=== PATIENT | female | born 1935 | race Caucasian/White ===

== ENCOUNTER → 2018-03-23 09:03 | Outpatient (CLI) | payer MEDICARE, SELFPAY ==
[2018-03-23 10:32] LABS: Alanine Aminotransferase 28 IU/L (9-52); Albumin 4.2 g/dL (3.5-5.0); Albumin Globulin Ratio 1.6 (1.0-2.8); Alkaline Phosphatase 52 U/L (38-126); Aspartate Aminotransferase 24 IU/L (14-36); Bilirubin Total 0.8 mg/dL (0.2-1.3); Blood Urea Nitrogen 14 mg/dL (7-17); Calcium 9.2 mg/dL (8.4-10.2); Carbon Dioxide 26 mmol/L (22-32); Chloride 101 mmol/L (98-107); Estimated Glomerular Filt Rate > 60.0 mL/min (>60); Globulin 2.7 g/dL (1.7-4.1); Glucose 92 mg/dL (80-110); HEMOLYSIS < 15 (0-50); Magnesium 1.7 mg/dL (1.6-2.3); Potassium 5.3 mmol/L (3.4-5.1); Sodium 136 mmol/L (137-145); Total Protein 6.9 g/dL (6.3-8.2)
[2018-03-27 09:48] LABS: Lipoprofile NMR SEE SEPERATE REPORT
== END ==
PROVIDERS: Family Provider Physician Assistant; PCP Physician Assistant; Visit Provider Specialist
DX: E78.5 Hyperlipidemia, unspecified (principal); I48.0 Paroxysmal atrial fibrillation
CPT/HCPCS: 36415; 80053; 83704; 83735

== ENCOUNTER → 2018-07-05 09:52 | Outpatient (CLI) | payer MEDICARE, SELFPAY ==
--- NOTE | 2018-07-05 | DI.MG.S_ITS ---
BILATERAL DIGITAL SCREENING MAMMOGRAM 3D/2D WITH CAD: 07/05/2018 CLINICAL: Routine screening. Comparison is made to exams dated: 07/01/2017 mammogram, 06/30/2016 mammogram, and 06/30/2015 mammogram - [facility]. The tissue of both breasts is heterogeneously dense. This may lower the sensitivity of mammography. Current study was also evaluated with a Computer Aided Detection (CAD) system. There are benign vascular calcifications and calcifications in both breasts. No significant masses, calcifications, or other findings are seen in either breast. There has been no significant interval change. IMPRESSION: There is no mammographic evidence of malignancy. A 1 year screening mammogram is recommended. This exam was interpreted at Station ID: [id number]. NOTE: For mammograms, a report in lay terms will be sent to the patient. Approximately 15% of breast malignancies will not be visualized mammographically. In the management of a palpable breast mass, a negative mammogram must not discourage biopsy of a clinically suspicious lesion. Electronically Signed By: Olga muller/melisa:07/05/2018 11:25:51 copy to: Kristy Peterson copy to: NIK MILLER letter sent: Normal Exam ACR BI-RADS Category 2: Benign Finding(s) 3342F
== END ==
PROVIDERS: Family Provider Nurse Practitioner Family; PCP Physician Assistant; Visit Provider Physician Assistant
DX: Z12.31 Encounter for screening mammogram for malignant neoplasm of breast (principal)
CPT/HCPCS: 77063; 77067

== ENCOUNTER → 2018-07-26 15:44 | Outpatient (CLI) | payer MEDICARE, SELFPAY ==
[2018-07-26 16:47] LABS: Blood Urea Nitrogen 12 mg/dL (7-17); Calcium 9.1 mg/dL (8.4-10.2); Carbon Dioxide 26 mmol/L (22-32); Chloride 100 mmol/L (98-107); Estimated Glomerular Filt Rate > 60.0 mL/min (>60); Glucose 90 mg/dL (80-110); HEMOLYSIS < 15 (0-50); Magnesium 1.8 mg/dL (1.6-2.3); Potassium 4.7 mmol/L (3.4-5.1); Sodium 135 mmol/L (137-145)
== END ==
PROVIDERS: Family Provider Nurse Practitioner Family; PCP Physician Assistant; Visit Provider Specialist
DX: I48.0 Paroxysmal atrial fibrillation (principal)
CPT/HCPCS: 36415; 80048; 83735

== ENCOUNTER → 2019-06-28 14:38 | Outpatient (CLI) | payer MEDICARE, SELFPAY ==
[2019-06-28 15:14] LABS: BUN Creatinine Ratio 23.2 (6-22); Blood Urea Nitrogen 13 mg/dL (7-17); Calcium 8.8 mg/dL (8.4-10.2); Carbon Dioxide 24 mmol/L (22-32); Chloride 99 mmol/L (98-107); Estimated Glomerular Filt Rate > 60.0 mL/min (>60); Glucose 120 mg/dL (80-110); Potassium 4.6 mmol/L (3.4-5.1); Sodium 133 mmol/L (137-145)
[2019-07-02 14:52] LABS: HEMOLYSIS 19 (0-50); Magnesium 1.9 mg/dL (1.6-2.3)
== END ==
PROVIDERS: Family Provider Nurse Practitioner Family; PCP Physician Assistant; Referring Provider Physician Assistant Medical; Visit Provider Physician Assistant Medical
DX: I10 Essential (primary) hypertension (principal)
CPT/HCPCS: 36415; 80048; 83735

== ENCOUNTER → 2019-09-01 08:14 | Outpatient (CLI) | payer MEDICARE, SELFPAY ==
[2019-09-01 09:42] LABS: Alanine Aminotransferase 23 IU/L (<35); Albumin 4.2 g/dL (3.5-5.0); Albumin Globulin Ratio 1.4 (1.0-2.8); Alkaline Phosphatase 46 U/L (38-126); Aspartate Aminotransferase 29 IU/L (14-36); BUN Creatinine Ratio 18.8 (6-22); Bilirubin Total 0.7 mg/dL (0.2-1.3); Blood Urea Nitrogen 12 mg/dL (7-17); Calcium 9.2 mg/dL (8.4-10.2); Carbon Dioxide 28 mmol/L (22-32); Chloride 99 mmol/L (98-107); Cholesterol 129 mg/dL (140-199); Estimated Glomerular Filt Rate > 60.0 mL/min (>60); Glucose 97 mg/dL (80-110); HDL Cholesterol 42 mg/dL (40-60); HEMOLYSIS < 15 (0-50); LDL Cholesterol Calculated 69 mg/dL (<100); Magnesium 1.9 mg/dL (1.6-2.3); Potassium 4.8 mmol/L (3.4-5.1); Sodium 134 mmol/L (137-145); Total Protein 7.2 g/dL (6.3-8.2); Triglycerides 88 mg/dL (35-150)
== END ==
PROVIDERS: Family Provider Nurse Practitioner Family; PCP Physician Assistant; Referring Provider Specialist; Visit Provider Specialist
DX: E78.5 Hyperlipidemia, unspecified (principal); I48.0 Paroxysmal atrial fibrillation
CPT/HCPCS: 36415; 80053; 80061; 83735

== ENCOUNTER → 2019-09-27 12:34 | Outpatient (CLI) | payer MEDICARE, SELFPAY ==
--- NOTE | 2019-09-27 | DI.US.S_ITS ---
PROCEDURE: US CAROTID DOPPLER BI INDICATIONS: RETUNAL HEMORRHAGE TECHNIQUE: Color and pulse Doppler interrogation was performed of both carotid systems, with image documentation and velocity measurements. COMPARISON: None. FINDINGS: Stenosis calculations are based on SRU (Society of Radiologists in Ultrasound) criteria. Right side: Brachial blood pressure: Not obtained. Common carotid artery peak systolic velocity: 81 cm/sec. Internal carotid artery peak systolic velocity: 103 cm/sec. Internal carotid artery end diastolic velocity: 15 cm/sec. External carotid artery peak systolic velocity: 118 cm/sec. ICA/CCA peak systolic ratio: 1.3. Contreras scale imaging description: Mild scattered plaque. Percent internal carotid artery stenosis: Less than 50%. Vertebral artery: Flow direction is antegrade. Left side: Brachial blood pressure: Not obtained. Common carotid artery peak systolic velocity: 74 cm/sec. Internal carotid artery peak systolic velocity: 132 cm/sec. Internal carotid artery end diastolic velocity: 43 cm/sec. External carotid artery peak systolic velocity: 89 cm/sec. ICA/CCA peak systolic ratio: 1.8. Contreras scale imaging description: Mild scattered plaque. Percent internal carotid artery stenosis: 50-69% stenosis. Vertebral artery: Flow direction is antegrade. IMPRESSION: 1. 50-69% left internal carotid artery stenosis and less than 50% right internal carotid artery stenosis. Dictated by: Duran Parson [facility] Interpreted: Tu Bermeo MD on 09/27/2019 at 13:41 Approved by: Tu Bermeo M.D. on 09/27/2019 at 15:26
== END ==
PROVIDERS: Family Provider Nurse Practitioner Family; PCP Physician Assistant Medical; Referring Provider Specialist; Visit Provider Specialist
DX: H35.60 Retinal hemorrhage, unspecified eye (principal); I65.23 Occlusion and stenosis of bilateral carotid arteries
CPT/HCPCS: 93880

== ENCOUNTER → 2020-04-01 07:44 | Outpatient (CLI) | payer MEDICARE, SELFPAY ==
[2020-04-01 09:05] LABS: BUN Creatinine Ratio 21.9 (6-22); Blood Urea Nitrogen 16 mg/dL (7-17); Calcium 8.4 mg/dL (8.4-10.2); Carbon Dioxide 29 mmol/L (22-32); Chloride 100 mmol/L (98-107); Estimated Glomerular Filt Rate > 60.0 mL/min (>60); Glucose 95 mg/dL (80-110); HEMOLYSIS < 15 (0-50); Magnesium 1.8 mg/dL (1.6-2.3); Potassium 4.6 mmol/L (3.4-5.1); Sodium 132 mmol/L (137-145)
== END ==
PROVIDERS: Family Provider Nurse Practitioner Family; PCP Nurse Practitioner Family; Referring Provider Nurse Practitioner Family; Visit Provider Specialist
DX: R06.00 Dyspnea, unspecified (principal); I25.5 Ischemic cardiomyopathy
CPT/HCPCS: 36415; 80048; 83735

== ENCOUNTER → 2020-04-22 08:10 | Outpatient (CLI) | payer MEDICARE, SELFPAY ==
[2020-04-22 09:39] LABS: Magnesium 1.9 mg/dL (1.6-2.3)
[2020-04-22 10:27] LABS: Thyroid Stimulating Hormone 5.17 uIU/mL (0.47-4.68)
[2020-04-23 08:42] LABS: Alanine Aminotransferase 61 IU/L (<35); Albumin 3.7 g/dL (3.5-5.0); Albumin Globulin Ratio 1.4 (1.0-2.8); Alkaline Phosphatase 52 U/L (38-126); Aspartate Aminotransferase 46 IU/L (14-36); BUN Creatinine Ratio 19.2 (6-22); Bilirubin Total 0.7 mg/dL (0.2-1.3); Blood Urea Nitrogen 15 mg/dL (7-17); Calcium 8.6 mg/dL (8.4-10.2); Carbon Dioxide 30 mmol/L (22-32); Chloride 100 mmol/L (98-107); Estimated Glomerular Filt Rate > 60.0 mL/min (>60); Globulin 2.7 g/dL (1.7-4.1); Glucose 97 mg/dL (80-110); HEMOLYSIS < 15 (0-50); Potassium 4.9 mmol/L (3.4-5.1); Sodium 132 mmol/L (137-145); Total Protein 6.4 g/dL (6.3-8.2)
== END ==
PROVIDERS: Family Provider Nurse Practitioner Family; PCP Nurse Practitioner Family; Referring Provider Specialist; Visit Provider Specialist
DX: E78.00 Pure hypercholesterolemia, unspecified (principal); I48.0 Paroxysmal atrial fibrillation; I42.1 Obstructive hypertrophic cardiomyopathy
CPT/HCPCS: 36415; 80053; 83735; 84443

== ENCOUNTER → 2020-05-13 07:15 | Outpatient (CLI) | payer MEDICARE, SELFPAY ==
[2020-05-13 08:51] LABS: Alanine Aminotransferase 45 IU/L (<35); Albumin 4.1 g/dL (3.5-5.0); Albumin Globulin Ratio 1.4 (1.0-2.8); Alkaline Phosphatase 48 U/L (38-126); Aspartate Aminotransferase 38 IU/L (14-36); BUN Creatinine Ratio 21.7 (6-22); Bilirubin Total 0.6 mg/dL (0.2-1.3); Blood Urea Nitrogen 15 mg/dL (7-17); Calcium 8.7 mg/dL (8.4-10.2); Carbon Dioxide 29 mmol/L (22-32); Chloride 98 mmol/L (98-107); Estimated Glomerular Filt Rate > 60.0 mL/min (>60); Globulin 2.9 g/dL (1.7-4.1); Glucose 97 mg/dL (80-110); HEMOLYSIS < 15 (0-50); Potassium 4.3 mmol/L (3.4-5.1); Sodium 131 mmol/L (137-145)
[2020-05-13 09:16] LABS: Thyroid Stimulating Hormone 6.93 uIU/mL (0.47-4.68)
== END ==
PROVIDERS: Family Provider Nurse Practitioner Family; PCP Nurse Practitioner Family; Referring Provider Specialist; Visit Provider Specialist
DX: I48.0 Paroxysmal atrial fibrillation (principal)
CPT/HCPCS: 36415; 80053; 83735; 84443

== ENCOUNTER → 2020-07-01 08:06 | Outpatient (CLI) | payer MEDICARE, SELFPAY ==
[2020-07-01 09:58] LABS: Alanine Aminotransferase 38 IU/L (<35); Albumin 3.8 g/dL (3.5-5.0); Albumin Globulin Ratio 1.4 (1.0-2.8); Alkaline Phosphatase 57 U/L (38-126); Aspartate Aminotransferase 37 IU/L (14-36); BUN Creatinine Ratio 17.1 (6-22); Bilirubin Total 0.4 mg/dL (0.2-1.3); Blood Urea Nitrogen 12 mg/dL (7-17); Calcium 8.8 mg/dL (8.4-10.2); Carbon Dioxide 29 mmol/L (22-32); Chloride 96 mmol/L (98-107); Estimated Glomerular Filt Rate > 60.0 mL/min (>60); Globulin 2.7 g/dL (1.7-4.1); Glucose 88 mg/dL (80-110); HEMOLYSIS < 15 (0-50); Potassium 4.8 mmol/L (3.4-5.1); Sodium 132 mmol/L (137-145); Total Protein 6.5 g/dL (6.3-8.2)
[2020-07-01 10:02] LABS: Alanine Aminotransferase 38 IU/L (<35); Albumin 3.9 g/dL (3.5-5.0); Albumin Globulin Ratio 1.4 (1.0-2.8); Alkaline Phosphatase 55 U/L (38-126); Aspartate Aminotransferase 38 IU/L (14-36); Bilirubin Total 0.5 mg/dL (0.2-1.3); Bilirubin Unconjugated 0.5 mg/dL (0.0-1.1); Globulin 2.7 g/dL (1.7-4.1); HEMOLYSIS < 15 (0-50); Total Protein 6.6 g/dL (6.3-8.2)
[2020-07-01 10:28] LABS: TSH w/ Reflex to FT4 6.07 uIU/mL (0.47-4.68)
[2020-07-01 10:57] LABS: Free T4, Direct Thyroxine 1.05 ng/dL (0.78-2.19)
== END ==
PROVIDERS: Family Provider Nurse Practitioner Family; PCP Nurse Practitioner Family; Referring Provider Specialist; Visit Provider Specialist
DX: E78.00 Pure hypercholesterolemia, unspecified (principal); I48.0 Paroxysmal atrial fibrillation; R79.89 Other specified abnormal findings of blood chemistry; R74.8 Abnormal levels of other serum enzymes
CPT/HCPCS: 36415; 80053; 80076; 83735; 84439; 84443

== ENCOUNTER → 2020-08-26 16:44 | Outpatient (CLI) | payer MEDICARE, SELFPAY ==
[2020-08-26 18:51] LABS: Free T4, Direct Thyroxine 1.52 ng/dL (0.78-2.19)
[2020-08-26 19:05] LABS: Thyroid Stimulating Hormone 2.43 uIU/mL (0.47-4.68)
== END ==
PROVIDERS: Family Provider Nurse Practitioner Family; PCP Nurse Practitioner Family; Referring Provider Family Medicine; Visit Provider Family Medicine
DX: E03.9 Hypothyroidism, unspecified (principal)
CPT/HCPCS: 36415; 84439; 84443

== ENCOUNTER 2020-10-11 19:07 | Emergency (ER) | payer MEDICARE, SELFPAY ==
[2020-10-11 19:35] VITALS: BP 182/79; PULSE 60; RESP 18; TEMP 36.4; O2SAT 96; BMI 25.2
--- NOTE | 2020-10-11 22:06 | ED.GENADULT ---
HPI - General Adult General Chief complaint: Eye Problems Stated complaint: lt eye irritation Time Seen by Provider: 10/11/20 21:58 Source: patient Mode of arrival: Ambulatory Limitations: no limitations History of Present Illness HPI narrative: Patient is an 85-year-old female here for evaluation of left eye irritation. States she has never had surgery on this signed the past. Over the past 24 hours or so she has noticed redness especially on her left upper eyelid irritation with this area. No change in vision. Has not tried anything for symptoms prior to arrival Related Data Home Medications Medication Instructions Recorded Confirmed metoprolol succinate 25 mg 25 mg PO DAILY 08/04/17 08/26/20 tablet,extended release 24 hr apixaban 5 mg tablet (Eliquis) 5 mg PO BID 08/22/18 08/26/20 amiodarone 200 mg tablet 200 mg PO tab 06/06/20 08/26/20 furosemide 20 mg tablet 20 mg PO tab 06/06/20 08/26/20 rosuvastatin 5 mg tablet 5 mg PO DAILY tab 06/06/20 08/26/20 verapamil 120 mg tablet,extended 120 mg PO tab 06/06/20 08/26/20 release Previous Rx's Medication Instructions Recorded Disabled Parking Permit ea #1 01/05/17 estradiol 0.1 mg/24 hr semiweekly 0.1 mg TOPICAL .COMPLEX #24 patch 08/08/19 transdermal patch (Nuria) levothyroxine 50 mcg tablet See Rx Instructions .ROUTE 09/25/20 .COMPLEX #90 tab Allergies Allergy/AdvReac Type Severity Reaction Status Date / Time codeine [CODEINE] Allergy Mild NAUSEA AND Verified 10/11/20 19:35 VOMITING Review of Systems Constitutional Constitutional: Denies fever(s) and Denies frequent falls Eyes Comments: Left eye irritation, no pain, no vision changes, no foreign body sensation, some crusting to the area ENT Comments: No sore throat or mouth pain Integumentary/Breasts Comments: No rashes or changes to the skin Neurologic Neurologic: Denies frequent falls Hematologic/Lymphatic On Anticoagulants: Yes Patient History Medical History Elevated liver enzymes Elevated TSH Hypothyroidism Surgical History (Updated 07/19/17 @ 05:19 by Conversion Provider) Status post hysterectomy Social History (Reviewed 10/12/20 @ 05:46 by MARIA GUADALUPE De Los Santos Smoking Status: Never smoker alcohol intake: current (1 drink per week ) substance use type: does not use Smoking Status: Never smoker Substance Use Type: does not use Exam Initial Vital Signs Initial Vital Signs: Vital Signs Temperature 97.5 F L 10/11/20 19:35 Pulse Rate 60 10/11/20 19:35 Respiratory Rate 18 10/11/20 19:35 Blood Pressure 182/79 H 10/11/20 19:35 Pulse Oximetry 96 10/11/20 19:35 Const General: cooperative and healthy appearing [facility] Head: normal to inspection and normocephalic Face and sinus: normal facial exam Eyes Conjunctivae: conjunctivae normal Pupils: PERRL EOM: EOM intact bilaterally Other: Her right eye is unremarkable. Left eye has a redness in the upper eyelid had nasal aspect. Consistent with a stye/40 all lung. No foreign body noted with eversion of the upper eyelid. Resp Effort & Inspection: normal respiratory effort Cardio Rate: regular rate Skin General: no rashes or lesions noted Neuro General: patient alert, patient awake and moves all extremities Extrem General: capillary refill normal Course Orders Ordered: Discontinued Medications Fluorescein Sodium (Fluorescein 1 Mg Strip) 1 mg EYE-LEFT NOW ONE Stop: 10/11/20 19:33 Last Admin: 10/11/20 22:12 Dose: Not Given Documented by: SABINA Proparacaine HCl (Proparacaine 0.5% Ophth Graciela) 1 drops EYE-LEFT NOW ONE Stop: 10/11/20 19:33 Last Admin: 10/11/20 22:12 Dose: Not Given Documented by: SABINA Vital Signs Vital signs: Vital Signs - 8 hr 10/11/20 22:11 Pulse Rate 60 Blood Pressure 186/80 H Pulse Oximetry 97 Medical Decision Making MDM Narrative Medical decision making narrative: Her physical exam today is consistent with a stye/hordeolum in her left upper eyelid. Low suspicion for foreign body. Low suspicion for glaucoma or other ocular issues. There is also little concerned about a preseptal cellulitis given her presentation. We did discuss conservative measures for this issue. She was given return precautions and follow-up instructions. She expressed understanding and agreement. Discharge Plan Departure Patient Disposition: Home Clinical Impression: Hordeolum externum (stye) Instructions: Hordeolum Activity Restrictions/Additional Instructions: I recommend that you continue to use warm compresses to your left eye. On Tuesday contact your eye doctor for an appointment. Return to the emergency department for any new or worsening symptoms Prescriptions: No Action metoprolol succinate 25 mg tablet extended release 24 hr 25 mg PO DAILY RF: 0 Disabled Parking Permit Qty: 1 RF: 0 estradiol [Nuria] 0.1 mg/24 hr patch semiweekly 0.1 mg Topical .COMPLEX Qty: 24 RF: 3 levothyroxine 50 mcg tablet See Rx Instructions .ROUTE .COMPLEX Qty: 90 RF: 2 Eliquis 5 mg tablet 5 mg PO BID RF: 0 rosuvastatin 5 mg tablet 5 mg PO DAILY RF: 0 furosemide 20 mg tablet 20 mg PO RF: 0 amiodarone 200 mg tablet 200 mg PO RF: 0 verapamil 120 mg tablet extended release 120 mg PO RF: 0 Referrals: Kristy Peterson ARNP [Primary Care Provider] -
[2020-10-11 22:11] VITALS: BP 186/80; PULSE 60; O2SAT 97
== END 2020-10-11 22:14 | disposition home or self-care (01) ==
PROVIDERS: Emergency Provider Emergency Medicine; Family Provider Nurse Practitioner Family; PCP Nurse Practitioner Family
DX: H00.014 Hordeolum externum left upper eyelid (principal)
CPT/HCPCS: 99281

== ENCOUNTER → 2020-12-05 10:47 | Outpatient (CLI) | payer MEDICARE, SELFPAY ==
[2020-12-05 13:24] LABS: Alanine Aminotransferase 52 IU/L (<35); Albumin 3.9 g/dL (3.5-5.0); Albumin Globulin Ratio 1.4 (1.0-2.8); Alkaline Phosphatase 75 U/L (38-126); Aspartate Aminotransferase 41 IU/L (14-36); BUN Creatinine Ratio 17.1 (6-22); Bilirubin Total 0.4 mg/dL (0.2-1.3); Blood Urea Nitrogen 13 mg/dL (7-17); Calcium 8.8 mg/dL (8.4-10.2); Carbon Dioxide 32 mmol/L (22-32); Chloride 100 mmol/L (98-107); Estimated Glomerular Filt Rate > 60.0 mL/min (>60); Globulin 2.8 g/dL (1.7-4.1); Glucose 93 mg/dL (80-110); HEMOLYSIS < 15 (0-50); Magnesium 2.1 mg/dL (1.6-2.3); Potassium 4.4 mmol/L (3.4-5.1); Sodium 134 mmol/L (137-145); Total Protein 6.7 g/dL (6.3-8.2)
[2020-12-05 13:53] LABS: Thyroid Stimulating Hormone 2.59 uIU/mL (0.47-4.68)
== END ==
PROVIDERS: Family Provider Nurse Practitioner Family; PCP Nurse Practitioner Family; Referring Provider Specialist; Visit Provider Specialist
DX: I48.0 Paroxysmal atrial fibrillation (principal); E78.00 Pure hypercholesterolemia, unspecified
CPT/HCPCS: 36415; 80053; 83735; 84443

== ENCOUNTER 2020-12-10 10:30 | Emergency (ER) | payer MEDICARE, SELFPAY ==
--- NOTE | 2020-12-10 10:43 | ED_ITS ---
HPI - General Adult General Chief complaint: Fall Stated complaint: pain in hip, possible break Time Seen by Provider: 12/10/20 10:35 Source: patient Mode of arrival: Ambulatory History of Present Illness HPI narrative: Patient is an 85-year-old female. On Tuesday she fell. She states she has exactly unsure how she fell but she thinks that she potentially tripped or just lost her balance. She did hit her head. There was no loss of c onscious. She is on anticoagulation. She also hurt her left hip. She did not come in to be evaluated that time. Since the fall she has had continued left hip discomfort. She reports no other injuries from the event. Has no headache. No vision changes. No upper extremity pain. No right lower extremity pain. Related Data Home Medications Medication Instructions Recorded Confirmed metoprolol succinate 25 mg 25 mg PO DAILY 08/04/17 08/26/20 tablet,extended release 24 hr apixaban 5 mg tablet (Eliquis) 5 mg PO BID 08/22/18 08/26/20 amiodarone 200 mg tablet 200 mg PO tab 06/06/20 08/26/20 furosemide 20 mg tablet 20 mg PO tab 06/06/20 08/26/20 rosuvastatin 5 mg tablet 5 mg PO DAILY tab 06/06/20 08/26/20 verapamil 120 mg tablet,extended 120 mg PO tab 06/06/20 08/26/20 release Previous Rx's Medication Instructions Recorded Disabled Parking Permit ea #1 01/05/17 estradiol 0.1 mg/24 hr semiweekly 0.1 mg TOPICAL .COMPLEX #24 patch 08/08/19 transdermal patch (Nuria) levothyroxine 50 mcg tablet See Rx Instructions .ROUTE 09/25/20 .COMPLEX #90 tab Allergies Allergy/AdvReac Type Severity Reaction Status Date / Time codeine [CODEINE] Allergy Mild NAUSEA AND Verified 12/10/20 10:46 VOMITING Review of Systems Constitutional Constitutional: Denies fever(s), Denies frequent falls and Denies headache(s) Eyes Eyes: Reports system reviewed and no additional complaints, except as documented ENT Ears, Nose, Mouth, and Throat: Reports system reviewed and no additional complaints, except as documented, Denies vertigo, Denies dizziness and Denies headache(s) Cardiovascular Cardiovascular: Reports system reviewed and no additional complaints, except as documented Respiratory Respiratory: Reports system reviewed and no additional complaints, except as documented Gastrointestinal Gastrointestinal: Reports system reviewed and no additional complaints, except as documented Musculoskeletal Musculoskeletal: Reports system reviewed and no additional complaints, except as documented and Reports as per HPI Integumentary/Breasts Skin/Breast: Reports system reviewed and no additional complaints, except as documented Neurologic Neurologic: Denies confusion, Denies vertigo, Denies dizziness, Denies frequent falls and Denies headache(s) Psychiatric Psychiatric: Denies confusion Hematologic/Lymphatic On Anticoagulants: Yes Allergic/Immunologic Allergic/Immunologic: Reports system reviewed and no additional complaints, except as documented Patient History Medical History Elevated liver enzymes Elevated TSH Hypothyroidism Surgical History (Updated 07/19/17 @ 05:19 by Conversion Provider) Status post hysterectomy Social History Smoking Status: Never smoker alcohol intake: current (1 drink per week ) substance use type: does not use Smoking Status: Never smoker Substance Use Type: does not use Exam Initial Vital Signs Initial Vital Signs: Vital Signs Temperature 97.1 F L 12/10/20 10:46 Pulse Rate 60 12/10/20 10:46 Respiratory Rate 17 12/10/20 10:46 Blood Pressure 121/71 12/10/20 10:46 Pulse Oximetry 94 12/10/20 10:46 Const General: cooperative, healthy appearing, comfortable and well developed [facility] Head: normal to inspection, normocephalic and No abrasion Nose: external nose normal Face and sinus: normal facial exam Resp Effort & Inspection: normal respiratory effort Cardio Rate: regular rate GI Inspection: normal to inspection Palpation: soft and No tender Back/Spine/Pelvis Cervical Spine: No cervical muscular tenderness and No cervical spinal tenderness Skin Lesions: no lesions Rashes: no rashes Neuro General: patient alert, patient awake, patient oriented x3 and moves all extremities Extrem General: normal to inspection and capillary refill normal Other: Bilateral upper extremities unremarkable. Patient's left ankle left knee unremarkable. Has some tenderness over the lateral aspect of the left hip. Can flex and extend internally and externally rotate the left hip without pain. Her right lower extremities unremarkable. Psych Appearance: grossly normal and well kempt Course Orders Ordered: ED Orders 12/10/20 10:43 XR hip w pel if done LT 2V Stat Vital Signs Vital signs: Vital Signs - 8 hr 12/10/20 10:46 Temperature 97.1 F L Pulse Rate 60 Respiratory Rate 17 Blood Pressure 121/71 Pulse Oximetry 94 Medical Decision Making Imaging Data Extremity x-ray #1: Radiologist's Impression: [address] [id number] ReportSigned Patient: Kim Nelson AMR#: [id number]: 1935cct:[id number]/Sex: 85 / FDate of Service: 12/10/20Loc: EDAccession Number: [id number] Procedure: XR hip w pel if done LT 2V Ordering Provider: Vladimir Baez D.O. PROCEDURE: XR HIP W PEL IF DONE LT 2V INDICATIONS: L hip pain after fall TECHNIQUE: AP pelvis with lateral view(s) of the left hip(s). COMPARISON: None. FINDINGS: Bones: No fractures or dislocations. Pelvic ring appears intact. No suspi cious bony lesions. Moderate bilateral degenerative hip joint space narrowing with areas of subchondral sclerosis and periarticular osteophytes. Soft tissues: The visualized bowel gas pattern is normal. No suspicious soft tissue calcifications. IMPRESSION: No visualized acute fracture or dislocation. However, if clinical concern and/or pain persist, short interval imaging followup in 7-10 days is recommended, as occult injury cannot be definitively excluded. Dictated by: Jennifer Franco M.D. on 12/10/2020 at 11:11 Approved by: Jennifer Franco M.D. on 12/10/2020 at 11:13 [facility] Narrative Medical decision making narrative: Patient's right hip x-ray shows no signs of fracture. She has been ambulatory for the past couple days. I feel that we can hold on a CT scan for now. She did fall and hit her head. She is on anticoagulation. Patient is alert oriented x3. GCS of 15. We did discuss obtaining a head CT but the patient would like to hold on this. She states it has been several days since she hit her head is not having any other symptoms associated with a potential head bleed. 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 No further workup needed here in the emergency department. No other injuries reported from the patient or found on the exam. She was given return precautions. She expressed understanding agreement. Discharge Plan Departure Patient Disposition: Home Clinical Impression: Left hip pain Instructions: How to Prevent Falls Activity Restrictions/Additional Instructions: recommend that you continue to take all of your medications as directed. There were no fractures noted on the x-rays today. Contact your primary doctor for a follow-up. Return to the emergency department for any new or worsening symptoms Prescriptions: No Action metoprolol succinate 25 mg tablet extended release 24 hr 25 mg PO DAILY RF: 0 Disabled Parking Permit Qty: 1 RF: 0 estradiol [Nuria] 0.1 mg/24 hr patch semiweekly 0.1 mg Topical .COMPLEX Qty: 24 RF: 3 levothyroxine 50 mcg tablet See Rx Instructions .ROUTE .COMPLEX Qty: 90 RF: 2 Eliquis 5 mg tablet 5 mg PO BID RF: 0 rosuvastatin 5 mg tablet 5 mg PO DAILY RF: 0 furosemide 20 mg tablet 20 mg PO RF: 0 amiodarone 200 mg tablet 200 mg PO RF: 0 verapamil 120 mg tablet extended release 120 mg PO RF: 0 Referrals: Shaheen Ledesma, [Primary Care Provider] -
[2020-12-10 10:46] VITALS: BP 121/71; PULSE 60; RESP 17; TEMP 36.2; O2SAT 94; BMI 24.7
[2020-12-10 11:31] VITALS: BP 119/78; PULSE 60; RESP 16; O2SAT 95
== END 2020-12-10 11:32 | disposition home or self-care (01) ==
PROVIDERS: Emergency Provider Emergency Medicine; Family Provider Nurse Practitioner Family; PCP Family Medicine
DX: M25.552 Pain in left hip (principal); S09.90XA Unspecified injury of head, initial encounter; W19.XXXA Unspecified fall, initial encounter
CPT/HCPCS: 73502; 81003; 99283; 99284

== ENCOUNTER → 2021-04-02 10:01 | Outpatient (CLI) | payer MEDICARE, SELFPAY ==
[2021-04-02 12:08] LABS: Alanine Aminotransferase 31 IU/L (<35); Albumin 4.2 g/dL (3.5-5.0); Albumin Globulin Ratio 1.5 (1.0-2.8); Alkaline Phosphatase 62 U/L (38-126); Aspartate Aminotransferase 33 IU/L (14-36); BUN Creatinine Ratio 20.7 (6-22); Bilirubin Total 0.5 mg/dL (0.2-1.3); Blood Urea Nitrogen 17 mg/dL (7-17); Calcium 9.3 mg/dL (8.4-10.2); Carbon Dioxide 30 mmol/L (22-32); Chloride 99 mmol/L (98-107); Estimated Glomerular Filt Rate > 60.0 mL/min (>60); Globulin 2.8 g/dL (1.7-4.1); Glucose 94 mg/dL (80-110); HEMOLYSIS < 15 (0-50); Magnesium 2.1 mg/dL (1.6-2.3); Potassium 5.1 mmol/L (3.4-5.1); Sodium 135 mmol/L (137-145)
[2021-04-02 12:39] LABS: Thyroid Stimulating Hormone 2.54 uIU/mL (0.47-4.68)
[2021-04-06 03:07] LABS: Cholesterol, Total 162 mg/dL (100-199); HDL-Cholesterol 64 mg/dL (>39); HDL-Particle (Total) 31.7 umol/L (>=30.5); Historical Reading Comment: (.); LDL Particle 824 nmol/L (<1000); LDL Size 21.2 nm (>20.5); LDL-Cholsterol 83 mg/dL (0-99); LP-IR Score <25 (<=45); Small LDL- Particle 199 nmol/L (<=527); Triglycerides 80 mg/dL (0-149)
== END ==
PROVIDERS: Family Provider Nurse Practitioner Family; PCP Nurse Practitioner Family; Referring Provider Physician Assistant Medical; Visit Provider Specialist
DX: Z79.899 Other long term (current) drug therapy (principal); E78.00 Pure hypercholesterolemia, unspecified; I48.0 Paroxysmal atrial fibrillation
CPT/HCPCS: 36415; 80053; 80061; 83704; 83735; 84443

== ENCOUNTER → 2021-04-09 11:39 | Outpatient (CLI) | payer MEDICARE, SELFPAY ==
--- NOTE | 2021-04-09 11:42 | DI.ECHO.S_ITS ---
[facility]+ : : [address] : : : : [id number] : : : : Phone: [phone]+ Echocardiogram Report + + :Name: JOANN AMAYA Study Date: 04/09/2021 Height: 60 in : :[facility] ReadingLocation: Weight: 140 lb : : Gender: Female BSA: 1.6 m2 : :: 1935 Age: 86 yrs BP: 130/88 mmHg: :Reason For Study: Hypertrophic cardiomyopathy : :Ordering Physician: : :JOVAN Performed By: Alberto Casey : :Referring: NIK MILLER : + + Interpretation Summary Left ventricular systolic function remains preserved with an estimated ejection fraction of 60 to 65% with a dyssynchronous contraction pattern and apical hypokinesis consistent with pacemaker activation but appears unchanged from the previous study. There is moderate concentric LVH that is more prominent within the septum but there is no longer any evidence of a significant left ventricular outflow tract obstruction, and thus improved from the previous study. Left ventricular volumes are relatively small but likely unchanged. Diastolic function is challenging to assess but there is evidence for a pseudonormalized pattern of diastolic filling, suggesting elevated filling pressures, perhaps slightly higher compared to the previous study but otherwise there has been no significant change. The right ventricle appears normal and unchanged from previous study. Right ventricular systolic pressure cannot be adequately assessed but CVP is likely around 3 mmHg. There is mild left atrial enlargement which is significantly smaller compared to the previous study. Right atrial size remains normal and unchanged. There is mild to moderate mitral regurgitation and mild to moderate tricuspid regurgitation, the latter slightly more prominent compared to the previous study. There is mild aortic valve sclerosis with mild aortic regurgitation that is unchanged from the previous exam. The ascending aorta measures 3.3 cm compared to 3.5 cm previously. Procedure: A two-dimensional transthoracic echocardiogram with color flow and Doppler was performed. The study quality was technically adequate. Comparison is made with the echocardiogram of 08/21/2019. The patient has a paced rhythm. Left Ventricle: The left ventricular cavity is small. There is moderate concentric left ventricular hypertrophy. There is severe asymmetric left ventricular hypertrophy. There is no echo evidence for significant left ventricular outflow tract obstruction. This is improved compared to the previous study. Overall left ventricular systolic function is preserved. The ejection fraction is estimated to be 60-65%. There is a mild dyssynchronous contraction pattern due to the paced rhythm. Apical wall motion abnormality may reflect pacemaker activation. This is unchanged compared to the previous study. Diastolic parameters suggest a pseudonormalization pattern, consistent with probable elevated filling pressures. This is slightly higher compared to the previous study. Right Ventricle: There is a pacemaker lead in the right ventricle. The right ventricle is normal in size and function. This is unchanged compared to the previous study. Atria: The left atrium is mildly dilated. The left atrium has significantly decreased in size since the prior echo exam. There is a catheter/pacemaker lead seen in the right atrium. Right atrial size is normal. Right atrial volume index is 21 mL/mA?. This is unchanged compared to the previous study. There is no Doppler evidence for an interatrial shunt. Mitral Valve: There is moderate mitral annular calcification. The mitral valve leaflets appear mildly thickened, but open well. There is mild to moderate mitral regurgitation. This is unchanged compared to the previous study. Aortic Valve: The aortic valve is trileaflet. The aortic valve is slightly calcified. The aortic valve opens well. There is mild aortic regurgitation. There is an eccentric jet of aortic insufficiency directed against the septum. This is unchanged compared to the previous study. Tricuspid Valve: The tricuspid valve is normal. There is mild to moderate tricuspid regurgitation. This is slightly more prominent compared to the previous study. Pulmonary artery pressures cannot be estimated because of the lack of a measurable TR jet velocity but the IVC suggests a CVP of around 3 mmHg. Pulmonic Valve: The pulmonic valve is normal in structure and function. Great Vessels: The aortic root is normal size. The ascending aorta is normal in size. The aortic arch is normal in size. The IVC is of normal diameter and collapses greater than 50% with a sniff. This suggests a low right atrial pressure of 3 mm Hg. Pericardium/ Pleura There is no pericardial effusion. There is no pleural effusion. MMode/2D Measurements & Calculations LVIDd: 3.6 cm LVOT diam: 2.0 cm LVIDs: 2.2 cm Ao root diam: 3.2 cm FS: 38.9 % asc Aorta Diam: 3.3 cm IVSd: 1.4 cm Ao Arch Diam (Prox Trans): 1.9 cm LVPWd: 1.1 cm LV hess. diameter/BSA (cm/m^2): 2.2 LV sys. diameter/BSA (cm/m^2): 1.4 LA A2 area: 18.4 cm2 RA long axis: 4.3 cm LA A4 area: 23.4 cm2 IVC diam: 1.2 cm LA length (vol): 5.9 cm LA vol: 61.9 ml LA vol index: 38.7 ml/m2 LVLs ap4: 4.8 cm LVLd ap2: 8.5 cm LVLs ap2: 7.6 cm TAPSE_phl: 1.9 cm Doppler Measurements & Calculations Ao V2 max: 168.0 cm/sec LVOT Max Robe: 173.0 cm/sec Ao V2 mean: 125.0 cm/sec LV V1 max P.0 mmHg Ao max P.0 mmHg LV V1 VTI: 40.4 cm Ao mean P.0 mmHg KELLY(I,D): 3.4 cm2 Ao V2 VTI: 37.8 cm KELLY(V,D): 3.2 cm2 sev ratio: 1.1 KELLY indexed to BSA (cm^2/m^2): 2.1 MV E max robe: 105.0 cm/sec TR max robe: 199.5 cm/sec MV A max robe: 53.8 cm/sec TR max P.9 mmHg MV E/A: 2.0 PA V2 max: 52.9 cm/sec Med Peak E' Robe: 3.8 cm/sec PA V2 mean: 36.0 cm/sec E/E' med: 27.9 PA mean P.0 mmHg Lat Peak E' Robe: 5.3 cm/sec PA pr(Accel): 21.9 mmHg E/E' lat: 19.7 E/e' average: 23.8 MV dec time: 0.17 sec SV(LVOT): 126.9 ml AV VR_phl: 1.0 KELLY(VTI)/BSA_phl: 2.1 MV P1/2t-pr_phl: 50.0 msec Reading Physician:09:17 AM
--- NOTE | 2021-04-09 11:42 | DI.US.S_ITS ---
PROCEDURE: US CAROTID DOPPLER BI INDICATIONS: STENOSIS OF LEFT CAROTID ARTERY TECHNIQUE: Color and pulse Doppler interrogation was performed of both carotid systems, with image documentation and velocity measurements. COMPARISON: [facility], , US CAROTID DOPPLER BI, 09/27/2019, 12:56. FINDINGS: Stenosis calculations are based on SRU (Society of Radiologists in Ultrasound) criteria. Right side: Brachial blood pressure: 109/72 mm Hg. Common carotid artery peak systolic velocity: 51 cm/sec. Internal carotid artery peak systolic velocity: 59 cm/sec. Internal carotid artery end diastolic velocity: 17 cm/sec. External carotid artery peak systolic velocity: 47 cm/sec. ICA/CCA peak systolic ratio: 1.2. Contreras scale imaging description: Calcified plaques at the bifurcation Percent internal carotid artery stenosis: Less than 50%. Vertebral artery: Flow direction is antegrade. Left side: Brachial blood pressure: 115/75 mm Hg. Common carotid artery peak systolic velocity: 69 cm/sec. Internal carotid artery peak systolic velocity: 62 cm/sec. Internal carotid artery end diastolic velocity: 18 cm/sec. External carotid artery peak systolic velocity: 68 cm/sec. ICA/CCA peak systolic ratio: 0.9 . Contreras scale imaging description: Echogenic plaques at the bifurcation Percent internal carotid artery stenosis: Less than 50%. Vertebral artery: Flow direction is antegrade. IMPRESSION: 1. Less than 50% left internal carotid artery stenosis, improved when compared to the last exam. 2. Less than 50% right internal carotid artery stenosis, unchanged. 3. Antegrade vertebral artery flow is bilaterally. Dictated by: Aura Mcclain M.D. on 04/09/2021 at 14:44 Approved by: Aura Mcclain M.D. on 04/09/2021 at 14:48
== END ==
PROVIDERS: Family Provider Nurse Practitioner Family; PCP Nurse Practitioner Family; Visit Provider Specialist
DX: I65.23 Occlusion and stenosis of bilateral carotid arteries (principal); I08.3 Combined rheumatic disorders of mitral, aortic and tricuspid valves; Z95.0 Presence of cardiac pacemaker
CPT/HCPCS: 93306; 93880

== ENCOUNTER → 2021-10-28 12:16 | Outpatient (CLI) | payer MEDICARE, SELFPAY | PROVIDERS: Family Provider Nurse Practitioner Family; PCP Pediatrics; Referring Provider Pediatrics; Visit Provider Pediatrics | DX: M81.0 Age-related osteoporosis without current pathological fracture (principal); Z78.0 Asymptomatic menopausal state; N81.9 Female genital prolapse, unspecified; E03.9 Hypothyroidism, unspecified; Z13.820 Encounter for screening for osteoporosis; Z90.710 Acquired absence of both cervix and uterus | CPT/HCPCS: 77080 ==

== ENCOUNTER → 2021-11-04 09:14 | Outpatient (CLI) | payer MEDICARE, SELFPAY ==
[2021-11-04 11:09] LABS: Alanine Aminotransferase 18 IU/L (<35); Albumin 3.9 g/dL (3.5-5.0); Albumin Globulin Ratio 1.2 (1.0-2.8); Alkaline Phosphatase 55 U/L (38-126); Aspartate Aminotransferase 24 IU/L (14-36); BUN Creatinine Ratio 29.7 (6-22); Bilirubin Total 0.6 mg/dL (0.2-1.3); Blood Urea Nitrogen 19 mg/dL (7-17); Calcium 8.4 mg/dL (8.4-10.2); Carbon Dioxide 26 mmol/L (22-32); Chloride 94 mmol/L (98-107); Cholesterol 140 mg/dL (140-199); Estimated Glomerular Filt Rate > 60 mL/min (>60); Globulin 3.2 g/dL (1.7-4.1); Glucose 110 mg/dL (80-110); HDL Cholesterol 50 mg/dL (40-60); HEMOLYSIS < 15 (0-50); LDL Cholesterol Calculated 70 mg/dL (<100); Magnesium 2.3 mg/dL (1.6-2.3); Sodium 130 mmol/L (137-145); Total Protein 7.1 g/dL (6.3-8.2); Triglycerides 99 mg/dL (35-150)
[2021-11-04 11:31] LABS: Thyroid Stimulating Hormone 3.01 uIU/mL (0.47-4.68)
== END ==
PROVIDERS: Family Provider Nurse Practitioner Family; PCP Pediatrics; Referring Provider Specialist; Visit Provider Specialist
DX: I48.0 Paroxysmal atrial fibrillation (principal); E78.5 Hyperlipidemia, unspecified
CPT/HCPCS: 36415; 80053; 80061; 83735; 84443

== ENCOUNTER 2021-11-04 09:54 | Inpatient (IN) | payer MEDICARE, SELFPAY ==
[2021-11-04] VITALS (14 sets, daily range): BP systolic 98–173; BP diastolic 59–87; PULSE 60–62; RESP 16–22; TEMP 36.2–36.6; O2SAT 91–97; BMI 26.5; BMI 26.8
--- NOTE | 2021-11-04 10:19 | DI.RAD.S_ITS ---
PROCEDURE: XR RIBS RT MIN 3V W CXR 1V INDICATIONS: fall TECHNIQUE: Two views of the right ribs were acquired, along with a single view chest. COMPARISON: [facility], , CHEST 1VW (PORTABLE), 12/31/2011, 8:53. FINDINGS: Surgical changes and devices: Dual lead left-sided pacemaker. Bones and chest wall: There are displaced lateral right lower rib fractures four, five, six, seven, eight and probably nine. The remaining visible osseous structures appear intact. No subcutaneous emphysema seen. Lungs and pleura: Moderate-sized right pleural effusion. No visible pneumothorax. The left lung is clear. Mediastinum: The heart is at the upper limits of normal size. There is a large hiatal hernia seen. IMPRESSION: 1. Several right lateral displaced rib fractures. 2. Pleural effusion suspicious for hemothorax. 3. No pneumothorax. Dictated by: Paulina Lowe M.D. on 11/04/2021 at 11:26 Approved by: Paulina Lowe M.D. on 11/04/2021 at 11:30
--- NOTE | 2021-11-04 11:06 | DI.CT.S_ITS ---
PROCEDURE: CT CHEST W CON INDICATIONS: muliple rib fractures on eliquis TECHNIQUE: After the administration of intravenous contrast, 5 mm thick sections acquired from the pulmonary apices to the posterior costophrenic angles. 1 mm axial lung, 5 mm thick coronal and sagittal reformats and 7 mm axial MIP were acquired. For radiation dose reduction, the following was used: automated exposure control, adjustment of mA and/or kV according to patient size. COMPARISON: None. FINDINGS: Image quality: Good. Lungs and pleura: Moderate right pleural effusion. Right middle lobe and right lower lobe volume loss. Small cavitary foci in the juxta minor fissural location x3. Larger nodule measuring 1.3 x 0.8 cm, (5/177). These are highly concerning for pulmonary lacerations. No pneumothorax demonstrated. Right greater than left compressive atelectasis. No left pleural effusion. Central airways are clear. Mediastinum: Heart size is prominent. Moderate coronary artery calcifications. No significant pericardial effusion. No mediastinal or hilar adenopathy by size criteria. Thoracic aorta and central pulmonary arteries are normal in size. Esophagus is normal in caliber. Large hiatal hernia. Bones and chest wall: Right 4-8th rib fractures with displacement. Right 6th and 7th rib fractures are segmental fractures. Left pacemaker with right atrial and right ventricular leads. No suspicious bony lesions. No vertebral body compression fractures. No axillary or supraclavicular adenopathy by size criteria. Probable subcentimeter right thyroid nodule. Abdomen: Visualized upper abdominal solid organs appear normal. Upper abdominal bowel loops are normal in caliber. No free fluid is visualized. IMPRESSION: 1. Cavitary foci in the right lung adjacent to rib fractures. These are most consistent with pulmonary lacerations. 2. Moderate right pleural effusion or hemothorax. No pneumothorax demonstrated. 3. Right 4-8th rib fractures with displacement. 6th and 7th rib fractures are segmental fractures. 4. Large hiatal hernia. Comment: Findings were discussed with Dipika Bardford at the time of dictation. Dictated by: Jerrod Burton M.D. on 11/04/2021 at 12:52 Approved by: Jerrod Burton M.D. on 11/04/2021 at 13:09
--- NOTE | 2021-11-04 11:32 | ED_ITS ---
HPI - Fall General Chief Complaint: Trauma Stated Complaint: fell on , rib pain Time Seen by Provider: 11/04/21 11:06 Source: patient Mode of arrival: Family Vehicle History of Present Illness HPI Narrative: Patient is a 86-year-old female has cardiomyopathy pacemaker on Eliquis presenting today after a fall. She fell 5 days ago and a po potty while at a concert landing on her right side. She has had significant pain on the right side ever since. She was resistant to come and be evaluated however her made her do so today. She denies hitting her head. She has not had any nausea or vomiting. No other injury that she reports however severe right-sided rib pain. Noted to be mildly hypotensive with a blood pressure of 98/59. Related Data Home Medications Medication Instructions Recorded Confirmed metoprolol succinate 25 mg 25 mg PO DAILY 08/04/17 11/04/21 tablet,extended release 24 hr apixaban 5 mg tablet (Eliquis) 5 mg PO BID 08/22/18 11/04/21 amiodarone 200 mg tablet 50 mg PO DAILY 06/06/20 11/04/21 rosuvastatin 5 mg tablet 5 mg PO DAILY 06/06/20 11/04/21 verapamil 120 mg tablet,extended 120 mg PO DAILY 06/06/20 11/04/21 release Previous Rx's Medication Instructions Recorded estradiol 0.1 mg/24 hr semiweekly 0.1 mg topical .COMPLEX #24 patches 10/16/21 transdermal patch (Nuria) levothyroxine 50 mcg tablet See Rx Instructions .Route 10/16/21 .COMPLEX #90 tabs Allergies Allergy/AdvReac Type Severity Reaction Status Date / Time codeine [CODEINE] Allergy Mild NAUSEA AND Verified 10/16/21 10:43 VOMITING Review of Systems Review of Systems Narrative: GENERAL: Denies chills, fatigue, malaise, fever, sweats, travel HEENT: Denies sinus pain, ear pain, sore throat, difficulty swallowing, neck pain RESPIRATORY: See HPI CARDIOVASCULAR: Denies chest pain, palpitations, orthopnea, edema GASTROINTESTINAL: Denies nausea, vomiting, abdominal pain, diarrhea, constipation, melena. : Denies dysuria, frequency, incontinence, hematuria, urinary retention, flank pain. MUSCULOSKELETAL: Denies weakness, joint pain, or bony pain SKIN: No rash, no erythema, no pruritus NEUROLOGIC: Denies weakness, dizziness, headache, numbness, change in speech, confusion PSYCHIATRIC: No concerning psychosocial issues. 12 point review of systems is negative except for those stated above and HPI Patient History Medical History Elevated liver enzymes Elevated TSH Hypertrophic obstructive cardiomyopathy Hypothyroidism ICD (implantable cardioverter-defibrillator) in place Pacemaker Surgical History History of ankle surgery Status post hysterectomy Family History Father Hypertension Mother Cancer Social History household members: spouse Smoking Status: Never smoker alcohol intake: current substance use type: does not use Smoking Status: Never smoker alcohol intake frequency: 0-2 drinks per day Substance Use Type: does not use Exam Initial Vital Signs Initial Vital Signs: Vital Signs Temperature 97.4 F L 11/04/21 10:14 Pulse Rate 60 11/04/21 10:14 Respiratory Rate 20 11/04/21 10:14 Blood Pressure 98/59 L 11/04/21 10:14 Pulse Oximetry 95 11/04/21 10:14 Oxygen Delivery Method 11/04/21 10:14 GENERAL: Alert pleasant 86-year-old female appears very uncomfortable HEENT: Head atraumatic,EOMI, pupils reactive, face symmetric, moist mucous membr anes CARDIOVASCULAR: Regular rate and rhythm without murmurs, rubs or gallops. RESPIRATORY: Breath sounds equal bilaterally, no wheezes rales or rhonchi. Pain on right side no paradoxical movement no contusion. Very tender to touch ABDOMEN: Soft, nontender. Normoactive bowel sounds all 4 quadrants. No guarding or rebound. EXTREMITIES: Normal range of motion, no clubbing or edema. Neurovascularly intact NEUROLOGICAL: Alert and oriented x4 SKIN: Warm, dry, no laceration, no petechiae, no rashes or lesions. Course Orders Ordered: ED Orders 11/04/21 13:19 COVID19 -Nasal RAPID/Pre-Proc Stat Acetaminophen (Acetaminophen 325 Mg Tablet) 650 mg PO Q6HR PRN PRN Reason: Fever/Mild Pain (1-3) Amiodarone HCl (Amiodarone 200 Mg Tablet) 50 mg PO DAILY [facility] Apixaban (Apixaban 5 Mg Tablet) 5 mg PO BID [facility] Atorvastatin Calcium (Atorvastatin 20 Mg Tablet) 10 mg PO BEDTIME [facility] Docusate Sodium (Docusate 100 Mg Capsule) 100 mg PO BID [facility] Levothyroxine Sodium (Levothyroxine 50 Mcg Tablet) 50 mcg PO DAILY@0600 [facility] Lidocaine (Lidocaine Patch 1 Each Adh..Patch) 1 each TOP DAILY [facility] Last Admin: 11/04/21 17:30 Dose: 1 each Documented By: CC Magnesium Hydroxide (Magnesium Hydroxide 30 Ml Udc) 30 ml PO DAILY PRN PRN Reason: Constipation Metoprolol Succinate (Metoprolol Er 25 Mg Tablet) 25 mg PO DAILY [facility] Ondansetron HCl (Ondansetron 4 Mg Odt) 4 mg PO Q8HR PRN PRN Reason: Nausea And Vomiting Oxycodone HCl (Oxycodone Ir 5 Mg Tablet) 5 mg PO Q4HR PRN PRN Reason: Pain, Moderate (4-6) Last Admin: 11/04/21 16:52 Dose: 5 mg Documented By: CC Oxycodone HCl (Oxycodone Ir 10 Mg Tablet) 10 mg PO Q4HR PRN PRN Reason: Pain, Severe (7-10) Sennosides (Sennosides 8.6 Mg Tablet) 17.2 mg PO BEDTIME [facility] Verapamil HCl (Verapamil Sr 120 Mg Tablet) 120 mg PO DAILY [facility] Discontinued Medications Morphine Sulfate (Morphine 2 Mg/Ml Inj) 2 mg IV NOW ONE Stop: 11/04/21 13:10 Last Admin: 11/04/21 13:22 Dose: 2 mg Documented By: CTS Vital Signs Vital signs: Vital Signs - 8 hr 11/04/21 13:30 11/04/21 13:30 11/04/21 14:00 Pulse Rate 60 Respiratory Rate 20 Blood Pressure 135/73 150/67 H Pulse Oximetry 96 Oxygen Delivery Method Oxygen Flow Rate 11/04/21 14:00 Pulse Rate 60 Respiratory Rate 22 Blood Pressure Pulse Oximetry 96 Oxygen Delivery Method Nasal Cannula Oxygen Flow Rate 2 MDM - Fall Lab Data Result diagrams: 11/04/21 11:34 11/04/21 11:34 Labs: Lab Results 11/04/21 11/04/21 11/04/21 Range/Units 11:34 11:34 11:34 WBC 12.0 H (4.5-11.0) X10^3/uL RBC 4.69 (4.0-5.2) X10^6/uL Hgb 15.9 (12.0-16.0) g/dL Hct 45.8 (36-46) % MCV 97.7 (80-100) fL MCH 33.8 (26-34) PG MCHC 34.6 (30-36) % RDW 13.1 (11.6-14.8) % Plt Count 288 (150-400) X10^3/uL Neut % (Auto) 77.3 H (50-75) % Lymph % (Auto) 7.6 L (25-40) % [place] % (Auto) 13.8 (3-14) % Eos % (Auto) 0.8 L (2-4) % Baso % (Auto) 0.5 (0-2) % Neut # (Auto) 9300 H (0389-3951) /uL Lymph # (Auto) 900 L (5191-6002) /uL [place] # (Auto) 1700 H (0-900) /uL Eos # (Auto) 100 (0-450) /uL Baso # (Auto) 100 (0-100) /uL PT 23.7 H (10.1-12.7) SECONDS INR 2.1 H (0.9-1.3) APTT 40 H (26-36) SECONDS Sodium 130 L (137-145) mmol/L Potassium 4.2 (3.4-5.1) mmol/L Chloride 94 L (98-107) mmol/L Carbon Dioxide 28 (22-32) mmol/L BUN 20 H (7-17) mg/dL Creatinine 0.73 (0.52-1.04) mg/dL Estimated GFR > 60 (>60) mL/min BUN/Creatinine Ratio 27.4 H (6-22) Glucose 112 H (80-110) mg/dL Calcium 8.3 L (8.4-10.2) mg/dL Total Bilirubin 0.8 (0.2-1.3) mg/dL AST 25 (14-36) IU/L ALT 18 (<35) IU/L Alkaline Phosphatase 55 (38-126) U/L Total Protein 6.9 (6.3-8.2) g/dL Albumin 3.9 (3.5-5.0) g/dL Globulin 3.0 (1.7-4.1) g/dL Albumin/Globulin Ratio 1.3 (1.0-2.8) SARS-CoV-2 (PCR) (Negative) 11/04/21 Range/Units 13:19 WBC (4.5-11.0) X10^3/uL RBC (4.0-5.2) X10^6/uL Hgb (12.0-16.0) g/dL Hct (36-46) % MCV (80-100) fL MCH (26-34) PG MCHC (30-36) % RDW (11.6-14.8) % Plt Count (150-400) X10^3/uL Neut % (Auto) (50-75) % Lymph % (Auto) (25-40) % [place] % (Auto) (3-14) % Eos % (Auto) (2-4) % Baso % (Auto) (0-2) % Neut # (Auto) (1729-7714) /uL Lymph # (Auto) (2371-2418) /uL [place] # (Auto) (0-900) /uL Eos # (Auto) (0-450) /uL Baso # (Auto) (0-100) /uL PT (10.1-12.7) SECONDS INR (0.9-1.3) APTT (26-36) SECONDS Sodium (137-145) mmol/L Potassium (3.4-5.1) mmol/L Chloride (98-107) mmol/L Carbon Dioxide (22-32) mmol/L BUN (7-17) mg/dL Creatinine (0.52-1.04) mg/dL Estimated GFR (>60) mL/min BUN/Creatinine Ratio (6-22) Glucose (80-110) mg/dL Calcium (8.4-10.2) mg/dL Total Bilirubin (0.2-1.3) mg/dL AST (14-36) IU/L ALT (<35) IU/L Alkaline Phosphatase (38-126) U/L Total Protein (6.3-8.2) g/dL Albumin (3.5-5.0) g/dL Globulin (1.7-4.1) g/dL Albumin/Globulin Ratio (1.0-2.8) SARS-CoV-2 (PCR) Negative (Negative) Imaging Data Chest x-ray: Radiologist's Impression: Signed Patient: Kim Nelson MR#: [id number] : 1935 Acct:[id number] Age/Sex: 86 / F Date of Service: 11/04/21 Loc: ED Accession Number: [id number] ?? Procedure: XR ribs RT min 3V w CXR1V Ordering Provider: Dipika Bradford D.O. PROCEDURE:? XR RIBS RT MIN 3V W CXR 1V ? INDICATIONS:? fall ? TECHNIQUE:? Two views of the right ribs were acquired, along with a single view chest.? ? COMPARISON:? [facility], , CHEST 1VW (PORTABLE), 12/31/2011, 8:53. ? FINDINGS:? ? Surgical changes and devices:? Dual lead left-sided pacemaker. ? Bones and chest wall:? There are displaced lateral right lower rib fractures four, five, six, seven, eight and probably nine.? The remaining visible osseous structures appear intact.? No subcutaneous emphysema seen. ? Lungs and pleura:? Moderate-sized right pleural effusion.? No visible pneumothorax.? The left lung is clear. ? Mediastinum:? The heart is at the upper limits of normal size.? There is a large hiatal hernia seen. ? IMPRESSION:? ? 1. Several right lateral displaced rib fractures.? ? 2. Pleural effusion suspicious for hemothorax. ? 3. No pneumothorax.? ? ? Dictated by: Paulina Lowe M.D. on 11/04/2021 at 11:26? CT scan - chest: Radiologist's Impression: [facility] [place] [id number] CT Scan Report Signed Patient: Kim Nelson MR#: [id number] : 1935 Acct:[id number] Age/Sex: 86 / F Date of Service: 11/04/21 Loc: ED Accession Number: [id number] ?? Procedure: CT chest w con Ordering Provider: Dipika Bradford D.O. PROCEDURE:? CT CHEST W CON ? INDICATIONS:? muliple rib fractures on eliquis ? TECHNIQUE:? After the administration of intravenous contrast, 5 mm thick sections acquired from the pulmonary apices to the posterior costophrenic angles.? 1 mm axial lung, 5 mm thick coronal and sagittal reformats and 7 mm axial MIP were acquired.? For radiation dose reduction, the following was used:? automated exposure control, adjustment of mA and/or kV according to patient size.? ? COMPARISON:? None. ? FINDINGS:? Image quality:? Good. ? Lungs and pleura:? Moderate right pleural effusion.? Right middle lobe and right lower lobe volume loss.? Small cavitary foci in the juxta minor fissural location x3.? Larger nodule measuring 1.3 x 0.8 cm, (5/177).? These are highly concerning for pulmonary lacerations.? No pneumothorax demonstrated.? Right greater than left compressive atelectasis.? No left pleural effusion.? Central airways are clear. ? Mediastinum:? Heart size is prominent.? Moderate coronary artery calcif ications.? No significant pericardial effusion.? No mediastinal or hilar adenopathy by size criteria.? Thoracic aorta and central pulmonary arteries are normal in size.? Esophagus is normal in caliber.? Large hiatal hernia.? ? Bones and chest wall:? Right 4-8th rib fractures with displacement.? Right 6th and 7th rib fractures are segmental fractures.? Left pacemaker with right atrial and right ventricular leads. No suspicious bony lesions.? No vertebral body compression fractures.? No axillary or supraclavicular adenopathy by size criteria.? Probable subcentimeter right thyroid nodule. ? Abdomen:? Visualized upper abdominal solid organs appear normal.? Upper abdominal bowel loops are normal in caliber.? No free fluid is visualized.? ? IMPRESSION:? 1. Cavitary foci in the right lung adjacent to rib fractures.? These are most consistent with pulmonary lacerations. ? 2. Moderate right pleural effusion or hemothorax.? No pneumothorax demonstrated. ? 3. Right 4-8th rib fractures with displacement.? 6th and 7th rib fractures are segmental fractures. ? 4. Large hiatal hernia.? ? Comment: Findings were discussed with Dipika Bradford at the time of dictation. ? ? Dictated by: Jerrod Burton M.D. on 11/04/2021 at 12:52 CT scan - head: Radiologist's Impression: [address] [place] [id number] Scan Report Signed Patient: Kim Nelson MR#: [id number] : 1935 Acct:[id number] Age/Sex: 86 / F Date of Service: 11/04/21 Loc: 221-1 Accession Number: [id number] ?? Procedure: CT head/brain wo con Ordering Provider: Dipika Bradford D.O. PROCEDURE:? CT HEAD/BRAIN WO CON ? INDICATIONS:? fall on eliquis ? TECHNIQUE:? Noncontrast 4.5 mm thick angled axial sections acquired from the foramen magnum to the vertex, with coronal and sagittal reformats.? For radiation dose reduction, the following was used:? automated exposure control, adjustment of mA and/or kV according to patient size.? ? COMPARISON:? None. ? FINDINGS:? Image quality:? Excellent.? ? CSF spaces:? Basal cisterns are patent.? No extra-axial fluid collections.? Ventricles are normal in size and shape.? ? Brain:? No midline shift.? No intracranial masses or hemorrhage.? Contreras-white matter interface is normal.? Moderate cerebral and cerebellar volume loss with multifocal white matter chronic ischemic change noted. ? Skull and face:? Calvarium and visualized facial bones are intact, without suspicious lesions.? ? Sinuses:? Visualized sinuses and mastoids are clear.? ? IMPRESSION:? ? Atrophy and chronic ischemic change without acute hemorrhage or mass effect ? ? ? Approved by: Corey Neumann M.D. on 11/04/2021 at 15:07? CT - cervical spine: Radiologist's Impression: [place] [address] CT Scan Report Signed Patient: Kim Nelson MR#: [id number] : 1935 Acct:[id number] Age/Sex: 86 / F Date of Service: 11/04/21 Loc: 221-1 Accession Number: [id number] ?? Procedure: CT cervical spine wo con Ordering Provider: Dipika Bradford D.O. PROCEDURE:? CT CERVICAL SPINE WO CON ? INDICATIONS:? fall ? TECHNIQUE:? Noncontrast 3 mm thick sections acquired from the skull base to the T4 level.? Sagittal and coronal reformats were then constructed.? For radiation dose reduction, the following was used:? automated exposure control, adjustment of mA and/or kV according to patient size.? ? COMPARISON:? None. ? FINDINGS:? Image quality:? Excellent.? ? Bones:? Vertebral body height and alignment is maintained.? Normal bone mi neralization and craniovertebral? relationships.? Degenerative disc disease and arthropathy present in the mid cervical spine without significant osseous central canal stenosis. ? Soft tissues:? Prevertebral soft tissues are normal in thickness.? No paravertebral hematomas.? No apical pneumothoraces.? Large right pleural effusion.? Densely calcified aortic atherosclerosis. ? ? IMPRESSION:? ? 1. No evidence of fracture or malalignment. ? 2. Multilevel degenerative disc disease and arthropathy ? Approved by: Corey Neumann M.D. on 11/04/2021 at 15:02? [facility] Narrative Medical decision making narrative: Patient is 86-year-old female fall on Eliquis unfortunately found to have multiple right-sided rib fractures with some of the segmental. Along with lung lacerations. She is 5 days out and hemodynamically stable. Initial blood pressure was low however upper pressure seems to have stabilized. She is not tachycardic or anemic. Dr. Garcia surgery has been called at this time agrees patient needs to be admitted however she seems to have stabilized does not need any intervention she is happy to consult but recommends Internal Medicine admit Dr. Calderón updated on patient's symptoms test results and surgery recommendations at this time he does agree to admit. Discharge Plan Departure Patient Disposition: Admitted As Inpatient Clinical Impression: Multiple rib fractures, Hemothorax on right Admit Date/Time: 11/04/21 14:14 Admit Provider: Jovanny Calderón
[2021-11-04 11:46] LABS: Add Manual Diff / Slide Review NO; Basophils Absolute Auto 100 /uL (0-100); Basophils Percent Auto 0.5 % (0-2); Eosinophils Absolute Auto 100 /uL (0-450); Eosinophils Percent Auto 0.8 % (2-4); Hematocrit 45.8 % (36-46); Hemoglobin 15.9 g/dL (12.0-16.0); Lymphocytes Absolute Auto 900 /uL (1100-4500); Lymphocytes Percent Auto 7.6 % (25-40); Mean Corpuscular HGB Conc 34.6 % (30-36); Mean Corpuscular Hemoglobin 33.8 PG (26-34); Mean Corpuscular Volume 97.7 fL (80-100); Monocytes Absolute Auto 1700 /uL (0-900); Monocytes Percent Auto 13.8 % (3-14); Neutrophils Absolute Auto 9300 /uL (1500-7000); Neutrophils Percent Auto 77.3 % (50-75); Platelet Count 288 X10^3/uL (150-400); Red Blood Cell Count 4.69 X10^6/uL (4.0-5.2); Red Cell Distribution Width 13.1 % (11.6-14.8)
[2021-11-04 11:55] LABS: INR 2.1 (0.9-1.3); Prothrombin Time 23.7 SECONDS (10.1-12.7)
[2021-11-04 11:58] LABS: PTT Partial Thromboplastin Tim 40 SECONDS (26-36)
[2021-11-04 12:06] LABS: Alanine Aminotransferase 18 IU/L (<35); Albumin 3.9 g/dL (3.5-5.0); Albumin Globulin Ratio 1.3 (1.0-2.8); Alkaline Phosphatase 55 U/L (38-126); Aspartate Aminotransferase 25 IU/L (14-36); BUN Creatinine Ratio 27.4 (6-22); Bilirubin Total 0.8 mg/dL (0.2-1.3); Blood Urea Nitrogen 20 mg/dL (7-17); Calcium 8.3 mg/dL (8.4-10.2); Carbon Dioxide 28 mmol/L (22-32); Chloride 94 mmol/L (98-107); Estimated Glomerular Filt Rate > 60 mL/min (>60); Glucose 112 mg/dL (80-110); HEMOLYSIS 19 (0-50); Potassium 4.2 mmol/L (3.4-5.1); Sodium 130 mmol/L (137-145); Total Protein 6.9 g/dL (6.3-8.2)
[2021-11-04] MEDS: MORPHINE 2 MG/ML INJ IV (13:22)
--- NOTE | 2021-11-04 13:22 | PC.NURSE ---
Pt resting in bed. NAD. c/o some pain. given 2mg IV morphine. placed on 2L O2 for 92% RA sat. placed on cardiac monitoring. VSS at this time. awaiting surgical consult.
--- NOTE | 2021-11-04 13:28 | PC.NURSE ---
skin assessment performed. no eccymosis noted to R ribs or flank areas. pt instructed on splinting to cough or move.
--- NOTE | 2021-11-04 13:36 | PC.NURSE ---
Pt ok'd by Dr Bradford to eat and drink. pt given some ice chips and diet order placed.
[2021-11-04 13:51] LABS: COVID19 -Nasal RAPID Negative (Negative)
--- NOTE | 2021-11-04 14:58 | DI.CT.S_ITS ---
PROCEDURE: CT HEAD/BRAIN WO CON INDICATIONS: fall on eliquis TECHNIQUE: Noncontrast 4.5 mm thick angled axial sections acquired from the foramen magnum to the vertex, with coronal and sagittal reformats. For radiation dose reduction, the following was used: automated exposure control, adjustment of mA and/or kV according to patient size. COMPARISON: None. FINDINGS: Image quality: Excellent. CSF spaces: Basal cisterns are patent. No extra-axial fluid collections. Ventricles are normal in size and shape. Brain: No midline shift. No intracranial masses or hemorrhage. Contreras-white matter interface is normal. Moderate cerebral and cerebellar volume loss with multifocal white matter chronic ischemic change noted. Skull and face: Calvarium and visualized facial bones are intact, without suspicious lesions. Sinuses: Visualized sinuses and mastoids are clear. IMPRESSION: Atrophy and chronic ischemic change without acute hemorrhage or mass effect Approved by: Corey Neumann M.D. on 11/04/2021 at 15:07
--- NOTE | 2021-11-04 14:58 | DI.CT.S_ITS ---
PROCEDURE: CT CERVICAL SPINE WO CON INDICATIONS: fall TECHNIQUE: Noncontrast 3 mm thick sections acquired from the skull base to the T4 level. Sagittal and coronal reformats were then constructed. For radiation dose reduction, the following was used: automated exposure control, adjustment of mA and/or kV according to patient size. COMPARISON: None. FINDINGS: Image quality: Excellent. Bones: Vertebral body height and alignment is maintained. Normal bone mineralization and craniovertebral relationships. Degenerative disc disease and arthropathy present in the mid cervical spine without significant osseous central canal stenosis. Soft tissues: Prevertebral soft tissues are normal in thickness. No paravertebral hematomas. No apical pneumothoraces. Large right pleural effusion. Densely calcified aortic atherosclerosis. IMPRESSION: 1. No evidence of fracture or malalignment. 2. Multilevel degenerative disc disease and arthropathy Approved by: Corey Neumann M.D. on 11/04/2021 at 15:02
[2021-11-04] MEDS: OXYCODONE IR 5 MG TABLET PO (16:52)
[2021-11-04] MEDS: LIDOCAINE PATCH 1 EACH ADH..PATCH TOP (17:30)
--- NOTE | 2021-11-04 17:36 | PC.NURSE ---
Case management: son Scott Nelson would like to talk to someone about helping the patient get home better to prevent falls. Please call him at [phone]
--- NOTE | 2021-11-04 17:38 | P.CONS_ITS ---
History of Present Illness Consult details Date Patient Seen: 11/04/21 Time Patient Seen: 16:30 Chief complaint: fell on , rib pain Reason for consult: rib fractures, hemothorax Requesting provider: Dipika Bradford Narrative: ground level fall on the . C/o rib pain. No LOC, h/o cardiomyopathy on anticoagulation. Normal saturation on Room air. CXR reviewed showing no PTX, small hemothorax, atelectatsis. CT chest is similar. One low BP in ED o/w hypertensive. On beta casper. Normal hgb/hct. Meds Home Medications and Allergies Home Medications Medication Instructions Recorded Confirmed Type metoprolol succinate 25 mg 25 mg PO DAILY 08/04/17 11/04/21 History tablet,extended release 24 hr apixaban 5 mg tablet (Eliquis) 5 mg PO BID 08/22/18 11/04/21 History amiodarone 200 mg tablet 50 mg PO DAILY 06/06/20 11/04/21 History rosuvastatin 5 mg tablet 5 mg PO DAILY 06/06/20 11/04/21 History verapamil 120 mg tablet,extended 120 mg PO DAILY 06/06/20 11/04/21 History release estradiol 0.1 mg/24 hr semiweekly 0.1 mg topical .COMPLEX #24 patches 10/16/21 11/04/21 Rx transdermal patch (Nuria) levothyroxine 50 mcg tablet See Rx Instructions .Route 10/16/21 11/04/21 Rx .COMPLEX #90 tabs Allergies Allergy/AdvReac Type Severity Reaction Status Date / Time codeine [CODEINE] Allergy Mild NAUSEA AND Verified 10/16/21 10:43 VOMITING Review of Systems Review of Systems ROS: Yes All systems reviewed with the patient and are negative except as otherwise documented Exam Vital Signs (past 8 hours): - 11/04/21 10:14 11/04/21 11:37 11/04/21 11:38 Temperature 97.4 F L Pulse Rate 60 62 Respiratory Rate 20 Blood Pressure 98/59 L 118/65 Pulse Oximetry 95 92 Oxygen Delivery Method Room Air Oxygen Flow Rate 11/04/21 11:57 11/04/21 11:57 11/04/21 12:00 Temperature Pulse Rate 60 Respiratory Rate Blood Pressure 134/65 128/62 Pulse Oximetry 91 Oxygen Delivery Method Oxygen Flow Rate 11/04/21 12:00 11/04/21 12:30 11/04/21 12:30 Temperature Pulse Rate 60 60 Respiratory Rate Blood Pressure 121/68 Pulse Oximetry 91 92 Oxygen Delivery Method Oxygen Flow Rate 11/04/21 13:00 11/04/21 13:00 11/04/21 13:30 Temperature Pulse Rate 60 Respiratory Rate Blood Pressure 125/65 135/73 Pulse Oximetry 94 Oxygen Delivery Method Oxygen Flow Rate 11/04/21 13:30 11/04/21 14:00 11/04/21 14:00 Temperature Pulse Rate 60 60 Respiratory Rate 20 22 Blood Pressure 150/67 H Pulse Oximetry 96 96 Oxygen Delivery Method Nasal Cannula Oxygen Flow Rate 2 11/04/21 14:30 11/04/21 14:30 11/04/21 16:02 Temperature Pulse Rate 62 Respiratory Rate 20 Blood Pressure 141/73 H Pulse Oximetry 97 92 Oxygen Delivery Method Nasal Cannula Room Air Oxygen Flow Rate 2 11/04/21 16:03 Temperature 97.8 F Pulse Rate 60 Respiratory Rate 16 Blood Pressure 173/87 H Pulse Oximetry 92 Oxygen Delivery Method Oxygen Flow Rate 0 Oxygen Delivery Method Room Air Oxygen Flow Rate 0 Const General: cooperative and comfortable Nutritional Appearance: average body habitus Orientation: alert, awake and oriented x3 HENMT Head: normocephalic and atraumatic Face and sinus: normal facial exam Eyes Periorbital: periorbital findings normal Sclera: sclerae normal Neck Neck: normal visual inspection and trachea midline Chest Chest: tenderness (right sided tenderness, no crepitus) Resp Effort & Inspection: normal respiratory effort and able to speak in complete sentences Cardio Rate: regular rate Rhythm: regular rhythm GI Inspection: normal to inspection Skin General: atrophy and ecchymosis Hair: normal Nails: normal Neuro General: patient alert, patient awake and patient oriented x3 Cognition: normal cognition Speech: speech normal Psych Speech and Movement: speech clear Affect: normal affect Attitude: cooperative Objective Labs Result Diagrams: 11/04/21 11:34 11/04/21 11:34 Labs: Laboratory Results - last 24 hr 11/04/21 11/04/21 11/04/21 11:34 11:34 11:34 WBC 12.0 H RBC 4.69 Hgb 15.9 Hct 45.8 MCV 97.7 MCH 33.8 MCHC 34.6 RDW 13.1 Plt Count 288 Neut % (Auto) 77.3 H Lymph % (Auto) 7.6 L [place] % (Auto) 13.8 Eos % (Auto) 0.8 L Baso % (Auto) 0.5 Neut # (Auto) 9300 H Lymph # (Auto) 900 L [place] # (Auto) 1700 H Eos # (Auto) 100 Baso # (Auto) 100 PT 23.7 H INR 2.1 H APTT 40 H Sodium 130 L Potassium 4.2 Chloride 94 L Carbon Dioxide 28 BUN 20 H Creatinine 0.73 Estimated GFR > 60 BUN/Creatinine Ratio 27.4 H Glucose 112 H Calcium 8.3 L Total Bilirubin 0.8 AST 25 ALT 18 Alkaline Phosphatase 55 Total Protein 6.9 Albumin 3.9 Globulin 3.0 Albumin/Globulin Ratio 1.3 SARS-CoV-2 (PCR) 11/04/21 13:19 WBC RBC Hgb Hct MCV MCH MCHC RDW Plt Count Neut % (Auto) Lymph % (Auto) [place] % (Auto) Eos % (Auto) Baso % (Auto) Neut # (Auto) Lymph # (Auto) [place] # (Auto) Eos # (Auto) Baso # (Auto) PT INR APTT Sodium Potassium Chloride Carbon Dioxide BUN Creatinine Estimated GFR BUN/Creatinine Ratio Glucose Calcium Total Bilirubin AST ALT Alkaline Phosphatase Total Protein Albumin Globulin Albumin/Globulin Ratio SARS-CoV-2 (PCR) Negative [facility] Medical History Elevated liver enzymes Elevated TSH Hypertrophic obstructive cardiomyopathy Hypothyroidism ICD (implantable cardioverter-defibrillator) in place Pacemaker Surgical History History of ankle surgery Status post hysterectomy Family History Father Hypertension Mother Cancer Social History household members: spouse Tobacco & Substance Use Smoking Status: Never smoker alcohol intake: current substance use type: does not use Assessment & Plan Assessment & Plan narrative: Chest CT and CXR reveiwed. S/p ground level fall with right rib fracture and small hemothorax. Functionally stable with good oxygenation on Room air. No signs of active bleeding, no significant anemia. Is 4 days out from trauma w/o significant complication Plan: admitted to medicine for pain control, need RT consult for improved pulmonary toilet. I do not see a reason to hold anticoagulant at this time. COVID-19 COVID-19 status: Negative Time Spent With Patient Critical Care time: I spent a total of [] minutes of critical care time on this patient's care today; this time is exclusive of procedural time.
--- NOTE | 2021-11-04 17:53 | P.HP_ITS ---
History of Present Illness History of Present Illness Date Patient Seen: 11/04/21 Time Patient Seen: 17:54 Chief complaint: fell on , rib pain Narrative: This is an 86-year-old female past medical history of hypertrophic obstructive cardiomyopathy, moderate to severe MR, chronic atrial fibrillation post permanent pacemaker and ICD on chronic anticoagulation with Xarelto, essential hypertension, chronic diastolic heart failure, hypothyroidism, and recent his tory of multiple falls who presented to the emergency room at the behest of her with right-sided chest pain and difficulty mobilizing after a fall 5 days ago. Patient states that she fell into a po potty at a local concert. 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 She continued to have pain and difficulty mobilizing, and finally agreed to come to the emergency room at the past of her . She denies any dizziness, chest pain, palpitations, ICD discharges, vision changes, weakness or numbness. She has a hard time taking a deep breath in due to pain. She has not had a bowel movement in 4 days. She is any fever, chills, cough, lower extremity edema, abdominal pain, dysuria, urinary frequency. 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 In the emergency room, the patient was mildly hypotensive initially with a blood pressure of 98/59. The remainder of her vital signs were unremarkable and her oxygen saturations were above 90 and on room air. Laboratory evaluation revealed a mild leukocytosis with WBC of 12.0, her hemoglobin slightly elevated at 15.9 (no prior available for comparison), INR was slightly elevated at 2.1 though the patient takes Xarelto. Sodium was mildly low at 130, slightly below her usual baseline between 132-134. There were no other significant lab abnormalities. COVID-19 testing was negative. Rib X ray of her right side revealed displaced rib fractures from ribs 4 to possibly 9, with a right-sided pleural effusion. CT chest was performed which showed serration is a, probable right-sided hemo thorax, as well as right-sided rib fractures from 4-[address] of her cervical spine was unremarkable, as was a head CT which showed no acute abnormalities. General surgery / Trauma was consulted in the emergency room, who recommended admission to Medicine given that her fall was mu ltiple days ago, surgery will continue to follow. Patient History Medical History Elevated liver enzymes Elevated TSH Hypertrophic obstructive cardiomyopathy Hypothyroidism ICD (implantable cardioverter-defibrillator) in place Pacemaker Surgical History History of ankle surgery Status post hysterectomy Family & Social History Family History Father Hypertension Mother Cancer Social History: household members spouse Prior Living Arrangements House Safety & Behavioral: Feels Safe in Current Yes Environment Been Physically Hurt or No Threatened By a Person Tobacco & Substance use: Smoking Status Never smoker alcohol intake current alcohol intake frequency 0-2 drinks per day Substance Use Type does not use Meds Home Medications and Allergies Home Medications Medication Instructions Recorded Confirmed Type metoprolol succinate 25 mg 25 mg PO DAILY 08/04/17 11/04/21 History tablet,extended release 24 hr apixaban 5 mg tablet (Eliquis) 5 mg PO BID 08/22/18 11/04/21 History amiodarone 200 mg tablet 50 mg PO DAILY 06/06/20 11/04/21 History rosuvastatin 5 mg tablet 5 mg PO DAILY 06/06/20 11/04/21 History verapamil 120 mg tablet,extended 120 mg PO DAILY 06/06/20 11/04/21 History release estradiol 0.1 mg/24 hr semiweekly 0.1 mg topical .COMPLEX #24 patches 10/16/21 11/04/21 Rx transdermal patch (Nuria) levothyroxine 50 mcg tablet See Rx Instructions .Route 10/16/21 11/04/21 Rx .COMPLEX #90 tabs Allergies Allergy/AdvReac Type Severity Reaction Status Date / Time codeine [CODEINE] Allergy Mild NAUSEA AND Verified 10/16/21 10:43 VOMITING Review of Systems Review of Systems Narrative: All other systems reviewed with the patient and are negative unless otherwise stated. Exam Vital Signs (past 8 hours): - 11/04/21 10:14 11/04/21 11:37 11/04/21 11:38 Temperature 97.4 F L Pulse Rate 60 62 Respiratory Rate 20 Blood Pressure 98/59 L 118/65 Pulse Oximetry 95 92 Oxygen Delivery Method Room Air Oxygen Flow Rate 11/04/21 11:57 11/04/21 11:57 11/04/21 12:00 Temperature Pulse Rate 60 Respiratory Rate Blood Pressure 134/65 128/62 Pulse Oximetry 91 Oxygen Delivery Method Oxygen Flow Rate 11/04/21 12:00 11/04/21 12:30 11/04/21 12:30 Temperature Pulse Rate 60 60 Respiratory Rate Blood Pressure 121/68 Pulse Oximetry 91 92 Oxygen Delivery Method Oxygen Flow Rate 11/04/21 13:00 11/04/21 13:00 11/04/21 13:30 Temperature Pulse Rate 60 Respiratory Rate Blood Pressure 125/65 135/73 Pulse Oximetry 94 Oxygen Delivery Method Oxygen Flow Rate 11/04/21 13:30 11/04/21 14:00 11/04/21 14:00 Temperature Pulse Rate 60 60 Respiratory Rate 20 22 Blood Pressure 150/67 H Pulse Oximetry 96 96 Oxygen Delivery Method Nasal Cannula Oxygen Flow Rate 2 11/04/21 14:30 11/04/21 14:30 11/04/21 16:02 Temperature Pulse Rate 62 Respiratory Rate 20 Blood Pressure 141/73 H Pulse Oximetry 97 92 Oxygen Delivery Method Nasal Cannula Room Air Oxygen Flow Rate 2 11/04/21 16:03 Temperature 97.8 F Pulse Rate 60 Respiratory Rate 16 Blood Pressure 173/87 H Pulse Oximetry 92 Oxygen Delivery Method Oxygen Flow Rate 0 Oxygen Delivery Method Room Air Oxygen Flow Rate 0 Narrative Exam Narrative: General:?Elderly female, no acute distress, appears comfortable HEENT:? Normocephalic, atraumatic, extraocular muscles intact, oral pharynx is clear and mucous membranes are moist. Neck: supple and symmetric, trachea is midline, no cervical adenopathy. Negative for JVD Chest:? Normal AP diameter and contour without kyphoscoliosis, no tachypnea, equal chest rise bilaterally. Lungs:? CTA b/l no wheezing rhonchi or rales. Cardio:?RRR no m/r/g. Abdomen: S NT ND. No CVA tenderness. Musculoskeletal:? Muscle strength and tone are equal within normal limits, no deformity. Extremities: No edema or joint effusions. No cyanosis or clubbing. Skin:? Pale,? Warm to touch,dry and intact without rashes, ulcerations or petechiae.? Neuro:? Alert and oriented,? sensation to touch intact in all extremities, no gross deficits noted of cranial nerves. Psych:? Patient has a well-kept appearance, appropriate affect, mental status attitude thought context and judgment are appropriate for age. Objective Labs Result Diagrams: 11/04/21 11:34 11/04/21 11:34 Labs: Laboratory Results - last 24 hr 11/04/21 11/04/21 11/04/21 11:34 11:34 11:34 WBC 12.0 H RBC 4.69 Hgb 15.9 Hct 45.8 MCV 97.7 MCH 33.8 MCHC 34.6 RDW 13.1 Plt Count 288 Neut % (Auto) 77.3 H Lymph % (Auto) 7.6 L [place] % (Auto) 13.8 Eos % (Auto) 0.8 L Baso % (Auto) 0.5 Neut # (Auto) 9300 H Lymph # (Auto) 900 L [place] # (Auto) 1700 H Eos # (Auto) 100 Baso # (Auto) 100 PT 23.7 H INR 2.1 H APTT 40 H Sodium 130 L Potassium 4.2 Chloride 94 L Carbon Dioxide 28 BUN 20 H Creatinine 0.73 Estimated GFR > 60 BUN/Creatinine Ratio 27.4 H Glucose 112 H Calcium 8.3 L Total Bilirubin 0.8 AST 25 ALT 18 Alkaline Phosphatase 55 Total Protein 6.9 Albumin 3.9 Globulin 3.0 Albumin/Globulin Ratio 1.3 SARS-CoV-2 (PCR) 11/04/21 13:19 WBC RBC Hgb Hct MCV MCH MCHC RDW Plt Count Neut % (Auto) Lymph % (Auto) [place] % (Auto) Eos % (Auto) Baso % (Auto) Neut # (Auto) Lymph # (Auto) [place] # (Auto) Eos # (Auto) Baso # (Auto) PT INR APTT Sodium Potassium Chloride Carbon Dioxide BUN Creatinine Estimated GFR BUN/Creatinine Ratio Glucose Calcium Total Bilirubin AST ALT Alkaline Phosphatase Total Protein Albumin Globulin Albumin/Globulin Ratio SARS-CoV-2 (PCR) Negative Assessment & Plan Assessment & Plan narrative: 1. Acute traumatic displaced R 4th-8th rib fractures, present on admission - general surgery following for trauma evaluation - safe to resume home AC per surgery - continue pain control, patient resistant to opiates but counseled this may be needed. - PT / OT consultations - RT eval and treat, IS 2. R hemothorax with pulmonary lacerations - secondary to trauma and rib fx - continue to follow h/h - resume home AC, okay with trauma / gen surg 3. Hypertrophic cardiomyopathy, chronic diastolic heart failure - no acute issues, continue home medications 4. chronic atrial fibrillation s/p PPM,ICD cristi - continue home medications 5. chronic hypothyroidism - continue home medications Code: Full, surrogate decision maker is her or niece. Dispo: admit as inpatient as her stay is likely to exceed two midnights. DVT: on apixaban I have utilized all available immediate resources to obtain, update, or review the patient's current medications. COVID-19 COVID-19 status: Negative Time Spent With Patient Critical Care time: I spent a total of [] minutes of critical care time on this patient's care today; this time is exclusive of procedural time. Quality VTE Deep Vein Thrombosis/Pulmonary Embolism Present on Admission: No MIPS - Admit I confirm the patient?s Advance Care Plan is present, Code status is documented, Surrogate decision maker is in patient?s record [If Yes, STOP here]: Yes
[2021-11-04] MEDS: ACETAMINOPHEN 325 MG TABLET 650 MG PO (21:36)
[2021-11-04] MEDS: DOCUSATE 100 MG CAPSULE PO (21:37)
[2021-11-04] MEDS: APIXABAN 5 MG TABLET PO (21:37)
[2021-11-04] MEDS: SENNOSIDES 8.6 MG TABLET 17.2 MG PO (21:38)
[2021-11-04] MEDS: ATORVASTATIN 20 MG TABLET 10 MG PO (21:39)
[2021-11-04] MEDS: MELATONIN 3 MG TABLET 9 MG PO (22:11)
[2021-11-05] VITALS (12 sets, daily range): BP systolic 91–136; BP diastolic 46–76; PULSE 60–64; RESP 15–18; TEMP 36–36.7; O2SAT 90–97
[2021-11-05 05:04] LABS: Add Manual Diff / Slide Review NO; Basophils Absolute Auto 100 /uL (0-100); Basophils Percent Auto 0.9 % (0-2); Eosinophils Absolute Auto 200 /uL (0-450); Hematocrit 41.9 % (36-46); Hemoglobin 14.6 g/dL (12.0-16.0); Lymphocytes Absolute Auto 1300 /uL (1100-4500); Lymphocytes Percent Auto 16.6 % (25-40); Mean Corpuscular HGB Conc 34.9 % (30-36); Mean Corpuscular Hemoglobin 33.5 PG (26-34); Mean Corpuscular Volume 96.1 fL (80-100); Monocytes Absolute Auto 1200 /uL (0-900); Monocytes Percent Auto 14.9 % (3-14); Neutrophils Absolute Auto 5100 /uL (1500-7000); Neutrophils Percent Auto 65.6 % (50-75); Platelet Count 260 X10^3/uL (150-400); Red Blood Cell Count 4.36 X10^6/uL (4.0-5.2); Red Cell Distribution Width 12.8 % (11.6-14.8); White Blood Cell Count 7.8 X10^3/uL (4.5-11.0)
[2021-11-05 05:10] LABS: BUN Creatinine Ratio 45.6 (6-22); Blood Urea Nitrogen 26 mg/dL (7-17); Calcium 7.8 mg/dL (8.4-10.2); Carbon Dioxide 24 mmol/L (22-32); Chloride 95 mmol/L (98-107); Estimated Glomerular Filt Rate > 60 mL/min (>60); Glucose 90 mg/dL (80-110); HEMOLYSIS < 15 (0-50); Potassium 3.9 mmol/L (3.4-5.1); Sodium 126 mmol/L (137-145)
[2021-11-05] MEDS: ACETAMINOPHEN 325 MG TABLET 650 MG PO ×2 (05:46→10:30)
[2021-11-05] MEDS: LEVOTHYROXINE 50 MCG TABLET PO (05:46)
[2021-11-05] MEDS: APIXABAN 5 MG TABLET PO ×2 (08:46→21:03)
[2021-11-05] MEDS: METOPROLOL ER 25 MG TABLET PO (08:46)
[2021-11-05] MEDS: AMIODARONE 200 MG TABLET 50 MG PO (08:47)
[2021-11-05] MEDS: LIDOCAINE PATCH 1 EACH ADH..PATCH TOP (08:49)
[2021-11-05] MEDS: DOCUSATE 100 MG CAPSULE PO ×2 (08:49→21:03)
[2021-11-05] MEDS: VERAPAMIL SR 120 MG TABLET PO (08:52)
--- NOTE | 2021-11-05 10:54 | PT.IIE ---
Current Diagnoses Multiple fractures of ribs, right side, initial encounter for closed fracture (11/04/21) Surgical History (Last Reviewed 11/04/21 @ 18:39 by Jovanny Calderón DO) History of ankle surgery Status post hysterectomy Medical History (Last Reviewed 11/04/21 @ 18:39 by Jovanny Calderón DO) Elevated liver enzymes Elevated TSH Hypertrophic obstructive cardiomyopathy Hypothyroidism ICD (implantable cardioverter-defibrillator) in place Pacemaker Physical Therapy Inpatient Evaluation/Re-Eval M1 PT/OT-IP Prior Functional Status Start: 11/05/21 13:45 Freq: NEEDED Status: Active Protocol: Document 11/05/21 10:54 AB (Rec: 11/05/21 13:58 AB [email or web address]) Medical Review Prior Functional Status Medical History Reviewed Yes Communication able to make needs known Mobility and Gait pt stated that she is modified independent with all mobilities and ambulation using 3WW Social History Household Members spouse Living Arrangements House Number of Floors (Floors) Two Floors Number of Stairs To Enter/Railing? pt stays on main level of the house 1 step to enter Home Environment Standard Height Toilet,Walk in Shower,Built-In Shower Seat Home Equipment Four Wheel Walker,Hand Held Shower,Grab Bars Near Toilet, Grab Bars In Shower Additional Social History Comment pt's son lives on the lower level of the house and may assist pt if needed pt has a 3WW pt has R side bed cane pt has been sleeping on her recliner for the passed 4 days M2 PT-IP Current Condition Start: 11/05/21 13:45 Freq: NEEDED Status: Active Protocol: Document 11/05/21 10:54 AB (Rec: 11/05/21 13:58 AB [email or web address]) Physical Therapy Current Condition Current Condition Evaluation Date 11/05/21 Treatment Diagnosis s/p fall, mult rib fractures 4 -8; difficulty in walking Onset Date 11/04/21 M3 PT-IP Subjective Start: 11/05/21 13:45 Freq: NEEDED Status: Active Protocol: Document 11/05/21 10:54 AB (Rec: 11/05/21 13:58 AB [email or web address]) Subjective Physical Therapy Visit Type Type Treatment Note Visit Start Time 10:54 Visit Stop Time 11:32 Total Visit Minutes 38 Number of HAIR DRYER Visits 0 Physical Therapy Visit Comments Patient Comments pt is agreeable to do PT M4 PT-IP Mobility and Gait Start: 11/05/21 13:45 Freq: NEEDED Status: Active Protocol: Document 11/05/21 10:54 AB (Rec: 11/05/21 13:58 AB [email or web address]) PT-Bed Mobility Assessment Supine to Sit Supine to Sit Maximum Assistance PT-Transfer Assessment Sit to and From Stand Sit to and from Stand Minimal Assistance,Moderate Assistance,1 Person Assistance ,Use of Upper Extremities Equipment Transfer Assistive Device Gait Belt,Front Wheeled Walker Orthotic/Prosthetic Devices or Brace: No Transfers Transfer Destination Chair Transfer Technique ambulated Transfer Ability Level of Assist Minimal Assistance,Moderate Assistance,1 Person Assistance ,Use of Upper Extremities Comments Mobility Comments completeds upine to sti max A and max cues. able to sit on EOB CGA. completed sit to stand min to mod A and max cues and ambulated in room using FWW ~ 20 ft min to mod A and max cues. pt agreed to sit up on chair. positioned on the chair. call light and table placed wtihin reach. Gait Assessment Gait Gait Assistance Required: Minimum Assistance,Moderate Assistance,1 Person Assist Distance (Feet) 20 Able to Maintain Weight Bearing Status Yes During Gait Assistive Devices Assistive Device Gait Belt,Front Wheeled Walker Orthotic/Prosthetic Devices or Brace: No Gait Deviations General Gait Pattern Antalgic,Ataxic,Decreased Feet Clearance,Flexed Trunk, Lateral Trunk Lean Factors Limiting Gait Function Factors Limiting Gait Function Decreased Activity Tolerance, Decreased Strength,Difficulty Following Directions,Limited Range of Motion,Pain,Poor Balance,Poor Safety Awareness PT-Balance Assessment Sitting Balance and Reactions Static Sitting Balance Ability Good Dynamic Sitting Balance Ability Fair Standing Balance and Reactions Static Standing Balance Ability Poor Dynamic Standing Balance Ability Poor Device Used FWW M5 PT-IP Objective Assessments Start: 11/05/21 13:45 Freq: NEEDED Status: Active Protocol: Document 11/05/21 10:54 AB (Rec: 11/05/21 13:58 AB [email or web address]) Orientation Orientation/Cognition Level of Alertness Alert Orientation Name,Age,Place,Situation Language Function Ability No Deficits Noted Safety Awareness Decreased Safety Awareness Gross Range of Motion Lower Extremity ROM Assessment Bilaterally Impaired Impairments pain limiting ROM Strength Lower Extremity Strength Assessment Bilaterally Impaired Hip 3+/5 Knee 3+/5 Comments Strength Comments pain limiting strength Sensation Assessment Sensation Gross Sensation WNL Muscle Tone Muscle Tone WNL Yes M6 PT-IP Treatment Start: 11/05/21 13:45 Freq: NEEDED Status: Active Protocol: Document 11/05/21 10:54 AB (Rec: 11/05/21 13:58 AB [email or web address]) Physical Therapy Treatment Education Education Provided Safety M7 PT-IP Assessment and Plan Start: 11/05/21 13:45 Freq: NEEDED Status: Active Protocol: Document 11/05/21 10:54 AB (Rec: 11/05/21 13:58 AB [email or web address]) PT Summary Assessment and Plan Potential Rehabilitation Potential Fair Status of Condition at Evaluation Evolving Summary Impairments Pain,ROM,Strength,Balance, Coordination,Sensation,Tone, Cognition,Bed Mobility, Transfers,Gait,Activity Tolerance Assessment Summary pt with c/o R sided rib pain and needing min to mod A with sit to stand and ambulation using FWW at this time. pt's d/c plan depending on progress but may require SNF rehab at this time. will continue to assess progress. Goals Bed Mobility Goal Standby Assistance Transfer Goal Standby Assistance,Front Wheeled Walker Gait Goal Standby Assistance,Front Wheel Walker Gait Distance 100 Other Goals improve ambulation using 3WW SBA 250 ft up/down 1 step using 3WW SBA Days to Meet Goals 10 Frequency of Treatment Frequency Of Treatment Once a Day Treatment Plan Physical Therapy Treatment Plan Bed Mobility Training,Transfer Training,Gait Training, Therapeutic Exercise,Balance Retraining,Discharge Planning, Hot or Cold Pack,Neuromuscular Re-ed,Coordination Retraining Precautions Other Precautions falls Recommendations To Nursing Amount of Assist Needed 1 Person Assist Discharge Recommendations PT Discharge Recommendations Home with 11/10 Assist Available,Home Health,SNF Rehab,Home vs SNF Equipment Needed for Home Before FWW if not safe with 3WW Discharge Transportation Needs at Discharge Wheelchair/Cabulance
[2021-11-05] MEDS: hydrOXYzine pamoate 25 MG CAPSULE PO (12:30)
--- NOTE | 2021-11-05 13:23 | PM.DS.1 ---
History of Present Illness History of Present Illness Date Patient Seen: 11/06/21 Time Patient Seen: 10:50 Chief complaint: fell on , rib pain Narrative: This is an 86-year-old female past medical history of hypertrophic obstructive cardiomyopathy, moderate to severe MR, chronic atrial fibrillation post permanent pacemaker and ICD on chronic anticoagulation with Xarelto, essential hypertension, chronic diastolic heart failure, hypothyroidism, and recent history of multiple falls who presented to the emergency room at the behest of her with right-sided chest pain and difficulty mobilizing after a fall 5 days ago. Patient states that she fell into a po potty at a local concert. 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 She continued to have pain and difficulty mobilizing, and finally agreed to come to the emergency room at the past of her . She denies any dizziness, chest pain, palpitations, ICD discharges, vision changes, weakness or numbness. She has a hard time taking a deep breath in due to pain. She has not had a bowel movement in 4 days. She is any fever, chills, cough, lower extremity edema, abdominal pain, dysuria, urinary frequency. 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 In the emergency room, the patient was mildly hypotensive initially with a blood pressure of 98/59. The remainder of her vital signs were unremarkable and her oxygen saturations were above 90 and on room air. Laboratory evaluation revealed a mild leukocytosis with WBC of 12.0, her hemoglobin slightly elevated at 15.9 (no prior available for comparison), INR was slightly elevated at 2.1 though the patient takes Xarelto. Sodium was mildly low at 130, slightly below her usual baseline between 132-134. There were no other significant lab abnormalities. COVID-19 testing was negative. Rib X ray of her right side revealed displaced rib fractures from ribs 4 to possibly 9, with a right-sided pleural effusion. CT chest was performed which showed serration is a, probable right-sided hemo thorax, as well as right-sided rib fractures from 4-[address] of her cervical spine was unremarkable, as was a head CT which showed no acute abnormalities. General surgery / Trauma was consulted in the emergency room, who recommended admission to Medicine given that her fall was multiple days ago, surgery will continue to follow. Discharge Providers Provider Date of admission: 11/04/21 14:14 Discharge Date: 11/05/21 Primary care physician: Crow Gao MD Consults: 11/04/21 16:01 Consult to Respiratory Therapy Evaluate & Treat Comment: Physician Instructions: Evaluate and treat 11/04/21 18:25 Consult to Occupational Therapy Evaluate & Treat Comment: Physician Instructions: Evaluate and treat Consult to Physical Therapy Evaluate & Treat Comment: Physician Instructions: Evaluate and Treat Discharge provider: Jovanny Calderón DO Summary Hospital Course Discharge Diagnosis: 1. Acute traumatic displaced R 4th-8th rib fractures, present on admission 2. R hemothorax with pulmonary lacerations 3. Hypertrophic cardiomyopathy, chronic diastolic heart failure 4. chronic atrial fibrillation s/p PPM,ICD cristi 5. chronic hypothyroidism 6. Acute toxic or metabolic encephalopathy Hospital Course: This is an 86-year-old female who was admitted with multiple right-sided rib fractures after a fall. She also suffered from what appeared to be pulmonary lacerations and a right-sided hemo thorax. Given that her fall had been multiple days prior to admission, and her hemoglobin was quite high her apixaban was continued at the recommendation of General surgery who thought that she would most likely be quite stable. The following day, the patient was slightly more confused than usual according to her . This improved the following day and she did well with physical therapy and occupational therapy. The source for her encephalopathy is not entirely clear but could be due to pain medications or an acute on chronic hyponatremia as her sodium level dipped to 126 on hospital day 1. Fluid restriction was in place as the nurse on that day stated that the patient was drinking tons of water. Her sodium level improved the following day as did her confusion, and the patient typically has a low sodium level in low 130s. Encephalopathy could have also been from pain medications that were given for the patient's rib discomfort. Was discharged home, and further follow-up with her primary care provider is recommended. She was recommended to continue to use incentive spirometry at home, and pain medications were sent to her pharmacy. Time Spent with Patient Time spent: Greater than 30 minutes Exam Vital Signs (past 8 hours): - 11/05/21 08:46 11/05/21 08:00 11/05/21 08:00 Temperature Pulse Rate 64 60 Respiratory Rate Blood Pressure 136/72 134/74 Pulse Oximetry 97 97 Oxygen Delivery Method Room Air Oxygen Flow Rate 0 11/05/21 12:00 11/05/21 12:00 Temperature 97.9 F Pulse Rate 60 Respiratory Rate 18 Blood Pressure 116/60 Pulse Oximetry 93 93 Oxygen Delivery Method Room Air Oxygen Flow Rate 0 Oxygen Delivery Method Room Air Oxygen Flow Rate 0 Narrative Exam Narrative: General:?Elderly female, no acute distress, appears comfortable HEENT:? Normocephalic, atraumatic, extraocular muscles intact, oral pharynx is clear and mucous membranes are moist. Neck: supple and symmetric, trachea is midline, no cervical adenopathy. Negative for JVD Chest:? Normal AP diameter and contour without kyphoscoliosis, no tachypnea, equal chest rise bilaterally. + chest wall tenderness on the R. Lungs:? CTA b/l no wheezing rhonchi or rales. Cardio:?RRR no m/r/g. Abdomen: S NT ND. No CVA tenderness. Musculoskeletal:? Muscle strength and tone are equal within normal limits, no deformity. Extremities: No edema or joint effusions. No cyanosis or clubbing. Skin:? Pale,? Warm to touch,dry and intact without rashes, ulcerations or petechiae.? Neuro:? Alert and oriented,? sensation to touch intact in all extremities, no gross deficits noted of cranial nerves. Psych:? Patient has a well-kept appearance, appropriate affect, mental status attitude thought context and judgment are appropriate for age. Objective Labs Result Diagrams: 11/06/21 04:45 11/06/21 04:45 Labs: Laboratory Results - last 24 hr 11/04/21 11/05/21 11/05/21 13:19 04:38 04:38 WBC 7.8 RBC 4.36 Hgb 14.6 Hct 41.9 MCV 96.1 MCH 33.5 MCHC 34.9 RDW 12.8 Plt Count 260 Neut % (Auto) 65.6 Lymph % (Auto) 16.6 L [place] % (Auto) 14.9 H Eos % (Auto) 2.0 Baso % (Auto) 0.9 Neut # (Auto) 5100 Lymph # (Auto) 1300 [place] # (Auto) 1200 H Eos # (Auto) 200 Baso # (Auto) 100 Sodium 126 L Potassium 3.9 Chloride 95 L Carbon Dioxide 24 BUN 26 H Creatinine 0.57 Estimated GFR > 60 BUN/Creatinine Ratio 45.6 H Glucose 90 Calcium 7.8 L SARS-CoV-2 (PCR) Negative [facility] Medical History Elevated liver enzymes Elevated TSH Hypertrophic obstructive cardiomyopathy Hypothyroidism ICD (implantable cardioverter-defibrillator) in place Pacemaker Surgical History History of ankle surgery Status post hysterectomy Family History Father Hypertension Mother Cancer Social History household members: spouse Smoking Status: Never smoker alcohol intake: current substance use type: does not use Discharge Plan Discharge Plan Patient Disposition: Home Provider Discharge Comment: You were admitted to the hospital with multiple rib fractures. Please continue pain control at home and use incentive spirometer every hour at least. Please follow up with your primary care provider. You may return if you have worsening shortness of breath. Discharge orders & Medications Prescriptions: New acetaminophen 325 mg Tablet 650 mg PO Q6HR PRN (Reason: Fever/Mild Pain (1-3)) Qty: 60 0RF lidocaine 5 % Adhesive Patch,Medicated 1 ea topical BEDTIME 15 Days Qty: 15 0RF gabapentin [Neurontin] 300 mg Capsule 300 mg PO TID 30 Days Qty: 90 0RF hydroxyzine pamoate 25 mg Capsule 25 mg PO Q6HR PRN (Reason: Nausea) 7 Days Qty: 30 0RF oxycodone 5 mg Tablet 5 mg PO Q4HR PRN (Reason: Pain, Moderate (4-6)) 7 Days Qty: 20 0RF Continued metoprolol succinate 25 mg tablet extended release 24 hr 25 mg PO DAILY Eliquis 5 mg tablet 5 mg PO BID rosuvastatin 5 mg tablet 5 mg PO DAILY amiodarone 200 mg tablet 50 mg PO DAILY verapamil 120 mg tablet extended release 120 mg PO DAILY estradiol [Nuria] 0.1 mg/24 hr patch semiweekly 0.1 mg Topical .COMPLEX Qty: 24 3RF Rx Instructions: 0.1 mg Topical twice a week due to osteoperosis; a levothyroxine 50 mcg tablet See Rx Instructions .ROUTE .COMPLEX Qty: 90 1RF Dose Instruction: TAKE 1 TABLET BY MOUTH DAILY Rx Instructions: TAKE 1 TABLET BY MOUTH DAILY Follow up/Referrals: Crow Gao MD [Primary Care Provider] - Diet/Activity/Treatments Diet: Diet as Tolerated Activity: As tolerated Visit Report/Discharge Packet Instructions: DI for Prescription Opioid Use, Lidocaine Transdermal Patch, Hydroxyzine, Gabapentin, Hydroxyzine (By mouth) Discharge Data Primary Care Provider: Crow Gao Quality VTE Deep Vein Thrombosis/Pulmonary Embolism Present on Admission: No
[2021-11-05] MEDS: GABAPENTIN 300 MG CAPSULE PO (14:03)
--- NOTE | 2021-11-05 14:06 | OT.IP.EVAL ---
Current Diagnoses Multiple fractures of ribs, right side, initial encounter for closed fracture (11/04/21) Past Medical History (Last Reviewed 11/04/21 @ 18:39 by Jovanny Calderón DO) Elevated liver enzymes Elevated TSH Hypertrophic obstructive cardiomyopathy Hypothyroidism ICD (implantable cardioverter-defibrillator) in place Pacemaker Surgical History (Last Reviewed 11/04/21 @ 18:39 by Jovanny Calderón DO) History of ankle surgery Status post hysterectomy Occupational Therapy Inpatient Evaluation/Re-Eval M1 PT/OT-IP Prior Functional Status Start: 11/05/21 13:45 Freq: NEEDED Status: Active Protocol: Document 11/05/21 14:11 [facility] (Rec: 11/05/21 14:31 [facility] [id number]) Medical Review Prior Functional Status Medical History Reviewed Yes Communication able to make needs known Mobility and Gait pt stated that she is modified independent with all mobilities and ambulation using 3WW Activities of Daily Living and IADL's States independent with all ADL and IADL needs prior to her fall and now pt's has been assisting her with her needs. Social History Household Members spouse Living Arrangements House Number of Floors (Floors) Two Floors Number of Stairs To Enter/Railing? pt stays on main level of the house 1 step to enter Home Environment Standard Height Toilet,Walk in Shower,Built-In Shower Seat Home Equipment Four Wheel Walker,Hand Held Shower,Grab Bars Near Toilet, Grab Bars In Shower Additional Social History Comment pt's son lives on the lower level of the house and may assist pt if needed pt has a 3WW pt has R side bed cane pt has been sleeping on her recliner for the passed 4 days M2 OT-IP Current Condition Start: 11/05/21 14:10 Freq: Status: Active Protocol: Document 11/05/21 14:11 [facility] (Rec: 11/05/21 14:31 [facility] [id number]) Occupational Therapy Current Condition Current Condition Evaluation Date 11/05/21 Treatment Diagnosis Fractured ribs 4-8, right pleural effusion, decreased mobility Diagnosis Onset Date 11/04/21 M3 OT- IP Subjective and Pain Start: 11/05/21 14:10 Freq: Status: Active Protocol: Document 11/05/21 14:11 [facility] (Rec: 11/05/21 14:31 [facility] [id number]) OT- Subjective Occupational Therapy Visit Type Type Initial Evaluation Visit Start Time 13:15 Visit Stop Time 14:06 Total Visit Minutes 51 Occupational Therapy Visit Comments Patient Comments Pt agreed to get up and wanting to try to use the bathroom. Patient/Caregiver Goals TO go home. OT Pain Assessment Pain When Pain Assessed At Rest Pain Present Pain Present Pain Reported Location Anterior Medial Chest Intensity 4 Scale Used Numeric (0 - 10) M4 OT- IP ADL's Start: 11/05/21 14:10 Freq: Status: Active Protocol: Document 11/05/21 14:11 [facility] (Rec: 11/05/21 14:31 [facility] [id number]) OT [id number] Comments OT Self-Feeding Comments Not at meal time. OT ADL-Grooming Comments OT Grooming Comments Not performed as pt just wanting to get back to bed. OT ADL-Oral Care Comments Oral Care Comments Not performed. OT ADL-Dressing General Eval Lower Body Dressing Ability Maximum Assistance Comments OT Dressing Comments Able to initiate education of LB dressing equipment to increased ease and independence for pt . Pt states her can assist her. OT ADL-Toileting General Evaluation Toileting Ability Minimal Assistance Comments OT Toileting Comments Pt having difficulty to have a bowel movement and requesting suppository, nursing and hospitalist notified. Pt needing assist to help pull up her brief in the back. OT ADL-Bathing Comments OT Bathing Comments NOt performed. M5 OT- IP IADL's Start: 11/05/21 14:10 Freq: Status: Active Protocol: Document 11/05/21 14:11 [facility] (Rec: 11/05/21 14:31 [facility] [id number]) OT-Instrumental Activities of Daily Living Deficits IADL Deficits Identified Deficits Home Safety Awareness Awareness of Need for Assistance at Home Decreased Awareness Home Safety Comments Pt is confused but also may be due to a little hard of hearing. Pt's cell phone was ringing in her hands and did not realize that she was holding her phone. Pt having more difficulty with her short term memory as well per since her fall. Pt if going home will benefit from 11/10 assist. Meal Preparation Meal Preparation Caregiver Provides Assist Crinkling Machine Operator Crinkling Machine Operator Caregiver Provides Assist M6 OT- IP Functional Cognition Start: 11/05/21 14:10 Freq: Status: Active Protocol: Document 11/05/21 14:11 [facility] (Rec: 11/05/21 14:31 [facility] [id number]) Cognitive Factors Limiting Selfcare Function Cognitive Ability Level of Alertness Alert,Confusional State Patient Orientation Name,Place,Situation Attention Span Ability Capable of Focused Attention, Capable of Sustained Attention Ability to Follow Commands Able to Follow One Step Commands with Increased Time, Able to Follow One Step Commands with Repetition Memory Description Short Term Impaired Safety Awareness Underestimates Need for Assistance Cognitive Comments Cognitive Assessment Comments Pt having difficulty with her short term memory as not recalling details of items on the SLUMs. Pt is also hard of hearing which may also be affecting her understanding. However pt's cell phone was ringing and did not realize or remember that she was holding onto her phone. Pt having more difficulty with her short term memory as well per since her fall. To try to complete SLUMS tomorrow. OT- Vision and Hearing OT- Hearing Assessment OT- Hearing Assessment Hearing Impaired M7 OT- IP Mobility and Balance Start: 11/05/21 14:10 Freq: Status: Active Protocol: Document 11/05/21 14:11 [facility] (Rec: 11/05/21 14:31 [facility] [id number]) OT- Bed Mobility Assessment Sit to Supine Sit to Supine Assist Maximum Assistance OT-Transfer Assessment Sit to and From Stand Sit to and from Stand Minimal Assistance Transfers Transfer Ability Minimal Assistance Technique Transfer Destination Bed,Chair,Toilet Transfer Technique Stand Step Pivot Devices Transfer Assistive Devices Gait Belt,4 Wheeled Walker Comments Mobility Comments Pt CGA to [place] to stand to her 3ww and pt not able to keep the 3ww in front of her, therefore tried the 4ww as pt has at home and was much safer, but tends to let go of it too soon while trying ot get back to bed. Pt needing MAX A x1 to help get back to bed. Pt states to be just sleeping in her recliner at home. OT- Balance Assessment Sitting Balance and Reactions Static Sitting Balance Ability Good Dynamic Sitting Balance Ability Good Standing Balance and Reactions Static Standing Balance Ability Fair Dynamic Standing Balance Ability Poor M8 OT- IP Objective Assessments Start: 11/05/21 14:10 Freq: Status: Active Protocol: Document 11/05/21 14:11 [facility] (Rec: 11/05/21 14:31 [facility] [id number]) OT Gross Range of Motion Upper Extremity Range of Motion ROM Impairments NT due to rib fractures OT Strength Comments Strength Comments NOt formally tested due to rib fractures but at least 3-/5. OT-Muscle Tone Assessment Muscle Tone WNL Yes M9 OT- IP Assessment and Plan Start: 11/05/21 14:10 Freq: Status: Active Protocol: Document 11/05/21 14:11 [facility] (Rec: 11/05/21 14:31 [facility] [id number]) OT Summary Assessment and Plan Potential Rehabilitation Potential Good Analytic Complexity at Evaluation Moderate Summary OT Impairments Pain,Strength,Balance, Functional Cognition, Functional Mobility,Grooming, Dressing,Toileting,Bathing, Toilet Transfers,Shower Transfers,Activity Tolerance Progress Towards Goals Slow Progress due to Pain,Slow Progress due to Medical Issues,Slow Progress due to Activity Tolerance,Slow Progress due to Cognition Assessment Summary Pt MOD complexity and main barriers are pain, needing MAXA for bed mobility needs and assist for ADL's, and decreased safety awareness. Pt per feels that pt is more confused since her fall and not thinkging as well, nursing and hospitalist notified. Unable to complete SLUMS as pt having a phone call, to complete tomorrow. Pt wanting to go home and would benefit from 24/7 assist and home health. Pending progress and caregiver training, pt may require short skilled rehab. Goals Self-Feeding Goal Independent Grooming Goal Independent Dressing Goal Independent Toileting Goal Independent Bathing Goal Independent Toilet Transfer Goal Independent Shower Transfer Goal Independent Patient/Caregiver Education Goal Caregiver Independent Assisting Patient Days to Meet Goals 10 Frequency of Treatment Frequency Of Treatment Once a Day Treatment Plan OT Treatment Plan ADL Training,Functional Cognition Training,Functional Mobility,Patient/Family Education,Discharge Planning Other Treatment Recommendations and Next SLUMS Treatment Focus Discharge Recommendations OT Discharge Recommendations Home with 24/7 Assist Available,Home Health,Home vs SNF Other Discharge Recommendations pending progress and caregiver training, pt may need short skilled rehab Transportation Needs at Discharge Private Vehicle,Wheelchair/ Cabulance
--- NOTE | 2021-11-05 15:50 | CM.DANOTE ---
Initial DCP Assessment Note Pt is a 86 yo female, resident of [place], arrives 5 days after a fall at a local concert, complaining of persistent pain, difficulty taking a deep breath, and difficulty in mobilizing PT recommending home w/24/7 assist and HH PT vs SNF PCP: Crow Gao [place]: MCR/AARP Reviewed chart, pt discussed in multidisciplinary rounds this morning. Patient may benefit from SNF upon DC Will plan to review dispo options w/patient and family. Patient being reviewed now by UR RN for determination on appropriate status MARTIN Hall Discharge Planning/Care Management CM Discharge Assessment Start: 11/05/21 15:18 Freq: Status: Active Protocol: Document 11/05/21 15:18 [facility] (Rec: 11/05/21 15:50 [facility] [id number]) Discharge Planning Assessment Assigned Conference Planner MARTIN Dickens DPOA/Assigned Designee Name Momo Acevedo, spouse Contact Information [phone] home [phone] work Advance Directives? Yes Advance Directives on File Yes History Provided By Patient,Medical Record Has Patient been admitted in last 30 No days? Prior Living Arrangements House Household Members spouse Type of transporation used prior to Relies on Others admit Independent with ADL's Yes Is patient alert and oriented? Yes: Modified indp, uses 3ww Comment son lives on the lower level of her home Patient/Family Preference Senior Living Facility Barriers to Discharge Yes Comment Multiple rib fx after recent fall, PT recommending SNF vs Home w/ 24/7 assist and HH, depending on functional progress while admitted. Will plan to discuss dispo options w/patient and family Discharge Plan Senior Living Facility Transportation Arrangement Likely w/c van if SNF vs pov if home w/family Additional Comment Reviewing dispo options and MCR choice list with patient today
--- NOTE | 2021-11-05 16:40 | P.PN_ITS ---
Subjective Subjective Date Patient Seen: 11/05/21 Interval history: Continues to have pain, mobilized well with PT but not as well with occupational therapy. Took some muscle relaxants and became a bit confused more than normal today. Exam Vital Signs (past 8 hours): - 11/05/21 08:46 11/05/21 12:00 11/05/21 12:00 Temperature 97.9 F Pulse Rate 64 60 Respiratory Rate 18 Blood Pressure 136/72 116/60 Pulse Oximetry 93 93 Oxygen Delivery Method Room Air Oxygen Flow Rate 0 11/05/21 11:00 11/05/21 16:10 Temperature 98.0 F Pulse Rate 60 60 Respiratory Rate 18 Blood Pressure 116/60 108/58 L Pulse Oximetry 90 L Oxygen Delivery Method Oxygen Flow Rate 0 Oxygen Delivery Method Room Air Oxygen Flow Rate 0 Narrative Exam Narrative: General:?Elderly female, no acute distress, appears comfortable HEENT:? Normocephalic, atraumatic, extraocular muscles intact, oral pharynx is clear and mucous membranes are moist. Neck: supple and symmetric, trachea is midline, no cervical adenopathy. Negative for JVD Chest:? Normal AP diameter and contour without kyphoscoliosis, no tachypnea, equal chest rise bilaterally. + chest wall tenderness on the R. Lungs:? CTA b/l no wheezing rhonchi or rales. Cardio:?RRR no m/r/g. Abdomen: S NT ND. No CVA tenderness. Musculoskeletal:? Muscle strength and tone are equal within normal limits, no deformity. Extremities: No edema or joint effusions. No cyanosis or clubbing. Skin:? Pale,? Warm to touch,dry and intact without rashes, ulcerations or petechiae.? Neuro:? Alert and oriented,? sensation to touch intact in all extremities, no gross deficits noted of cranial nerves. Psych:? Patient has a well-kept appearance, appropriate affect, mental status attitude thought context and judgment are appropriate for age. Objective Labs Result Diagrams: 11/05/21 04:38 11/05/21 04:38 Labs: Laboratory Results - last 24 hr 11/05/21 11/05/21 04:38 04:38 WBC 7.8 RBC 4.36 Hgb 14.6 Hct 41.9 MCV 96.1 MCH 33.5 MCHC 34.9 RDW 12.8 Plt Count 260 Neut % (Auto) 65.6 Lymph % (Auto) 16.6 L Gonzales % (Auto) 14.9 H Eos % (Auto) 2.0 Baso % (Auto) 0.9 Neut # (Auto) 5100 Lymph # (Auto) 1300 Gonzales # (Auto) 1200 H Eos # (Auto) 200 Baso # (Auto) 100 Sodium 126 L Potassium 3.9 Chloride 95 L Carbon Dioxide 24 BUN 26 H Creatinine 0.57 Estimated GFR > 60 BUN/Creatinine Ratio 45.6 H Glucose 90 Calcium 7.8 L PFSH Medical History Elevated liver enzymes Elevated TSH Hypertrophic obstructive cardiomyopathy Hypothyroidism ICD (implantable cardioverter-defibrillator) in place Pacemaker Surgical History History of ankle surgery Status post hysterectomy Family History Father Hypertension Mother Cancer Social History household members: spouse Smoking Status: Never smoker alcohol intake: current substance use type: does not use Assessment & Plan Assessment & Plan narrative: 1. Acute traumatic displaced R 4th-8th rib fractures, present on admission - general surgery following for trauma evaluation - safe to resume home AC - continue pain control, patient resistant to opiates - PT / OT consultations - RT eval and treat, IS 2. R hemothorax with pulmonary lacerations - secondary to trauma and rib fx - continue to follow h/h - resume home AC, okay with trauma / gen surg 3. Hypertrophic cardiomyopathy, chronic diastolic heart failure - no acute issues, continue home medications 4. chronic atrial fibrillation s/p PPM,ICD cristi - continue home medications 5. chronic hypothyroidism - continue home medications 6. Acute likely toxic encephalopathy - patient more confused than normal per today, likely secondary to medications for pain control needed. - will continue to monitor Code: Full, surrogate decision maker is her or niece. Dispo: admit as inpatient as her stay is likely to exceed two midnights. DVT: on apixaban I have utilized all available immediate resources to obtain, update, or review the patient's current medications. COVID-19 COVID-19 status: Negative Time Spent With Patient Critical Care time: I spent a total of [] minutes of critical care time on this patient's care today; this time is exclusive of procedural time. Quality VTE Deep Vein Thrombosis/Pulmonary Embolism Present on Admission: No
--- NOTE | 2021-11-05 17:12 | PM.CALLCOV.1 ---
Call Coverage Note Note Date of Patient Contact: 11/05/21 Narrative of Care Provided: chart review, no issues w the exception of confusion likely combination new meds, new surroundings and sleep disturbance. I will see her tomorrow as she may still be there.
[2021-11-05] MEDS: SENNOSIDES 8.6 MG TABLET 17.2 MG PO (21:02)
[2021-11-05] MEDS: ATORVASTATIN 20 MG TABLET 10 MG PO (21:03)
[2021-11-05] MEDS: SODIUM CHLORIDE 0.9% FLUSH 10 ML IV ×2 (21:04→22:20)
[2021-11-05] MEDS: SODIUM CHLORIDE 0.9% 500 ML 1000 ML IV (21:34)
--- NOTE | 2021-11-05 22:24 | PC.NURSE ---
2037 Dr. Parrish notified pt. B/P 78/41 & 90/56 HR 60. Ordered to hold Gabapentin 2100 dose , also received a bolus of NS 500 ml. All orders implemented, 500 ml. of NS bolus completed now rechecked her B/P 116/65 & HR 60. Patient much more awake now, did not voiced of pain @ this time. Will cont. POC & monitor.
[2021-11-06] VITALS (9 sets, daily range): BP systolic 120–129; BP diastolic 61–68; PULSE 60–68; RESP 16–17; TEMP 36.3–36.6; O2SAT 95–97
[2021-11-06] MEDS: MELATONIN 3 MG TABLET 9 MG PO (00:35)
[2021-11-06] MEDS: ACETAMINOPHEN 325 MG TABLET 650 MG PO (00:58)
[2021-11-06 05:09] LABS: BUN Creatinine Ratio 37.9 (6-22); Blood Urea Nitrogen 25 mg/dL (7-17); Calcium 8.1 mg/dL (8.4-10.2); Carbon Dioxide 26 mmol/L (22-32); Chloride 96 mmol/L (98-107); Estimated Glomerular Filt Rate > 60 mL/min (>60); Glucose 90 mg/dL (80-110); HEMOLYSIS < 15 (0-50); Potassium 3.8 mmol/L (3.4-5.1); Sodium 127 mmol/L (137-145)
[2021-11-06 05:14] LABS: Add Manual Diff / Slide Review NO; Basophils Absolute Auto 100 /uL (0-100); Basophils Percent Auto 0.8 % (0-2); Eosinophils Absolute Auto 200 /uL (0-450); Eosinophils Percent Auto 2.4 % (2-4); Hematocrit 42.1 % (36-46); Hemoglobin 14.6 g/dL (12.0-16.0); Lymphocytes Absolute Auto 1100 /uL (1100-4500); Lymphocytes Percent Auto 14.1 % (25-40); Mean Corpuscular HGB Conc 34.6 % (30-36); Mean Corpuscular Hemoglobin 33.6 PG (26-34); Mean Corpuscular Volume 97.1 fL (80-100); Monocytes Absolute Auto 1000 /uL (0-900); Monocytes Percent Auto 12.8 % (3-14); Neutrophils Absolute Auto 5700 /uL (1500-7000); Neutrophils Percent Auto 69.9 % (50-75); Platelet Count 263 X10^3/uL (150-400); Red Blood Cell Count 4.34 X10^6/uL (4.0-5.2); Red Cell Distribution Width 12.8 % (11.6-14.8); White Blood Cell Count 8.1 X10^3/uL (4.5-11.0)
[2021-11-06] MEDS: OXYCODONE IR 5 MG TABLET PO ×2 (06:17→11:43)
[2021-11-06] MEDS: LEVOTHYROXINE 50 MCG TABLET PO (06:21)
[2021-11-06] MEDS: AMIODARONE 200 MG TABLET 50 MG PO (08:48)
[2021-11-06] MEDS: APIXABAN 5 MG TABLET PO (08:48)
[2021-11-06] MEDS: GABAPENTIN 300 MG CAPSULE PO (08:48)
[2021-11-06] MEDS: SODIUM CHLORIDE 0.9% FLUSH 10 ML IV (08:49)
[2021-11-06] MEDS: DOCUSATE 100 MG CAPSULE PO (08:49)
[2021-11-06] MEDS: LIDOCAINE PATCH 1 EACH ADH..PATCH TOP (08:49)
[2021-11-06] MEDS: METOPROLOL ER 25 MG TABLET PO (08:49)
[2021-11-06] MEDS: VERAPAMIL SR 120 MG TABLET PO (08:49)
--- NOTE | 2021-11-06 09:45 | OT.IP.TRT ---
Current Diagnoses Multiple fractures of ribs, right side, initial encounter for closed fracture (11/04/21) Occupational Therapy Treatment Note M2 OT-IP Current Condition Start: 11/05/21 14:10 Freq: Status: Active Protocol: Document 11/05/21 14:11 [facility] (Rec: 11/05/21 14:31 [facility] [id number]) Occupational Therapy Current Condition Current Condition Evaluation Date 11/05/21 Treatment Diagnosis Fractured ribs 4-8, right pleural effusion, decreased mobility Diagnosis Onset Date 11/04/21 M3 OT- IP Subjective and Pain Start: 11/05/21 14:10 Freq: Status: Active Protocol: Document 11/06/21 09:45 [facility] (Rec: 11/06/21 10:27 [facility] [id number]) OT- Subjective Occupational Therapy Visit Type Type Treatment Note Visit Start Time 09:03 Visit Stop Time 09:45 Total Visit Minutes 42 Occupational Therapy Visit Comments Patient Comments Pt wanting to shower. Patient/Caregiver Goals TO go home. OT Pain Assessment Pain When Pain Assessed At Rest Pain Present Pain Present Pain Reported M4 OT- IP ADL's Start: 11/05/21 14:10 Freq: Status: Active Protocol: Document 11/06/21 09:45 [facility] (Rec: 11/06/21 10:27 [facility] [id number]) OT [id number] Comments OT Self-Feeding Comments NOt at meal time. OT ADL-Grooming Comments OT Grooming Comments Not performed. OT ADL-Oral Care Comments Oral Care Comments Not performed. OT ADL-Dressing General Eval Lower Body Dressing Ability Maximum Assistance Comments OT Dressing Comments MAXA to help ngoc/doff her brief and pants. OT ADL-Toileting Comments OT Toileting Comments Not performed, pt will need assist for completeness at home after bowel movements. OT ADL-Bathing Bathing Type Bathing Type Shower General Evaluation Bathing Ability Maximal Assistance Areas Needing Assistance Wash/Dry Back,Wash/Dry Perineal Area,Wash/Dry Lower Extremities Comments OT Bathing Comments Pt having to hold on to the grab bar with right UE for stability. At home pt will need assist for her showers. M6 OT- IP Functional Cognition Start: 11/05/21 14:10 Freq: Status: Active Protocol: Document 11/06/21 09:45 [facility] (Rec: 11/06/21 10:27 [facility] [id number]) Cognitive Factors Limiting Selfcare Function Cognitive Ability Level of Alertness Alert Patient Orientation Name,Place,Situation Attention Span Ability Capable of Focused Attention, Capable of Sustained Attention Ability to Follow Commands Able to Follow One Step Commands Cognitive Comments Cognitive Assessment Comments Pt doing better with her thinking today and feeling better. Pt is well aware that she will need assist at home for her needs. Pt states her daughter in law is here to assist in addition to her . OT- Vision and Hearing OT- Hearing Assessment OT- Hearing Assessment Hearing Impaired M7 OT- IP Mobility and Balance Start: 11/05/21 14:10 Freq: Status: Active Protocol: Document 11/06/21 09:45 [facility] (Rec: 11/06/21 10:27 [facility] [id number]) OT- Bed Mobility Assessment Supine to Sit Supine to Sit Assist Maximum Assistance,1 Person Assistance OT-Transfer Assessment Sit to and From Stand Sit to and from Stand Minimal Assistance Transfers Transfer Ability Minimal Assistance Technique Transfer Destination Bed,Chair,Shower Stall Devices Transfer Assistive Devices Gait Belt,Front Wheeled Walker Comments Mobility Comments Pt needing SHANTELLE for balance while stepping over the threshold of the shower. Pt able to navigate the walker better today versus needing assist to guide the walker yesterday. OT- Balance Assessment Sitting Balance and Reactions Static Sitting Balance Ability Good Dynamic Sitting Balance Ability Fair Standing Balance and Reactions Static Standing Balance Ability Fair Dynamic Standing Balance Ability Poor Comments Other Balance Tests/Deviations/Treatment Pt having more pain today and : therefore needing more assist with dynamic balance needs in sitting and standing. M9 OT- IP Assessment and Plan Start: 11/05/21 14:10 Freq: Status: Active Protocol: Document 11/06/21 09:45 [facility] (Rec: 11/06/21 10:27 [facility] [id number]) OT Summary Assessment and Plan Potential Rehabilitation Potential Good Analytic Complexity at Evaluation Moderate Summary OT Impairments Pain,Strength,Balance, Functional Cognition, Functional Mobility,Grooming, Dressing,Toileting,Bathing, Toilet Transfers,Shower Transfers,Activity Tolerance Progress Towards Goals Progressing Toward Goals Assessment Summary Pt able to tolerate a shower today but still in lots of pain and therefore will need assist for all ADL and mobility needs at this time. Pt has a supportive family to assist pt 11/10. Pt will also benefit from home health especially to look at overall safety on the environment for fall prevention needs. Pt's yesterday states they have a lot of throw rugs at home. Goals Self-Feeding Goal Independent Grooming Goal Independent Dressing Goal Independent Toileting Goal Independent Bathing Goal Independent Toilet Transfer Goal Independent Shower Transfer Goal Independent Patient/Caregiver Education Goal Caregiver Independent Assisting Patient Days to Meet Goals 10 Frequency of Treatment Frequency Of Treatment Once a Day Treatment Plan OT Treatment Plan ADL Training,Functional Cognition Training,Functional Mobility,Patient/Family Education,Discharge Planning Discharge Recommendations OT Discharge Recommendations Home with 24/ Assist Available,Home Health Transportation Needs at Discharge Private Vehicle
[2021-11-06] MEDS: MINERAL OIL 1 EACH ENEMA PR (11:35)
--- NOTE | 2021-11-06 12:37 | PT.IPTN ---
Current Diagnoses Multiple fractures of ribs, right side, initial encounter for closed fracture (11/04/21) Physical Therapy Treatment Note M2 PT-IP Current Condition Start: 11/05/21 13:45 Freq: NEEDED Status: Discharge Protocol: Document 11/06/21 11:45 [facility] (Rec: 11/06/21 17:11 [facility] [id number]) Physical Therapy Current Condition Current Condition Evaluation Date 11/05/21 Treatment Diagnosis s/p fall, mult rib fractures 4 -8; difficulty in walking Onset Date 11/04/21 M3 PT-IP Subjective Start: 11/05/21 13:45 Freq: NEEDED Status: Discharge Protocol: Document 11/06/21 11:45 [facility] (Rec: 11/06/21 17:11 [facility] [id number]) Subjective Physical Therapy Visit Type Type Treatment Note Visit Start Time 11:44 Visit Stop Time 12:37 Total Visit Minutes 53 Notes uses SPC for mobility, attended tx, provided assist required during tx, CGT. Number of CHEMICAL PRODUCTION ENGINEER Visits 1 Physical Therapy Visit Comments Patient Comments pt is agreeable to do PT Patient Goals Return home with and daughter to assist her, welcoming to HHPT. M4 PT-IP Mobility and Gait Start: 11/05/21 13:45 Freq: NEEDED Status: Discharge Protocol: Document 11/06/21 11:45 [facility] (Rec: 11/06/21 17:11 [facility] [id number]) PT-Bed Mobility Assessment Supine to Sit Supine to Sit Moderate Assistance,Maximum Assistance,1 Person Assistance ,Bedrails Scooting Scooting to Edge of Bed Contact Guard Assistance, Minimal Assistance PT-Transfer Assessment Sit to and From Stand Sit to and from Stand Contact Guard Assistance, Minimal Assistance,1 Person Assistance,Use of Upper Extremities Equipment Transfer Assistive Device Gait Belt,4 Wheeled Walker Orthotic/Prosthetic Devices or Brace: No Transfers Transfer Destination Chair,Toilet,Wheelchair Transfer Technique pt ambulated with 4WW Transfer Ability Level of Assist Contact Guard Assistance, Minimal Assistance,1 Person Assistance,Use of Upper Extremities Comments Mobility Comments Pt laying on L side, when arrived initially, pt stated very constipated and suppository not helping, nursing coming to assist. When returned pt willing to mobilize to assist digestive circulation. LR R >sit Max Ax1 to pull from therapist and trunk righting, CG- Min A for trunk support while pt scooted EOB. donned GB and assisted brief and pant donning, sit>stand Min A initially w/ 4WW, education for proper brake mgt throughout tx as needed, gait 8 ft requested/completed to bathroom CGA, mod cues for keeping centered between B wheels during pivot, pt tends to park off to side, provides cues as well. Pt ableto complete pant and brief mgt self ed for use 1 UE while other contact grab bar self support. stand>sit CGA. Pt stated able void and small BM, self pericare. Sit>stand CGA cued use grab bar, self pant mgt 1 Ue at time. Gait to sink 10 ft w/ 4WW CGA cued closer to 4WW and positioning at side with locked brakes, contact counter for self stability noted sways self recovery. Pt progressed further gait to w/c in hallway 15 ft, cued reach slow sit. Wheeled to stair. Completed 6 stairs BUE on LHR CGA via step to patterning. Pt progressed gait back to room with 4WW approx 180 ft improved pacing, identifies brake squeeze if needed, w/c follow but not needed. Pt returned to chair when back in room SBA with cues via to pull 4WW back fully and brake mgt and slow sit. Pt had call light and all needs in reach before left. CHEMICAL PRODUCTION ENGINEER recommended pt continue use reclined for sleeping and sleep on couch to all her her when needed for bathroom use at night, both in agreement. Discussed with nursing pt completed all needs and ok to return home with and daughter to assist her. Gait Assessment Gait Gait Assistance Required: Contact Guard Assist Distance (Feet) 180 Able to Maintain Weight Bearing Status Yes During Gait Assistive Devices Assistive Device Gait Belt,4 Wheeled Walker Orthotic/Prosthetic Devices or Brace: No Gait Deviations General Gait Pattern Antalgic,Ataxic,Decreased Feet Clearance,Flexed Trunk Factors Limiting Gait Function Factors Limiting Gait Function Decreased Activity Tolerance, Decreased Strength,Difficulty Following Directions,Limited Range of Motion,Pain,Poor Balance,Poor Safety Awareness Comments Gait Comments Cues for 4WW brake mgt/ positioning stay within back wheels, initally CHEMICAL PRODUCTION ENGINEER then , improved distance gait post stairs, cued LLE foot clearance due to decreased stride and caught floor x1 no LOB/deviations. Stair Climbing Assessment Evaluation Level of Assist On Stairs Contact Guard Assistance, Minimal Assistance,1 Person Assistance Devices Stair Climbing Assistive Devices Left Railing Technique/Endurance Stair Climbing Direction Ascend and Descend Stair Climbing Technique Step to Step Number of Steps Climbed 3 Stair Climbing Set # Repetitions (reps) 1 Comments Stair Climbing Comments /pt stated have 2 consecutive stairs w/ L HR to enter home. Cues for BUE on L HR and positioning with support on GB with good demonstration. PT-Balance Assessment Sitting Balance and Reactions Static Sitting Balance Ability Normal Dynamic Sitting Balance Ability Fair Standing Balance and Reactions Static Standing Balance Ability Good Dynamic Standing Balance Ability Fair Device Used 4WW M5 PT-IP Objective Assessments Start: 11/05/21 13:45 Freq: NEEDED Status: Discharge Protocol: Document 11/05/21 10:54 [facility] (Rec: 11/05/21 13:58 [facility] [id number]) Orientation Orientation/Cognition Level of Alertness Alert Orientation Name,Age,Place,Situation Language Function Ability No Deficits Noted Safety Awareness Decreased Safety Awareness Gross Range of Motion Lower Extremity ROM Assessment Bilaterally Impaired Impairments pain limiting ROM Strength Lower Extremity Strength Assessment Bilaterally Impaired Hip 3+/5 Knee 3+/5 Comments Strength Comments pain limiting strength Sensation Assessment Sensation Gross Sensation WNL Muscle Tone Muscle Tone WNL Yes M6 PT-IP Treatment Start: 11/05/21 13:45 Freq: NEEDED Status: Discharge Protocol: Document 11/06/21 11:45 [facility] (Rec: 11/06/21 17:11 [facility] [id number]) Physical Therapy Treatment Education Education Provided Safety Other Treatments Other Treatment Performed Education for 4WW brake mgt and positioning. M7 PT-IP Assessment and Plan Start: 11/05/21 13:45 Freq: NEEDED Status: Discharge Protocol: Document 11/06/21 11:45 [facility] (Rec: 11/06/21 17:11 [facility] [id number]) PT Summary Assessment and Plan Potential Rehabilitation Potential Fair Status of Condition at Evaluation Evolving Summary Impairments Pain,ROM,Strength,Balance, Coordination,Sensation,Tone, Cognition,Bed Mobility, Transfers,Gait,Activity Tolerance Progress Towards Goals Progressing Toward Goals,Slow Progress due to Activity Tolerance Assessment Summary Pt requires extra time to mobilize due to decreased activity tolerance, c/o R rib pain when seated quick turn to look R hands held side, otherwise didn't comment on pain during mobility. Pt required CGA during all mobility in standing w/ 4WW, Max A during bed mob but states will sleep in recliner. Pt is ok to return home with / daughter to assist her, recommending/ open to HHPT to progress strength, functional independence. Goals Bed Mobility Goal Standby Assistance Transfer Goal Standby Assistance,Front Wheeled Walker Gait Goal Standby Assistance,Front Wheel Walker Gait Distance 100 Other Goals improve ambulation using 3WW SBA 250 ft up/down 1 step using 3WW SBA Days to Meet Goals 10 Frequency of Treatment Frequency Of Treatment Once a Day Treatment Plan Physical Therapy Treatment Plan Bed Mobility Training,Transfer Training,Gait Training, Therapeutic Exercise,Balance Retraining,Discharge Planning, Hot or Cold Pack,Neuromuscular Re-ed,Coordination Retraining Other Recommendations and Next Treatment Le ex, balance activities, Focus continue safety cues for 4WW brakes with transfers/ gait. Precautions Other Precautions falls Recommendations To Nursing Amount of Assist Needed 1 Person Assist Discharge Recommendations PT Discharge Recommendations Home with 24/ Assist Available,Home Health Transportation Needs at Discharge Private Vehicle
--- NOTE | 2021-11-06 12:50 | OT.IPNOTE ---
Spoke to pt and regrading OT needs. Pt states that her niece will be staying with her to assist. Left message for case management to add bath aid for the pt for home health.
--- NOTE | 2021-11-06 15:02 | PC.NURSE ---
Pt is A&Ox3 this a.m. VSS, afebrile on RA. LS clear diminished on the right. She is given all of her a.m. scheduled medications and is agreeable to one tab 5mg oxycodone after ambulating and working with therapy today. Pain medication prn with good effect she reports very minimal to no pain while at rest. She reports feeling constipated and suppository given was uneffected, patient was able to pass a small hard BM with enema today. She is able to shower with OT and has a good appetite for breakfast and lunch. She is cleared for discharge with HH today. Daughter Don and Son Romario updated about plan of care for patient to be discharged. Patient and verbalize understanding of discharge plan, medications, activity and follow up recommendations. She is escorted via w/ch to private vehicle with daughter Don and her for discharge home this afternoon at 1343 p.m.
--- NOTE | 2021-11-06 16:00 | CM.DPNOTE ---
Addendum entered by Debi Landis, FIRE CONTROLMAN 11/06/21 16:17: ADD: Patient has been prescribed Lidocaine patch and hydroxyzine Pamoate by Dr Calderón. [facility] regulatory technician tells this FIRE CONTROLMAN that a pre-auth is needed to dispense these meds to patient. Got out of pocket quote, as pre-auth process is expected to be lengthy Lidocaine patch as prescribed is $150.49 and much less $ if OTC (4% strength). Dr Calderón kindly printed a [employer] coupon for the hydroxyzine pamoate for $5 Patient/spouse agreeable to will plan to pay out of pocket cost in order to pick these meds up in a timely manner JW Original Note: DC Note Patient is being discharged home today and is eager to do so Met w/patient and her spouse Momo, reviewed DCP. Patient and spouse very sergio and in good spirits. Patient cleared by therapies for return home w/assist; discussed rec for services MCR choice list reviewed, no HH agency preference so placed call to Kaia at [facility] per calendar rotation. Discussed referral and faxed referral packet, requested HH RN/PT/OT and WEIGHER BULKER Plan: DC home today w/assist from spouse, dtr (Colby) and son (lives with, downstairs) and [facility] services, close outpatient f/u recommended [facility]
== END 2021-11-06 13:43 | disposition home or self-care (01) | DRG 199 ==
LOC: ED 14:08 → AC 14:15
PROVIDERS: Admitting Provider Internal Medicine; Emergency Provider Emergency Medicine; Family Provider Nurse Practitioner Family; PCP Pediatrics; Referring Provider Emergency Medicine; Visit Provider Internal Medicine
DX: S27.1XXA Traumatic hemothorax, initial encounter (principal); S27.331A Laceration of lung, unilateral, initial encounter; G92.8 Other toxic encephalopathy; G93.41 Metabolic encephalopathy; S22.41XA Multiple fractures of ribs, right side, initial encounter for closed fracture; I50.32 Chronic diastolic (congestive) heart failure; I48.20 Chronic atrial fibrillation, unspecified; I42.2 Other hypertrophic cardiomyopathy; I11.0 Hypertensive heart disease with heart failure; E03.9 Hypothyroidism, unspecified; W18.30XA Fall on same level, unspecified, initial encounter; Y92.89 Other specified places as the place of occurrence of the external cause; Z91.81 History of falling; Z95.0 Presence of cardiac pacemaker; Z79.01 Long term (current) use of anticoagulants; E78.5 Hyperlipidemia, unspecified
CPT/HCPCS: 36415; 70450; 71101; 71260; 72125; 80048; 80053; 80061; 83735; 84443; 85025; 85610; 85730; 87635; 96374; 97116; 97162; 97166; 97530; 97535; 99284; 99285; C9803; J2270; Q9967

== ENCOUNTER → 2022-04-15 08:54 | Outpatient (CLI) | payer MEDICARE, SELFPAY ==
[2021-11-04 15:32] VITALS: BMI 26.8
[2022-04-15 10:46] LABS: Alanine Aminotransferase 18 IU/L (<35); Albumin Globulin Ratio 1.2 (1.0-2.8); Alkaline Phosphatase 70 U/L (38-126); Aspartate Aminotransferase 32 IU/L (14-36); BUN Creatinine Ratio 18.3 (6-22); Bilirubin Total 0.7 mg/dL (0.2-1.3); Blood Urea Nitrogen 11 mg/dL (7-17); Calcium 8.3 mg/dL (8.4-10.2); Carbon Dioxide 28 mmol/L (22-32); Chloride 98 mmol/L (98-107); Estimated Glomerular Filt Rate > 60 mL/min (>60); Globulin 3.4 g/dL (1.7-4.1); Glucose 91 mg/dL (80-110); HEMOLYSIS 22 (0-50); Potassium 4.5 mmol/L (3.4-5.1); Sodium 134 mmol/L (137-145); Total Protein 7.4 g/dL (6.3-8.2)
[2022-04-15 11:09] LABS: Thyroid Stimulating Hormone 1.67 uIU/mL (0.47-4.68)
[2022-04-17 12:08] LABS: Cholesterol, Total 146 mg/dL (100-199); HDL-Cholesterol 52 mg/dL (>39); HDL-Particle (Total) 28.8 umol/L (>=30.5); LDL Particle 793 nmol/L (<1000); LDL Size 20.8 nm (>20.5); LDL-Cholsterol 79 mg/dL (0-99); LP-IR Score <25 (<=45); Small LDL- Particle 265 nmol/L (<=527); Triglycerides 75 mg/dL (0-149)
== END ==
PROVIDERS: Family Provider Nurse Practitioner Family; PCP Family Medicine; Referring Provider Specialist; Visit Provider Specialist
DX: I48.0 Paroxysmal atrial fibrillation (principal); E78.5 Hyperlipidemia, unspecified; I47.20 Ventricular tachycardia, unspecified
CPT/HCPCS: 36415; 80053; 80061; 83704; 83735; 84443

== ENCOUNTER → 2022-05-17 12:08 | Outpatient (CLI) | payer MEDICARE, SELFPAY ==
[2021-11-04 15:32] VITALS: BMI 26.8
== END ==
PROVIDERS: Family Provider Nurse Practitioner Family; PCP Family Medicine; Visit Provider Student in an Organized Health Care Education/Training Program
DX: R30.0 Dysuria (principal)
CPT/HCPCS: 87077; 87086

== ENCOUNTER 2022-07-14 14:19 | Emergency (ER) | payer MEDICARE, SELFPAY ==
[2021-11-04 15:32] VITALS: BMI 26.8
[2022-07-14 14:39] VITALS: BP 140/73; PULSE 60; RESP 18; TEMP 36.7; O2SAT 96; BMI 26.4
--- NOTE | 2022-07-14 14:40 | ED_ITS ---
HPI - General Adult General Chief complaint: Urogenital-Female Stated complaint: possible Cath blockage Time Seen by Provider: 07/14/22 14:37 History of Present Illness HPI narrative: 87-year-old female nonsmoker with history of hypertrophic obstructive cardiomyopathy, colon cancer and relatively recent bladder surgery with indwelling Oh catheter presents due to concern of low urine output over the night and concerned that the catheter was not functioning appropriately. She switched to a leg bag few hours ago and emptied 75 cc of clear urine. Related Data Home Medications Medication Instructions Recorded Confirmed metoprolol succinate 25 mg 25 mg PO DAILY 08/04/17 05/17/22 tablet,extended release 24 hr apixaban 5 mg tablet (Eliquis) 5 mg PO BID 08/22/18 05/17/22 amiodarone 200 mg tablet 50 mg PO DAILY 06/06/20 05/17/22 rosuvastatin 5 mg tablet 5 mg PO DAILY 06/06/20 05/17/22 verapamil 120 mg tablet,extended 120 mg PO DAILY 06/06/20 05/17/22 release Previous Rx's Medication Instructions Recorded estradiol 0.1 mg/24 hr semiweekly 0.1 mg topical .COMPLEX #24 patches 10/16/21 transdermal patch (Nuria) acetaminophen 325 mg tablet 650 mg PO Q6HR PRN Fever/Mild Pain 11/06/21 (1-3) #60 tabs tramadol 50 mg tablet 50 mg PO Q8H PRN pain #30 tabs 11/26/21 levothyroxine 50 mcg tablet See Rx Instructions .Route 01/18/22 .COMPLEX #90 tabs Allergies Allergy/AdvReac Type Severity Reaction Status Date / Time codeine [CODEINE] Allergy Mild NAUSEA AND Verified 07/15/22 19:05 VOMITING Review of Systems Review of Systems Narrative: GENERAL: Denies chills, fatigue, malaise, fever, sweats. HEENT: Denies sinus pain, ear pain, sore throat, difficulty swallowing, dizziness. RESPIRATORY: Denies dyspnea, cough, wheezing, hemoptysis, sputum. CARDIOVASCULAR: Denies chest pain, palpitations, orthopnea, edema, GASTROINTESTINAL: Denies nausea, vomiting, abdominal pain, diarrhea, constipation, melena. : See HPI. MUSCULOSKELETAL: denies weakness, joint pain, or bony pain SKIN: Denies rash, skin lesions, or other NEUROLOGIC: Denies weakness, headache, numbness, change in speech, confusion, seizures, incoordination. PSYCHIATRIC: No concerning psychosocial issues. 12 point review of systems is negative except for those stated above Patient History Medical History Elevated liver enzymes Elevated TSH Hypertrophic obstructive cardiomyopathy Hypothyroidism ICD (implantable cardioverter-defibrillator) in place Pacemaker Surgical History History of ankle surgery Status post hysterectomy Family History Father Hypertension Mother Cancer Social History household members: spouse Smoking Status: Never smoker alcohol intake: current substance use type: does not use Smoking Status: Never smoker alcohol intake frequency: 0-2 drinks per day Substance Use Type: does not use Exam Narrative Exam Narrative: GEN: AOx3 and in mild distress EYES: Pupils are equal, round, and reactive to light and accommodation. Extraoccular muscles are intact bilaterally. There is no subconjunctival hemorrhage or exudate. CHEST: Lungs are clear to auscultation bilaterally and free of wheezes, rales, or rhonchi. Heart rate is regular rhythm, there are no murmurs, clicks, rubs, or gallops. There is no chest wall tenderness. ABD: Abdomen is soft and nontender. There is no guarding or rebound. Bowel sounds are normal in all 4 quadrants. There is no mass or organomegaly. EXT: Full painless ROM of all extremities with no loss of sensation or strength. SKIN: Warm, pink, and dry. No erythema or rash Initial Vital Signs Initial Vital Signs: Vital Signs Temperature 98.1 F 07/14/22 14:39 Pulse Rate 60 07/14/22 14:39 Respiratory Rate 18 07/14/22 14:39 Blood Pressure 140/73 07/14/22 14:39 Pulse Oximetry 96 07/14/22 14:39 Oxygen Delivery Method Room Air 07/14/22 14:39 Course Course Course Narrative: Nursing has addressed fully, flushed and then switched out the bag, it is draining without difficulty, patient is asymptomatic Orders Ordered: ED Orders 07/14/22 14:55 Urine Microscopic Stat Vital Signs Vital signs: Vital Signs - 8 hr 04/26/23 14:39 Temperature 98.1 F Pulse Rate 60 Respiratory Rate 18 Blood Pressure 140/73 Pulse Oximetry 96 Oxygen Delivery Method Room Air Medical Decision Making Lab Data Labs: Lab Results 07/14/22 Range/Units 14:55 Urine RBC 5-10/hpf H (0-5/HPF) Urine WBC 0-1/hpf (0-5/HPF) Ur Squamous Epith Cells 0-1 /hpf (0-5/HPF) Urine Bacteria Occasional (0-1) (None) Ur Culture Indicated? Cult not indicated Urine Dip Bedside Urine Glucose Negative Bedside Urine Bilirubin - Negative Bedside Urine Ketone - Negative Urine Specific [place] 1.020 Bedside Urine Occult Blood +++ Bedside Urine pH 6 Bedside Urine Protein - Negative Bedside Urine Urobilinogen - Negative Bedside Urine Nitrite - Negative Bedside Urine Leukocytes - Negative Esterase Point of care testing: Urine Dip Bedside Urine Glucose Negative Bedside Urine Bilirubin - Negative Bedside Urine Ketone - Negative Urine Specific [place] 1.020 Bedside Urine Occult Blood +++ Bedside Urine pH 6 Bedside Urine Protein - Negative Bedside Urine Urobilinogen - Negative Bedside Urine Nitrite - Negative Bedside Urine Leukocytes - Negative Esterase MDM Narrative Medical decision making narrative: [87] year old patient presents with Oh catheter malfunction Multiple etiologies for patient's symptoms considered including, but not limited to: [Dislodged catheter, clogged catheter versus other] Prior Charts reviewed in our EMR Primary Historian: patient Labs reviewed and interpreted by myself: Patient's symptoms improved over duration of stay with above-stated therapies. Findings and discharge diagnosis discussed with patient/family followed by verbalization of understanding Return precautions discussed with patient/family whom verbalize understanding of diagnosis and plan Discharge Plan Departure Patient Disposition: Home Clinical Impression: Complication of Oh catheter Instructions: How to Care for Your Oh Catheter -- Female Activity Restrictions/Additional Instructions: *You have been diagnosed with [Oh catheter problem thankfully this was easily and quickly resolved by our amazing nurses and your catheter is flowing freely and without complication *What to do: *Please continue to take your regular medications as directed. *Please follow up with your primary care provider in 2-3 days, call for an appointment. Let them know you were seen in the Emergency Department and that we ask that you be seen in follow up. We will electronically transmit a record of today's note if your PCP is in our system *If you do not have a primary care provider please contact the [facility] Resource line at [phone]. They will ask some questions about your medical history and help get you set up with a doctor in the community. *Return to Emergency Department if you should have any new, worsening or concerning symptoms, such as [fever greater than 101 F, shaking chills, worsening pain, persistent vomiting or other bothersome symptoms] Prescriptions: No Action metoprolol succinate 25 mg tablet extended release 24 hr 25 mg PO DAILY tramadol 50 mg tablet 50 mg PO Q8H PRN (Reason: pain) Qty: 30 0RF Rx Instructions: 1/2 to 1 tab every 8 hours as needed; stop if not tolerated; stagger with any other meds that might sedate levothyroxine 50 mcg tablet See Rx Instructions .ROUTE .COMPLEX Qty: 90 1RF Dose Instruction: TAKE 1 TABLET BY MOUTH DAILY Rx Instructions: TAKE 1 TABLET BY MOUTH DAILY Eliquis 5 mg tablet 5 mg PO BID rosuvastatin 5 mg tablet 5 mg PO DAILY amiodarone 200 mg tablet 50 mg PO DAILY verapamil 120 mg tablet extended release 120 mg PO DAILY estradiol [Nuria] 0.1 mg/24 hr patch semiweekly 0.1 mg Topical .COMPLEX Qty: 24 3RF Rx Instructions: 0.1 mg Topical twice a week due to osteoperosis; a acetaminophen 325 mg Tablet 650 mg PO Q6HR PRN (Reason: Fever/Mild Pain (1-3)) Qty: 60 0RF Referrals: Luba Belle DO [Primary Care Provider] - Stand Alone Forms: Patient Portal/API
[2022-07-14 15:00] VITALS: BP 141/67; PULSE 60; RESP 14; O2SAT 99
[2022-07-14 15:28] LABS: Bacteria Urine Occasional (0-1); Culture Indicated Urine Cult Not Indicated; RBC Urine 5-10/HPF (0-5/HPF); Squamous Epithelial Cell Urine 0-1 /HPF (0-5/HPF); WBC Urine 0-1/HPF (0-5/HPF)
[2022-07-14 16:15] VITALS: BP 140/73; PULSE 60; RESP 16; O2SAT 99
== END 2022-07-14 16:21 | disposition home or self-care (01) ==
PROVIDERS: Emergency Provider Emergency Medicine; Family Provider Nurse Practitioner Family; PCP Family Medicine
DX: T83.9XXA Unspecified complication of genitourinary prosthetic device, implant and graft, initial encounter (principal)
CPT/HCPCS: 51798; 81003; 81015; 99282; 99283

== ENCOUNTER 2022-07-15 18:48 | Emergency (ER) | payer MEDICARE, SELFPAY ==
[2021-11-04 15:32] VITALS: BMI 26.8
[2022-07-15 19:01] VITALS: BP 102/55; PULSE 62; RESP 18; TEMP 36.8; O2SAT 94; BMI 27.3
--- NOTE | 2022-07-15 20:55 | ED_ITS ---
HPI - Female Genitourinary General Chief complaint: Urogenital-Female Stated complaint: urinary cath is plugged, overflowing Time Seen by Provider: 07/15/22 20:42 Source: patient Mode of arrival: Wheelchair History of Present Illness HPI Narrative: Patient is a 87-year-old female who recently had prolapsed uterus repair with bladder reconstruction surgery at [facility] on July 01. Presents today with Oh catheter dysfunction. She reports that she did not have very much urine output and was concerned that it might be blocked. She suddenly had a fernández of urine then cause some leakage around the catheter but then the Oh catheter bag did fill up with urine. She had no suprapubic pain nausea vomiting or other symptoms. It appears that she was seen and evaluated here yesterday for something similar. She is on Eliquis she is an ICD in a pacemaker, no hematuria Related Data Home Medications Medication Instructions Recorded Confirmed metoprolol succinate 25 mg 25 mg PO DAILY 08/04/17 05/17/22 tablet,extended release 24 hr apixaban 5 mg tablet (Eliquis) 5 mg PO BID 08/22/18 05/17/22 amiodarone 200 mg tablet 50 mg PO DAILY 06/06/20 05/17/22 rosuvastatin 5 mg tablet 5 mg PO DAILY 06/06/20 05/17/22 verapamil 120 mg tablet,extended 120 mg PO DAILY 06/06/20 05/17/22 release Previous Rx's Medication Instructions Recorded estradiol 0.1 mg/24 hr semiweekly 0.1 mg topical .COMPLEX #24 patches 10/16/21 transdermal patch (Nuria) acetaminophen 325 mg tablet 650 mg PO Q6HR PRN Fever/Mild Pain 11/06/21 (1-3) #60 tabs tramadol 50 mg tablet 50 mg PO Q8H PRN pain #30 tabs 11/26/21 levothyroxine 50 mcg tablet See Rx Instructions .Route 01/18/22 .COMPLEX #90 tabs Allergies Allergy/AdvReac Type Severity Reaction Status Date / Time codeine [CODEINE] Allergy Mild NAUSEA AND Verified 07/15/22 19:05 VOMITING Review of Systems Review of Systems ROS Unobtainable: All systems reviewed & are unremarkable except as noted in HPI and below Patient History Medical History Elevated liver enzymes Elevated TSH Hypertrophic obstructive cardiomyopathy Hypothyroidism ICD (implantable cardioverter-defibrillator) in place Pacemaker Surgical History History of ankle surgery Status post hysterectomy Family History Father Hypertension Mother Cancer alcohol intake frequency: 0-2 drinks per day Substance Use Type: does not use Exam Initial Vital Signs Initial Vital Signs: Vital Signs Temperature 98.3 F 07/15/22 19:01 Pulse Rate 62 07/15/22 19:01 Respiratory Rate 18 07/15/22 19:01 Blood Pressure 102/55 L 07/15/22 19:01 Pulse Oximetry 94 07/15/22 19:01 Oxygen Delivery Method Room Air 07/15/22 19:01 GENERAL: Alert pleasant well-appearing 87-year-old female CARDIOVASCULAR: peripheral pulses in tact, cap refill <2 sec RESPIRATORY: No respiratory distress, speaks in full sentences without difficulty ABDOMEN: Soft, nontender, no guarding or rebound : Leg bag is filled with urine that is clear EXTREMITIES: Normal range of motion, no clubbing or edema. Neurovascularly intact NEUROLOGICAL: Cranial nerves II through XII grossly intact. Normal gait and speech. SKIN: Warm, dry, no petechiae, no rashes or lesions. Course Orders Ordered: ED Orders 07/15/22 21:07 UA Complete [Urinalysis and Microscopic] Stat Vital Signs Vital signs: Vital Signs - 8 hr 07/15/22 19:01 07/15/22 21:26 Temperature 98.3 F Pulse Rate 62 86 Respiratory Rate 18 16 Blood Pressure 102/55 L 148/88 H Pulse Oximetry 94 99 Oxygen Delivery Method Room Air Room Air MDM - Female Genitourinary Lab Data Labs: Lab Results 07/15/22 Range/Units 21:07 Urine Color Yellow Urine Appearance Clear Urine pH 5.5 (4.5-8.0) Ur Specific [place] <=1.005 (1.000-1.035) Urine Protein Negative (Negative) Urine Glucose (UA) Negative (Negative) g/dL Urine Ketones Negative (NEGATIVE) Urine Occult Blood Negative (Negative) Urine Nitrate Negative (Negative) Urine Bilirubin Negative (NEGATIVE) Urine Urobilinogen 0.2 (0.2) E.U./dL Ur Leukocyte Esterase Negative (NEGATIVE) Urine RBC None seen (0-5/HPF) Urine WBC None seen (0-5/HPF) Ur Squamous Epith Cells 0-1 /hpf (0-5/HPF) Urine Bacteria None seen (None) Ur Culture Indicated? Cult not indicated MDM Narrative Medical decision making narrative: Patient 87-year-old female with Oh catheter placed for bladder reconstruction surgery and uterine prolapse. After further investigation it appears that the son is not changing the bag out correctly was not being pinched in started leaking. Urinalysis from yesterday does not show any sign of infection. Repeat urinalysis sent today. At this time no need for any further workup or blood work. Seems like technical error. Discharge Plan Departure Patient Disposition: Home Clinical Impression: Complication of Oh catheter Instructions: How to Care for Your Oh Catheter -- Female Activity Restrictions/Additional Instructions: *You have been diagnosed with Oh catheter *What to do: At this time no need for antibiotics. It looks like it is working well. *Continue to take medications as directed *Follow up with your primary care provider in 2-3 days or call [phone] *Return to ER if you should have any new, worsening or concerning symptoms Prescriptions: No Action metoprolol succinate 25 mg tablet extended release 24 hr 25 mg PO DAILY tramadol 50 mg tablet 50 mg PO Q8H PRN (Reason: pain) Qty: 30 0RF Rx Instructions: 1/2 to 1 tab every 8 hours as needed; stop if not tolerated; stagger with any other meds that might sedate levothyroxine 50 mcg tablet See Rx Instructions .ROUTE .COMPLEX Qty: 90 1RF Dose Instruction: TAKE 1 TABLET BY MOUTH DAILY Rx Instructions: TAKE 1 TABLET BY MOUTH DAILY Eliquis 5 mg tablet 5 mg PO BID rosuvastatin 5 mg tablet 5 mg PO DAILY amiodarone 200 mg tablet 50 mg PO DAILY verapamil 120 mg tablet extended release 120 mg PO DAILY estradiol [Nuria] 0.1 mg/24 hr patch semiweekly 0.1 mg Topical .COMPLEX Qty: 24 3RF Rx Instructions: 0.1 mg Topical twice a week due to osteoperosis; a acetaminophen 325 mg Tablet 650 mg PO Q6HR PRN (Reason: Fever/Mild Pain (1-3)) Qty: 60 0RF Referrals: Luba Belle DO [Primary Care Provider] - Stand Alone Forms: Patient Portal/API
--- NOTE | 2022-07-15 21:06 | PC.NURSE ---
Patient reports her catheter was leaking earlier, her clothing was wet. Presents to ER with 400ml of clear urine in leg bag and dry brief and clothing. Per patient request leg bag changed to over night bag.
[2022-07-15 21:10] LABS: Appearance Urine UA CLEAR; Bilirubin Urine UA NEGATIVE (NEGATIVE); Color Urine UA YELLOW; Glucose Urine UA NEGATIVE (Negative); Ketones Urine UA NEGATIVE (NEGATIVE); Leukocyte Esterase Urine UA NEGATIVE (NEGATIVE); Nitrite Urine UA NEGATIVE (Negative); Occult Blood Urine UA NEGATIVE (Negative); Protein Urine UA NEGATIVE (Negative); Specific Gravity Urine UA <=1.005 (1.000-1.035); Urobilinogen Urine UA 0.2 E.U./dL (0.2)
--- NOTE | 2022-07-15 21:11 | PC.NURSE ---
Patient and son educated on schafer care, switching between bags and proper storage of bags. Provided schafer cap for home.
[2022-07-15 21:17] LABS: Bacteria Urine None Seen; Culture Indicated Urine Cult Not Indicated; RBC Urine None Seen (0-5/HPF); Squamous Epithelial Cell Urine 0-1 /HPF (0-5/HPF); WBC Urine None Seen (0-5/HPF); pH Urine UA 5.5 (4.5-8.0)
[2022-07-15 21:26] VITALS: BP 148/88; PULSE 86; RESP 16; O2SAT 99
== END 2022-07-15 21:26 | disposition home or self-care (01) ==
PROVIDERS: Emergency Provider Emergency Medicine; Family Provider Nurse Practitioner Family; PCP Family Medicine
DX: T83.9XXA Unspecified complication of genitourinary prosthetic device, implant and graft, initial encounter (principal)
CPT/HCPCS: 51798; 81001; 99282

== ENCOUNTER → 2022-08-23 09:59 | Outpatient (CLI) | payer MEDICARE, SELFPAY ==
[2021-11-04 15:32] VITALS: BMI 26.8
[2022-08-23 12:07] LABS: BUN Creatinine Ratio 18.3 (6-22); Blood Urea Nitrogen 13 mg/dL (7-17); Calcium 8.4 mg/dL (8.4-10.2); Carbon Dioxide 30 mmol/L (22-32); Chloride 95 mmol/L (98-107); Estimated Glomerular Filt Rate > 60 mL/min (>60); Glucose 76 mg/dL (80-110); HEMOLYSIS < 15 (0-50); Magnesium 2.2 mg/dL (1.6-2.3); Potassium 4.1 mmol/L (3.4-5.1); Sodium 131 mmol/L (137-145)
== END ==
PROVIDERS: Family Provider Nurse Practitioner Family; PCP Family Medicine; Referring Provider Physician Assistant Medical; Visit Provider Physician Assistant Medical
DX: I48.0 Paroxysmal atrial fibrillation (principal)
CPT/HCPCS: 36415; 80048; 83735

== ENCOUNTER → 2022-09-09 09:04 | Outpatient (CLI) | payer MEDICARE, SELFPAY ==
[2021-11-04 15:32] VITALS: BMI 26.8
[2022-09-09 10:45] LABS: Alanine Aminotransferase 20 IU/L (<35); Albumin 3.8 g/dL (3.5-5.0); Albumin Globulin Ratio 1.4 (1.0-2.8); Alkaline Phosphatase 55 U/L (38-126); Aspartate Aminotransferase 24 IU/L (14-36); BUN Creatinine Ratio 18.8 (6-22); Bilirubin Total 0.4 mg/dL (0.2-1.3); Blood Urea Nitrogen 13 mg/dL (7-17); Calcium 8.6 mg/dL (8.4-10.2); Carbon Dioxide 30 mmol/L (22-32); Chloride 98 mmol/L (98-107); Estimated Glomerular Filt Rate > 60 mL/min (>60); Globulin 2.8 g/dL (1.7-4.1); Glucose 85 mg/dL (80-110); HEMOLYSIS < 15 (0-50); Magnesium 2.1 mg/dL (1.6-2.3); Potassium 4.4 mmol/L (3.4-5.1); Sodium 133 mmol/L (137-145); Total Protein 6.6 g/dL (6.3-8.2)
[2022-09-09 11:14] LABS: Thyroid Stimulating Hormone 1.59 uIU/mL (0.47-4.68)
[2022-09-11 14:48] LABS: Cholesterol, Total 146 mg/dL (100-199); HDL-Cholesterol 64 mg/dL (>39); HDL-Particle (Total) 31.6 umol/L (>=30.5); LDL Particle 663 nmol/L (<1000); LDL Size 21.6 nm (>20.5); LDL-Cholsterol 68 mg/dL (0-99); LP-IR Score <25 (<=45); Small LDL- Particle 167 nmol/L (<=527); Triglycerides 71 mg/dL (0-149)
== END ==
PROVIDERS: Family Provider Nurse Practitioner Family; PCP Family Medicine; Referring Provider Specialist; Visit Provider Specialist
DX: I48.0 Paroxysmal atrial fibrillation (principal); E78.5 Hyperlipidemia, unspecified
CPT/HCPCS: 36415; 80053; 80061; 83704; 83735; 84443

== ENCOUNTER → 2023-01-04 08:51 | Outpatient (CLI) | payer MEDICARE, SELFPAY ==
[2021-11-04 15:32] VITALS: BMI 26.8
[2023-01-04 09:52] LABS: Hematocrit 43.2 % (36-46); Hemoglobin 14.4 g/dL (12.0-16.0); Mean Corpuscular HGB Conc 33.3 % (30-36); Mean Corpuscular Hemoglobin 30.3 PG (26-34); Mean Corpuscular Volume 90.9 fL (80-100); Platelet Count 297 X10^3/uL (150-400); Red Blood Cell Count 4.75 X10^6/uL (4.0-5.2); Red Cell Distribution Width 17.8 % (11.6-14.8); White Blood Cell Count 5.3 X10^3/uL (4.5-11.0)
[2023-01-04 10:26] LABS: Alanine Aminotransferase 21 IU/L (<35); Albumin 3.8 g/dL (3.5-5.0); Albumin Globulin Ratio 1.3 (1.0-2.8); Alkaline Phosphatase 51 U/L (38-126); Aspartate Aminotransferase 28 IU/L (14-36); BUN Creatinine Ratio 16.2 (6-22); Bilirubin Total 0.5 mg/dL (0.2-1.3); Blood Urea Nitrogen 12 mg/dL (7-17); Calcium 8.8 mg/dL (8.4-10.2); Carbon Dioxide 26 mmol/L (22-32); Chloride 99 mmol/L (98-107); Estimated Glomerular Filt Rate > 60 mL/min (>60); Glucose 87 mg/dL (80-110); HEMOLYSIS < 15 (0-50); Potassium 4.4 mmol/L (3.4-5.1); Sodium 132 mmol/L (137-145); Total Protein 6.8 g/dL (6.3-8.2)
[2023-01-04 10:56] LABS: Thyroid Stimulating Hormone 1.04 uIU/mL (0.47-4.68)
[2023-01-07 08:10] LABS: Cholesterol, Total 152 mg/dL (100-199); HDL-Cholesterol 64 mg/dL (>39); HDL-Particle (Total) 32.4 umol/L (>=30.5); LDL Particle 831 nmol/L (<1000); LDL Size 20.8 nm (>20.5); LDL-Cholsterol 73 mg/dL (0-99); LP-IR Score <25 (<=45); Small LDL- Particle 312 nmol/L (<=527); Triglycerides 75 mg/dL (0-149)
== END ==
PROVIDERS: PCP Family Medicine; Referring Provider Specialist; Visit Provider Specialist
DX: I48.0 Paroxysmal atrial fibrillation (principal); E78.5 Hyperlipidemia, unspecified; Z79.01 Long term (current) use of anticoagulants
CPT/HCPCS: 36415; 80053; 80061; 83704; 83735; 84443; 85027

== ENCOUNTER → 2023-11-04 08:33 | Outpatient (CLI) | payer MEDICARE, SELFPAY ==
[2021-11-04 15:32] VITALS: BMI 26.8
[2023-11-04 09:15] LABS: Hematocrit 45.3 % (36-46); Hemoglobin 15.3 g/dL (12.0-16.0); Mean Corpuscular HGB Conc 33.7 % (30-36); Mean Corpuscular Hemoglobin 33.5 PG (26-34); Mean Corpuscular Volume 99.5 fL (80-100); Platelet Count 238 X10^3/uL (150-400); Red Blood Cell Count 4.56 X10^6/uL (4.0-5.2); Red Cell Distribution Width 14.4 % (11.6-14.8); White Blood Cell Count 6.1 X10^3/uL (4.5-11.0)
[2023-11-04 09:40] LABS: Alanine Aminotransferase 22 IU/L (<35); Albumin 3.8 g/dL (3.5-5.0); Albumin Globulin Ratio 1.5 (1.0-2.8); Alkaline Phosphatase 57 U/L (38-126); Aspartate Aminotransferase 29 IU/L (14-36); BUN Creatinine Ratio 15.4 (6-22); Bilirubin Total 0.7 mg/dL (0.2-1.3); Blood Urea Nitrogen 12 mg/dL (7-17); Calcium 8.7 mg/dL (8.4-10.2); Carbon Dioxide 30 mmol/L (22-32); Chloride 101 mmol/L (98-107); Estimated Glomerular Filt Rate > 60 mL/min (>60); Globulin 2.6 g/dL (1.7-4.1); Glucose 93 mg/dL (80-110); HEMOLYSIS < 15 (0-50); Magnesium 2.2 mg/dL (1.6-2.3); Potassium 4.5 mmol/L (3.4-5.1); Sodium 136 mmol/L (137-145); Total Protein 6.4 g/dL (6.3-8.2)
[2023-11-04 10:04] LABS: Thyroid Stimulating Hormone 2.08 uIU/mL (0.47-4.68)
[2023-11-08 07:09] LABS: Cholesterol, Total 147 mg/dL (100-199); HDL-Cholesterol 53 mg/dL (>39); HDL-Particle (Total) 26.7 umol/L (>=30.5); LDL Particle 900 nmol/L (<1000); LDL Size 20.8 nm (>20.5); LDL-Cholsterol 80 mg/dL (0-99); LP-IR Score 29 (<=45); Small LDL- Particle 418 nmol/L (<=527); Triglycerides 68 mg/dL (0-149)
== END ==
PROVIDERS: PCP Family Medicine; Referring Provider Specialist; Visit Provider Specialist
DX: E78.5 Hyperlipidemia, unspecified (principal); I48.0 Paroxysmal atrial fibrillation; Z79.899 Other long term (current) drug therapy; Z79.01 Long term (current) use of anticoagulants
CPT/HCPCS: 36415; 80053; 80061; 83704; 83735; 84443; 85027

== ENCOUNTER 2023-12-23 13:35 | Observation (INO) | payer MEDICARE, SELFPAY ==
[2021-11-04 15:32] VITALS: BMI 26.8
[2023-12-23] VITALS (22 sets, daily range): BP systolic 152–199; BP diastolic 71–103; PULSE 59–82; RESP 18–28; TEMP 36.2–36.6; O2SAT 92–96; BMI 27.3; BMI 29.0
--- NOTE | 2023-12-23 13:42 | EKG_ITS ---
[facility] [address] [address] Test Date: 2023-12-23 Pat Name: Kim Nelson Department: [facility] Room: Gender: Female Loaders: EVER : 1935 Requested By: Order Number: [id number] Reading MD: Krzysztof Dupree MD Measurements Intervals [place] Rate: 61 P: [place]: 166 QRS: -63 QRSD: 198 T: 99 QT: 568 QTc: 571 Interpretive Statements AV dual-paced rhythm Electronically Signed On 12-23-2023 16:28:50 PDT by Krzysztof Dupree MD
--- NOTE | 2023-12-23 13:42 | DI.RAD.S_ITS ---
PROCEDURE: XR CHEST 1V INDICATIONS: chest pain TECHNIQUE: One view of the chest was acquired. COMPARISON: None. FINDINGS: Surgical changes and devices: Left chest wall generator with cardiac leads. Lungs and pleura: Lungs are clear. No pleural effusions or pneumothorax. Mediastinum: Mediastinal contours appear normal. Heart size is enlarged. Bones and chest wall: No suspicious bony lesions. Overlying soft tissues appear unremarkable. Healed right rib fractures. IMPRESSION: No acute cardiopulmonary abnormality is seen. Dictated by: Tru Vizcarra M.D. on 12/23/2023 at 14:27 Approved by: Tru Vizcarra M.D. on 12/23/2023 at 14:30
--- NOTE | 2023-12-23 13:47 | ED_ITS ---
HPI - Chest Pain General Chief Complaint: Chest Pain Stated Complaint: chest px Time Seen by Provider: 12/23/23 13:39 Source: patient Mode of arrival: Wheelchair Limitations: no limitations History of Present Illness HPI narrative: 87-year-old female history of hypertrophic cardiomyopathy, ICD with pacemaker, on Eliquis, hypertension, dyslipidemia, prior colon cancer with colectomy presents with complaint of substernal and right-sided chest pain radiating towards her back. Patient states she developed pain about 24 hours ago has been intermittent not seeming to be exacerbated by alleviated by anything. States she has not had similar symptoms in the past. Thought it might be gas she tried drinking water which has not been helpful. It lasts about 10 minutes and then resolve last episode was about 115 in the afternoon. Denies fevers or chills, did feel little short of breath this morning, notes some nausea but no vomiting no diaphoresis, no swelling in extremities no lightheadedness or passing out. States it has been a day and a half since she had a bowel movement, denies any new urinary symptoms. Has known hypertrophic cardiomyopathy she states with mid subvalvular obstruction, follows with cardiology locally and at [facility]. Has a pacemaker and states no cardiac stents. She is on Eliquis, metoprolol and a statin, states prior hysterectomy, had sigmoid colectomy for colon cancer and bladder surgery x3 in the past. States allergic to codeine. No tobacco, alcohol or recreational drugs. Dr. Mary russell as her primary care physician. Dr. Garcia is her flower shop manager. Dr. Pantoja is her flower shop manager at [facility]. Related Data Home Medications Medication Instructions Recorded Confirmed melatonin 10 mg capsule 10 mg PO BEDTIME PRN 05/03/23 11/16/23 Previous Rx's Medication Instructions Recorded acetaminophen 325 mg tablet 650 mg (2 x 325 mg) PO Q6HR PRN 11/06/21 Fever/Mild Pain (1-3) #60 tabs Disabled Parking Permit #1 ea 07/26/22 amiodarone 100 mg tablet 100 mg PO DAILY #90 tabs 08/01/23 apixaban 2.5 mg tablet (Eliquis) 2.5 mg PO BID #180 tabs 08/01/23 estradiol 0.01% (0.1 mg/gram) 1 g vaginal 3XW #42.5 grams 08/01/23 vaginal cream levothyroxine 50 mcg tablet See Rx Instructions .Route 08/01/23 .COMPLEX #90 tabs magnesium oxide 400 mg PO BID #180 tabs 08/01/23 metoprolol succinate 25 mg 25 mg PO BID #180 tabs 08/01/23 tablet,extended release 24 hr rosuvastatin 5 mg tablet 5 mg PO DAILY #90 tabs 08/01/23 verapamil 120 mg tablet,extended 120 mg PO BID #180 tabs 08/01/23 release estradiol 0.1 mg/24 hr semiweekly 0.1 mg topical .COMPLEX #24 patches 10/14/23 transdermal patch fluticasone propionate 50 1 spray intranasal Q12H #48 grams 10/27/23 mcg/actuation nasal spray,suspension (Flonase Allergy Relief) trazodone 50 mg tablet 25 mg (1/2 x 50 mg) PO BEDTIME PRN 11/08/23 sleep difficulty #45 tabs triamcinolone acetonide 0.1 % 1 applic topical DAILY PRN 11/08/23 topical cream irritated skin ring finger #30 grams esomeprazole magnesium 20 mg 20 mg PO DAILY #30 caps 11/16/23 capsule,delayed release Allergies Allergy/AdvReac Type Severity Reaction Status Date / Time codeine [CODEINE] Allergy Mild NAUSEA AND Verified 12/23/23 13:45 VOMITING Review of Systems Review of Systems ROS Unobtainable: All systems reviewed & are unremarkable except as noted in HPI and below Patient History Medical History Joint pain of ankle and foot (06/16/05) Joint pain of lower extremity (06/16/05) Abdominal pain, LLQ (06/16/05) Hemothorax on right Multiple rib fractures ICD (implantable cardioverter-defibrillator) in place Pacemaker Hypothyroidism Hypertrophic obstructive cardiomyopathy Surgical History History of ankle surgery Status post hysterectomy Family History Father Hypertension Mother Cancer Social History household members: spouse Smoking Status: Never smoker alcohol intake: current substance use type: does not use Smoking Status: Never smoker alcohol intake frequency: 0-2 drinks per day Substance Use Type: does not use Exam Narrative Exam Narrative: GENERAL: Alert and oriented x three, mild distress. HEENT: Head normocephalic, atraumatic, EOMI, pupils reactive, face symmetric, moist mucous membranes NECK: Supple, full range of motion CARDIOVASCULAR: Regular rate and rhythm without murmurs, rubs or gallops. RESPIRATORY: Breath sounds equal bilaterally, no wheezes rales or rhonchi. ABDOMEN: Soft, nontender. Normoactive bowel sounds all 4 quadrants. No guarding or rebound, rigidity, no mass : No CVA tenderness EXTREMITIES: Normal range of motion, no clubbing or edema. Neurovascularly intact NEUROLOGICAL: Cranial nerves II through XII grossly intact. Moving all extremities SKIN: Warm, dry, no petechiae, no rashes or lesions. Initial Vital Signs Initial Vital Signs: Vital Signs Pulse Rate 60 12/23/23 13:42 Blood Pressure 189/92 H 12/23/23 13:42 Pulse Oximetry 96 12/23/23 13:42 Course Orders Ordered: ED Orders 12/23/23 13:42 XR chest 1V Stat EKG-12 Lead Stat 12/23/23 13:50 Complete Blood Count AUTO DIFF Stat Comprehensive Metabolic Panel Stat Lipase Stat Magnesium Stat NT-proBNP (BNP-Adult 18+) Stat PTT Partial Thromboplastin Thomas Stat Prothrombin Time INR Stat Troponin & CK Cardiac Panel Stat 12/23/23 16:00 Trop I [Troponin I] Stat Urine Culture Stat Urine Microscopic Stat Acetaminophen (Acetaminophen 325 Mg Tablet) 650 mg PO Q6H PRN PRN Reason: Fever/Mild Pain (1-3) Naloxone HCl (Naloxone 0.4 Mg/Ml Vial) 0.2 mg IV Q2MIN PRN PRN Reason: Opiate Reversal Ondansetron HCl (Ondansetron 4 Mg/2 Ml Inj) 4 mg IV Q8HR PRN PRN Reason: Nausea And Vomiting Discontinued Medications Acetaminophen (Acetaminophen 325 Mg Tablet) 975 mg PO NOW ONE Stop: 12/23/23 17:31 Aspirin (Aspirin 81 Mg Chew Tab) 324 mg PO NOW ONE Stop: 12/23/23 13:43 Last Admin: 12/23/23 14:00 Dose: Not Given Documented By: TATI Furosemide (Furosemide 40 Mg/4 Ml Vial) 40 mg IV NOW ONE Stop: 12/23/23 14:56 Last Admin: 12/23/23 15:11 Dose: 40 mg Documented By: HERMINIA Losartan Potassium (Losartan 25 Mg Tablet) 25 mg PO NOW ONE Stop: 12/23/23 17:12 Vital Signs Vital signs: Vital Signs - 8 hr 12/23/23 13:42 12/23/23 13:42 12/23/23 13:43 Temperature 98 F Pulse Rate 60 61 Respiratory Rate 18 Blood Pressure 189/92 H 189/92 H Pulse Oximetry 96 96 Oxygen Delivery Method Room Air 12/23/23 14:00 12/23/23 14:00 12/23/23 14:30 Temperature Pulse Rate 60 Respiratory Rate 20 Blood Pressure 184/89 H 167/94 H Pulse Oximetry 96 Oxygen Delivery Method Room Air 12/23/23 14:30 12/23/23 15:02 12/23/23 15:03 Temperature Pulse Rate 60 78 67 Respiratory Rate 22 19 Blood Pressure Pulse Oximetry 95 92 94 Oxygen Delivery Method 12/23/23 15:03 12/23/23 15:31 12/23/23 15:32 Temperature Pulse Rate 82 Respiratory Rate Blood Pressure 160/71 H 171/89 H Pulse Oximetry 92 Oxygen Delivery Method 12/23/23 15:32 12/23/23 15:34 12/23/23 15:34 Temperature Pulse Rate 74 60 Respiratory Rate 18 28 H Blood Pressure 189/86 H Pulse Oximetry 94 93 Oxygen Delivery Method 12/23/23 16:00 12/23/23 16:00 12/23/23 16:30 Temperature Pulse Rate 60 62 Respiratory Rate 27 H 24 Blood Pressure 199/95 H Pulse Oximetry 94 94 Oxygen Delivery Method 12/23/23 16:31 12/23/23 16:31 12/23/23 17:00 Temperature Pulse Rate 60 61 Respiratory Rate 21 Blood Pressure 186/86 H Pulse Oximetry 93 93 Oxygen Delivery Method MDM - Chest Pain Lab Data 12/23/23 13:50 12/23/23 13:50 Labs: Lab Results 12/23/23 12/23/23 Range/Units 13:50 16:00 WBC 7.1 (4.5-11.0) X10^3/uL RBC 4.59 (4.0-5.2) X10^6/uL Hgb 15.6 (12.0-16.0) g/dL Hct 46.3 H (36-46) % MCV 100.8 H (80-100) fL MCH 34.0 (26-34) PG MCHC 33.7 (30-36) % RDW 14.4 (11.6-14.8) % Plt Count 267 (150-400) X10^3/uL Neut % (Auto) 72.8 (50-75) % Lymph % (Auto) 12.9 L (25-40) % [place] % (Auto) 12.5 (3-14) % Eos % (Auto) 1.1 L (2-4) % Baso % (Auto) 0.7 (0-2) % Neut # (Auto) 5200 (9352-5547) /uL Lymph # (Auto) 900 L (1676-1953) /uL [place] # (Auto) 900 (0-900) /uL Eos # (Auto) 100 (0-450) /uL Baso # (Auto) 100 (0-100) /uL PT 12.9 H (9.4-12.5) SECONDS INR 1.1 (0.9-1.3) APTT 44 H (25.1-36.5) SECONDS Sodium 134 L (137-145) mmol/L Potassium 4.2 (3.4-5.1) mmol/L Chloride 100 (98-107) mmol/L Carbon Dioxide 27 (22-32) mmol/L BUN 11 (7-17) mg/dL Creatinine 0.66 (0.52-1.04) mg/dL Estimated GFR > 60 (>60) mL/min BUN/Creatinine Ratio 16.7 (6-22) Glucose 88 (80-110) mg/dL Calcium 8.7 (8.4-10.2) mg/dL Magnesium 2.1 (1.6-2.3) mg/dL Total Bilirubin 0.7 (0.2-1.3) mg/dL AST 30 (14-36) IU/L ALT 22 (<35) IU/L Alkaline Phosphatase 61 (38-126) U/L Total Creatine Kinase 31 (30-135) U/L Troponin I 0.018 0.014 (0.01-0.034) ng/mL NT-Pro-B Natriuret Pep 2630 H (<450) pg/mL Total Protein 7.3 (6.3-8.2) g/dL Albumin 4.3 (3.5-5.0) g/dL Globulin 3.0 (1.7-4.1) g/dL Albumin/Globulin Ratio 1.4 (1.0-2.8) Lipase 65 (23-300) U/L Urine RBC 0-1/hpf (0-5/HPF) Urine WBC 10-30/hpf H (0-5/HPF) Ur Squamous Epith Cells 1-5 /hpf (0-5/HPF) Urine Bacteria Many (>30) H (None) Hyaline Casts 1-5/lpf (None) Granular Casts 1-5/lpf (None) Ur Culture Indicated? Specimen cultured Vol Urine Centrifuged 10ml (spun) Urine Dip Bedside Urine Glucose Negative Bedside Urine Bilirubin - Negative Bedside Urine Ketone - Negative Urine Specific [place] 1.010 Bedside Urine Occult Blood - Negative Bedside Urine pH 8.5 Bedside Urine Protein - Negative Bedside Urine Urobilinogen +/- 1mg Bedside Urine Nitrite - Negative Bedside Urine Leukocytes +++ 500 Esterase Imaging Data Chest x-ray: Radiologist's Impression: Close Chest X-Ray (Signed) Tru Vizcarra - 12/23/[address] (Signed) Corey Neumann - 11/04/[address] (Signed) Corey Neumann - 11/04/21 Telemetry Strips 11/04/[address] (Signed) Jerrod Burton - 11/04/21 Ribs X-Ray (Signed) Paulina Lowe - 11/04/21 DEXA Result 10/28/21 Bone Densitometry 10/28/21 Echocardiogram Ultrasound (Signed) Denton Garcia - 04/09/21 Carotid Doppler Study (Signed) Conrad Mcclain - 04/09/21 Hip X-Ray (Signed) Jennifer Franco - 12/10/20 Carotid Doppler Study (Signed) Tu Bermeo - 09/27/19 Mammogram Screening (Signed) Olga Alexander - 07/05/18 Launch?[address] [address] XRay Report Signed Patient: Kim Nelson MR#: [id number] : 1935 Acct:[id number] Age/Sex: 88 / F Date of Service: 12/23/23 Loc: ED Accession Number: [id number] Procedure: XR chest 1V Ordering Provider: Chastity Hopkins D.O. PROCEDURE: XR CHEST 1V INDICATIONS: chest pain TECHNIQUE: One view of the chest was acquired. COMPARISON: None. FINDINGS: Surgical changes and devices: Left chest wall generator with cardiac leads. Lungs and pleura: Lungs are clear. No pleural effusions or pneumothorax. Mediastinum: Mediastinal contours appear normal. Heart size is enlarged. Bones and chest wall: No suspicious bony lesions. Overlying soft tissues appear unremarkable. Healed right rib fractures. IMPRESSION: No acute cardiopulmonary abnormality is seen. Dictated by: Tru Vizcarra M.D. on 12/23/2023 at 14:27 Approved by: Tru Vizcarra M.D. on 12/23/2023 at 14:30 ECG Data Attestation: I personally reviewed and interpreted this ECG as follows: Interpretation: AV dual paced rhythm rate of 61 RI 166 QRS of 198 QTC 571. Prior EKG was from 11/15/2019 was sinus rhythm not paced at that time. Repeat EKG AV dual paced rhythm rate of 60 RI 168 QRS of 200 QTC of [address] [facility] Narrative Medical decision making narrative: 88-year-old female presents with complaint of right-sided and substernal chest pain that radiates towards the back for the past 24 hours. Patient has known hypertrophic cardiomyopathy and ICD in place. She was hypertensive but otherwise appropriate vitals. Has been going on for 24 hours intermittently. No clear exacerbating or alleviating factors. She is nontender on exam in her abdomen as well as chest. No skin changes. Labs show white count of 7.1 hemoglobin 15.6 platelets of 267. Sodium is 134 potassium 4.2 chloride 100 CO2 is 27 BUN 11 creatinine 0.66 glucose is 88 magnesium 2.1 with normal LFTs troponin 0.018 with a BNP of 2630 and a lipase of 65. Troponin was repeated and is 0.014. EKG shows paced rhythm. Repeat EKG shows paced rhythm. Chest x-ray no acute change. BNP is elevated, patient is quite hypertensive here in the department was given a dose of Lasix. Consult with cardiology. Dr. Mohan discussed patient's history is, labs findings HPI and recommends blood pressure control would give losartan overnight based on patient's prior meds and current vitals recommends observation. Spoke with Dr. Bella, hospitalist who accepts for observation discussed recommendations from Cardiology. Patient does have some chronic back pain she states worse with lying in bed so she was given a dose of Tylenol. Discharge Plan Departure Patient Disposition: Admitted as Observation Clinical Impression: Atypical chest pain, Elevated brain natriuretic peptide (BNP) level Admit Date/Time: 12/23/23 17:22 Admit Provider: Daniel Bella
[2023-12-23 14:03] LABS: Add Manual Diff / Slide Review NO; Basophils Absolute Auto 100 /uL (0-100); Basophils Percent Auto 0.7 % (0-2); Eosinophils Absolute Auto 100 /uL (0-450); Eosinophils Percent Auto 1.1 % (2-4); Hematocrit 46.3 % (36-46); Hemoglobin 15.6 g/dL (12.0-16.0); Lymphocytes Absolute Auto 900 /uL (1100-4500); Lymphocytes Percent Auto 12.9 % (25-40); Mean Corpuscular HGB Conc 33.7 % (30-36); Mean Corpuscular Volume 100.8 fL (80-100); Monocytes Absolute Auto 900 /uL (0-900); Monocytes Percent Auto 12.5 % (3-14); Neutrophils Absolute Auto 5200 /uL (1500-7000); Neutrophils Percent Auto 72.8 % (50-75); Platelet Count 267 X10^3/uL (150-400); Red Blood Cell Count 4.59 X10^6/uL (4.0-5.2); Red Cell Distribution Width 14.4 % (11.6-14.8); White Blood Cell Count 7.1 X10^3/uL (4.5-11.0)
[2023-12-23 14:25] LABS: INR 1.1 (0.9-1.3); Prothrombin Time 12.9 SECONDS (9.4-12.5)
[2023-12-23 14:28] LABS: PTT Partial Thromboplastin Tim 44 SECONDS (25.1-36.5)
[2023-12-23 14:30] LABS: Alanine Aminotransferase 22 IU/L (<35); Albumin 4.3 g/dL (3.5-5.0); Albumin Globulin Ratio 1.4 (1.0-2.8); Alkaline Phosphatase 61 U/L (38-126); Aspartate Aminotransferase 30 IU/L (14-36); BUN Creatinine Ratio 16.7 (6-22); Bilirubin Total 0.7 mg/dL (0.2-1.3); Blood Urea Nitrogen 11 mg/dL (7-17); Calcium 8.7 mg/dL (8.4-10.2); Carbon Dioxide 27 mmol/L (22-32); Chloride 100 mmol/L (98-107); Creatine Kinase 31 U/L (30-135); Estimated Glomerular Filt Rate > 60 mL/min (>60); Glucose 88 mg/dL (80-110); HEMOLYSIS < 15 (0-50); Lipase 65 U/L (23-300); Magnesium 2.1 mg/dL (1.6-2.3); Potassium 4.2 mmol/L (3.4-5.1); Sodium 134 mmol/L (137-145); Total Protein 7.3 g/dL (6.3-8.2)
[2023-12-23 14:41] LABS: NT-proBNP (BNP-Adult 18+) 2630 pg/mL (<450); Troponin I 0.018 ng/mL (0.01-0.034)
[2023-12-23] MEDS: FUROSEMIDE 40 MG/4 ML VIAL IV (15:11)
--- NOTE | 2023-12-23 15:51 | EKG_ITS ---
[address] [address] [address] [address] Test Date: 2023-12-23 Pat Name: Kim Nelson Department: Room: 205 Gender: Female White Sourer: NORMA : 1935 Requested By: Order Number: [id number] Reading MD: Krzysztof Dupree MD Measurements Intervals [place] Rate: 60 P: 104 IA: 168 QRS: -62 QRSD: 200 T: 104 QT: 574 QTc: 574 Interpretive Statements AV dual-paced rhythm Electronically Signed On 12-26-2023 7:58:11 PDT by Krzysztof Dupree MD
[2023-12-23 16:50] LABS: Troponin I 0.014 ng/mL (0.01-0.034)
[2023-12-23 16:54] LABS: Urine Volume 10mL (spun)
[2023-12-23 16:55] LABS: Bacteria Urine Many (>30); Culture Indicated Urine Specimen Cultured; Granular Casts Urine 1-5/LPF; Hyaline Casts Urine 1-5/LPF; RBC Urine 0-1/HPF (0-5/HPF); Squamous Epithelial Cell Urine 1-5 /HPF (0-5/HPF); WBC Urine 10-30/HPF (0-5/HPF)
--- NOTE | 2023-12-23 17:37 | P.HP_ITS ---
History of Present Illness History of Present Illness Date Patient Seen: 12/23/23 Chief complaint: chest px Narrative: From ED doctor: 87-year-old female history of hypertrophic cardiomyopathy, ICD with pacemaker, on Eliquis, hypertension, dyslipidemia, prior colon cancer with colectomy presents with complaint of substernal and right-sided chest pain radiating towards her back. Patient states she developed pain about 24 hours ago has been intermittent not seeming to be exacerbated by alleviated by anything. States she has not had similar symptoms in the past. Thought it might be gas she tried drinking water which has not been helpful. It lasts about 10 minutes and then resolve last episode was about 115 in the afternoon. Denies fevers or chills, did feel little short of breath this morning, notes some nausea but no vomiting no diaphoresis, no swelling in extremities no lightheadedness or passing out. States it has been a day and a half since she had a bowel movement, denies any new urinary symptoms. Has known hypertrophic cardiomyopathy she states with mid subvalvular obstruction, follows with cardiology locally and at [facility]. Has a pacemaker and states no cardiac stents. She is on Eliquis, metoprolol and a statin, states prior hysterectomy, had sigmoid colectomy for colon cancer and bladder surgery x3 in the past. States allergic to codeine. No tobacco, alcohol or recreational drugs. Dr. Mary russell as her primary care physician. Dr. Garcia is her field service specialist. Dr. Pantoja is her field service specialist at [facility]. Additional information: The case was discussed with Dr. Mohan today, he recommended blood pressure control with losartan and observation overnight. She shares that she has had some pain for 1-2 days. The pain sided and epigastric. Nothing in particular makes the pain worse including movement of the body or deep breathing. She did note that the pain may have followed eating an egg salad sandwich. She does dyspepsia but denies worse symptoms recently. No recent diarrhea. She was IBS with alternating constipation and loose stools. She denies any exertional dyspnea or chest pain. No leg edema, orthopnea. She was no known history of CAD, she does have an ICD pacemaker denies a history of sudden cardiac arrest. Her blood pressures have been high recently, she usually does not check them. She has had dysuria for the last day. [facility] Medical History Joint pain of ankle and foot (06/16/05) Joint pain of lower extremity (06/16/05) Abdominal pain, LLQ (06/16/05) Hemothorax on right Multiple rib fractures ICD (implantable cardioverter-defibrillator) in place Pacemaker Hypothyroidism Hypertrophic obstructive cardiomyopathy Surgical History History of ankle surgery Status post hysterectomy Family History Father Hypertension Mother Cancer Social History household members: spouse Smoking Status: Never smoker alcohol intake: current substance use type: does not use Meds Home Medications and Allergies Home Medications Medication Instructions Recorded Confirmed Type acetaminophen 325 mg tablet 650 mg (2 x 325 mg) PO Q6HR PRN 11/06/21 11/16/23 Rx Fever/Mild Pain (1-3) #60 tabs Disabled Parking Permit #1 ea 07/26/22 11/16/23 Rx melatonin 10 mg capsule 10 mg PO BEDTIME PRN 05/03/23 11/16/23 History amiodarone 100 mg tablet 100 mg PO DAILY #90 tabs 08/01/23 11/16/23 Rx apixaban 2.5 mg tablet (Eliquis) 2.5 mg PO BID #180 tabs 08/01/23 11/16/23 Rx estradiol 0.01% (0.1 mg/gram) 1 g vaginal 3XW #42.5 grams 08/01/23 11/16/23 Rx vaginal cream levothyroxine 50 mcg tablet See Rx Instructions .Route 08/01/23 11/16/23 Rx .COMPLEX #90 tabs magnesium oxide 400 mg PO BID #180 tabs 08/01/23 11/16/23 Rx metoprolol succinate 25 mg 25 mg PO BID #180 tabs 08/01/23 11/16/23 Rx tablet,extended release 24 hr rosuvastatin 5 mg tablet 5 mg PO DAILY #90 tabs 08/01/23 11/16/23 Rx verapamil 120 mg tablet,extended 120 mg PO BID #180 tabs 08/01/23 11/16/23 Rx release estradiol 0.1 mg/24 hr semiweekly 0.1 mg topical .COMPLEX #24 patches 10/14/23 11/16/23 Rx transdermal patch fluticasone propionate 50 1 spray intranasal Q12H #48 grams 10/27/23 11/16/23 Rx mcg/actuation nasal spray,suspension (Flonase Allergy Relief) trazodone 50 mg tablet 25 mg (1/2 x 50 mg) PO BEDTIME PRN 11/08/23 11/16/23 Rx sleep difficulty #45 tabs triamcinolone acetonide 0.1 % 1 applic topical DAILY PRN 11/08/23 11/16/23 Rx topical cream irritated skin ring finger #30 grams esomeprazole magnesium 20 mg 20 mg PO DAILY #30 caps 11/16/23 11/16/23 Rx capsule,delayed release Allergies Allergy/AdvReac Type Severity Reaction Status Date / Time codeine [CODEINE] Allergy Mild NAUSEA AND Verified 12/23/23 13:45 VOMITING Review of Systems Review of Systems Narrative: All else reviewed and otherwise unremarkable except as noted in the history and physical. Exam Vital Signs (past 8 hours): - 12/23/23 13:42 12/23/23 13:42 12/23/23 13:43 Temperature 98 F Pulse Rate 60 61 Respiratory Rate 18 Blood Pressure 189/92 H 189/92 H Pulse Oximetry 96 96 Oxygen Delivery Method Room Air 12/23/23 14:00 12/23/23 14:00 12/23/23 14:30 Temperature Pulse Rate 60 Respiratory Rate 20 Blood Pressure 184/89 H 167/94 H Pulse Oximetry 96 Oxygen Delivery Method Room Air 12/23/23 14:30 12/23/23 15:02 12/23/23 15:03 Temperature Pulse Rate 60 78 67 Respiratory Rate 22 19 Blood Pressure Pulse Oximetry 95 92 94 Oxygen Delivery Method 12/23/23 15:03 12/23/23 15:31 12/23/23 15:32 Temperature Pulse Rate 82 Respiratory Rate Blood Pressure 160/71 H 171/89 H Pulse Oximetry 92 Oxygen Delivery Method 12/23/23 15:32 12/23/23 15:34 12/23/23 15:34 Temperature Pulse Rate 74 60 Respiratory Rate 18 28 H Blood Pressure 189/86 H Pulse Oximetry 94 93 Oxygen Delivery Method 12/23/23 16:00 12/23/23 16:00 12/23/23 16:30 Temperature Pulse Rate 60 62 Respiratory Rate 27 H 24 Blood Pressure 199/95 H Pulse Oximetry 94 94 Oxygen Delivery Method 12/23/23 16:31 12/23/23 16:31 12/23/23 17:00 Temperature Pulse Rate 60 61 Respiratory Rate 21 Blood Pressure 186/86 H Pulse Oximetry 93 93 Oxygen Delivery Method Oxygen Delivery Method Room Air Narrative Exam Narrative: NAD, alert and oriented, fluent speech, calm. Normocephalic skull, EOMI, anicteric sclera, symmetric pupils. Oropharynx unremarkable, no droop. Neck supple, midline trachea, no adenopathy. Lungs clear, normal rate and effort. Heart regular, no murmur gallop or rub. Abdomen is soft, non distended and non tender. Extremities are free of edema. Skin is free of rash or lesions. Joints are not swollen or deformed. Judgment appears to be normal. Objective ECG Impression: AV dual-paced rhythm Imaging Chest x-ray: Radiologist's impression: No acute cardiopulmonary abnormality is seen. Labs 12/23/23 13:50 12/23/23 13:50 Labs: Laboratory Results - last 24 hr 12/23/23 12/23/23 13:50 16:00 WBC 7.1 RBC 4.59 Hgb 15.6 Hct 46.3 H MCV 100.8 H MCH 34.0 MCHC 33.7 RDW 14.4 Plt Count 267 Neut % (Auto) 72.8 Lymph % (Auto) 12.9 L [place] % (Auto) 12.5 Eos % (Auto) 1.1 L Baso % (Auto) 0.7 Neut # (Auto) 5200 Lymph # (Auto) 900 L [place] # (Auto) 900 Eos # (Auto) 100 Baso # (Auto) 100 PT 12.9 H INR 1.1 APTT 44 H Sodium 134 L Potassium 4.2 Chloride 100 Carbon Dioxide 27 BUN 11 Creatinine 0.66 Estimated GFR > 60 BUN/Creatinine Ratio 16.7 Glucose 88 Calcium 8.7 Magnesium 2.1 Total Bilirubin 0.7 AST 30 ALT 22 Alkaline Phosphatase 61 Total Creatine Kinase 31 Troponin I 0.018 0.014 NT-Pro-B Natriuret Pep 2630 H Total Protein 7.3 Albumin 4.3 Globulin 3.0 Albumin/Globulin Ratio 1.4 Lipase 65 Urine RBC 0-1/hpf Urine WBC 10-30/hpf H Ur Squamous Epith Cells 1-5 /hpf Urine Bacteria Many (>30) H Hyaline Casts 1-5/lpf Granular Casts 1-5/lpf Ur Culture Indicated? Specimen cultured Vol Urine Centrifuged 10ml (spun) Assessment & Plan Assessment & Plan narrative: 1. Atypical chest pain, present on admission and active. 2. Poorly controlled hypertension, present on admission and active. 3. Hypertrophic cardiomyopathy, present on admission and active. 4. Possible UTI, present on admission and active. 5. Dyslipidemia, present on admission and stable. 6. Pacemaker, present on admission and stable. 7. Chronic anticoagulation with Eliquis, present on admission and stable. Plan: -start losartan 25 mg now -trend troponins overnight, telemetry. -ambulate and monitor for clinical results. -Ceftriaxone and follow urine cx. She was full code, confirmed time of admission. is proxy, they live in [place]. Anticipate 1 midnight of care, observation status. JAYSHREE is 12/23. Time-Based Coding :: 35 min spent with patient and on the chart (including review of chart, obtaining history, exam, reviewing outside data, placing orders, documenting exam and treatment plan, and counseling patient) on 12/22. Quality MIPS - Admit I confirm the patient?s Advance Care Plan is present, Code status is documented, Surrogate decision maker is in patient?s record [If Yes, STOP here]: Yes MIPS - Meds 'Current medications' to include all prescriptions, [id number] products, herbals, cannabis/cannabidiol products, and vitamin/mineral/dietary (nutritional) supplements. I have utilized all available resources to obtain, update, or review the patient?s current medications. [If Yes, STOP here]: Yes
[2023-12-23] MEDS: LOSARTAN 25 MG TABLET PO (17:52)
[2023-12-23] MEDS: ACETAMINOPHEN 325 MG TABLET 975 MG PO (17:54)
[2023-12-23 18:36] LABS: Troponin I 0.018 ng/mL (0.01-0.034)
[2023-12-23] MEDS: TRAZODONE 50 MG TABLET 25 MG PO (20:09)
[2023-12-23] MEDS: APIXABAN 5 MG TABLET 2.5 MG PO (20:09)
[2023-12-23] MEDS: cefTRIAXone 1,000 MG in SODIUM CHLORIDE 0.9% 100 ML 200 MG IV (20:10)
[2023-12-23] MEDS: MELATONIN 3 MG TABLET 9 MG PO (22:03)
[2023-12-23] MEDS: METOPROLOL ER 25 MG TABLET PO (22:05)
--- NOTE | 2023-12-23 22:39 | PC.NURSE ---
Pt reports that she takes verapamil 120 mg BID and metoprolol 25mg ER BID. HR running in range of 59-63. Dr. Turk ordered to give metoprolol and d/c verapamil.
[2023-12-24] VITALS: BP 142/83; PULSE 60; RESP 20; TEMP 36.7; O2SAT 92
[2023-12-24] MEDS: ACETAMINOPHEN 325 MG TABLET 650 MG PO ×2 (02:08→09:42)
[2023-12-24 04:00] VITALS: BP 141/78; PULSE 60; RESP 20; TEMP 36.6; O2SAT 91
--- NOTE | 2023-12-24 06:52 | PC.NURSE ---
Troponin time changed to be drawn this morning, per Dr. Turk
[2023-12-24 08:00] VITALS: BP 141/84; PULSE 59; RESP 19; TEMP 36.5; O2SAT 93
[2023-12-24 08:09] LABS: Add Manual Diff / Slide Review NO; Basophils Absolute Auto 100 /uL (0-100); Basophils Percent Auto 1.1 % (0-2); Eosinophils Absolute Auto 100 /uL (0-450); Hematocrit 46.4 % (36-46); Hemoglobin 15.6 g/dL (12.0-16.0); Lymphocytes Absolute Auto 800 /uL (1100-4500); Lymphocytes Percent Auto 10.2 % (25-40); Mean Corpuscular HGB Conc 33.7 % (30-36); Mean Corpuscular Hemoglobin 33.8 PG (26-34); Mean Corpuscular Volume 100.4 fL (80-100); Monocytes Absolute Auto 900 /uL (0-900); Monocytes Percent Auto 11.2 % (3-14); Neutrophils Absolute Auto 6200 /uL (1500-7000); Neutrophils Percent Auto 76.5 % (50-75); Platelet Count 245 X10^3/uL (150-400); Red Blood Cell Count 4.62 X10^6/uL (4.0-5.2); Red Cell Distribution Width 14.3 % (11.6-14.8); White Blood Cell Count 8.1 X10^3/uL (4.5-11.0)
[2023-12-24 08:17] LABS: BUN Creatinine Ratio 20.6 (6-22); Blood Urea Nitrogen 13 mg/dL (7-17); Calcium 8.2 mg/dL (8.4-10.2); Carbon Dioxide 28 mmol/L (22-32); Chloride 96 mmol/L (98-107); Estimated Glomerular Filt Rate > 60 mL/min (>60); Glucose 117 mg/dL (80-110); HEMOLYSIS 28 (0-50); Potassium 3.4 mmol/L (3.4-5.1); Sodium 129 mmol/L (137-145)
[2023-12-24 08:28] LABS: Troponin I 0.033 ng/mL (0.01-0.034)
[2023-12-24 08:59] VITALS: BP 141/84; PULSE 59
[2023-12-24] MEDS: LOSARTAN 25 MG TABLET PO (08:59)
[2023-12-24 09:00] VITALS: BP 141/84; PULSE 59
[2023-12-24] MEDS: SODIUM CHLORIDE 0.9% FLUSH 10 ML IV (09:00)
[2023-12-24] MEDS: AMIODARONE 200 MG TABLET 100 MG PO (09:00)
[2023-12-24] MEDS: METOPROLOL ER 25 MG TABLET PO (09:00)
[2023-12-24] MEDS: APIXABAN 5 MG TABLET 2.5 MG PO (09:00)
--- NOTE | 2023-12-24 11:12 | PM.DS.1 ---
History of Present Illness History of Present Illness Date Patient Seen: 12/24/23 Time Patient Seen: 09:47 Date of Onset of Symptoms: 12/23/23 Chief complaint: chest px Narrative: 87-year-old female history of hypertrophic cardiomyopathy, ICD with pacemaker, on Eliquis, hypertension, dyslipidemia, prior colon cancer with colectomy presents with complaint of substernal and right-sided chest pain radiating towards her back. Patient states she developed pain about 24 hours ago has been intermittent not seeming to be exacerbated by alleviated by anything. States she has not had similar symptoms in the past. Thought it might be gas she tried drinking water which has not been helpful. It lasts about 10 minutes and then resolve last episode was about 115 in the afternoon. Denies fevers or chills, did feel little short of breath this morning, notes some nausea but no vomiting no diaphoresis, no swelling in extremities no lightheadedness or passing out. States it has been a day and a half since she had a bowel movement, denies any new urinary symptoms. Has known hypertrophic cardiomyopathy she states with mid subvalvular obstruction, follows with cardiology locally and at [facility]. Has a pacemaker and states no cardiac stents. She is on Eliquis, metoprolol and a statin, states prior hysterectomy, had sigmoid colectomy for colon cancer and bladder surgery x3 in the past. States allergic to codeine. No tobacco, alcohol or recreational drugs. Dr. Mary belle as her primary care physician. Dr. Gacria is her accounting methods analyst. Dr. Pantoja is her accounting methods analyst at [facility]. The case was discussed with Dr. Mohan today, he recommended blood pressure control with losartan and observation overnight. She shares that she has had some pain for 1-2 days. The pain sided and epigastric. Nothing in particular makes the pain worse including movement of the body or deep breathing. She did note that the pain may have followed eating an egg salad sandwich. She does dyspepsia but denies worse symptoms recently. No recent diarrhea. She was IBS with alternating constipation and loose stools. She denies any exertional dyspnea or chest pain. No leg edema, orthopnea. She was no known history of CAD, she does have an ICD pacemaker denies a history of sudden cardiac arrest. Her blood pressures have been high recently, she usually does not check them. She has had dysuria for the last day. Discharge Providers Provider Date of admission: 12/23/23 17:22 Discharge Date: 12/24/23 Primary care physician: Luba Belle, Discharge provider: Yan Amador MD Summary Hospital Course Discharge Diagnosis: 1. Atypical chest pain, present on admission and active. 2. Poorly controlled hypertension, present on admission and active. 3. Hypertrophic cardiomyopathy, present on admission and active. 4. Probable UTI, present on admission and active. 5. Dyslipidemia, present on admission and stable. 6. Pacemaker, present on admission and stable. 7. Chronic anticoagulation with Eliquis, present on admission and stable. Hospital Course: 88-year-old woman under the primary care of Dr. Luba Belle was admitted and monitored on telemetry with serial cardiac enzymes, ruling out for myocardial infarction. She had intermittent sharp chest pain, often postprandial, and severe hypertension which improved considerably during hospitalization with the addition of losartan 25 mg daily. The cause of epigastric and chest discomfort is unclear but felt to possibly represent gastrointestinal etiology. Proton pump inhibitor therapy was added at time of discharge. she also had dysuria and a urinalysis consistent with urinary tract infection and was started on a 5 day course of antibiotics. She was feeling well and interested in discharge home. No other issues arose. The patient acknowledged understanding, agreement and appreciation of this plan of care, and agreed to call back with any questions or concerns. Status at Discharge Cognitive/behavioral status at discharge: oriented Functional status at discharge: independent ambulation Overall status at discharge: patient is back to baseline Time Spent with Patient Time spent: Greater than 30 minutes Exam Vital Signs (past 8 hours): - 12/24/23 04:00 12/24/23 08:00 12/24/23 08:59 Temperature 97.9 F 97.7 F Pulse Rate 60 59 L 59 L Respiratory Rate 20 19 Blood Pressure 141/78 H 141/84 H 141/84 H Pulse Oximetry 91 93 Oxygen Delivery Method Oxygen Flow Rate 0 12/24/23 09:00 12/24/23 09:00 Temperature Pulse Rate 59 L Respiratory Rate Blood Pressure 141/84 H Pulse Oximetry Oxygen Delivery Method Room Air Oxygen Flow Rate Oxygen Delivery Method Room Air Oxygen Flow Rate 0 Narrative Exam Narrative: NAD, alert and oriented, fluent speech, calm. Normocephalic skull, EOMI, anicteric sclera, symmetric pupils. Oropharynx unremarkable, no droop. Neck supple, midline trachea, no adenopathy. Lungs clear, normal rate and effort. Heart regular, no murmur gallop or rub. Abdomen is soft, non distended and non tender. Extremities are free of edema. Skin is free of rash or lesions. Joints are not swollen or deformed. No sternal or costal tenderness. Judgment appears to be normal. Objective ECG Impression: AV dual-paced rhythm at 61bpm Imaging Chest x-ray: Radiologist's impression: No acute cardiopulmonary abnormality is seen. Labs 12/24/23 07:50 12/24/23 07:50 Labs: Laboratory Results - last 24 hr 12/23/23 12/23/23 12/23/23 13:50 16:00 18:10 WBC 7.1 RBC 4.59 Hgb 15.6 Hct 46.3 H MCV 100.8 H MCH 34.0 MCHC 33.7 RDW 14.4 Plt Count 267 Neut % (Auto) 72.8 Lymph % (Auto) 12.9 L Bacon % (Auto) 12.5 Eos % (Auto) 1.1 L Baso % (Auto) 0.7 Neut # (Auto) 5200 Lymph # (Auto) 900 L Bacon # (Auto) 900 Eos # (Auto) 100 Baso # (Auto) 100 PT 12.9 H INR 1.1 APTT 44 H Sodium 134 L Potassium 4.2 Chloride 100 Carbon Dioxide 27 BUN 11 Creatinine 0.66 Estimated GFR > 60 BUN/Creatinine Ratio 16.7 Glucose 88 Calcium 8.7 Magnesium 2.1 Total Bilirubin 0.7 AST 30 ALT 22 Alkaline Phosphatase 61 Total Creatine Kinase 31 Troponin I 0.018 0.014 0.018 NT-Pro-B Natriuret Pep 2630 H Total Protein 7.3 Albumin 4.3 Globulin 3.0 Albumin/Globulin Ratio 1.4 Lipase 65 Urine RBC 0-1/hpf Urine WBC 10-30/hpf H Ur Squamous Epith Cells 1-5 /hpf Urine Bacteria Many (>30) H Hyaline Casts 1-5/lpf Granular Casts 1-5/lpf Ur Culture Indicated? Specimen cultured Vol Urine Centrifuged 10ml (spun) 12/24/23 07:50 WBC 8.1 RBC 4.62 Hgb 15.6 Hct 46.4 H MCV 100.4 H MCH 33.8 MCHC 33.7 RDW 14.3 Plt Count 245 Neut % (Auto) 76.5 H Lymph % (Auto) 10.2 L Bacon % (Auto) 11.2 Eos % (Auto) 1.0 L Baso % (Auto) 1.1 Neut # (Auto) 6200 Lymph # (Auto) 800 L Bacon # (Auto) 900 Eos # (Auto) 100 Baso # (Auto) 100 PT INR APTT Sodium 129 L Potassium 3.4 Chloride 96 L Carbon Dioxide 28 BUN 13 Creatinine 0.63 Estimated GFR > 60 BUN/Creatinine Ratio 20.6 Glucose 117 H Calcium 8.2 L Magnesium Total Bilirubin AST ALT Alkaline Phosphatase Total Creatine Kinase Troponin I 0.033 NT-Pro-B Natriuret Pep Total Protein Albumin Globulin Albumin/Globulin Ratio Lipase Urine RBC Urine WBC Ur Squamous Epith Cells Urine Bacteria Hyaline Casts Granular Casts Ur Culture Indicated? Vol Urine Centrifuged [facility] Medical History Joint pain of ankle and foot (06/16/05) Joint pain of lower extremity (06/16/05) Abdominal pain, LLQ (06/16/05) Hemothorax on right Multiple rib fractures ICD (implantable cardioverter-defibrillator) in place Pacemaker Hypothyroidism Hypertrophic obstructive cardiomyopathy Surgical History History of ankle surgery Status post hysterectomy Family History Father Hypertension Mother Cancer Social History household members: spouse Smoking Status: Never smoker alcohol intake: current substance use type: does not use Discharge Plan Discharge Plan Patient Disposition: Home Provider Discharge Comment: Followup with Dr. Luba Belle 1 week Discharge orders & Medications Prescriptions: New losartan 25 mg Tablet 25 mg PO DAILY Qty: 30 0RF cephalexin 500 mg capsule 500 mg PO TID Qty: 12 0RF omeprazole 20 mg capsule,delayed release(DR/EC) 20 mg PO DAILY Qty: 30 0RF Continued estradiol 0.1 mg/24 hr patch semiweekly 0.1 mg Topical .COMPLEX Qty: 24 3RF Rx Instructions: 0.1 mg Topical twice a week due to osteoperosis; a fluticasone propionate [Flonase Allergy Relief] 50 mcg/actuation spray,suspension 1 spray intranasal Q12H Qty: 48 0RF Rx Instructions: administer into each nostril (DME) Disabled Parking Permit See Rx Instructions .ROUTE .MEDSUPPLY Qty: 1 0RF Rx Instructions: Valid for 5 years trazodone 50 mg tablet 25 mg PO BEDTIME PRN (Reason: sleep difficulty) Qty: 45 1RF melatonin 10 mg capsule 10 mg PO BEDTIME PRN (Reason: Insomnia) rosuvastatin 5 mg tablet 5 mg PO DAILY Qty: 90 1RF levothyroxine 50 mcg tablet See Rx Instructions .ROUTE .COMPLEX Qty: 90 1RF Dose Instruction: TAKE 1 TABLET BY MOUTH DAILY Rx Instructions: TAKE 1 TABLET BY MOUTH DAILY amiodarone 100 mg tablet 100 mg PO DAILY Qty: 90 1RF Eliquis 2.5 mg tablet 2.5 mg PO BID Qty: 180 1RF magnesium oxide 400 mg magnesium tablet 400 mg PO BID Qty: 180 1RF metoprolol succinate 25 mg tablet extended release 24 hr 25 mg PO BID Qty: 180 1RF verapamil 120 mg tablet extended release 120 mg PO BID Qty: 180 1RF estradiol 0.01 % (0.1 mg/gram) cream 1 g vaginal 3XW Qty: 42.5 1RF acetaminophen 325 mg Tablet 650 mg PO Q6HR PRN (Reason: Fever/Mild Pain (1-3)) Qty: 60 0RF Follow up/Referrals: Luba Belle DO [Primary Care Provider] - Visit Report/Discharge Packet Stand Alone Forms: Patient Portal/API, Stroke Signs & Symptoms Discharge Data Primary Care Provider: Luba Belle Attending Provider: Daniel Bella Admit Date/Time: 12/23/23 17:22 Quality VTE Deep Vein Thrombosis/Pulmonary Embolism Present on Admission: No MIPS - Admit I confirm the patient?s Advance Care Plan is present, Code status is documented, Surrogate decision maker is in patient?s record [If Yes, STOP here]: Yes MIPS - Meds 'Current medications' to include all prescriptions, [id number] products, herbals, cannabis/cannabidiol products, and vitamin/mineral/dietary (nutritional) supplements. I have utilized all available resources to obtain, update, or review the patient?s current medications. [If Yes, STOP here]: Yes MIPS - DC The patient has a history of heart transplant or Left Ventricular Assist Device (LVAD). If yes, STOP here.: No The patient has current or prior documentation of left ventricular ejection fraction (LVEF) less than or equal to 40%, or moderate or severely depressed left ventricular systolic function.: No A. The patient was prescribed or already taking an Angiotensin-Converting Enzyme (RELL) Inhibitor, or Angiotensin Receptor Viral (ARB).: Yes B. The patient was prescribed or already taking a beta-viral. [If Yes to Both A & B, STOP here]: Yes Patient not prescribed/taking RELL or ARB, no reason given.: No Patient not prescribed/taking beta-viral, no reason given.: No PROFEE Charge Codes Discharge inpatient/observation: [id number]
--- NOTE | 2023-12-24 11:54 | PC.NURSE ---
Pt discharged home at 1150, escorted off floor in wheelchair accompanied by son, spouse and hospital staff. IV removed, discharge teaching completed including follow up appointments, new medications and worsening symptoms. Questions answered and concerns addressed. Patient left the floor with all belongings.
== END 2023-12-24 12:04 | disposition home or self-care (01) ==
LOC: ED 13:45 → AC 17:22
PROVIDERS: Admitting Provider Hospitalist; Emergency Provider Emergency Medicine; PCP Family Medicine; Referring Provider Emergency Medicine; Visit Provider Hospitalist
DX: R07.89 Other chest pain (principal); I10 Essential (primary) hypertension; I42.8 Other cardiomyopathies; E78.5 Hyperlipidemia, unspecified; Z95.0 Presence of cardiac pacemaker; Z79.01 Long term (current) use of anticoagulants
CPT/HCPCS: 36415; 71045; 80048; 80053; 81003; 81015; 82550; 83690; 83735; 83880; 84484; 85025; 85610; 85730; 87077; 87086; 87147; 93005; 96365; 96366; 96375; 99284; G0378; J0696; J1940

== ENCOUNTER → 2024-04-19 07:05 | Outpatient (CLI) | payer MEDICARE, SELFPAY ==
[2023-12-26 13:38] VITALS: BMI 29.0
[2024-04-19 08:01] LABS: Hematocrit 48.9 % (36-46); Hemoglobin 16.3 g/dL (12.0-16.0); Mean Corpuscular HGB Conc 33.3 % (30-36); Mean Corpuscular Hemoglobin 33.9 PG (26-34); Mean Corpuscular Volume 101.7 fL (80-100); Platelet Count 267 X10^3/uL (150-400); Red Cell Distribution Width 13.4 % (11.6-14.8); White Blood Cell Count 6.3 X10^3/uL (4.5-11.0)
[2024-04-19 08:20] LABS: Alanine Aminotransferase 31 IU/L (<35); Albumin 4.2 g/dL (3.5-5.0); Albumin Globulin Ratio 1.6 (1.0-2.8); Alkaline Phosphatase 52 U/L (38-126); Aspartate Aminotransferase 31 IU/L (14-36); BUN Creatinine Ratio 15.1 (6-22); Bilirubin Total 0.7 mg/dL (0.2-1.3); Blood Urea Nitrogen 13 mg/dL (7-17); Calcium 8.9 mg/dL (8.4-10.2); Carbon Dioxide 29 mmol/L (22-32); Chloride 97 mmol/L (98-107); Estimated Glomerular Filt Rate > 60 mL/min (>60); Globulin 2.7 g/dL (1.7-4.1); Glucose 88 mg/dL (80-110); HEMOLYSIS < 15 (0-50); Magnesium 1.9 mg/dL (1.6-2.3); Potassium 4.3 mmol/L (3.4-5.1); Sodium 134 mmol/L (137-145); Total Protein 6.9 g/dL (6.3-8.2)
[2024-04-19 08:46] LABS: Thyroid Stimulating Hormone 3.78 uIU/mL (0.47-4.68)
== END ==
PROVIDERS: PCP Family Medicine; Referring Provider Specialist; Visit Provider Specialist
DX: I48.0 Paroxysmal atrial fibrillation (principal); Z79.899 Other long term (current) drug therapy; E78.00 Pure hypercholesterolemia, unspecified
CPT/HCPCS: 36415; 80053; 80061; 83704; 83735; 84443; 85027

== ENCOUNTER 2024-05-22 16:46 | Emergency (ER) | payer MEDICARE, SELFPAY ==
[2023-12-26 13:38] VITALS: BMI 29.0
[2024-05-22] VITALS (14 sets, daily range): BP systolic 125–160; BP diastolic 81–100; PULSE 60–118; RESP 18–27; TEMP 37.2; O2SAT 93–96; BMI 22.6
--- NOTE | 2024-05-22 16:59 | EKG_ITS ---
[address] [address] Test Date: 2024-05-22 Pat Name: Kim Nelson Department: Room: Gender: Female Water Tender: JAYLEN : 1935 Requested By: Order Number: [id number] Reading MD: Jovanny Calderón Measurements Intervals Rice Rate: 59 P: TN: QRS: -61 QRSD: 202 T: 112 QT: 564 QTc: 558 Interpretive Statements Ventricular-paced rhythm Electronically Signed On 05-22-2024 18:29:32 PST by Jovanny Calderón
--- NOTE | 2024-05-22 17:27 | DI.RAD.S_ITS ---
PROCEDURE: XR CHEST 1V INDICATIONS: chest pain TECHNIQUE: One view of the chest was acquired. COMPARISON: [facility], CR, XR CHEST 1V, 12/23/2023, 13:54. FINDINGS: Surgical changes and devices: Left chest wall pacemaker Lungs and pleura: Right basilar atelectasis. Lungs are otherwise clear. No pleural effusions or pneumothorax. Mediastinum: Mediastinal contours appear normal. Heart size is enlarged, stable. Bones and chest wall: No suspicious bony lesions. Old right-sided rib fractures. Overlying soft tissues appear unremarkable. IMPRESSION: Right visual atelectasis. No acute cardiopulmonary abnormality is seen. Dictated by: Darryl Ernst M.D. on 05/22/2024 at 18:54 Approved by: Darryl Ernst M.D. on 05/22/2024 at 18:54
[2024-05-22 17:34] LABS: INR 1.4 (0.9-1.3); Prothrombin Time 15.3 SECONDS (9.4-12.5)
[2024-05-22 17:37] LABS: Add Manual Diff / Slide Review NO; Basophils Absolute Auto 0 /uL (0-100); Basophils Percent Auto 0.6 % (0-2); Eosinophils Absolute Auto 100 /uL (0-450); Eosinophils Percent Auto 1.1 % (2-4); Hemoglobin 17.4 g/dL (12.0-16.0); Lymphocytes Absolute Auto 700 /uL (1100-4500); Lymphocytes Percent Auto 10.8 % (25-40); Mean Corpuscular HGB Conc 34.1 % (30-36); Mean Corpuscular Hemoglobin 34.5 PG (26-34); Mean Corpuscular Volume 101.4 fL (80-100); Monocytes Absolute Auto 900 /uL (0-900); Monocytes Percent Auto 12.9 % (3-14); Neutrophils Absolute Auto 5000 /uL (1500-7000); Neutrophils Percent Auto 74.6 % (50-75); PTT Partial Thromboplastin Tim 39 SECONDS (25.1-36.5); Platelet Count 279 X10^3/uL (150-400); Red Blood Cell Count 5.03 X10^6/uL (4.0-5.2); Red Cell Distribution Width 13.9 % (11.6-14.8); White Blood Cell Count 6.7 X10^3/uL (4.5-11.0)
[2024-05-22 17:39] LABS: Alanine Aminotransferase 37 IU/L (<35); Albumin 4.1 g/dL (3.5-5.0); Albumin Globulin Ratio 1.4 (1.0-2.8); Alkaline Phosphatase 56 U/L (38-126); Aspartate Aminotransferase 41 IU/L (14-36); BUN Creatinine Ratio 17.9 (6-22); Bilirubin Total 0.6 mg/dL (0.2-1.3); Blood Urea Nitrogen 14 mg/dL (7-17); Calcium 8.7 mg/dL (8.4-10.2); Carbon Dioxide 27 mmol/L (22-32); Chloride 98 mmol/L (98-107); Creatine Kinase 38 U/L (30-135); Estimated Glomerular Filt Rate > 60 mL/min (>60); Globulin 2.9 g/dL (1.7-4.1); Glucose 101 mg/dL (80-110); HEMOLYSIS 19 (0-50); Lipase 59 U/L (23-300); Magnesium 2.1 mg/dL (1.6-2.3); Potassium 3.8 mmol/L (3.4-5.1); Sodium 133 mmol/L (137-145)
[2024-05-22 17:51] LABS: NT-proBNP (BNP-Adult 18+) 3550 pg/mL (<450); Troponin I 0.021 ng/mL (0.01-0.034)
--- NOTE | 2024-05-22 18:42 | ED_ITS ---
HPI - Weakness General Chief complaint: Weakness Stated complaint: bilateral leg weakness, fatigue Time Seen by Provider: 05/22/24 18:29 Source: patient Mode of arrival: Wheelchair History of Present Illness HPI Narrative: 81-year-old female history of hypertrophic cardiomyopathy, ICD with pacemaker, on Eliquis, hypertension dyslipidemia prior colon cancer with colectomy presenting today with increasing bilateral lower extremity weakness and fatigue. She reports that every time she stands up her legs feel like jello. She was able to lift them up off the gurney but standing and walking difficult. She reports she was having a lot of stress at home with her has been in his health. She says that she is lost about 10 lb. She does have congestive heart failure weighs herself daily she reports that when her weight is increasing that she increases her diuretic but she has not needed to do that. She has not dizzy or lightheaded she denies any fever or chills. She has no upper extremity weakness. She has not fallen she has not passed out. No abdominal pain nausea or vomiting. No painful frequent urination or any other symptoms. Related Data Home Medications Medication Instructions Recorded Confirmed melatonin 10 mg capsule 10 mg PO BEDTIME PRN Insomnia 05/03/23 05/22/24 amiodarone 200 mg tablet 200 mg PO BID 05/22/24 05/22/24 Previous Rx's Medication Instructions Recorded acetaminophen 325 mg tablet 650 mg (2 x 325 mg) PO Q6HR PRN 11/06/21 Fever/Mild Pain (1-3) #60 tabs Disabled Parking Permit #1 ea 07/26/22 apixaban 2.5 mg tablet (Eliquis) 2.5 mg PO BID #180 tabs 08/01/23 estradiol 0.01% (0.1 mg/gram) 1 g vaginal 3XW #42.5 grams 08/01/23 vaginal cream magnesium oxide 400 mg PO BID #180 tabs 08/01/23 metoprolol succinate 25 mg 25 mg PO BID #180 tabs 08/01/23 tablet,extended release 24 hr rosuvastatin 5 mg tablet 5 mg PO DAILY #90 tabs 08/01/23 verapamil 120 mg tablet,extended 120 mg PO BID #180 tabs 08/01/23 release estradiol 0.1 mg/24 hr semiweekly 0.1 mg topical .COMPLEX #24 patches 10/14/23 transdermal patch trazodone 50 mg tablet 25 mg (1/2 x 50 mg) PO BEDTIME PRN 11/08/23 sleep difficulty #45 tabs levothyroxine 50 mcg tablet See Rx Instructions .Route 12/26/23 .COMPLEX #90 tabs losartan 25 mg tablet 25 mg PO DAILY #30 tabs 02/20/24 omeprazole 20 mg capsule,delayed 20 mg PO DAILY #90 caps 03/01/24 release Allergies Allergy/AdvReac Type Severity Reaction Status Date / Time codeine [CODEINE] Allergy Mild NAUSEA AND Verified 05/22/24 16:59 VOMITING iodine Allergy Verified 05/22/24 16:59 Patient History Medical History (Updated 05/22/24 @ 20:13 by Dipika Bradford DO) Joint pain of ankle and foot (06/16/05) Joint pain of lower extremity (06/16/05) Abdominal pain, LLQ (06/16/05) Hemothorax on right Multiple rib fractures ICD (implantable cardioverter-defibrillator) in place Pacemaker Hypothyroidism Hypertrophic obstructive cardiomyopathy Surgical History History of ankle surgery Status post hysterectomy Family History Father Hypertension Mother Cancer Social History household members: spouse Smoking Status: Never smoker alcohol intake: current substance use type: does not use Smoking Status: Never smoker alcohol intake frequency: 0-2 drinks per day Exam Initial Vital Signs Initial Vital Signs: Vital Signs Temperature 98.9 F 05/22/24 16:50 Pulse Rate 60 05/22/24 16:50 Respiratory Rate 18 05/22/24 16:50 Blood Pressure 160/89 H 05/22/24 16:50 Pulse Oximetry 94 05/22/24 16:50 Oxygen Delivery Method Room Air 05/22/24 16:50 GENERAL: Alert pleasant well-appearing 81-year-old female and in no acute distress. HEENT: Head atraumatic,EOMI, pupils reactive, face symmetric, moist mucous membranes CARDIOVASCULAR: Regular rate and rhythm without murmurs, rubs or gallops. RESPIRATORY: Breath sounds equal bilaterally, no wheezes rales or rhonchi. ABDOMEN: Soft, nontender. Normoactive bowel sounds all 4 quadrants. No guarding or rebound. EXTREMITIES: Normal range of motion, no clubbing or edema. Neurovascularly intact NEUROLOGICAL: Alert and oriented x4.Normal gait and speech. Cranial nerves II through XII grossly intact. Good [id number], good [id number], strength equal bilaterally, no dysarthria or aphasia, sensation in tact to soft touch bilaterally, no visual changes, no facial droop SKIN: Warm, dry, no laceration, no petechiae, no rashes or lesions. Course Orders Ordered: ED Orders 05/22/24 17:05 Complete Blood Count AUTO DIFF Stat Comprehensive Metabolic Panel Stat Lipase Stat Magnesium Stat NT-proBNP (BNP-Adult 18+) Stat PTT Partial Thromboplastin Thomas Stat Prothrombin Time INR Stat Troponin & CK Cardiac Panel Stat 05/22/24 17:27 XR chest 1V Stat EKG-12 Lead Stat 05/22/24 19:02 CT head/brain wo con Stat 05/22/24 19:15 Urine Microscopic Stat Vital Signs Vital signs: Vital Signs - 8 hr 05/22/24 17:30 05/22/24 17:30 05/22/24 17:32 Pulse Rate 117 H 116 H Respiratory Rate 24 27 H Blood Pressure 129/100 H Pulse Oximetry 93 93 Oxygen Delivery Method 05/22/24 17:32 05/22/24 18:00 05/22/24 18:00 Pulse Rate 116 H Respiratory Rate 23 Blood Pressure 125/89 133/87 Pulse Oximetry 95 Oxygen Delivery Method 05/22/24 18:30 05/22/24 18:30 05/22/24 19:05 Pulse Rate 104 H 68 Respiratory Rate 22 Blood Pressure 147/81 H Pulse Oximetry 95 94 Oxygen Delivery Method Room Air 05/22/24 19:06 05/22/24 19:06 05/22/24 19:30 Pulse Rate 62 60 Respiratory Rate 21 23 Blood Pressure 158/87 H Pulse Oximetry 95 Oxygen Delivery Method Room Air 05/22/24 20:00 05/22/24 20:04 05/22/24 20:04 Pulse Rate 60 61 Respiratory Rate 20 19 Blood Pressure 145/84 H Pulse Oximetry 94 Oxygen Delivery Method Room Air MDM - Weakness Lab Data 05/22/24 17:05 05/22/24 17:05 Labs: Lab Results 03/04/25 03/04/25 Range/Units 17:05 19:15 WBC 6.7 (4.5-11.0) X10^3/uL RBC 5.03 (4.0-5.2) X10^6/uL Hgb 17.4 H (12.0-16.0) g/dL Hct 51.0 H (36-46) % MCV 101.4 H (80-100) fL MCH 34.5 H (26-34) PG MCHC 34.1 (30-36) % RDW 13.9 (11.6-14.8) % Plt Count 279 (150-400) X10^3/uL Neut % (Auto) 74.6 (50-75) % Lymph % (Auto) 10.8 L (25-40) % [place] % (Auto) 12.9 (3-14) % Eos % (Auto) 1.1 L (2-4) % Baso % (Auto) 0.6 (0-2) % Neut # (Auto) 5000 (4517-4867) /uL Lymph # (Auto) 700 L (3579-8439) /uL [place] # (Auto) 900 (0-900) /uL Eos # (Auto) 100 (0-450) /uL Baso # (Auto) 0 (0-100) /uL PT 15.3 H (9.4-12.5) SECONDS INR 1.4 H (0.9-1.3) APTT 39 H (25.1-36.5) SECONDS Sodium 133 L (137-145) mmol/L Potassium 3.8 (3.4-5.1) mmol/L Chloride 98 (98-107) mmol/L Carbon Dioxide 27 (22-32) mmol/L BUN 14 (7-17) mg/dL Creatinine 0.78 (0.52-1.04) mg/dL Estimated GFR > 60 (>60) mL/min BUN/Creatinine Ratio 17.9 (6-22) Glucose 101 (80-110) mg/dL Calcium 8.7 (8.4-10.2) mg/dL Magnesium 2.1 (1.6-2.3) mg/dL Total Bilirubin 0.6 (0.2-1.3) mg/dL AST 41 H (14-36) IU/L ALT 37 H (<35) IU/L Alkaline Phosphatase 56 (38-126) U/L Total Creatine Kinase 38 (30-135) U/L Troponin I 0.021 (0.01-0.034) ng/mL NT-Pro-B Natriuret Pep 3550 H (<450) pg/mL Total Protein 7.0 (6.3-8.2) g/dL Albumin 4.1 (3.5-5.0) g/dL Globulin 2.9 (1.7-4.1) g/dL Albumin/Globulin Ratio 1.4 (1.0-2.8) Lipase 59 (23-300) U/L Urine RBC 0-1/hpf (0-5/HPF) Urine WBC 1-5/hpf (0-5/HPF) Ur Squamous Epith Cells 10-30 /hpf H D (0-5/HPF) Urine Bacteria Few (2-10) H (None) Ur Culture Indicated? Cult not indicated Vol Urine Centrifuged 10ml (spun) Urine Dip Bedside Urine Glucose Negative Bedside Urine Bilirubin - Negative Bedside Urine Ketone - Negative Urine Specific [place] 1.020 Bedside Urine Occult Blood - Negative Bedside Urine pH 6.0 Bedside Urine Protein + 30 Bedside Urine Urobilinogen - Negative Bedside Urine Nitrite - Negative Bedside Urine Leukocytes - Negative Esterase Imaging Data Chest x-ray: Radiologist Impression: PROCEDURE: XR CHEST 1V INDICATIONS: chest pain TECHNIQUE: One view of the chest was acquired. COMPARISON: [facility], , XR CHEST 1V, 12/23/2023, 13:54. FINDINGS: Surgical changes and devices: Left chest wall pacemaker Lungs and pleura: Right basilar atelectasis. Lungs are otherwise clear. No pleural effusions or pneumothorax. Mediastinum: Mediastinal contours appear normal. Heart size is enlarged, stable. Bones and chest wall: No suspicious bony lesions. Old right-sided rib fractures. Overlying soft tissues appear unremarkable. IMPRESSION: Right visual atelectasis. No acute cardiopulmonary abnormality is seen. Dictated by: Darryl Ernst M.D. on 05/22/2024 at 18:54 CT scan - head: Radiologist Impression: PROCEDURE: CT HEAD/BRAIN WO CON INDICATIONS: bilateral leg weakness on eliquis TECHNIQUE: Noncontrast 4.5 mm thick angled axial sections acquired from the foramen magnum to the vertex, with coronal and sagittal reformats. For radiation dose reduction, the following was used: automated exposure control, adjustment of mA and/or kV according to patient size. COMPARISON: [facility], CT, CT HEAD/BRAIN WO CON, 11/04/2021, 15:10. FINDINGS: Image quality: Diagnostic. CSF spaces: Basal cisterns are patent. No extra-axial fluid collections. The ventricles are symmetric in size and shape. Brain: No intracranial bleeds or masses. There is cerebral volume loss for age, with resultant ventricular and sulcal prominence. There are periventricular and deep white matter chronic small vessel ischemic changes. There is intracranial internal carotid artery atherosclerosis. Skull and face: Calvarium and visualized facial bones appear intact, without suspicious lesions. Sinuses: Visualized sinuses and mastoids are clear. IMPRESSION: No acute intracranial pathology. Dictated by: Tru Vizcarra M.D. on 05/22/2024 at 19:58 ECG Data Attestation: I personally reviewed and interpreted this ECG as follows: Prior ECG tracings: available for review Interpretation: Paced rhythm rate 59 similar to previous EKGs no Sgarbossa criteria presents MDM Narrative Medical decision making narrative: MDM CC: Bilateral leg weakness fatigue Complicating co-morbidities: ICD on Eliquis hypertrophic cardiomyopathy hypertension Medical records reviewed: PCP visit reviewed from today, patient has had bilateral lower leg weakness off and on for 4 weeks, sent to ED for further evaluation today Differential considered: Infection intracranial hemorrhage electrolyte abnormality back issue cauda equina Exam documented above, pertinent findings include: Awake alert well-appearing 81-year-old female no peripheral edema no obvious weakness or ataxia appreciated Lab Test results independently reviewed as above. Pertinent findings: Appear slightly hemoconcentrated hemoglobin 17.4 hematocrit 51.0 previously 16.3 and 48.9 gradually seems to have been rising over the last few months no leukocytosis Sodium 133, creatinine 0.78 Troponin 0.021 BNP 3550 , previously 2630 Independently reviewed EKG as above Paced rhythm no ischemia Imaging studies independently reviewed: Head CT no intracranial hemorrhage Consultations: [ ] Treatments: None Re-evaluations: Pacemaker interrogated no acute findings Discussion: Patient has had ongoing leg weakness for 4 weeks. Blood work and workup in the emergency department overall reassuring. She did ambulate with a walker to the restroom. Patient does not have any kind of back pain she has no numbness in her lower extremities. He has not able to have MRI due to pacemaker here. She was neurologically intact. But may consider pacemaker compatible MRI of lumbar spine. She was mildly dehydrated with hemo concentration, electrolytes and creatinine within normal limits Discharge Plan Departure Patient Disposition: Home Clinical Impression: Weakness Instructions: DI for Muscle Weakness Activity Restrictions/Additional Instructions: *You have been diagnosed with weakness *What to do: Blood work and CT head are overall reassuring today in the emergency department. You might be a little dehydrated. *Continue to take medications as directed *Follow up with your primary care provider in 2-3 days or call [phone] *Return to ER if you should have increasing falls confusion [or] any new, worsening or concerning symptoms Prescriptions: No Action estradiol 0.1 mg/24 hr patch semiweekly 0.1 mg Topical .COMPLEX Qty: 24 3RF Rx Instructions: 0.1 mg Topical twice a week due to osteoperosis; a levothyroxine 50 mcg tablet See Rx Instructions .ROUTE .COMPLEX Qty: 90 3RF Dose Instruction: TAKE 1 TABLET BY MOUTH DAILY Rx Instructions: TAKE 1 TABLET BY MOUTH DAILY losartan 25 mg tablet 25 mg PO DAILY Qty: 30 0RF omeprazole 20 mg capsule,delayed release(DR/EC) 20 mg PO DAILY Qty: 90 0RF Rx Instructions: Take one capsule by mouth daily (DME) Disabled Parking Permit See Rx Instructions .ROUTE .MEDSUPPLY Qty: 1 0RF Rx Instructions: Valid for 5 years trazodone 50 mg tablet 25 mg PO BEDTIME PRN (Reason: sleep difficulty) Qty: 45 1RF melatonin 10 mg capsule 10 mg PO BEDTIME PRN (Reason: Insomnia) rosuvastatin 5 mg tablet 5 mg PO DAILY Qty: 90 1RF Eliquis 2.5 mg tablet 2.5 mg PO BID Qty: 180 1RF magnesium oxide 400 mg magnesium tablet 400 mg PO BID Qty: 180 1RF metoprolol succinate 25 mg tablet extended release 24 hr 25 mg PO BID Qty: 180 1RF verapamil 120 mg tablet extended release 120 mg PO BID Qty: 180 1RF estradiol 0.01 % (0.1 mg/gram) cream 1 g vaginal 3XW Qty: 42.5 1RF amiodarone 200 mg tablet 200 mg PO BID acetaminophen 325 mg Tablet 650 mg PO Q6HR PRN (Reason: Fever/Mild Pain (1-3)) Qty: 60 0RF Referrals: Weeks,Luba, DO [Primary Care Provider] - Stand Alone Forms: Patient Portal/API/Survey
--- NOTE | 2024-05-22 19:02 | DI.CT.S_ITS ---
PROCEDURE: CT HEAD/BRAIN WO CON INDICATIONS: bilateral leg weakness on eliquis TECHNIQUE: Noncontrast 4.5 mm thick angled axial sections acquired from the foramen magnum to the vertex, with coronal and sagittal reformats. For radiation dose reduction, the following was used: automated exposure control, adjustment of mA and/or kV according to patient size. COMPARISON: [facility], CT, CT HEAD/BRAIN WO CON, 11/04/2021, 15:10. FINDINGS: Image quality: Diagnostic. CSF spaces: Basal cisterns are patent. No extra-axial fluid collections. The ventricles are symmetric in size and shape. Brain: No intracranial bleeds or masses. There is cerebral volume loss for age, with resultant ventricular and sulcal prominence. There are periventricular and deep white matter chronic small vessel ischemic changes. There is intracranial internal carotid artery atherosclerosis. Skull and face: Calvarium and visualized facial bones appear intact, without suspicious lesions. Sinuses: Visualized sinuses and mastoids are clear. IMPRESSION: No acute intracranial pathology. Dictated by: Tru Vizcarra M.D. on 05/22/2024 at 19:58 Approved by: Tru Vizcarra M.D. on 05/22/2024 at 19:59
[2024-05-22 19:39] LABS: Bacteria Urine Few (2-10); Culture Indicated Urine Cult Not Indicated; RBC Urine 0-1/HPF (0-5/HPF); Squamous Epithelial Cell Urine 10-30 /HPF (0-5/HPF); Urine Volume 10mL (spun); WBC Urine 1-5/HPF (0-5/HPF)
== END 2024-05-22 21:00 | disposition home or self-care (01) ==
PROVIDERS: Emergency Medicine; Emergency Provider Emergency Medicine; PCP Family Medicine
DX: R53.1 Weakness (principal); Z79.01 Long term (current) use of anticoagulants; E78.5 Hyperlipidemia, unspecified; Z85.038 Personal history of other malignant neoplasm of large intestine; R07.9 Chest pain, unspecified; I42.9 Cardiomyopathy, unspecified; Z95.810 Presence of automatic (implantable) cardiac defibrillator
CPT/HCPCS: 36415; 70450; 71045; 80053; 81003; 81015; 82550; 83690; 83735; 83880; 84484; 85025; 85610; 85730; 93005; 99283; 99284

== ENCOUNTER 2024-06-16 20:02 | Emergency (ER) | payer MEDICARE, SELFPAY ==
[2023-12-26 13:38] VITALS: BMI 29.0
[2024-06-16] VITALS (11 sets, daily range): BP systolic 165–182; BP diastolic 86–96; PULSE 59–63; RESP 16–18; TEMP 36.5; O2SAT 91–97; BMI 25.4
--- NOTE | 2024-06-16 20:55 | DI.CT.S_ITS ---
PROCEDURE: CT HEAD/BRAIN WO CON INDICATIONS: fall, trauma TECHNIQUE: Noncontrast 4.5 mm thick angled axial sections acquired from the foramen magnum to the vertex, with coronal and sagittal reformats. For radiation dose reduction, the following was used: automated exposure control, adjustment of mA and/or kV according to patient size. COMPARISON: [facility], CT, CT HEAD/BRAIN WO CON, 05/22/2024, 19:17. FINDINGS: Image quality: Diagnostic. CSF spaces: Basal cisterns are patent. No extra-axial fluid collections. Ventricles are normal in size and shape. Brain: No midline shift. No intracranial masses or hemorrhage. No area of hypodensity in a large vascular distribution to suggest acute infarction. Periventricular hypodensity consistent with chronic microvascular ischemic change. Age-related parenchymal loss. Skull and face: Calvarium and visualized facial bones are intact, without suspicious lesions. Left posterior scalp hematoma. Sinuses: Opacification of the left sphenoid sinus. Visualized sinuses and mastoids are otherwise clear. IMPRESSION: No acute intracranial hemorrhage. Small left posterior scalp hematoma. Dictated by: Jerrod Burton M.D. on 06/16/2024 at 23:04 Approved by: Jerrod Burton M.D. on 06/16/2024 at 23:07
--- NOTE | 2024-06-16 20:56 | DI.CT.S_ITS ---
PROCEDURE: CT CERVICAL SPINE WO CON INDICATIONS: fall head injury TECHNIQUE: Noncontrast 3 mm thick sections acquired from the skull base to the T4 level. Sagittal and coronal reformats were then constructed. For radiation dose reduction, the following was used: automated exposure control, adjustment of mA and/or kV according to patient size. COMPARISON: [facility], CT, CT CERVICAL SPINE WO CON, 11/04/2021, 15:10. FINDINGS: Image quality: Excellent. Bones: No fractures or dislocations. Moderate to severe degenerative changes at C5-C6. Visualized superior ribs are intact. Soft tissues: Prevertebral soft tissues are normal in thickness. No paravertebral hematomas. No apical pneumothoraces. IMPRESSION: No displaced fracture or traumatic subluxation. Dictated by: Jerrod Burton M.D. on 06/16/2024 at 23:07 Approved by: Jerrod Burton M.D. on 06/16/2024 at 23:09
--- NOTE | 2024-06-16 21:41 | ED.FALL ---
HPI - Fall General Chief Complaint: Fall Stated Complaint: GLF head injury Time Seen by Provider: 06/16/24 20:15 Source: patient and EMS Mode of arrival: EMS History of Present Illness HPI Narrative: 89-year-old woman with cardiomyopathy and ICD pacer, anticoagulated, on amiodarone, metoprolol, losartan and verapamil, hypothyroidism, reflux recurrent episodes of weakness and failure to thrive who notes that she had just finished her dinner, a TV dinner, he had been standing up for 4 minutes and was walking back to her recliner when she became somewhat lightheaded and recognize she was not going to make it to the recliner. She fell has a contusion with some bleeding to the occiput, she is some tenderness she describes around her left scapular area but with palpation I am unable to localize any of her complaints. No new abrasions or contusions to extremities or torso. There was no loss of consciousness. No other complaints at this time Related Data Home Medications Medication Instructions Recorded Confirmed melatonin 10 mg capsule 10 mg PO BEDTIME PRN Insomnia 05/03/23 05/28/24 amiodarone 200 mg tablet 200 mg PO BID 05/22/24 05/28/24 Previous Rx's Medication Instructions Recorded acetaminophen 325 mg tablet 650 mg (2 x 325 mg) PO Q6HR PRN 11/06/21 Fever/Mild Pain (1-3) #60 tabs Disabled Parking Permit #1 ea 07/26/22 apixaban 2.5 mg tablet (Eliquis) 2.5 mg PO BID #180 tabs 08/01/23 magnesium oxide 400 mg PO BID #180 tabs 08/01/23 metoprolol succinate 25 mg 25 mg PO BID #180 tabs 08/01/23 tablet,extended release 24 hr rosuvastatin 5 mg tablet 5 mg PO DAILY #90 tabs 08/01/23 verapamil 120 mg tablet,extended 120 mg PO BID #180 tabs 08/01/23 release estradiol 0.1 mg/24 hr semiweekly 0.1 mg topical .COMPLEX #24 patches 10/14/23 transdermal patch trazodone 50 mg tablet 25 mg (1/2 x 50 mg) PO BEDTIME PRN 11/08/23 sleep difficulty #45 tabs levothyroxine 50 mcg tablet See Rx Instructions .Route 10/07/24 .COMPLEX #90 tabs losartan 25 mg tablet 25 mg PO DAILY #30 tabs 02/20/24 omeprazole 20 mg capsule,delayed 20 mg PO DAILY #90 caps 06/12/24 release estradiol 0.01% (0.1 mg/gram) 1 g vaginal 3XW #42.5 grams 06/15/24 vaginal cream Allergies Allergy/AdvReac Type Severity Reaction Status Date / Time codeine [CODEINE] Allergy Mild NAUSEA AND Verified 05/28/24 11:34 VOMITING iodine Allergy Verified 05/28/24 11:34 Review of Systems Review of Systems Narrative: Pertinent positive and negative findings as per HPI Patient History Medical History Joint pain of ankle and foot (06/16/05) Joint pain of lower extremity (06/16/05) Abdominal pain, LLQ (06/16/05) Hemothorax on right Multiple rib fractures ICD (implantable cardioverter-defibrillator) in place Pacemaker Hypothyroidism Hypertrophic obstructive cardiomyopathy Surgical History History of ankle surgery Status post hysterectomy Family History Father Hypertension Mother Cancer Social History household members: spouse Smoking Status: Never smoker alcohol intake: current substance use type: does not use Smoking Status: Never smoker alcohol intake frequency: 0-2 drinks per day Exam Initial Vital Signs Initial Vital Signs: Vital Signs Pulse Rate 60 06/16/24 20:06 Pulse Oximetry 95 06/16/24 20:06 General: Frail, older-appearing no acute distress HEENT: Moist mucous membranes, slightly thickened voice secondary to chronic dysphagia, contusion to the occiput with hair matted with blood Neck: No midline cervical spine tenderness Respiratory: Lungs are clear to auscultation, no wheezing no rales no rhonchi. Full and symmetrical air movement Cardiac: Regular rate and rhythm no murmurs Chest: She is no pain or tenderness with AP or lateral compression of the ribs, no point tenderness along the ribs. No point tenderness along the left scapula. No tenderness along the entire thoracic or lumbar spine. Continues to complain of nonlocalizing right shoulder pain. She has an old bruise left side approximately L3 level it appears to be healing nicely Pelvis: No tenderness to manipulation, she was able to stand after her fall, no lower extremity complaints or contusions Abdomen: Soft, nontender, no rebound or guarding, no flank pain Skin: Warm and dry, Neurologic: Able to move all extremities without difficulty Extremities: No trauma, well perfused Psych: Cooperative, appropriate insight and affect Once hair is cleaned and bloods removed, she has hematoma just to the left side of the occiput with minor abrasion which is where the blood came from, not a significant laceration and repair was not required Course Orders Ordered: ED Orders 06/16/24 20:55 CT head/brain wo con Stat 06/16/24 20:56 CT cervical spine wo con Stat Discontinued Medications Acetaminophen (Acetaminophen 325 Mg Tablet) 650 mg PO NOW ONE Stop: 06/16/24 22:16 Last Admin: 06/16/24 23:29 Dose: 650 mg Documented By: MR Vital Signs Vital signs: Vital Signs - 8 hr 06/16/24 20:06 06/16/24 20:10 06/16/24 20:30 Temperature 97.7 F Pulse Rate 60 59 L 60 Respiratory Rate 16 Blood Pressure 178/86 H Pulse Oximetry 95 95 95 Oxygen Delivery Method Room Air 06/16/24 20:30 06/16/24 21:00 06/16/24 21:01 Temperature Pulse Rate 60 63 Respiratory Rate Blood Pressure 176/86 H Pulse Oximetry 95 97 Oxygen Delivery Method 06/16/24 21:01 06/16/24 21:31 06/16/24 22:00 Temperature Pulse Rate 61 60 Respiratory Rate 18 Blood Pressure 165/88 H Pulse Oximetry 94 95 Oxygen Delivery Method 06/16/24 22:30 06/16/24 22:53 06/16/24 22:53 Temperature Pulse Rate 60 61 Respiratory Rate Blood Pressure 182/96 H Pulse Oximetry 93 91 Oxygen Delivery Method 06/16/24 23:00 06/16/24 23:30 Temperature Pulse Rate 60 60 Respiratory Rate Blood Pressure Pulse Oximetry 92 91 Oxygen Delivery Method MDM - Fall Lab Data Labs: Point of Care Testing Glucose POC 107 MDM Narrative Medical decision making narrative: 89-year-old woman on Eliquis with atrial fibrillation suffered a mechanical fall hit her head has a contusion to the left occiput with abrasion that was bleeding but not enough of a laceration that needs any type of repair. CT scan of the head and cervical spine are unremarkable. No intracranial hemorrhage. No other trauma or injuries or appreciated with today's exam. There was no indication for further workup or hospitalization. Questions are answered and patient will be discharged Discharge Plan Departure Patient Disposition: Home Clinical Impression: Hematoma of occipital region of scalp Fall Qualifiers: Encounter type: initial encounter Qualified Code(s): W19.XXXA - Unspecified fall, initial encounter Instructions: DI for Hematoma (Bruise) Activity Restrictions/Additional Instructions: Thank you for coming in today You got very lisa. There was no bleeding inside your head, no fractures tear skull or to your cervical spine. You do have a big goose egg/hematoma to the back of your head. This will likely take a couple of weeks to completely resolve and you may have bruising all the way down your neck. There is a small abrasion on the surface of this which is what caused the bleeding, the abrasion is not large enough that you need stitches or any other care for this. It is okay to take a shower tonight, I would recommend using water only. Give you abrasion 24 hours for the skin to begin to close up so the soap does not sting the wound. Please make sure that you are doing all that you can to prevent falls, keep your walker close and make sure that you have furniture or countertops to grab onto if you feel yourself becoming increasingly unsteady. If you find that you are getting worse or develop any new symptoms, please feel free to return to the emergency department for further evaluation. Prescriptions: No Action estradiol 0.1 mg/24 hr patch semiweekly 0.1 mg Topical .COMPLEX Qty: 24 3RF Rx Instructions: 0.1 mg Topical twice a week due to osteoperosis; a levothyroxine 50 mcg tablet See Rx Instructions .ROUTE .COMPLEX Qty: 90 3RF Dose Instruction: TAKE 1 TABLET BY MOUTH DAILY Rx Instructions: TAKE 1 TABLET BY MOUTH DAILY losartan 25 mg tablet 25 mg PO DAILY Qty: 30 0RF omeprazole 20 mg capsule,delayed release(DR/EC) 20 mg PO DAILY Qty: 90 3RF Rx Instructions: Take one capsule by mouth daily estradiol 0.01 % (0.1 mg/gram) cream 1 g vaginal 3XW Qty: 42.5 1RF (DME) Disabled Parking Permit See Rx Instructions .ROUTE .MEDSUPPLY Qty: 1 0RF Rx Instructions: Valid for 5 years trazodone 50 mg tablet 25 mg PO BEDTIME PRN (Reason: sleep difficulty) Qty: 45 1RF melatonin 10 mg capsule 10 mg PO BEDTIME PRN (Reason: Insomnia) rosuvastatin 5 mg tablet 5 mg PO DAILY Qty: 90 1RF Eliquis 2.5 mg tablet 2.5 mg PO BID Qty: 180 1RF magnesium oxide 400 mg magnesium tablet 400 mg PO BID Qty: 180 1RF metoprolol succinate 25 mg tablet extended release 24 hr 25 mg PO BID Qty: 180 1RF verapamil 120 mg tablet extended release 120 mg PO BID Qty: 180 1RF amiodarone 200 mg tablet 200 mg PO BID acetaminophen 325 mg Tablet 650 mg PO Q6HR PRN (Reason: Fever/Mild Pain (1-3)) Qty: 60 0RF Referrals: Luba Belle DO [Primary Care Provider] - Stand Alone Forms: Patient Portal/API/Survey
[2024-06-16] MEDS: ACETAMINOPHEN 325 MG TABLET 650 MG PO (23:29)
--- NOTE | 2024-06-16 23:44 | PC.NURSE ---
Patient given something to eat and drink
--- NOTE | 2024-06-17 00:19 | PC.NURSE ---
Ambulated patient with walker to the bathroom
== END 2024-06-17 00:15 | disposition home or self-care (01) ==
PROVIDERS: Emergency Provider Emergency Medicine; PCP Family Medicine
DX: S00.03XA Contusion of scalp, initial encounter (principal); W18.30XA Fall on same level, unspecified, initial encounter; Z79.01 Long term (current) use of anticoagulants
CPT/HCPCS: 70450; 72125; 99284

== ENCOUNTER → 2024-06-28 14:38 | Outpatient (CLI) | payer MEDICARE, SELFPAY ==
[2023-12-26 13:38] VITALS: BMI 29.0
[2024-06-28 16:22] LABS: Alanine Aminotransferase 50 IU/L (<35); Albumin 4.2 g/dL (3.5-5.0); Albumin Globulin Ratio 1.4 (1.0-2.8); Alkaline Phosphatase 72 U/L (38-126); Aspartate Aminotransferase 46 IU/L (14-36); BUN Creatinine Ratio 19.4 (6-22); Bilirubin Total 0.6 mg/dL (0.2-1.3); Blood Urea Nitrogen 19 mg/dL (7-17); Calcium 8.8 mg/dL (8.4-10.2); Carbon Dioxide 29 mmol/L (22-32); Chloride 98 mmol/L (98-107); Estimated Glomerular Filt Rate 56 mL/min (>60); Globulin 2.9 g/dL (1.7-4.1); Glucose 65 mg/dL (80-110); HEMOLYSIS 26 (0-50); Potassium 4.3 mmol/L (3.4-5.1); Sodium 134 mmol/L (137-145); Total Protein 7.1 g/dL (6.3-8.2)
[2024-06-28 16:51] LABS: Thyroid Stimulating Hormone 2.27 uIU/mL (0.47-4.68)
== END ==
PROVIDERS: PCP Family Medicine; Referring Provider Family Medicine; Visit Provider Family Medicine
DX: E03.9 Hypothyroidism, unspecified (principal); R53.1 Weakness
CPT/HCPCS: 36415; 80053; 84443

== ENCOUNTER → 2024-07-12 15:41 | Outpatient (CLI) | payer MEDICARE, SELFPAY ==
[2023-12-26 13:38] VITALS: BMI 29.0
--- NOTE | 2024-07-12 15:43 | DI.ECHO.S_ITS ---
[facility]+ [facility] : : [address] : : [place] : : [id number] : : Phone: [phone] Echocardiogram Report + + :Name: JOANN AMAYA Study Date: 07/12/2024 Height: 60 in : :[facility] ReadingLocation: Weight: 132 lb : : Gender: Female BSA: 1.6 m2 : :: 1935 Age: 89 yrs BP: 131/104 mmHg: :Reason For Study: HYPERTROPHIC OBSTRUCTIVE CARDIOMYOPATHY : :Ordering Physician: PAUL, : :NIK Performed By: Adrian Mars : :Referring: NIK MILLER : + + Interpretation Summary Left ventricular systolic function appears mildly decreased with an estimated ejection fraction of 45 to 50% with mild global hypokinesis, more prominent at the apex with a dyssynchronous contraction pattern, consistent with a paced rhythm, and grossly appears unchanged from the previous study. There continues to be marked septal hypertrophy producing small left ventricular volumes and likely a reduced cardiac output, but likely similar to the previous exam although the previous images were relatively poor. There is no compelling evidence for any outflow tract obstruction although Valsalva maneuver was not clearly performed. Diastolic function remains challenging to assess but is likely significantly abnormal with markedly elevated E/E' values that are higher compared to the previous study. The right ventricle remains normal in size and systolic function. Right ventricular systolic pressure is 45 mmHg with a CVP of 3 mmHg and was unable to be assessed on the previous study. There is marked left atrial enlargement that measures significantly larger compared to the previous exam. There continues to be mild to moderate mitral regurgitation, mild to moderate tricuspid regurgitation, and mild aortic regurgitation that grossly appears unchanged from the previous study. The patient was in a paced rhythm at 60 bpm without clearly identifiable P waves but with a demonstrable mitral inflow A wave, suggesting an organized atrial rhythm. Procedure: A two-dimensional transthoracic echocardiogram with color flow and Doppler was performed. The study quality was technically adequate. Comparison is made with the echocardiogram of 04/09/2021. The patient has a paced rhythm. Left Ventricle: There is severe asymmetric left ventricular hypertrophy. The left ventricular cavity is small. The estimated left ventricular end diastolic volume is 57 ml. There is no echo evidence for significant left ventricular outflow tract obstruction. This is likely unchanged compared to the previous study. There is no ventricular septal defect visualized. The ejection fraction is estimated to be 45-50%. Left ventricular systolic function is mild to moderately reduced. There is a mild dyssynchronous contraction pattern due to the paced rhythm. Apical wall motion abnormality may reflect pacemaker activation. There is mild global hypokinesis of the left ventricle. This is unchanged compared to the previous study. Diastolic parameters suggest probable elevated filling pressures. This is likely higher compared to the previous study. Right Ventricle: There is a pacemaker lead in the right ventricle. The right ventricle is normal in size and function. This is unchanged compared to the previous study. Atria: The left atrium is severely dilated. The left atrium has markedly increased in size since the prior echo exam. Right atrial size is normal. There is a catheter/pacemaker lead seen in the right atrium. There is no Doppler evidence for an interatrial shunt. Mitral Valve: There is moderate mitral annular calcification. The mitral valve leaflets appear mildly thickened, but open well. The mitral valve leaflets are slightly calcified. There is mild to moderate mitral regurgitation. This is grossly unchanged compared to the previous study. Aortic Valve: The aortic valve is trileaflet. The aortic valve opens well. There is mild aortic regurgitation. This is unchanged compared to the previous study. Tricuspid Valve: The tricuspid valve leaflets are thickened and/or calcified, but open well. There is mild to moderate tricuspid regurgitation. This is unchanged compared to the previous study. The right ventricular systolic pressure is estimated to be at least 45 mmHg based on an estimated right atrial pressure of 3 mm Hg. Comparison with the previous study is not possible because this was unable to be assessed on the previous study. Pulmonic Valve: The pulmonic valve is not well seen, but is grossly normal. There is trace pulmonic regurgitation. Great Vessels: The aortic root is normal size. The dimensions of the ascending aorta are normal. The pulmonary artery is not well visualized, but is probably normal size. The IVC is of normal diameter and collapses greater than 50% with a sniff. This suggests a low right atrial pressure of 3 mm Hg. Pericardium/ Pleura There is no pericardial effusion. There is no pleural effusion. MMode/2D Measurements & Calculations LVIDd: 4.0 cm LVOT diam: 2.0 cm LVIDs: 3.0 cm Ao root diam: 3.2 cm FS: 23.0 % asc Aorta Diam: 3.2 cm EPSS: 0.30 cm IVSd: 2.0 cm LVPWd: 0.96 cm LV hess. diameter/BSA (cm/m^2): 2.5 LV sys. diameter/BSA (cm/m^2): 1.9 LA A2 area: 35.3 cm2 RA long axis: 4.5 cm LA A4 area: 31.8 cm2 RA area: 14.7 cm2 LA length (vol): 6.4 cm RA vol: 41.0 ml LA vol: 148.9 ml RA : 26.2 ml/m2 LA vol index: 95.2 ml/m2 IVC diam: 1.5 cm RVD1 (basal): 3.7 cm RVD2 (mid): 2.3 cm TAPSE: 1.9 cm Doppler Measurements & Calculations Ao V2 max: 118.3 cm/sec LVOT Max Robe: 69.6 cm/sec Ao V2 mean: 83.9 cm/sec LV V1 max P.9 mmHg Ao max P.6 mmHg LV V1 VTI: 13.5 cm Ao mean P.1 mmHg KELLY(I,D): 2.1 cm2 Ao V2 VTI: 20.1 cm KELLY(V,D): 1.8 cm2 sev ratio: 0.67 KELLY indexed to BSA (cm^2/m^2): 1.3 MV E max robe: 90.5 cm/sec TR max robe: 324.1 cm/sec MV A max robe: 27.8 cm/sec TR max P.0 mmHg MV E/A: 3.3 PA V2 max: 79.0 cm/sec Med Peak E' Robe: 1.8 cm/sec PA V2 mean: 45.3 cm/sec E/E' med: 50.4 PA mean P.98 mmHg Lat Peak E' Robe: 3.3 cm/sec PA pr(Accel): 46.5 mmHg E/E' lat: 27.1 E/e' average: 38.8 MV dec time: 0.13 sec SV(LVOT): 41.4 ml Reading Physician:09:47 AM
[2024-07-12 16:07] LABS: Hematocrit 47.7 % (36-46); Hemoglobin 16.1 g/dL (12.0-16.0); Mean Corpuscular HGB Conc 33.7 % (30-36); Mean Corpuscular Hemoglobin 34.2 PG (26-34); Mean Corpuscular Volume 101.5 fL (80-100); Platelet Count 248 X10^3/uL (150-400); White Blood Cell Count 6.7 X10^3/uL (4.5-11.0)
[2024-07-12 16:31] LABS: Blood Urea Nitrogen 16 mg/dL (7-17); Calcium 8.6 mg/dL (8.4-10.2); Carbon Dioxide 28 mmol/L (22-32); Chloride 94 mmol/L (98-107); Creatine Kinase 32 U/L (30-135); Estimated Glomerular Filt Rate > 60 mL/min (>60); Glucose 103 mg/dL (70-99); HEMOLYSIS 27 (0-50); Sodium 129 mmol/L (137-145)
[2024-07-12 16:49] LABS: Vitamin D 25 Hydroxy (D3) 17.3 ng/mL (30.0-100.0)
== END ==
LOC: ECHO 15:42
PROVIDERS: PCP Family Medicine; Referring Provider Specialist; Visit Provider Specialist
DX: I08.3 Combined rheumatic disorders of mitral, aortic and tricuspid valves (principal); I42.1 Obstructive hypertrophic cardiomyopathy; R53.1 Weakness; R29.6 Repeated falls; R62.7 Adult failure to thrive; Z95.0 Presence of cardiac pacemaker
CPT/HCPCS: 36415; 80048; 82306; 82550; 85027; 93306

== ENCOUNTER → 2024-08-03 08:24 | Outpatient (CLI) | payer MEDICARE, SELFPAY ==
[2023-12-26 13:38] VITALS: BMI 29.0
[2024-08-03 09:54] LABS: Alanine Aminotransferase 112 IU/L (<35); Albumin 3.8 g/dL (3.5-5.0); Albumin Globulin Ratio 1.5 (1.0-2.8); Alkaline Phosphatase 82 U/L (38-126); Aspartate Aminotransferase 85 IU/L (14-36); BUN Creatinine Ratio 15.6 (6-22); Bilirubin Total 0.6 mg/dL (0.2-1.3); Blood Urea Nitrogen 12 mg/dL (7-17); Calcium 8.8 mg/dL (8.4-10.2); Carbon Dioxide 31 mmol/L (22-32); Chloride 96 mmol/L (98-107); Estimated Glomerular Filt Rate > 60 mL/min (>60); Globulin 2.6 g/dL (1.7-4.1); Glucose 93 mg/dL (70-99); HEMOLYSIS < 15 (0-50); Magnesium 1.9 mg/dL (1.6-2.3); Potassium 4.7 mmol/L (3.4-5.1); Sodium 133 mmol/L (137-145); Total Protein 6.4 g/dL (6.3-8.2)
[2024-08-06 14:39] LABS: Cholesterol, Total 166 mg/dL (100-199); HDL-Cholesterol 47 mg/dL (>39); HDL-Particle (Total) 21.4 umol/L (>=30.5); Historical Reading Comment: (.); LDL Particle 991 nmol/L (<1000); LDL Size 21.3 nm (>20.5); LDL-Cholsterol 101 mg/dL (0-99); LP-IR Score <25 (<=45); Small LDL- Particle 196 nmol/L (<=527); Triglycerides 98 mg/dL (0-149)
== END ==
PROVIDERS: PCP Family Medicine; Referring Provider Specialist; Visit Provider Specialist
DX: I48.0 Paroxysmal atrial fibrillation (principal); E78.00 Pure hypercholesterolemia, unspecified
CPT/HCPCS: 36415; 80053; 80061; 83704; 83735

== ENCOUNTER 2024-09-13 17:05 | Inpatient (IN) | payer MEDICARE, SELFPAY ==
[2023-12-26 13:38] VITALS: BMI 29.0
[2024-09-13] VITALS (56 sets, daily range): BP systolic 98–133; BP diastolic 67–91; PULSE 95–101; RESP 12–36; TEMP 36.2–37; O2SAT 84–99; BMI 24.7
--- NOTE | 2024-09-13 17:14 | EKG_ITS ---
[address] [address] [address] [address] Test Date: 2024-09-13 Pat Name: Kim Nelson Department: Room: Gender: Female [employer] Offbearer: BOZENA : 1935 Requested By: Order Number: [id number] Reading MD: Krzysztof Dupree MD Measurements Intervals [place] Rate: 104 P: OR: 152 QRS: -83 QRSD: 196 T: 123 QT: 480 QTc: 631 Interpretive Statements Atrial-sensed ventricular-paced rhythm Electronically Signed On 09-14-2024 6:44:38 PDT by Krzysztof Dupree MD
--- NOTE | 2024-09-13 17:31 | DI.RAD.S_ITS ---
PROCEDURE: XR CHEST 1V INDICATIONS: dyspnea TECHNIQUE: One view of the chest was acquired. COMPARISON: [facility], CR, XR CHEST 1V, 05/22/2024, 17:27. [facility], CR, XR CHEST 1V, 12/23/2023, 13:54. FINDINGS: Surgical changes and devices: Left chest wall generator with cardiac leads.. Lungs and pleura: Diffuse interstitial opacities and peribronchial cuffing. Mediastinum: Mediastinal contours appear normal. Heart size is enlarged. Bones and chest wall: No suspicious bony lesions. Overlying soft tissues appear unremarkable. IMPRESSION: Moderate pulmonary edema. Dictated by: Tru Vizcarra M.D. on 09/13/2024 at 18:13 Approved by: Tru Vizcarra M.D. on 09/13/2024 at 18:13
--- NOTE | 2024-09-13 17:35 | PC.NURSE ---
pt is a poor historian and the person who lives with her is unable to offer much helpful information as well. The patient states that she feels weak like she is having a hard time getting up. She was able to eat breakfast but when asked if she was nauseated she stated that she tried to make breakfast this morning and knew that she was in trouble. Then she started to mention falling but the son interjected and stated she she fell a month ago. She described the fall as syncopal in nature as she doesn't remember why she fell only that she woke on the ground and stayed there for a couple of hours. She is non tender in her ABD and not stating pain on palpation of bony prominences. Her eyes are PERRLA. She is 98% on 2L oxy mask after being 84% on RA and nasal cannula. She is mouth breathing.
[2024-09-13 17:43] LABS: Add Manual Diff / Slide Review NO; Hematocrit 42.8 % (36-46); Hemoglobin 14.6 g/dL (12.0-16.0); Lymphocytes Absolute Auto 800 /uL (1100-4500); Mean Corpuscular HGB Conc 34.1 % (30-36); Mean Corpuscular Hemoglobin 34.5 PG (26-34); Mean Corpuscular Volume 101.0 fL (80-100); Platelet Count 275 X10^3/uL (150-400)
[2024-09-13] MEDS: SODIUM CHLORIDE 0.9% 1,000 ML 1000 ML IV (17:50)
[2024-09-13] MEDS: ONDANSETRON 4 MG/2 ML INJ IV (17:50)
[2024-09-13 17:51] LABS: Alanine Aminotransferase 408 IU/L (<35); Albumin 3.9 g/dL (3.5-5.0); Albumin Globulin Ratio 1.4 (1.0-2.8); Alkaline Phosphatase 99 U/L (38-126); Blood Urea Nitrogen 40 mg/dL (7-17); Calcium 9.0 mg/dL (8.4-10.2); Carbon Dioxide 21 mmol/L (22-32); Chloride 88 mmol/L (98-107); Estimated Glomerular Filt Rate 33 mL/min (>60); Globulin 2.8 g/dL (1.7-4.1); Glucose 154 mg/dL (70-99); HEMOLYSIS < 15 (0-50); Potassium 5.1 mmol/L (3.4-5.1); Sodium 124 mmol/L (137-145); Total Protein 6.7 g/dL (6.3-8.2)
[2024-09-13 17:56] LABS: Lactate (Lactic Acid) 5.5 mmol/L (0.7-2.1)
[2024-09-13 18:00] LABS: Lipase 41 U/L (23-300); Magnesium 2.5 mg/dL (1.6-2.3)
--- NOTE | 2024-09-13 18:18 | ED_ITS ---
HPI - Nausea/Vomiting/Diarrhea General Chief complaint: Nausea/Vomiting/Diarrhea Stated complaint: Weakness, N/V, back pain Time Seen by Provider: 09/13/24 17:28 Mode of arrival: EMS History of Present Illness HPI Narrative: 89-year-old female with chart history of paroxysmal atrial fibrillation on chronic Eliquis anticoagulation, history of AICD/pacer, history hypertrophic obstructive cardiomyopathy, lives at home with son, son lives in the basement, has had nausea and vomiting today, generalized weakness since yesterday, blood thinner medications. No black or red color to emesis. No black or red stools. Denies abdominal discomfort. Not usually on oxygen. MD complaint: nausea Related Data Home Medications ?Medication ?Instructions ?Recorded ?Confirmed melatonin 10 mg capsule 10 mg PO BEDTIME PRN Insomni a 05/03/23 07/12/24 amiodarone 200 mg tablet 200 mg PO BID 05/22/2407/12 Previous Rx's ?Medication ?Instructions ?Recorded acetaminophen 325 mg tablet 650 mg (2 x 325 mg) PO Q6H R PRN 11/06/21 Fever/Mild Pain (1-3) #60 tabs Disabled Parking Permit #1 ea 07/26/22 apixaban 2.5 mg tablet (Eliquis) 2.5 mg PO BID #180 ta bs 08/01/23 magnesium oxide 400 mg PO BID #180 tabs 07/19 06/11 metoprolol succinate 25 mg 25 mg PO BID #180 tabs 07/19 06/11 tablet,extended release 24 hr rosuvastatin 5 mg tablet 5 mg PO DAILY #90 tabs 07/31 Held on 08/15/24. Instructions: paused by cardiology and so going to go back on diuretic losartan 25 mg tablet 25 mg PO DAILY #30 tabs 12/05/14 omeprazole 20 mg capsule,delayed 20 mg PO DAILY #90 ca ps 06/12/24 release estradiol 0.01% (0.1 mg/gram) 1 g vaginal 3XW #42.5 gr ams 06/15/24 vaginal cream levothyroxine 50 mcg tablet 50 mcg PO DAILY #90 tabs 0 07/03/24 cholecalciferol (vitamin D3) 1,250 1,250 mcg PO QWEEK #12 caps 07/12/24 mcg (50,000 unit) capsule verapamil 120 mg tablet,extended 120 mg PO DAILY #180 tabs 08/15/24 release estradiol 0.1 mg/24 hr semiweekly 0.[address] #24 patches 08/21/24 transdermal patch trazodone 50 mg tablet 25 mg (1/2 x 50 mg) PO BEDTI ME PRN 08/21/24 sleep difficulty #45 tabs Allergies Allergy/AdvReac Type Severity Reaction Status Date / Time codeine (CODEINE) Allergy Mild NAUSEA AND Verified 09/13/24 17:12 VOMITING iodine Allergy Verified 09/13/24 17:12 Patient History Medical History Joint pain of ankle and foot (06/16/05) Joint pain of lower extremity (06/16/05) Abdominal pain, LLQ (06/16/05) Hemothorax on right Multiple rib fractures ICD (implantable cardioverter-defibrillator) in place Pacemaker Hypothyroidism Hypertrophic obstructive cardiomyopathy Surgical History History of ankle surgery Status post hysterectomy Family History Father Hypertension Mother Cancer Social History household members: children Smoking Status: Never smoker alcohol intake: never substance use type: does not use alcohol intake frequency: 0-2 drinks per day Exam Narrative Exam Narrative: GENERAL: Well-developed patient, in mild distress. Ill-appearing, cooperative HEAD: Atraumatic. Normocephalic. EYES: Pupils equal round and reactive. Extraocular motions intact. No scleral icterus. No injection or drainage. ENT: Nose without bleeding, purulent drainage. Throat without erythema, tonsillar hypertrophy or exudate. Airway patent. NECK: Trachea midline. Non tender CARDIOVASCULAR: Regular rate and rhythm without murmurs, gallops, or rubs. RESPIRATORY: Clear to auscultation. Breath sounds equal bilaterally. No wheezes, rales, or rhonchi. GASTROINTESTINAL: Abdomen soft, non-tender, nondistended. No wincing on palpation. Bowel tones not increased or decreased, no rushes or tinkles. : Oh catheter in place from ED, cloudy appearing urine in tubing. No blood or clots in tubing. EXTREMITIES: No edema or joint tenderness. BACK: Nontender without deformity or crepitance. No flank tenderness. NEURO: AOx3. Motor functions grossly nonfocal. SKIN: No rash or erythema of visible areas Initial Vital Signs Initial Vital Signs: Vital Signs Pulse Rate 100 H 09/13/24 17:11 Respiratory Rate 24 09/13/24 17:11 Pulse Oximetry 84 L 09/13/24 17:11 Course Orders Ordered: ED Orders 09/13/24 20:50 Respiratory Panel (Film Array) Stat Acetaminophen (Acetaminophen 325 Mg Tablet) 650 mg PO Q6H PRN PRN Reason: Fever/Mild Pain (1-3) Al Hydrox/Mg Hydrox/Simethicone (Mag Hydrox/Alum/Simeth 30 Ml Udc) 30 ml PO Q6HR PRN PRN Reason: Dyspepsia Amiodarone HCl (Amiodarone 200 Mg Tablet) 200 mg PO BID SHARI Apixaban (Apixaban 5 Mg Tablet) 2.5 mg PO BID SHARI Levothyroxine Sodium (Levothyroxine 50 Mcg Tablet) 50 mcg PO DAILY SHARI Magnesium Oxide (Magnesium Oxide 400 Mg Tablet) 400 mg PO BID SHARI Naloxone HCl (Naloxone 0.4 Mg/Ml Vial) 0.2 mg IV Q2MIN PRN PRN Reason: Opiate Reversal Nitroglycerin (Nitroglycerin 0.4 Mg Patch) 0.4 mg TOP 0700 SHARI Ondansetron HCl (Ondansetron 4 Mg/2 Ml Inj) 4 mg IV Q4HR PRN PRN Reason: nausea Pantoprazole Sodium (Pantoprazole Dr 20 Mg Tablet) 20 mg PO 0600 SHARI Trazodone HCl (Trazodone 50 Mg Tablet) 25 mg PO BEDTIME PRN PRN Reason: sleep difficulty Discontinued Medications Doxycycline Hyclate (Doxycycline Hyclate 100 Mg Tablet) 100 mg PO NOW ONE Stop: 09/13/24 18:11 Last Admin: 09/13/24 18:30 Dose: 100 mg Documented By: AYAKA Furosemide (Furosemide 40 Mg/4 Ml Vial) 40 mg IV NOW ONE Stop: 09/13/24 18:48 Last Admin: 09/13/24 19:00 Dose: 40 mg Documented By: AYAKA Sodium Chloride (Normal Saline 0.9%) 1,000 mls @ 1,000 mls/hr IV BOLUS ONE Stop: 09/13/24 18:28 Last Infusion: 09/13/24 19:01 Dose: Infused Documented By: Admin: 09/13/24 17:50 Dose: 1,000 mls/hr Documented By: AYAKA Sodium Chloride (Normal Saline 0.9%) 1,000 mls @ 2,000 mls/hr IV BOLUS ONE Stop: 09/13/24 18:38 Last Admin: 09/13/24 19:26 Dose: Not Given Documented By: AYAKA Ceftriaxone Sodium 1,000 mg/ (Sodium Chloride) 100 mls @ 200 mls/hr IV NOW ONE Stop: 09/13/24 18:11 Last Infusion: 09/13/24 20:00 Dose: Infused Documented By: Admin: 09/13/24 18:30 Dose: 200 mls/hr Documented By: AYAKA Nitroglycerin (Nitroglycerin Oint 1 Inch/Gm Oint...G.) 0.5 inch TOP NOW ONE Stop: 09/13/24 19:00 Last Admin: 09/13/24 19:02 Dose: 0.5 inch Documented By: AYAKA Non-Formulary Medication (Omeprazole) 20 mg PO DAILY SHARI Ondansetron HCl (Ondansetron 4 Mg/2 Ml Inj) 4 mg IV NOW ONE Stop: 09/13/24 17:30 Last Admin: 09/13/24 17:50 Dose: 4 mg Documented By: AYAKA Vital Signs Vital signs: Vital Signs - 8 hr 09/13/24 17:11 09/13/24 17:13 09/13/24 17:28 Temperature Pulse Rate 100 H 100 H 98 H Respiratory Rate 24 20 19 Blood Pressure 123/79 Pulse Oximetry 84 L 89 L 99 Oxygen Delivery Method Room Air Oximask Oxygen Flow Rate 5 Fraction of Inspired Oxygen 09/13/24 17:28 09/13/24 17:30 09/13/24 17:35 Temperature Pulse Rate 98 H 100 H Respiratory Rate 20 22 Blood Pressure 124/81 Pulse Oximetry 99 97 Oxygen Delivery Method Oximask Oxygen Flow Rate 2 Fraction of Inspired Oxygen 09/13/24 17:35 09/13/24 18:00 09/13/24 18:00 Temperature Pulse Rate 98 H Respiratory Rate 21 Blood Pressure 132/75 115/76 Pulse Oximetry 93 Oxygen Delivery Method Oxygen Flow Rate Fraction of Inspired Oxygen 09/13/24 18:22 09/13/24 18:30 09/13/24 19:02 Temperature 97.2 F L 97.7 F Pulse Rate 99 H 96 H Respiratory Rate 22 Blood Pressure 127/82 Pulse Oximetry 95 Oxygen Delivery Method Oxygen Flow Rate Fraction of Inspired Oxygen 09/13/24 19:02 09/13/24 19:04 09/13/24 19:04 Temperature Pulse Rate 97 H 96 H Respiratory Rate 22 23 Blood Pressure 127/82 Pulse Oximetry 97 Oxygen Delivery Method Oxygen Flow Rate Fraction of Inspired Oxygen 09/13/24 19:15 09/13/24 19:15 09/13/24 19:20 Temperature 98.1 F 98.1 F Pulse Rate 95 H 95 H Respiratory Rate 27 H 23 Blood Pressure 124/85 Pulse Oximetry 96 99 Oxygen Delivery Method Oxygen Flow Rate Fraction of Inspired Oxygen 09/13/24 19:20 09/13/24 19:25 09/13/24 19:25 Temperature 98.1 F Pulse Rate 96 H Respiratory Rate 17 Blood Pressure 121/83 122/84 Pulse Oximetry 99 Oxygen Delivery Method Oxygen Flow Rate Fraction of Inspired Oxygen 09/13/24 19:30 09/13/24 19:30 09/13/24 19:34 Temperature 98.1 F Pulse Rate 96 H Respiratory Rate 18 Blood Pressure 120/83 122/84 Pulse Oximetry 98 Oxygen Delivery Method Oxygen Flow Rate Fraction of Inspired Oxygen 32 09/13/24 19:35 09/13/24 19:35 09/13/24 19:40 Temperature 98.1 F Pulse Rate 96 H Respiratory Rate 16 Blood Pressure 122/83 120/82 Pulse Oximetry 94 Oxygen Delivery Method Oxygen Flow Rate Fraction of Inspired Oxygen 09/13/24 19:40 09/13/24 19:45 09/13/24 19:45 Temperature 98.1 F 98.1 F Pulse Rate 96 H 96 H Respiratory Rate 21 19 Blood Pressure 121/82 Pulse Oximetry 95 94 Oxygen Delivery Method Oxygen Flow Rate Fraction of Inspired Oxygen 09/13/24 19:50 09/13/24 19:50 09/13/24 19:55 Temperature 98.1 F 98.1 F Pulse Rate 96 H 96 H Respiratory Rate 21 18 Blood Pressure 118/82 Pulse Oximetry 96 94 Oxygen Delivery Method Oxygen Flow Rate Fraction of Inspired Oxygen 09/13/24 19:55 09/13/24 20:00 09/13/24 20:00 Temperature 97.9 F Pulse Rate 99 H Respiratory Rate 23 Blood Pressure 119/82 119/86 Pulse Oximetry 95 Oxygen Delivery Method Oxygen Flow Rate Fraction of Inspired Oxygen 09/13/24 20:05 09/13/24 20:05 09/13/24 20:10 Temperature 97.9 F Pulse Rate 97 H Respiratory Rate 15 Blood Pressure 117/82 110/78 Pulse Oximetry 94 Oxygen Delivery Method Oxygen Flow Rate Fraction of Inspired Oxygen 09/13/24 20:10 09/13/24 20:15 09/13/24 20:15 Temperature 97.9 F 97.9 F Pulse Rate 98 H 99 H Respiratory Rate 12 14 Blood Pressure 109/78 Pulse Oximetry 93 92 Oxygen Delivery Method Oxygen Flow Rate Fraction of Inspired Oxygen 09/13/24 20:20 09/13/24 20:20 09/13/24 20:25 Temperature 98.1 F 98.1 F Pulse Rate 99 H 99 H Respiratory Rate 14 15 Blood Pressure 108/76 Pulse Oximetry 92 92 Oxygen Delivery Method Oxygen Flow Rate Fraction of Inspired Oxygen 09/13/24 20:25 09/13/24 20:30 09/13/24 20:30 Temperature 98.1 F Pulse Rate 99 H Respiratory Rate 12 Blood Pressure 104/72 105/71 Pulse Oximetry 92 Oxygen Delivery Method Oxygen Flow Rate Fraction of Inspired Oxygen 09/13/24 20:35 09/13/24 20:35 09/13/24 20:40 Temperature 98.1 F 98.1 F Pulse Rate 99 H 100 H Respiratory Rate 16 15 Blood Pressure 98/68 Pulse Oximetry 93 92 Oxygen Delivery Method Oxygen Flow Rate Fraction of Inspired Oxygen 09/13/24 20:40 09/13/24 20:45 09/13/24 20:45 Temperature 97.9 F Pulse Rate 100 H Respiratory Rate 23 Blood Pressure 99/67 114/80 Pulse Oximetry 94 Oxygen Delivery Method Oxygen Flow Rate Fraction of Inspired Oxygen 09/13/24 20:50 09/13/24 20:50 Temperature 97.9 F Pulse Rate 98 H Respiratory Rate 20 Blood Pressure 133/90 Pulse Oximetry 93 Oxygen Delivery Method Oxygen Flow Rate Fraction of Inspired Oxygen MDM - Nausea/Vomiting/Diarrhea Lab Data Attestation: I reviewed the patient's lab results. Lab results narrative: White blood cell count 98297, hemoglobin 14.6, platelets 275,000. Glucose 154. BUN 40 with creatinine 1.5. Serum CO2 21. Sodium 124, potassium 5.1. Serum chloride 88. Total bilirubin 1.9, transaminases elevated, normal alkaline phosphatase. Lipase 41 normal. Lactate 5.5 elevated. 09/13/24 17:00 09/13/24 17:00 Labs: Lab Results 09/13/24 09/13/24 09/13/24 Range/Units 17:00 18:12 19:21 WBC 10.7 (4.5-11.0) X10^3/uL RBC 4.23 (4.0-5.2) X10^6/uL Hgb 14.6 (12.0-16.0) g/dL Hct 42.8 (36-46) % MCV 101.0 H (80-100) fL MCH 34.5 H (26-34) PG MCHC 34.1 (30-36) % RDW 14.7 (11.6-14.8) % Plt Count 275 (150-400) X10^3/uL Neut % (Auto) 82.1 H (50-75) % Lymph % (Auto) 7.2 L (25-40) % [place] % (Auto) 10.4 (3-14) % Eos % (Auto) 0.1 L (2-4) % Baso % (Auto) 0.2 (0-2) % Neut # (Auto) 8800 H (3373-3354) /uL Lymph # (Auto) 800 L (7112-7968) /uL [place] # (Auto) 1100 H (0-900) /uL Eos # (Auto) 0 (0-450) /uL Baso # (Auto) 0 (0-100) /uL ABG Sample Site Left radial ABG pH 7.35 (7.35-7.45) ABG pCO2 37.9 (35-45) mmHg ABG pO2 108 H (80-100) mmHg ABG HCO3 21 L (23-27) mmol/L ABG Total CO2 20 L (23-27) mmol/L ABG O2 Saturation 98 (95-100) % ABG Base Excess -4.3 L (-2-3) mmol/L Daniel Test Positive O2 Delivery Device Bipap FiO2 % 32.0 % % Sodium 124 L (137-145) mmol/L Potassium 5.1 (3.4-5.1) mmol/L Chloride 88 L (98-107) mmol/L Carbon Dioxide 21 L (22-32) mmol/L BUN 40 H (7-17) mg/dL Creatinine 1.50 H (0.52-1.04) mg/dL Estimated GFR 33 L (>60) mL/min BUN/Creatinine Ratio 26.7 H (6-22) Glucose 154 H (70-99) mg/dL Lactate 5.5 H* (0.7-2.1) mmol/L Calcium 9.0 (8.4-10.2) mg/dL Magnesium 2.5 H (1.6-2.3) mg/dL Total Bilirubin 1.9 H (0.2-1.3) mg/dL AST 585 H (14-36) IU/L ALT 408 H (<35) IU/L Alkaline Phosphatase 99 (38-126) U/L NT-Pro-B Natriuret Pep 28103 H (<450) pg/mL Total Protein 6.7 (6.3-8.2) g/dL Albumin 3.9 (3.5-5.0) g/dL Globulin 2.8 (1.7-4.1) g/dL Albumin/Globulin Ratio 1.4 (1.0-2.8) Lipase 41 (23-300) U/L Urine Color Yellow Urine Appearance Cloudy Urine pH 6.0 (4.5-8.0) Ur Specific [place] >=1.030 H (1.000-1.035) Urine Protein 2+ H (Negative) Urine Glucose (UA) Negative (Negative) g/dL Urine Ketones Trace H (NEGATIVE) Urine Occult Blood Negative (Negative) Urine Nitrate Negative (Negative) Urine Bilirubin 1+ H (NEGATIVE) Ur Bilirubin Confirm Negative (Negative) Urine Urobilinogen 1.0 (0.2) E.U./dL Ur Leukocyte Esterase Negative (NEGATIVE) Urine RBC None seen (0-5/HPF) Urine WBC 0-1/hpf (0-5/HPF) Ur Squamous Epith Cells None seen D (0-5/HPF) Urine Bacteria Many (>30) H (None) Vol Urine Centrifuged 10ml (spun) Chlamy pneumoniae PCR (Not Detect) Adenovirus (PCR) (Not Detect) B. pertussis DNA (PCR) (Not Detect) B.parapertussis DNA PCR (Not Detecte) Coronavirus OC43 (PCR) (Not Detect) Coronavirus HKU1 (PCR) (Not Detect) Coronavirus 229E (PCR) (Not Detect) SARS-CoV-2 (PCR) (Negative) Coronavirus NL63 (PCR) (Not Detect) Human Metapneumovir PCR (Not Detect) Influenza A (RT-PCR) (NEGATIVE) Influenza Type A (PCR) (Not Detect) Influenza B (RT-PCR) (NEGATIVE) Influenza Type B (PCR) (Not Detect) M. pneumoniae (PCR) (Not Detect) Parainfluenza 1 (PCR) (Not Detect) Parainfluenza 2 (PCR) (Not Detect) Parainfluenza 3 (PCR) (Not Detect) Parainfluenza 4 (PCR) (Not Detect) RSV (PCR) (Negative) Entero/Rhino (PCR) (Not Detect) 09/13/24 09/13/24 09/13/24 Range/Units 19:30 20:40 20:50 WBC (4.5-11.0) X10^3/uL RBC (4.0-5.2) X10^6/uL Hgb (12.0-16.0) g/dL Hct (36-46) % MCV (80-100) fL MCH (26-34) PG MCHC (30-36) % RDW (11.6-14.8) % Plt Count (150-400) X10^3/uL Neut % (Auto) (50-75) % Lymph % (Auto) (25-40) % [place] % (Auto) (3-14) % Eos % (Auto) (2-4) % Baso % (Auto) (0-2) % Neut # (Auto) (9912-1903) /uL Lymph # (Auto) (6100-6425) /uL [place] # (Auto) (0-900) /uL Eos # (Auto) (0-450) /uL Baso # (Auto) (0-100) /uL ABG Sample Site ABG pH (7.35-7.45) ABG pCO2 (35-45) mmHg ABG pO2 (80-100) mmHg ABG HCO3 (23-27) mmol/L ABG Total CO2 (23-27) mmol/L ABG O2 Saturation (95-100) % ABG Base Excess (-2-3) mmol/L Daniel Test O2 Delivery Device FiO2 % % Sodium (137-145) mmol/L Potassium (3.4-5.1) mmol/L Chloride (98-107) mmol/L Carbon Dioxide (22-32) mmol/L BUN (7-17) mg/dL Creatinine (0.52-1.04) mg/dL Estimated GFR (>60) mL/min BUN/Creatinine Ratio (6-22) Glucose (70-99) mg/dL Lactate 2.7 H (0.7-2.1) mmol/L Calcium (8.4-10.2) mg/dL Magnesium (1.6-2.3) mg/dL Total Bilirubin (0.2-1.3) mg/dL AST (14-36) IU/L ALT (<35) IU/L Alkaline Phosphatase (38-126) U/L NT-Pro-B Natriuret Pep (<450) pg/mL Total Protein (6.3-8.2) g/dL Albumin (3.5-5.0) g/dL Globulin (1.7-4.1) g/dL Albumin/Globulin Ratio (1.0-2.8) Lipase (23-300) U/L Urine Color Urine Appearance Urine pH (4.5-8.0) Ur Specific [place] (1.000-1.035) Urine Protein (Negative) Urine Glucose (UA) (Negative) g/dL Urine Ketones (NEGATIVE) Urine Occult Blood (Negative) Urine Nitrate (Negative) Urine Bilirubin (NEGATIVE) Ur Bilirubin Confirm (Negative) Urine Urobilinogen (0.2) E.U./dL Ur Leukocyte Esterase (NEGATIVE) Urine RBC (0-5/HPF) Urine WBC (0-5/HPF) Ur Squamous Epith Cells (0-5/HPF) Urine Bacteria (None) Vol Urine Centrifuged Chlamy pneumoniae PCR Not detected (Not Detect) Adenovirus (PCR) Not detected (Not Detect) B. pertussis DNA (PCR) Not detected (Not Detect) B.parapertussis DNA PCR Not detected (Not Detecte) Coronavirus OC43 (PCR) Not detected (Not Detect) Coronavirus HKU1 (PCR) Not detected (Not Detect) Coronavirus 229E (PCR) Not detected (Not Detect) SARS-CoV-2 (PCR) Negative Not detected (Negative) Coronavirus NL63 (PCR) Not detected (Not Detect) Human Metapneumovir PCR Not detected (Not Detect) Influenza A (RT-PCR) Flu a negative (NEGATIVE) Influenza Type A (PCR) Not detected (Not Detect) Influenza B (RT-PCR) Flu b negative (NEGATIVE) Influenza Type B (PCR) Not detected (Not Detect) M. pneumoniae (PCR) Not detected (Not Detect) Parainfluenza 1 (PCR) Not detected (Not Detect) Parainfluenza 2 (PCR) Not detected (Not Detect) Parainfluenza 3 (PCR) Not detected (Not Detect) Parainfluenza 4 (PCR) Not detected (Not Detect) RSV (PCR) Negative Not detected (Negative) Entero/Rhino (PCR) Not detected (Not Detect) Imaging Data CT scan - head: Radiologist's Impression: [address] [address] [address] Scan Report Signed Patient: Kim Nelson MR#: [id number] : 1935 Acct:[id number] Age/Sex: 89 / F Date of Service: 09/13/24 Loc: ED Accession Number: [id number] Procedure: CT head/brain wo con Ordering Provider: Scott Mejia MD PROCEDURE: CT HEAD/BRAIN WO CON INDICATIONS: near syncope TECHNIQUE: Noncontrast 4.5 mm thick angled axial sections acquired from the foramen magnum to the vertex, with coronal and sagittal reformats. For radiation dose reduction, the following was used: automated exposure control, adjustment of mA and/or kV according to patient size. COMPARISON: [facility], CT, CT HEAD/BRAIN WO CON, 06/16/2024, 21:04. FINDINGS: Image quality: Diagnostic. CSF spaces: Basal cisterns are patent. No extra-axial fluid collections. The ventricles are symmetric in size and shape. Brain: No intracranial bleeds or mass effect. There is cerebral volume loss, with resultant ventricular and sulcal prominence. There are periventricular and deep white matter chronic small vessel ischemic changes. There is intracranial internal carotid artery atherosclerosis. Skull and face: Calvarium and visualized facial bones appear intact, without suspicious lesions. Sinuses: Visualized sinuses and mastoids are clear. IMPRESSION: No acute intracranial pathology. Dictated by: Tru Vizcarra M.D. on 09/13/2024 at 19:29 Approved by: Tru Vizcarra M.D. on 09/13/2024 at 19:30 CT chest abdomen and pelvis: Radiologist's Impression: [address] [address] [address] Scan Report Signed Patient: Kim Nelson MR#: [id number] : 1935 Acct:[id number] Age/Sex: 89 / F Date of Service: 09/13/24 Loc: ED Accession Number: [id number] Procedure: CT chest abd pel wo con Ordering Provider: Scott Mejia MD PROCEDURE: CT CHEST ABD PEL WO CON INDICATIONS: Sepsis, elevated liver functions, possible infiltrates lung TECHNIQUE: After the administration of oral contrast, 5 mm thick sections acquired from the lung apices to the symphysis pubis. 5 mm thick coronal and sagittal reformats acquired, with additional 7 mm coronal MIP reformats through the lungs. For radiation dose reduction, the following was used: automated exposure control, adjustment of mA and/or kV according to patient size. COMPARISON: [facility], CR, XR CHEST 1V, 09/13/2024, 17:31. FINDINGS: Image quality: Suboptimal due to lack of intravenous contrast, motion artifact CHEST: Lower Neck: No enlarged lymph nodes. Thyroid: No thyroid nodules which require sonographic follow up, per consensus guidelines. Axillae: No enlarged lymph nodes. Chest Wall: Left chest wall generator with cardiac leads. Bones: Unremarkable. Lungs and Pleura: Small pleural effusions, right greater than left. Smooth interstitial thickening and bronchial thickening. Patchy peripheral ground-glass opacities, most prominent within the base. Scattered pulmonary micro nodules, including the 4 millimeter nodule no lateral right middle lobe (series 4, image 171). Heart: Heart size is enlarged. No pericardial effusion. Thoracic Vessels: The aorta and pulmonary arteries demonstrate normal size. Mediastinum and Sarah: No enlarged lymph nodes. Esophagus: No wall thickening. Large hiatal hernia. ABDOMEN: Liver: No solid mass. Periportal edema. The liver is hyperattenuating. Gallbladder: Gallbladder sludge. Biliary ducts: No biliary dilation. Pancreas: No ductal dilation. Spleen: Size is within normal limits. Adrenal Glands: No adrenal nodules. Kidneys and Ureters: No hydronephrosis. No solid mass. No complex renal cystic lesion which requires follow up. Stomach and Bowel: Prior APR. Moderate colonic stool load. No obstruction. Peritoneum: Small amount of free fluid at the liver hilum. Ventral Wall: No hernia. Abdominal Nodes: No retroperitoneal or mesenteric adenopathy by size criteria. Vessels: Aorta and inferior vena cava are normal in size. PELVIS: Pelvic Organs: Unremarkable. Bladder: Decompressed around a Oh catheter. Pelvic Nodes: No enlarged lymph nodes. Miscellaneous: No inguinal hernias are seen. Bones: No aggressive osseous abnormality. Chronic compression deformity of the L1 vertebral body with 6 millimeter endplate retropulsion. Other vertebral body height loss noted at T9, T12. Degenerative disc disease of the lumbar spine. IMPRESSION: Moderate pulmonary edema and small pleural effusions. Superimposed peripheral ground-glass opacities, suggestive of viral pneumonia. Suspected mild fluid overload given the small pleural effusions, periportal edema, small volume ascites. 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 Other ancillary findings as above. Dictated by: Tru Vizcarra M.D. on 09/13/2024 at 19:24 Approved by: Tru Vizcarra M.D. on 09/13/2024 at 19:29 ECG Data Attestation: I personally reviewed and interpreted this ECG as follows: Interpretation: 1714, atrial sensed ventricular paced rhythm, ventricular rate 104. MDM Narrative Medical decision making narrative: 89-year-old female with generalized weakness nausea or vomiting, not usually on oxygen, seems to be mouth breathing, low sat, crackles on bibasilar exam. Screening chest x-ray with [id number] infiltrates on ED wet read, await Radiology report. Screening labs showed no leukocytosis but elevated lactate 5.5, initially we will to obtain temperature, attempts sensing Oh subsequently placed, temperature 97?. Suspected sepsis, possible pulmonary pneumonia source, await UA results. We will initiate antibiotics and fluid resuscitation, anticipate admission. Blood cultures, urine culture, IV ceftriaxone, oral doxycycline. Fluids ordered, we will incrementally give bolus, history of cardiomyopathy noted, no lower extremity edema at this time. Oxygen via mouth mask for now. We will repeat interval lactate after fluids. Liver functions elevated, CT abdomen and pelvis ordered. Chest x-ray read as pulmonary edema, no mentioned infiltrates. Increased liver functions noted. History iodine allergy. CT chest abdomen and pelvis noncontrast study ordered. We will hold on further fluids after 1 L. 1840, patient had eyes rolling back near syncopal episode in CT scanner, CT was unable to be performed. Possible fluid overload mentioned by Radiology report, Hep-Lock IV after 1 L. We will give topical nitroglycerin, IV Lasix. Re- attempt imaging once respiratory status improved. Consider trial of BiPAP. BNP added, elevated 46870. Patient was able to go through the scanner after all while in the radiology department, CT noncontrast chest abdomen and pelvis performed, results pending. RT to set up BiPAP, ABG pending. Nitro topical paste, IV Lasix to be given. Urinalysis suspicious for infection, IV ceftriaxone given prior. Repeat lactate 2.7 decreased. Lower blood pressure trending, nitropaste removed. Still on BiPAP. Lasix given. CT reports pending. Last blood pressure 133/80, improved off nitropaste. CT chest abdomen and pelvis. IMPRESSION: Moderate pulmonary edema and small pleural effusions. Superimposed peripheral ground-glass opacities, suggestive of viral pneumonia. 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 See radiology report. CT study suggestive pulmonary fluid overload, possible viral pneumonia ground glass opacity changes. Respiratory panel requested. ABG on BiPAP. Settings 12/6, rate 14, FiO2 21%. pH 7.35, pCO2 37.9, PaO2 108, bicarb 21, 97% sat. Pacer interrogation: Verbal report from [employer] regarding pacer/ICD interrogation, patient had nonsustained ventricular tachycardia for 14 seconds with maximal heart rate 170, threshold for shock at 208, no shock delivered. Medication list includes metoprolol and amiodarone. Also patient takes blood thinner medication Eliquis. Consider admission on BiPAP. Respiratory panel results still pending. Has urinary tract infection, IV ceftriaxone given prior. Initial lactate 5.4 improved to 2.7. Fluid bolus limited to 1 L due to history of cardiomyopathy. We will contact hospitalist. [id number], case discussed with hospitalist Dr. Felix who accepts patient for admission Critical Care Time Critical Care Time Critical Care Time: Yes Total Critical Care Time: 45 Attestation: The high probability of a clinically significant, sudden or life threatening deterioration of the [cardiopulmonary, genitourinary] system(s) required my full and direct attention, intervention and personal management. The aggregate critical care time was [45] minutes. This time is in addition to time spent performing reported procedures but includes the following: [x] Data Review and interpretation [x] Patient assessment and monitoring of vital signs [x] Documentation [x] Medication orders and management Discharge Plan Departure Patient Disposition: Admitted As Inpatient Clinical Impression: Congestive heart failure, History of cardiomyopathy, Urinary tract infection, Hypoxia, Severe sepsis, Non-sustained ventricular tachycardia Admit Date/Time: 09/13/24 21:38 Admit Provider: Hamilton Campo
--- NOTE | 2024-09-13 18:22 | PC.NURSE ---
unable to obtain temp by mouth or by under arm, temp sensing schafer placed.
[2024-09-13 18:27] LABS: Appearance Urine UA CLOUDY; Bilirubin Urine UA 1+ (NEGATIVE); Color Urine UA YELLOW; Glucose Urine UA NEGATIVE (Negative); Ketones Urine UA TRACE (NEGATIVE); Leukocyte Esterase Urine UA NEGATIVE (NEGATIVE); Nitrite Urine UA NEGATIVE (Negative); Occult Blood Urine UA NEGATIVE (Negative); Protein Urine UA 2+ (Negative); Specific Gravity Urine UA >=1.030 (1.000-1.035); Urobilinogen Urine UA 1.0 E.U./dL (0.2); pH Urine UA 6.0 (4.5-8.0)
--- NOTE | 2024-09-13 18:27 | DI.CT.S_ITS ---
PROCEDURE: CT CHEST ABD PEL WO CON INDICATIONS: Sepsis, elevated liver functions, possible infiltrates lung TECHNIQUE: After the administration of oral contrast, 5 mm thick sections acquired from the lung apices to the symphysis pubis. 5 mm thick coronal and sagittal reformats acquired, with additional 7 mm coronal MIP reformats through the lungs. For radiation dose reduction, the following was used: automated exposure control, adjustment of mA and/or kV according to patient size. COMPARISON: [facility], CR, XR CHEST 1V, 09/13/2024, 17:31. FINDINGS: Image quality: Suboptimal due to lack of intravenous contrast, motion artifact CHEST: Lower Neck: No enlarged lymph nodes. Thyroid: No thyroid nodules which require sonographic follow up, per consensus guidelines. Axillae: No enlarged lymph nodes. Chest Wall: Left chest wall generator with cardiac leads. Bones: Unremarkable. Lungs and Pleura: Small pleural effusions, right greater than left. Smooth interstitial thickening and bronchial thickening. Patchy peripheral ground-glass opacities, most prominent within the base. Scattered pulmonary micro nodules, including the 4 millimeter nodule no lateral right middle lobe (series 4, image 171). Heart: Heart size is enlarged. No pericardial effusion. Thoracic Vessels: The aorta and pulmonary arteries demonstrate normal size. Mediastinum and Sarah: No enlarged lymph nodes. Esophagus: No wall thickening. Large hiatal hernia. ABDOMEN: Liver: No solid mass. Periportal edema. The liver is hyperattenuating. Gallbladder: Gallbladder sludge. Biliary ducts: No biliary dilation. Pancreas: No ductal dilation. Spleen: Size is within normal limits. Adrenal Glands: No adrenal nodules. Kidneys and Ureters: No hydronephrosis. No solid mass. No complex renal cystic lesion which requires follow up. Stomach and Bowel: Prior APR. Moderate colonic stool load. No obstruction. Peritoneum: Small amount of free fluid at the liver hilum. Ventral Wall: No hernia. Abdominal Nodes: No retroperitoneal or mesenteric adenopathy by size criteria. Vessels: Aorta and inferior vena cava are normal in size. PELVIS: Pelvic Organs: Unremarkable. Bladder: Decompressed around a Oh catheter. Pelvic Nodes: No enlarged lymph nodes. Miscellaneous: No inguinal hernias are seen. Bones: No aggressive osseous abnormality. Chronic compression deformity of the L1 vertebral body with 6 millimeter endplate retropulsion. Other vertebral body height loss noted at T9, T12. Degenerative disc disease of the lumbar spine. IMPRESSION: Moderate pulmonary edema and small pleural effusions. Superimposed peripheral ground-glass opacities, suggestive of viral pneumonia. Suspected mild fluid overload given the small pleural effusions, periportal edema, small volume ascites. 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 Other ancillary findings as above. Dictated by: Tru Vizcarra M.D. on 09/13/2024 at 19:24 Approved by: Tru Vizcarra M.D. on 09/13/2024 at 19:29
[2024-09-13] MEDS: DOXYCYCLINE HYCLATE 100 MG TABLET PO (18:30)
--- NOTE | 2024-09-13 18:48 | DI.CT.S_ITS ---
PROCEDURE: CT HEAD/BRAIN WO CON INDICATIONS: near syncope TECHNIQUE: Noncontrast 4.5 mm thick angled axial sections acquired from the foramen magnum to the vertex, with coronal and sagittal reformats. For radiation dose reduction, the following was used: automated exposure control, adjustment of mA and/or kV according to patient size. COMPARISON: [facility], CT, CT HEAD/BRAIN WO CON, 06/16/2024, 21:04. FINDINGS: Image quality: Diagnostic. CSF spaces: Basal cisterns are patent. No extra-axial fluid collections. The ventricles are symmetric in size and shape. Brain: No intracranial bleeds or mass effect. There is cerebral volume loss, with resultant ventricular and sulcal prominence. There are periventricular and deep white matter chronic small vessel ischemic changes. There is intracranial internal carotid artery atherosclerosis. Skull and face: Calvarium and visualized facial bones appear intact, without suspicious lesions. Sinuses: Visualized sinuses and mastoids are clear. IMPRESSION: No acute intracranial pathology. Dictated by: Tru Vizcarra M.D. on 09/13/2024 at 19:29 Approved by: Tru Vizcarra M.D. on 09/13/2024 at 19:30
[2024-09-13 18:49] LABS: Ictotest Urine Negative (Negative)
--- NOTE | 2024-09-13 18:54 | PC.NURSE ---
Addendum entered by Estefani Abdi R.N. 09/13/24 19:07: Pt is noted in chart to have an ICD. Potential for ICD to have fired while in CT during the staff assist. made aware. No new orders. Original Note: Staff assist called from CT. Arrived to CT room with pt sitting up high fowlers on stretcher. report from laser technician Lisseth was that pt had a backwards jerking movement, eyes rolled back, and pt was unresponsive for about 5 seconds. On RN arrival pt was awake yet drowsy, leaning to the left, able to squeeze RN hands and follow simple commands. vitals 113/76, HR 99, 97% on oximask. Dr Mejia made aware. verbal order to DC fluids, ABG, and start bipap. RT called. Primary RN kacey made aware.
[2024-09-13] MEDS: FUROSEMIDE 40 MG/4 ML VIAL IV (19:00)
[2024-09-13 19:02] LABS: NT-proBNP (BNP-Adult 18+) 14000 pg/mL (<450)
[2024-09-13] MEDS: NITROGLYCERIN OINT 1 INCH/GM OINT...G. 0.5 INCH TOP (19:02)
[2024-09-13 19:13] LABS: Reflexed Lactate in 2 Hours Y
--- NOTE | 2024-09-13 19:20 | PC.NURSE ---
unable to get temp at triage. pt feels cool and complains of being cold. patient given temp sensing gilmar. 98.1
[2024-09-13 19:25] LABS: Allen Test for ABG Passed? Positive; Blood Gas Collection Site Left Radial; Delivery System BiPAP; HCO3 ABG 21 mmol/L (23-27); Oxygen Saturation ABG 98 % (95-100); PCO2 ABG 37.9 mmHg (35-45); PO2 ABG 108 mmHg (80-100); TCO2 ABG 20 mmol/L (23-27)
[2024-09-13 19:49] LABS: Lactate 2HR (Lactic Acid Rflx) 2.7 mmol/L (0.7-2.1)
[2024-09-13 21:35] LABS: COVID-19 CEPHEID 4-PLEX PCR Negative (Negative); Influenza A - CEPHEID Flu A NEGATIVE (NEGATIVE); Influenza B - CEPHEID Flu B NEGATIVE (NEGATIVE)
[2024-09-13 23:14] LABS: Coronavirus NL 63 Not Detected (Not Detect); SARS- CoV-2 Not Detected (Not Detecte)
[2024-09-14] VITALS (36 sets, daily range): BP systolic 91–207; BP diastolic 57–112; PULSE 0–120; RESP 8–34; TEMP 36.3–37.3; O2SAT 79–100
--- NOTE | 2024-09-14 05:28 | PM.HP.1 ---
History of Present Illness History of Present Illness Date Patient Seen: 09/14/24 Time Patient Seen: 00:30 Chief complaint: Weakness, N/V, back pain Narrative: 89 y/o with PMH of hypertrophic obstructive cardiomyopathy, HFpEF, A-fib, PPM, AICD, HTN, MR, hyponatremia, SVTs, followed by [facility] cardiology, came to hospital complaining on nausea, vomiting, generalized weakness, diarrhea. Presented hypoxemic with fluid overload. Initially given 1 L of NS for hypotension and ABDOULAYE. That was followed by 20 mg of Lasix and diuresis of 300 cc. During her ED stay she spent several hours on BiPAP. Suspected for pneumonia and given empiric antibiotic. On admission to floor she can hardly provide any history. She lives with son who brought her to hospital. [facility] Medical History Joint pain of ankle and foot (06/16/05) Joint pain of lower extremity (06/16/05) Abdominal pain, LLQ (06/16/05) Hemothorax on right Multiple rib fractures ICD (implantable cardioverter-defibrillator) in place Pacemaker Hypothyroidism Hypertrophic obstructive cardiomyopathy Surgical History History of ankle surgery Status post hysterectomy Family History Father Hypertension Mother Cancer Social History household members: children Smoking Status: Never smoker alcohol intake: never substance use type: does not use Meds Home Medications and Allergies Home Medications ?Medication ?Instructions ?Recorded ?Confirmed ?Type acetaminophen 325 mg tablet 650 mg (2 x 325 mg) PO Q6HR PRN 11/06/21 07/12/24 Rx Fever/Mild Pain (1-3) #60 tabs Disabled Parking Permit #1 ea 07/26/22 07/12/24 Rx melatonin 10 mg capsule 10 mg PO BEDTIME PRN Insomnia 05/03/23 07/12/24 History apixaban 2.5 mg tablet (Eliquis) 2.5 mg PO BID #180 tabs 08/01/23 07/12/24 Rx magnesium oxide 400 mg PO BID #180 tabs 08/01/23 07/12/24 Rx metoprolol succinate 25 mg 25 mg PO BID #180 tabs 08/01/23 07/12/24 Rx tablet,extended release 24 hr rosuvastatin 5 mg tablet 5 mg PO DAILY #90 tabs 08/01/23 07/12/24 Rx Held on 08/15/24. Instructions: paused by cardiology and so going to go back on diuretic losartan 25 mg tablet 25 mg PO DAILY #30 tabs 02/20/24 07/12/24 Rx amiodarone 200 mg tablet 200 mg PO BID 05/22/24 07/12/24 History omeprazole 20 mg capsule,delayed 20 mg PO DAILY #90 caps 06/12/24 07/12/24 Rx release estradiol 0.01% (0.1 mg/gram) 1 g vaginal 3XW #42.5 grams 06/15/24 07/12/24 Rx vaginal cream levothyroxine 50 mcg tablet 50 mcg PO DAILY #90 tabs 07/03/24 07/12/24 Rx cholecalciferol (vitamin D3) 1,250 1,250 mcg PO QWEEK #12 caps 07/12/24 Rx mcg (50,000 unit) capsule verapamil 120 mg tablet,extended 120 mg PO DAILY #180 tabs 08/15/24 08/15/24 Rx release estradiol 0.1 mg/24 hr semiweekly 0.1 mg topical .COMPLEX #24 patches 08/21/24 Rx transdermal patch trazodone 50 mg tablet 25 mg (1/2 x 50 mg) PO BEDTIME PRN 08/21/24 Rx sleep difficulty #45 tabs Allergies Allergy/AdvReac Type Severity Reaction Status Date / Time codeine (CODEINE) Allergy Mild NAUSEA AND Verified 09/13/24 17:12 VOMITING iodine Allergy Verified 09/13/24 17:12 Review of Systems Review of Systems Narrative: General - generalized weakness RS - short of breath CVS - w/o chest pain, minor leg swelling GI - nauseated Poor historian Exam Vital Signs (past 8 hours): - 09/13/24 21:30 09/13/24 21:30 09/13/24 21:35 Temperature 97.9 F 97.9 F Pulse Rate 100 H 101 H Respiratory Rate 20 21 Blood Pressure 128/88 Pulse Oximetry 94 95 Oxygen Delivery Method Oxygen Flow Rate 09/13/24 21:35 09/13/24 21:40 09/13/24 21:40 Temperature 98.1 F Pulse Rate 100 H Respiratory Rate 19 Blood Pressure 127/87 126/87 Pulse Oximetry 94 Oxygen Delivery Method Oxygen Flow Rate 09/13/24 21:45 09/13/24 21:45 09/13/24 21:50 Temperature 98.1 F 98.1 F Pulse Rate 100 H 100 H Respiratory Rate 18 18 Blood Pressure 127/87 Pulse Oximetry 94 94 Oxygen Delivery Method Oxygen Flow Rate 09/13/24 21:50 09/13/24 21:55 09/13/24 21:55 Temperature 98.1 F Pulse Rate 101 H Respiratory Rate 27 H Blood Pressure 125/85 124/78 Pulse Oximetry 96 Oxygen Delivery Method Oxygen Flow Rate 09/13/24 22:00 09/13/24 22:00 09/13/24 22:05 Temperature 98.1 F 98.1 F Pulse Rate 101 H 101 H Respiratory Rate 36 H 24 Blood Pressure 122/78 Pulse Oximetry 91 91 Oxygen Delivery Method Room Air Oxygen Flow Rate 09/13/24 22:05 09/13/24 22:10 09/13/24 22:10 Temperature 98.2 F Pulse Rate 100 H Respiratory Rate 24 Blood Pressure 118/78 120/80 Pulse Oximetry 94 Oxygen Delivery Method Oxygen Flow Rate 09/13/24 22:15 09/13/24 22:15 09/13/24 22:20 Temperature 98.2 F 98.2 F Pulse Rate 100 H 101 H Respiratory Rate 21 20 Blood Pressure 124/84 Pulse Oximetry 96 97 Oxygen Delivery Method Oxygen Flow Rate 09/13/24 22:20 09/13/24 22:25 09/13/24 22:25 Temperature 98.2 F Pulse Rate 100 H Respiratory Rate 19 Blood Pressure 122/84 124/83 Pulse Oximetry 98 Oxygen Delivery Method Oxygen Flow Rate 09/13/24 22:30 09/13/24 22:30 09/13/24 22:35 Temperature 98.2 F 98.2 F Pulse Rate 100 H 100 H Respiratory Rate 16 18 Blood Pressure 124/81 Pulse Oximetry 97 98 Oxygen Delivery Method Oxygen Flow Rate 09/13/24 22:35 09/13/24 22:40 09/13/24 22:40 Temperature 98.4 F Pulse Rate 99 H Respiratory Rate 20 Blood Pressure 125/83 127/83 Pulse Oximetry 98 Oxygen Delivery Method Oxygen Flow Rate 09/13/24 22:45 09/13/24 22:45 09/13/24 22:50 Temperature 98.4 F 98.4 F Pulse Rate 99 H 100 H Respiratory Rate 17 16 Blood Pressure 124/81 Pulse Oximetry 98 98 Oxygen Delivery Method Oxygen Flow Rate 09/13/24 22:50 09/13/24 23:23 09/14/24 04:02 Temperature 98.6 F 99.1 F Pulse Rate 101 H 103 H Respiratory Rate 25 H 17 Blood Pressure 122/82 127/84 121/75 Pulse Oximetry 96 95 Oxygen Delivery Method Oxygen Flow Rate 1 Fraction of Inspired Oxygen 32 Oxygen Delivery Method Room Air Oxygen Flow Rate 1 Narrative Exam Narrative: General - in no distress CVS - RRR, paced, legs w/o swelling RS - rhonchi GI - not distended Neuro - w/o focal deficits, mood appropriate Objective ECG Impression: Paced rhythm Imaging CT chest / abdomen / pelvis: Radiologist's impression: Moderate pulmonary edema and small pleural effusions. Superimposed peripheral ground-glass opacities, suggestive of viral pneumonia. Suspected mild fluid overload given the small pleural effusions, periportal edema, small volume ascites. 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 Chest x-ray: My impression: Pulmonary edema Labs 09/13/24 17:00 09/13/24 17:00 Labs: Laboratory Results - last 24 hr 09/13/24 09/13/24 09/13/24 17:00 18:12 19:21 WBC 10.7 RBC 4.23 Hgb 14.6 Hct 42.8 MCV 101.0 H MCH 34.5 H MCHC 34.1 RDW 14.7 Plt Count 275 Neut % (Auto) 82.1 H Lymph % (Auto) 7.2 L [place] % (Auto) 10.4 Eos % (Auto) 0.1 L Baso % (Auto) 0.2 Neut # (Auto) 8800 H Lymph # (Auto) 800 L [place] # (Auto) 1100 H Eos # (Auto) 0 Baso # (Auto) 0 ABG Sample Site Left radial ABG pH 7.35 ABG pCO2 37.9 ABG pO2 108 H ABG HCO3 21 L ABG Total CO2 20 L ABG O2 Saturation 98 ABG Base Excess -4.3 L Daniel Test Positive O2 Delivery Device Bipap FiO2 % 32.0 % Sodium 124 L Potassium 5.1 Chloride 88 L Carbon Dioxide 21 L BUN 40 H Creatinine 1.50 H Estimated GFR 33 L BUN/Creatinine Ratio 26.7 H Glucose 154 H Lactate 5.5 H* Calcium 9.0 Magnesium 2.5 H Total Bilirubin 1.9 H AST 585 H ALT 408 H Alkaline Phosphatase 99 NT-Pro-B Natriuret Pep 83969 H Total Protein 6.7 Albumin 3.9 Globulin 2.8 Albumin/Globulin Ratio 1.4 Lipase 41 Urine Color Yellow Urine Appearance Cloudy Urine pH 6.0 Ur Specific [place] >=1.030 H Urine Protein 2+ H Urine Glucose (UA) Negative Urine Ketones Trace H Urine Occult Blood Negative Urine Nitrate Negative Urine Bilirubin 1+ H Ur Bilirubin Confirm Negative Urine Urobilinogen 1.0 Ur Leukocyte Esterase Negative Urine RBC None seen Urine WBC 0-1/hpf Ur Squamous Epith Cells None seen D Urine Bacteria Many (>30) H Vol Urine Centrifuged 10ml (spun) Chlamy pneumoniae PCR Adenovirus (PCR) B. pertussis DNA (PCR) B.parapertussis DNA PCR Coronavirus OC43 (PCR) Coronavirus HKU1 (PCR) Coronavirus 229E (PCR) SARS-CoV-2 (PCR) Coronavirus NL63 (PCR) Human Metapneumovir PCR Influenza A (RT-PCR) Influenza Type A (PCR) Influenza B (RT-PCR) Influenza Type B (PCR) M. pneumoniae (PCR) Parainfluenza 1 (PCR) Parainfluenza 2 (PCR) Parainfluenza 3 (PCR) Parainfluenza 4 (PCR) RSV (PCR) Entero/Rhino (PCR) 09/13/24 09/13/24 09/13/24 19:30 20:40 20:50 WBC RBC Hgb Hct MCV MCH MCHC RDW Plt Count Neut % (Auto) Lymph % (Auto) [place] % (Auto) Eos % (Auto) Baso % (Auto) Neut # (Auto) Lymph # (Auto) [place] # (Auto) Eos # (Auto) Baso # (Auto) ABG Sample Site ABG pH ABG pCO2 ABG pO2 ABG HCO3 ABG Total CO2 ABG O2 Saturation ABG Base Excess Daniel Test O2 Delivery Device FiO2 % Sodium Potassium Chloride Carbon Dioxide BUN Creatinine Estimated GFR BUN/Creatinine Ratio Glucose Lactate 2.7 H Calcium Magnesium Total Bilirubin AST ALT Alkaline Phosphatase NT-Pro-B Natriuret Pep Total Protein Albumin Globulin Albumin/Globulin Ratio Lipase Urine Color Urine Appearance Urine pH Ur Specific [place] Urine Protein Urine Glucose (UA) Urine Ketones Urine Occult Blood Urine Nitrate Urine Bilirubin Ur Bilirubin Confirm Urine Urobilinogen Ur Leukocyte Esterase Urine RBC Urine WBC Ur Squamous Epith Cells Urine Bacteria Vol Urine Centrifuged Chlamy pneumoniae PCR Not detected Adenovirus (PCR) Not detected B. pertussis DNA (PCR) Not detected B.parapertussis DNA PCR Not detected Coronavirus OC43 (PCR) Not detected Coronavirus HKU1 (PCR) Not detected Coronavirus 229E (PCR) Not detected SARS-CoV-2 (PCR) Negative Not detected Coronavirus NL63 (PCR) Not detected Human Metapneumovir PCR Not detected Influenza A (RT-PCR) Flu a negative Influenza Type A (PCR) Not detected Influenza B (RT-PCR) Flu b negative Influenza Type B (PCR) Not detected M. pneumoniae (PCR) Not detected Parainfluenza 1 (PCR) Not detected Parainfluenza 2 (PCR) Not detected Parainfluenza 3 (PCR) Not detected Parainfluenza 4 (PCR) Not detected RSV (PCR) Negative Not detected Entero/Rhino (PCR) Not detected Assessment & Plan Assessment and plan (1) Acute on chronic heart failure with preserved ejection fraction (HFpEF): Status: Acute (2) Hypertrophic obstructive cardiomyopathy: Status: None (3) Non-sustained ventricular tachycardia: Status: Acute (4) Paroxysmal A-fib: Problem details: Amiodarone, increased April 2024 Status: Acute (5) Chronic hyponatremia: Status: Acute (6) Essential hypertension: Status: Acute (7) GERD (gastroesophageal reflux disease): Qualifiers: Esophagitis presence: esophagitis presence not specified Qualified Code(s): K21.9 - Gastro-esophageal reflux disease without esophagitis Status: Suspected (8) Hypothyroidism: Qualifiers: Hypothyroidism type: acquired Qualified Code(s): E03.9 - Hypothyroidism, unspecified Status: Acute (9) Stress incontinence in female: Status: Chronic (10) Impaired mobility and ADLs: Status: Acute Assessment & Plan narrative: HFpEF - given 1 L of NS and 40 mg of Lasix in the ED - started Lasix PO 20 mg daily - careful diuresis with underlying obstructive cardiomyopathy NSVT /PAF / PPM / AICD - device interrogated, one episode of non-sustained VT with rate 170, wasn't terminated as it is set up for rate of 200 - Eliquis - amiodarone 200 mg bid, recently was on 400 mg dose to try to bring her back to sinus HTN - home Losartan 25 mg daily and Cardizem 120 mg ER daily - held - Toprol XL 25 mg bid Hyponatremia - chronic but worse this time - that could explain her GI complaints - monitored Hypothyroidism - levothyroxine - TSH WNR followed as on amiodarone DVT prophylaxis - therapeutic anticoagulation Patient consented to telemedicine, audio-visual encounter with RN assisting during the exam. Patient located at [place], [place], provider located in [place]. Time-Based Coding :: [TOTAL MINUTES] spent with patient and on the chart (including review of chart, obtaining history, exam, reviewing outside data, placing orders, documenting exam and treatment plan, and counseling patient) on [DATE]. Quality VTE Deep Vein Thrombosis/Pulmonary Embolism Present on Admission: No
[2024-09-14] MEDS: PANTOPRAZOLE DR 20 MG TABLET PO (05:51)
--- NOTE | 2024-09-14 08:04 | P.PN_ITS ---
Subjective Subjective Interval history: Summary (from H&P): 89 y/o with PMH of hypertrophic obstructive cardiomyopathy, HFpEF, A-fib, PPM, AICD, HTN, MR, hyponatremia, SVTs, followed by [facility] cardiology, came to hospital complaining on nausea, vomiting, generalized weakness, diarrhea. Presented hypoxemic with fluid overload. Initially given 1 L of NS for hypotension and ABDOULAYE. That was followed by 20 mg of Lasix and diuresis of 300 cc. During her ED stay she spent several hours on BiPAP. Suspected for pneumonia and given empiric antibiotic. On admission to floor she can hardly provide any history. She lives with son who brought her to hospital. S: Went interview the patient this morning and she went into a wide complex tachycardia. She then went into ventricular fibrillation in the code was called. She underwent CPR and received 1 dose of epinephrine. The patient attained ROSC. She was able to answer questions at that point. She declined further intervention such as CPR for heart were to stop again and was oriented to the hospital. Her son arrived shortly after, and he was able to witness her preferences. Her sister later in the day reinforced that this is been her wish. The patient developed hypoxic respiratory failure after this, and required escalation in oxygen to high-flow oxygen. Code status was changed to DNR. Exam Vital Signs (past 8 hours): - 09/14/24 04:02 Temperature 99.1 F Pulse Rate 103 H Respiratory Rate 17 Blood Pressure 121/75 Pulse Oximetry 95 Oxygen Flow Rate 1 Fraction of Inspired Oxygen 32 Oxygen Delivery Method Nasal Cannula,Oximask Oxygen Flow Rate 1 Narrative Exam Narrative: NAD, alert and oriented to person and place. Fluent speech. Lungs are clear, normal rate and effort. Tender to palpation over the anterior chest. Heart is regular, no murmur gallop or rub. Abdomen is soft, non distended. Extremities are free of edema. Objective ECG Impression: Paced rhythm Imaging CT Chest, Abd, pelvis: : Radiologist's impression: Moderate pulmonary edema and small pleural effusions. Superimposed peripheral ground-glass opacities, suggestive of viral pneumonia. Suspected mild fluid overload given the small pleural effusions, periportal edema, small volume ascites. 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 Chest x-ray: Radiologist's impression: Pulmonary edema Labs 09/14/24 08:30 09/14/24 11:17 Labs: Laboratory Results - last 24 hr 09/13/24 09/13/24 09/13/24 17:00 18:12 19:21 WBC 10.7 RBC 4.23 Hgb 14.6 Hct 42.8 MCV 101.0 H MCH 34.5 H MCHC 34.1 RDW 14.7 Plt Count 275 Neut % (Auto) 82.1 H Lymph % (Auto) 7.2 L [place] % (Auto) 10.4 Eos % (Auto) 0.1 L Baso % (Auto) 0.2 Neut # (Auto) 8800 H Lymph # (Auto) 800 L [place] # (Auto) 1100 H Eos # (Auto) 0 Baso # (Auto) 0 ABG Sample Site Left radial ABG pH 7.35 ABG pCO2 37.9 ABG pO2 108 H ABG HCO3 21 L ABG Total CO2 20 L ABG O2 Saturation 98 ABG Base Excess -4.3 L Daniel Test Positive O2 Delivery Device Bipap FiO2 % 32.0 % Sodium 124 L Potassium 5.1 Chloride 88 L Carbon Dioxide 21 L BUN 40 H Creatinine 1.50 H Estimated GFR 33 L BUN/Creatinine Ratio 26.7 H Glucose 154 H Lactate 5.5 H* Calcium 9.0 Magnesium 2.5 H Total Bilirubin 1.9 H AST 585 H ALT 408 H Alkaline Phosphatase 99 NT-Pro-B Natriuret Pep 45518 H Total Protein 6.7 Albumin 3.9 Globulin 2.8 Albumin/Globulin Ratio 1.4 Lipase 41 Urine Color Yellow Urine Appearance Cloudy Urine pH 6.0 Ur Specific [place] >=1.030 H Urine Protein 2+ H Urine Glucose (UA) Negative Urine Ketones Trace H Urine Occult Blood Negative Urine Nitrate Negative Urine Bilirubin 1+ H Ur Bilirubin Confirm Negative Urine Urobilinogen 1.0 Ur Leukocyte Esterase Negative Urine RBC None seen Urine WBC 0-1/hpf Ur Squamous Epith Cells None seen D Urine Bacteria Many (>30) H Vol Urine Centrifuged 10ml (spun) Chlamy pneumoniae PCR Adenovirus (PCR) B. pertussis DNA (PCR) B.parapertussis DNA PCR Coronavirus OC43 (PCR) Coronavirus HKU1 (PCR) Coronavirus 229E (PCR) SARS-CoV-2 (PCR) Coronavirus NL63 (PCR) Human Metapneumovir PCR Influenza A (RT-PCR) Influenza Type A (PCR) Influenza B (RT-PCR) Influenza Type B (PCR) M. pneumoniae (PCR) Parainfluenza 1 (PCR) Parainfluenza 2 (PCR) Parainfluenza 3 (PCR) Parainfluenza 4 (PCR) RSV (PCR) Entero/Rhino (PCR) 09/13/24 09/13/24 09/13/24 19:30 20:40 20:50 WBC RBC Hgb Hct MCV MCH MCHC RDW Plt Count Neut % (Auto) Lymph % (Auto) [place] % (Auto) Eos % (Auto) Baso % (Auto) Neut # (Auto) Lymph # (Auto) [place] # (Auto) Eos # (Auto) Baso # (Auto) ABG Sample Site ABG pH ABG pCO2 ABG pO2 ABG HCO3 ABG Total CO2 ABG O2 Saturation ABG Base Excess Daniel Test O2 Delivery Device FiO2 % Sodium Potassium Chloride Carbon Dioxide BUN Creatinine Estimated GFR BUN/Creatinine Ratio Glucose Lactate 2.7 H Calcium Magnesium Total Bilirubin AST ALT Alkaline Phosphatase NT-Pro-B Natriuret Pep Total Protein Albumin Globulin Albumin/Globulin Ratio Lipase Urine Color Urine Appearance Urine pH Ur Specific [place] Urine Protein Urine Glucose (UA) Urine Ketones Urine Occult Blood Urine Nitrate Urine Bilirubin Ur Bilirubin Confirm Urine Urobilinogen Ur Leukocyte Esterase Urine RBC Urine WBC Ur Squamous Epith Cells Urine Bacteria Vol Urine Centrifuged Chlamy pneumoniae PCR Not detected Adenovirus (PCR) Not detected B. pertussis DNA (PCR) Not detected B.parapertussis DNA PCR Not detected Coronavirus OC43 (PCR) Not detected Coronavirus HKU1 (PCR) Not detected Coronavirus 229E (PCR) Not detected SARS-CoV-2 (PCR) Negative Not detected Coronavirus NL63 (PCR) Not detected Human Metapneumovir PCR Not detected Influenza A (RT-PCR) Flu a negative Influenza Type A (PCR) Not detected Influenza B (RT-PCR) Flu b negative Influenza Type B (PCR) Not detected M. pneumoniae (PCR) Not detected Parainfluenza 1 (PCR) Not detected Parainfluenza 2 (PCR) Not detected Parainfluenza 3 (PCR) Not detected Parainfluenza 4 (PCR) Not detected RSV (PCR) Negative Not detected Entero/Rhino (PCR) Not detected PFSH Medical History Joint pain of ankle and foot (06/16/05) Joint pain of lower extremity (06/16/05) Abdominal pain, LLQ (06/16/05) Hemothorax on right Multiple rib fractures ICD (implantable cardioverter-defibrillator) in place Pacemaker Hypothyroidism Hypertrophic obstructive cardiomyopathy Surgical History History of ankle surgery Status post hysterectomy Family History Father Hypertension Mother Cancer Social History household members: children Smoking Status: Never smoker alcohol intake: never substance use type: does not use Assessment & Plan Assessment & Plan narrative: V Fib Arrest, new and resolved. She underwent CPR and received 1 dose of epinephrine. She resolved without defibrillation and after 300 mg of IV amiodarone. The rhythms were difficult to interpret due to intermittent pacemaker firing and wide complex rhythm is associated with her pacemaker. -continue amiodarone infusion, DNR. -echo revealed EF of 35%, stable. Acute hypoxic respiratory failure, present on admission and worse. HFpEF, active. -she was given additional IV fluid during her resuscitation effort. This was then decreased to 50 mL/hour. We will begin diuresis this evening. NSVT /PAF / PPM / AICD - device interrogated, one episode of non-sustained VT with rate 170, wasn't terminated as it is set up for rate of 200 - Eliquis - amiodarone 200 mg bid, recently was on 400 mg dose to try to bring her back to sinus HTN, stable. - home Losartan 25 mg daily and Cardizem 120 mg ER daily - held - Toprol XL 25 mg bid Hyponatremia, active. - chronic but worse this time - that could explain her GI complaints - monitored Hypothyroidism, stable. - levothyroxine - TSH WNR followed as on amiodarone PLAN: -DNR if she decompensates. -telemetry -high-flow oxygen, wean as able -begin diuresis -continue amiodarone infusion. DNR Anticipate at least 2 midnights in the hospital, supports inpatient status. 1.25 hours spent critical care time for resuscitation and management of arrhythmias and acute hypoxic respiratory failure. Time-Based Coding :: [TOTAL MINUTES] spent with patient and on the chart (including review of chart, obtaining history, exam, reviewing outside data, placing orders, documenting exam and treatment plan, and counseling patient) on [DATE]. Quality VTE Deep Vein Thrombosis/Pulmonary Embolism Present on Admission: No
[2024-09-14 08:46] LABS: Add Manual Diff / Slide Review NO; Hematocrit 39.5 % (36-46); Hemoglobin 13.5 g/dL (12.0-16.0); Lymphocytes Absolute Auto 500 /uL (1100-4500); Mean Corpuscular HGB Conc 34.2 % (30-36); Mean Corpuscular Hemoglobin 34.3 PG (26-34); Mean Corpuscular Volume 100.1 fL (80-100); Platelet Count 250 X10^3/uL (150-400)
[2024-09-14 09:09] LABS: Blood Urea Nitrogen 42 mg/dL (7-17); Calcium 8.0 mg/dL (8.4-10.2); Carbon Dioxide 22 mmol/L (22-32); Chloride 92 mmol/L (98-107); Estimated Glomerular Filt Rate 39 mL/min (>60); Glucose 92 mg/dL (70-99); HEMOLYSIS 16 (0-50); Potassium 4.8 mmol/L (3.4-5.1); Sodium 123 mmol/L (137-145)
--- NOTE | 2024-09-14 09:14 | DI.ECHO.S_ITS ---
[facility]---------+ [facility] : : [address] : : [place] : : [id number] : : Phone: [phone] Echocardiogram Report + + :Name: JOANN AMAYA Study Date: 09/14/2024 Height: 60 in : :Hospital ReadingLocation: Weight: 126 lb : : Gender: Female BSA: 1.5 m2 : :: 1935 Age: 89 yrs BP: 194/86 mmHg: :Reason For Study: S/P CODE : :Ordering Physician: KATHY, : :CHAVEZ Ramachandran Performed By: Adrian Mars : :Referring: CHAVEZ CHAVEZ : + + Interpretation Summary Severe LVH. Mildly reduced LV systolic function. Mild-moderate MR. Severe TR. No pericardial effusion. Findings seem unchanged when compared to TTE dated 07/12/24. Procedure: A two-dimensional transthoracic echocardiogram with color flow and Doppler was performed in limited views only. The study quality was technically good. Comparison is made with the echocardiogram of 07/12/2024. The patient has a paced rhythm. Left Ventricle: There is severe asymmetric left ventricular hypertrophy. The left ventricle is normal in size. The ejection fraction is estimated to be 40- 45%. There are regional wall motion abnormalities as specified. There is apical severe hypokinesis. Mitral Valve: There is moderate mitral annular calcification. The mitral valve leaflets appear mildly thickened, but open well. There is mild to moderate mitral regurgitation. Aortic Valve: The aortic valve is trileaflet. The aortic valve opens well. The aortic valve is mildly calcified. There is trace aortic regurgitation. Tricuspid Valve: The tricuspid valve leaflets are thin and pliable. There is severe tricuspid regurgitation. Pulmonic Valve: The pulmonic valve is not well seen, but is grossly normal. There is a trace or physiologic amount of pulmonic regurgitation. Pericardium/ Pleura There is no pericardial effusion. There is no pleural effusion. MMode/2D Measurements & Calculations LVIDd: 4.0 cm LA A2 area: 40.7 cm2 LVIDs: 2.9 cm LA A4 area: 37.7 cm2 FS: 28.4 % LA length (vol): 7.4 cm IVSd: 2.0 cm LA vol: 176.1 ml LVPWd: 1.1 cm LA vol index: 114.8 ml/m2 LV hess. diameter/BSA (cm/m^2): 2.6 LV sys. diameter/BSA (cm/m^2): 1.9 IVC diam: 1.7 cm Doppler Measurements & Calculations TR max malachi: 362.8 cm/sec TR max P.7 mmHg Reading Physician:11:31 AM
[2024-09-14 09:17] LABS: NT-proBNP (BNP-Adult 18+) 10100 pg/mL (<450)
--- NOTE | 2024-09-14 09:18 | DI.RAD.S_ITS ---
PROCEDURE: XR CHEST 1V INDICATIONS: Cardiac arrest TECHNIQUE: One view of the chest was acquired. COMPARISON: [facility], CT, CT CHEST ABD PEL WO CON, 09/13/2024, 18:33. [facility], CR, XR CHEST 1V, 09/13/2024, 17:31. [facility], CR, XR CHEST 1V, 05/22/2024, 17:27. FINDINGS: Surgical changes and devices: Left chest wall generator with cardiac leads. Lungs and pleura: Central and peripheral airspace opacities of the lungs, right greater than left. Increased pulmonary markings. Mediastinum: Large hiatal hernia. Cardiomegaly. Bones and chest wall: Stable right lateral rib fractures. IMPRESSION: Suspected [id number] pulmonary edema. Peripheral airspace opacities of the lungs, right greater than left. Findings are concerning for viral pneumonia. Dictated by: Tru Vizcarra M.D. on 09/14/2024 at 10:56 Approved by: Tru Vizcarra M.D. on 09/14/2024 at 10:58
[2024-09-14] MEDS: AMIODARONE 360 MG/200 ML PIGGYBACK 57.4 MG IV (09:37)
[2024-09-14] MEDS: fentaNYL 100 MCG/2 ML INJ 25 MCG IV ×11 (09:41→20:17)
[2024-09-14 09:49] LABS: Hematocrit 41.4 % (36-46); Hemoglobin 14.1 g/dL (12.0-16.0); Mean Corpuscular HGB Conc 34.2 % (30-36); Mean Corpuscular Hemoglobin 34.4 PG (26-34); Mean Corpuscular Volume 100.6 fL (80-100); Platelet Count 274 X10^3/uL (150-400)
[2024-09-14 09:51] LABS: Alanine Aminotransferase 540 IU/L (<35); Albumin 3.1 g/dL (3.5-5.0); Albumin Globulin Ratio 1.1 (1.0-2.8); Alkaline Phosphatase 83 U/L (38-126); Blood Urea Nitrogen 43 mg/dL (7-17); Calcium 7.9 mg/dL (8.4-10.2); Carbon Dioxide 22 mmol/L (22-32); Chloride 93 mmol/L (98-107); Estimated Glomerular Filt Rate 40 mL/min (>60); Globulin 2.7 g/dL (1.7-4.1); Glucose 93 mg/dL (70-99); Potassium 4.8 mmol/L (3.4-5.1); Sodium 125 mmol/L (137-145); Total Protein 5.8 g/dL (6.3-8.2)
[2024-09-14 09:57] LABS: HEMOLYSIS 15 (0-50)
[2024-09-14 10:02] LABS: Troponin I 0.017 ng/mL (0.01-0.034)
[2024-09-14] MEDS: NITROGLYCERIN 0.4 MG PATCH TOP (10:56)
--- NOTE | 2024-09-14 11:11 | PC.NURSE ---
Late entry: Schafer cath placed by the nurse on 09/13/24. The schafer was 16fr 10cc [address] temp sensing schafer. The patient needed I&O measured as well as accurate core temp. The order was given verbal by Dr. Hyman in the ED and was not entered until today.
[2024-09-14 11:39] LABS: Alanine Aminotransferase 709 IU/L (<35); Albumin 3.3 g/dL (3.5-5.0); Albumin Globulin Ratio 1.2 (1.0-2.8); Alkaline Phosphatase 102 U/L (38-126); Blood Urea Nitrogen 41 mg/dL (7-17); Calcium 9.4 mg/dL (8.4-10.2); Carbon Dioxide 21 mmol/L (22-32); Chloride 93 mmol/L (98-107); Estimated Glomerular Filt Rate 39 mL/min (>60); Globulin 2.8 g/dL (1.7-4.1); Glucose 163 mg/dL (70-99); HEMOLYSIS < 15 (0-50); Potassium 4.7 mmol/L (3.4-5.1); Sodium 124 mmol/L (137-145); Total Protein 6.1 g/dL (6.3-8.2)
--- NOTE | 2024-09-14 11:43 | PC.NURSE ---
Urinary catheter present on admission from ED per NOC RN. Catheter in place at change of shift 09/14 0700 and transition to this RNs care. This RN planned to remove urinary catheter, then patient sustained Vtach/PEA arrest at 0857. Order for f/c placement and management then obtained by .
[2024-09-14 11:51] LABS: Troponin I 0.120 ng/mL (0.01-0.034)
--- NOTE | 2024-09-14 13:59 | SLP.IPNOTE ---
Chart reviewed and RN consulted. RN stated that pt experienced a cardiac arrest this morning and has been minimally awake/responsive all day. There was concern for aspiration earlier in the day when she choked on her coffee, but she has not been arousable enough to have any PO intake since. RN expressed that pt may go on comfort care pending overall medical status. NOISE ABATEMENT ENGINEER discussed situation with hospitalist, Dr. Bella, who requested order for clinical swallow evaluation be canceled for now. NOISE ABATEMENT ENGINEER to follow up as needed.
[2024-09-14] MEDS: AMIODARONE 360 MG/200 ML PIGGYBACK 16.7 MG IV (14:43)
--- NOTE | 2024-09-14 15:18 | CM.DANOTE ---
DCP Assessment note brief pt is an 89yo F admitted with CHF/UTI/sepsis. hypoxia. code blue called this morning, pt roused after a few rounds of CPR. see provider/nursing notes for more. PCP Luba Belle Payer Medicare and [facility]. ACCOUNT COLLECTOR reviewed EMR. per chart review, pt lives in [place] with son/DPROHAN Chavez ([phone]). per chart, pt has been progressively getting weaker after spouse this may (failure to thrive?). now mostly WC bound, needs assistance with transfers/bathing/toileting, etc. has LTC for HH caregivers (which agency?). gets HH PT ([facility]?). Medical POC continues. per provider, pt remains medically fragile after code blue this morning. DCP needs pending medical improvement. P: pending medical improvement. likely return home with LTC ins Caregivers/HH PT. will continue to follow closely for DCP coordination MARTIN Pinto Discharge Planning/Care Management CM Discharge Assessment Start: 09/13/24 22:37 Freq: Status: Active Protocol: Document 09/14/24 14:57 SL (Rec: 09/14/24 15:07 SL Desktop) Discharge Planning Assessment Assigned Discharge MARTIN Interiano Lockstitch Machine Operator DPROHAN/Assigned robel Chavez/DPROHAN Designee Name Contact Information [phone] Advance Directives? Yes: Yes/POLST Advance Directives Yes on File History Provided By Patient,Medical Record Prior Living Apartment/Condo Arrangements Household Members children Independent with ADL No 's Needs Assistance Bathing,Grooming,Meal Prep,Toileting,Managing With Medications,Home Chores / Shopping Community Services Physical Therapy,Home Health Aid used prior to admission: DME Already Rented / Wheelchair Owned Discharge Plan Home SNF/HH Preference anticipate home with HH resumption? pending medical POC Review Status In Process Please Provide Date 09/14/24 Initial DC Assessment Was Performed Next Review Type Continued Stay Review
[2024-09-14 17:54] LABS: MRSA (Nasal) PCR NOT DETECTED (Not Detect)
[2024-09-14] MEDS: SODIUM CHLORIDE 0.9% FLUSH 10 ML IV ×4 (20:19→23:59)
[2024-09-14] MEDS: FUROSEMIDE 40 MG/4 ML VIAL IV (23:59)
[2024-09-15] VITALS (34 sets, daily range): BP systolic 105–177; BP diastolic 58–85; PULSE 60–81; RESP 11–41; TEMP 36.3–37.8; O2SAT 89–99
[2024-09-15] MEDS: fentaNYL 100 MCG/2 ML INJ 25 MCG IV ×3 (01:45→17:31)
[2024-09-15] MEDS: AMIODARONE 180 MG/100 ML PIGGYBACK 16.7 MG IV (03:37)
--- NOTE | 2024-09-15 08:08 | PM.PN.1 ---
Subjective Subjective Interval history: Overnight events: Delirious, relatively stable on high-flow oxygen. No other arrhythmia. Paced rhythm at 60. S: Not obtainable, due to delirium. She is awake and in no acute distress. Exam Vital Signs (past 8 hours): - 09/15/24 01:00 09/15/24 01:00 09/15/24 01:10 Temperature 97.7 F Pulse Rate 60 60 Respiratory Rate 22 16 Blood Pressure 114/62 Pulse Oximetry 93 90 L Oxygen Delivery Method Oxygen Flow Rate 09/15/24 02:00 09/15/24 02:00 09/15/24 02:05 Temperature 97.5 F L Pulse Rate 61 Respiratory Rate 18 16 Blood Pressure 153/78 H Pulse Oximetry 93 93 Oxygen Delivery Method Oxygen Flow Rate 09/15/24 03:00 09/15/24 03:00 09/15/24 03:00 Temperature 97.5 F L Pulse Rate 63 Respiratory Rate 16 Blood Pressure 140/75 Pulse Oximetry 94 Oxygen Delivery Method High Flow Nasal Cannula Oxygen Flow Rate 09/15/24 04:00 09/15/24 04:00 09/15/24 04:20 Temperature 97.3 F L Pulse Rate 60 70 Respiratory Rate 17 16 Blood Pressure 140/82 Pulse Oximetry 93 93 Oxygen Delivery Method Oxygen Flow Rate 35 09/15/24 07:46 Temperature Pulse Rate 72 Respiratory Rate 16 Blood Pressure Pulse Oximetry 99 Oxygen Delivery Method Oxygen Flow Rate Fraction of Inspired Oxygen 32 Oxygen Delivery Method High Flow Nasal Cannula Oxygen Flow Rate 35 Narrative Exam Narrative: Awake, appears mostly comfortable. Not really talking. On high-flow oxygen. Grimaces with movement and clutching her chest, had CPR yesterday. Lungs are clear, normal rate and effort. Heart is regular, no murmur gallop or rub. Abdomen is soft, non distended. Extremities are free of edema. Objective Imaging Echo: Radiologist's impression: Interpretation Summary Severe LVH. Mildly reduced LV systolic function. Mild-moderate MR. Severe TR. No pericardial effusion. Findings seem unchanged when compared to TTE dated 07/12/24. Chest x-ray: Radiologist's impression: Suspected hfht-io-sibiftol pulmonary edema. Peripheral airspace opacities of the lungs, right greater than left. Findings are concerning for viral pneumonia. Labs 09/14/24 08:30 09/14/24 11:17 Labs: Laboratory Results - last 24 hr 09/14/24 09/14/24 09/14/24 08:00 08:00 08:00 WBC 10.4 RBC 3.95 L Hgb 13.5 Hct 39.5 MCV 100.1 H MCH 34.3 H MCHC 34.2 RDW 14.4 Plt Count 250 Neut % (Auto) 80.9 H Lymph % (Auto) 4.9 L [place] % (Auto) 13.5 Eos % (Auto) 0.1 L Baso % (Auto) 0.6 Neut # (Auto) 8400 H Lymph # (Auto) 500 L [place] # (Auto) 1400 H Eos # (Auto) 0 Baso # (Auto) 100 Sodium 123 L 125 L Potassium 4.8 4.8 Chloride 92 L Carbon Dioxide BUN Creatinine Estimated GFR BUN/Creatinine Ratio Glucose Calcium Total Bilirubin AST ALT Alkaline Phosphatase Troponin I NT-Pro-B Natriuret Pep Total Protein Albumin Globulin Albumin/Globulin Ratio Nasal Screen MRSA (PCR) 09/14/24 09/14/24 09/14/24 08:00 08:00 08:00 WBC RBC Hgb Hct MCV MCH MCHC RDW Plt Count Neut % (Auto) Lymph % (Auto) [place] % (Auto) Eos % (Auto) Baso % (Auto) Neut # (Auto) Lymph # (Auto) [place] # (Auto) Eos # (Auto) Baso # (Auto) Sodium Potassium Chloride 93 L Carbon Dioxide 22 22 BUN 42 H 43 H Creatinine 1.32 H Estimated GFR BUN/Creatinine Ratio Glucose Calcium Total Bilirubin AST ALT Alkaline Phosphatase Troponin I NT-Pro-B Natriuret Pep Total Protein Albumin Globulin Albumin/Globulin Ratio Nasal Screen MRSA (PCR) 09/14/24 09/14/24 09/14/24 08:00 08:00 08:00 WBC RBC Hgb Hct MCV MCH MCHC RDW Plt Count Neut % (Auto) Lymph % (Auto) [place] % (Auto) Eos % (Auto) Baso % (Auto) Neut # (Auto) Lymph # (Auto) [place] # (Auto) Eos # (Auto) Baso # (Auto) Sodium Potassium Chloride Carbon Dioxide BUN Creatinine 1.28 H Estimated GFR 39 L 40 L BUN/Creatinine Ratio 31.8 H 33.6 H Glucose 92 Calcium Total Bilirubin AST ALT Alkaline Phosphatase Troponin I NT-Pro-B Natriuret Pep Total Protein Albumin Globulin Albumin/Globulin Ratio Nasal Screen MRSA (PCR) 09/14/24 09/14/24 09/14/24 08:00 08:00 08:30 WBC 10.4 RBC 4.11 Hgb 14.1 Hct 41.4 MCV 100.6 H MCH 34.4 H MCHC 34.2 RDW 14.2 Plt Count 274 Neut % (Auto) Lymph % (Auto) [place] % (Auto) Eos % (Auto) Baso % (Auto) Neut # (Auto) Lymph # (Auto) [place] # (Auto) Eos # (Auto) Baso # (Auto) Sodium Potassium Chloride Carbon Dioxide BUN Creatinine Estimated GFR BUN/Creatinine Ratio Glucose 93 Calcium 8.0 L 7.9 L Total Bilirubin 1.1 AST 690 H ALT 540 H Alkaline Phosphatase 83 Troponin I 0.017 NT-Pro-B Natriuret Pep 67594 H Total Protein 5.8 L Albumin 3.1 L Globulin 2.7 Albumin/Globulin Ratio 1.1 Nasal Screen MRSA (PCR) 09/14/24 09/14/24 11:17 16:00 WBC RBC Hgb Hct MCV MCH MCHC RDW Plt Count Neut % (Auto) Lymph % (Auto) [place] % (Auto) Eos % (Auto) Baso % (Auto) Neut # (Auto) Lymph # (Auto) [place] # (Auto) Eos # (Auto) Baso # (Auto) Sodium 124 L Potassium 4.7 Chloride 93 L Carbon Dioxide 21 L BUN 41 H Creatinine 1.32 H Estimated GFR 39 L BUN/Creatinine Ratio 31.1 H Glucose 163 H Calcium 9.4 Total Bilirubin 1.7 H AST 1046 H ALT 709 H Alkaline Phosphatase 102 Troponin I 0.120 H NT-Pro-B Natriuret Pep Total Protein 6.1 L Albumin 3.3 L Globulin 2.8 Albumin/Globulin Ratio 1.2 Nasal Screen MRSA (PCR) Not detected [facility] Medical History Joint pain of ankle and foot (06/16/05) Joint pain of lower extremity (06/16/05) Abdominal pain, LLQ (06/16/05) Hemothorax on right Multiple rib fractures ICD (implantable cardioverter-defibrillator) in place Pacemaker Hypothyroidism Hypertrophic obstructive cardiomyopathy Surgical History History of ankle surgery Status post hysterectomy Family History Father Hypertension Mother Cancer Social History household members: children Smoking Status: Never smoker alcohol intake: never substance use type: does not use Assessment & Plan Assessment & Plan narrative: 1. Probable VFib arrest, improved. 2. Acute hypoxic respiratory failure, active. 3. Diastolic heart failure is severe LVH, active. 4. PAF, stable. 5. Pacemaker, stable. 6. AICD, stable. 7. Cognitive impairment, active. 8. Presumed hypovolemic hyponatremia, active. Plan: We will continue to diurese today. We will continue IV amiodarone, she was not able to take oral medications. We will attempt to wean her FiO2. Met with son and sister. We will give her another 24 hours to see if she stabilizes and/or improves. If she fails to improve, or decompensates we will be discussing comfort care measures. The family understands this as well. Time-Based Coding :: [TOTAL MINUTES] spent with patient and on the chart (including review of chart, obtaining history, exam, reviewing outside data, placing orders, documenting exam and treatment plan, and counseling patient) on [DATE]. Quality VTE Deep Vein Thrombosis/Pulmonary Embolism Present on Admission: No
--- NOTE | 2024-09-15 10:52 | PC.NURSE ---
Patient intermittently agitated, pulling at medical equipment, removing clothing and blankets. Able to nod head in affirmative when asked if in pain, medication administered per MAR. Family presence at bedside, equipment removed from reach. Per Dr Bella, continue with diuresis for one more day, reassess patient, and if no significant improvement have a goals of care conversation with family.
[2024-09-15] MEDS: FUROSEMIDE 40 MG/4 ML VIAL IV (12:12)
--- NOTE | 2024-09-15 13:43 | CM.DPNOTE ---
DCP note INJECTION MOULDING MACHINE OPERATOR reviewed EMR Per provider in morning rounds and per RN note, continue with diuresis for one more day, reassess patient, and if no significant improvement have a goals of care conversation with family. P: pending medical improvement/failure to thrive/family preference. transition to comfort care/home with hospice vs return home with LTC ins Caregivers. will continue to follow closely for DCP coordination MARTIN Pinto
[2024-09-15] MEDS: PIPERACILLIN/TAZO 4.5 GM in SODIUM CHLORIDE 0.9% 100 ML IV (18:17)
[2024-09-15] MEDS: SODIUM CHLORIDE 0.9% FLUSH 10 ML IV (21:48)
[2024-09-15] MEDS: PIPERACILLIN/TAZO 3.375 GM in SODIUM CHLORIDE 0.9% 100 ML IV (21:48)
[2024-09-15] MEDS: APIXABAN 5 MG TABLET 2.5 MG PO (21:48)
[2024-09-15] MEDS: METOPROLOL ER 25 MG TABLET PO (21:48)
[2024-09-15] MEDS: AMIODARONE 200 MG TABLET PO (21:48)
[2024-09-15] MEDS: MAGNESIUM OXIDE 400 MG TABLET PO (21:48)
[2024-09-16] VITALS (76 sets, daily range): BP systolic 64–167; BP diastolic 39–82; PULSE 63–81; RESP 11–36; TEMP 36.3–38; O2SAT 87–95
[2024-09-16] MEDS: FUROSEMIDE 40 MG/4 ML VIAL IV ×2 (00:29→23:46)
[2024-09-16] MEDS: SODIUM CHLORIDE 0.9% FLUSH 10 ML IV ×4 (00:29→21:34)
[2024-09-16 05:17] LABS: Add Manual Diff / Slide Review NO; Hematocrit 39.8 % (36-46); Hemoglobin 13.8 g/dL (12.0-16.0); Lymphocytes Absolute Auto 300 /uL (1100-4500); Mean Corpuscular HGB Conc 34.7 % (30-36); Mean Corpuscular Hemoglobin 34.6 PG (26-34); Mean Corpuscular Volume 99.6 fL (80-100); Platelet Count 232 X10^3/uL (150-400)
[2024-09-16 05:27] LABS: Lactate (Lactic Acid) 1.3 mmol/L (0.7-2.1)
[2024-09-16 05:28] LABS: Blood Urea Nitrogen 33 mg/dL (7-17); Calcium 7.7 mg/dL (8.4-10.2); Carbon Dioxide 34 mmol/L (22-32); Chloride 89 mmol/L (98-107); Estimated Glomerular Filt Rate 59 mL/min (>60); Glucose 90 mg/dL (70-99); HEMOLYSIS 15 (0-50); Potassium 3.2 mmol/L (3.4-5.1); Sodium 128 mmol/L (137-145)
[2024-09-16] MEDS: PIPERACILLIN/TAZO 3.375 GM in SODIUM CHLORIDE 0.9% 100 ML IV ×3 (05:47→21:33)
[2024-09-16] MEDS: LEVOTHYROXINE 50 MCG TABLET PO (06:01)
[2024-09-16] MEDS: PANTOPRAZOLE DR 20 MG TABLET PO (06:01)
[2024-09-16] MEDS: fentaNYL 100 MCG/2 ML INJ 25 MCG IV ×2 (07:04→09:16)
--- NOTE | 2024-09-16 08:19 | P.PN_ITS ---
Subjective Subjective Interval history: S: More alert today, normal speech, no delirium. She did not sleep much last night. She was having significant sternal pain from CPR. She was also hypotensive this morning. Antibiotics were started last evening for a new fever. She was no cough. Exam Vital Signs (past 8 hours): - 09/16/24 00:34 09/16/24 00:34 09/16/24 01:00 Temperature 100.4 F H 100.2 F H Pulse Rate 69 74 Respiratory Rate 16 13 Blood Pressure 90/57 L Pulse Oximetry 94 95 Oxygen Flow Rate 40 40 09/16/24 01:00 09/16/24 02:00 09/16/24 02:01 Temperature 100.2 F H Pulse Rate 75 Respiratory Rate 36 H Blood Pressure 91/53 L 102/56 L Pulse Oximetry 94 Oxygen Flow Rate 40 09/16/24 02:01 09/16/24 03:00 09/16/24 03:00 Temperature 100.2 F H 100.2 F H Pulse Rate 77 71 Respiratory Rate 35 H 11 L Blood Pressure 95/51 L Pulse Oximetry 95 95 Oxygen Flow Rate 40 40 09/16/24 04:00 09/16/24 04:00 09/16/24 05:00 Temperature 100.0 F H Pulse Rate 74 Respiratory Rate 15 Blood Pressure 108/59 L 118/70 Pulse Oximetry 95 Oxygen Flow Rate 40 09/16/24 05:00 09/16/24 06:00 09/16/24 06:00 Temperature 99.7 F H 99.5 F Pulse Rate 70 70 Respiratory Rate 24 29 H Blood Pressure 143/74 H Pulse Oximetry 95 Oxygen Flow Rate 40 40 09/16/24 07:11 Temperature Pulse Rate 79 Respiratory Rate 16 Blood Pressure Pulse Oximetry 92 Oxygen Flow Rate Fraction of Inspired Oxygen 32 Oxygen Delivery Method High Flow Nasal Cannula Oxygen Flow Rate 40 Narrative Exam Narrative: The patient is comfortable. She was on high-flow oxygen. She can respond appropriately to questions and denies any acute concerns. She was not lightheaded although her blood pressure is lower. Heart is regular. Lungs are relatively clear. Abdomen is flat, non-tender. Legs are free of edema. Objective Imaging Chest x-ray: Radiologist's impression: Lung volumes are lower. Small effusions and bibasal opacities again seen, probably similar to prior, likely edema. Differential includes infection. Cardiomegaly. Hiatal hernia partially seen. Cardiac electrode leads and degenerative changes are present Labs 09/16/24 04:21 09/16/24 04:21 Labs: Laboratory Results - last 24 hr 09/16/24 04:21 WBC 11.2 H RBC 3.99 L Hgb 13.8 Hct 39.8 MCV 99.6 MCH 34.6 H MCHC 34.7 RDW 14.6 Plt Count 232 Neut % (Auto) 86.6 H Lymph % (Auto) 2.4 L Pender % (Auto) 10.9 Eos % (Auto) 0.0 L Baso % (Auto) 0.1 Neut # (Auto) 9700 H Lymph # (Auto) 300 L Pender # (Auto) 1200 H Eos # (Auto) 0 Baso # (Auto) 0 Sodium 128 L Potassium 3.2 L D Chloride 89 L Carbon Dioxide 34 H BUN 33 H Creatinine 0.93 Estimated GFR 59 L BUN/Creatinine Ratio 35.5 H Glucose 90 Lactate 1.3 Calcium 7.7 L PFSH Medical History Joint pain of ankle and foot (06/16/05) Joint pain of lower extremity (06/16/05) Abdominal pain, LLQ (06/16/05) Hemothorax on right Multiple rib fractures ICD (implantable cardioverter-defibrillator) in place Pacemaker Hypothyroidism Hypertrophic obstructive cardiomyopathy Surgical History History of ankle surgery Status post hysterectomy Family History Father Hypertension Mother Cancer Social History household members: children Smoking Status: Never smoker alcohol intake: never substance use type: does not use Assessment & Plan Assessment & Plan narrative: 1. Probable VFib arrest, improved. 2. Acute hypoxic respiratory failure, active. 3. Diastolic heart failure is severe LVH, active. 4. PAF, stable. 5. Pacemaker, stable. 6. AICD, stable. 7. Cognitive impairment, active. 8. Presumed hypovolemic hyponatremia, active. 9. Fever, or atelectasis versus pneumonia. Continue antibiotics. 10. Hypotension, from over diuresis versus sepsis. 11. Hypokalemia, new. Plan: -wean O2 as able. -repeat chest x-ray still suggests fluid overload. -small fluid boluses to support blood pressure. -resume diuresis when blood pressure stabilizes -continue empiric antibiotics -replace potassium She was a guarded prognosis, she does not want any further episodes of CPR. Her family understands her situation. Time-Based Coding :: [TOTAL MINUTES] spent with patient and on the chart (including review of chart, obtaining history, exam, reviewing outside data, placing orders, documenting exam and treatment plan, and counseling patient) on [DATE]. Quality VTE Deep Vein Thrombosis/Pulmonary Embolism Present on Admission: No
[2024-09-16] MEDS: APIXABAN 5 MG TABLET 2.5 MG PO ×2 (08:42→21:30)
[2024-09-16] MEDS: MAGNESIUM OXIDE 400 MG TABLET PO ×2 (08:42→21:30)
[2024-09-16] MEDS: AMIODARONE 200 MG TABLET PO (08:42)
[2024-09-16] MEDS: POTASSIUM CHLORIDE 20 MEQ TAB 40 MEQ PO ×2 (08:42→14:30)
[2024-09-16] MEDS: ACETAMINOPHEN 325 MG TABLET 650 MG PO (09:16)
--- NOTE | 2024-09-16 09:28 | PC.NURSE ---
Addendum entered by Krzysztof Lopez R.N. 09/16/24 12:07: BP remains low after total of 1L NS, Dr Bella notified and ordered Chest X-ray with continued monitoring Original Note: Patient significantly more alert than yesterday. Oriented to everything except day of the week and date. Able to express wants and needs clearly. Mild confusion persists, but easily and quickly redirectable. Low blood pressures (see charting) ranging from 72/48 to 91/54, Dr Bella notified, ordered to monitor and contact if blood pressures do not raise within the hour.
[2024-09-16] MEDS: SODIUM CHLORIDE 0.9% 500 ML 1000 ML IV ×2 (09:40→11:00)
[2024-09-16] MEDS: OXYCODONE IR 5 MG TABLET PO ×2 (11:58→21:33)
--- NOTE | 2024-09-16 13:03 | DI.RAD.S_ITS ---
PROCEDURE: XR CHEST 1V INDICATIONS: dyspnea TECHNIQUE: One view of the chest was acquired. COMPARISON: [facility], CR, XR CHEST 1V, 09/14/2024, 9:23. [facility], CR, XR CHEST 1V, 09/13/2024, 17:31. FINDINGS AND IMPRESSION: Lung volumes are lower. Small effusions and bibasal opacities again seen, probably similar to prior, likely edema. Differential includes infection. Cardiomegaly. Hiatal hernia partially seen. Cardiac electrode leads and degenerative changes are present Dictated by: Jed Chiang M.D. on 09/16/2024 at 12:30 Approved by: Jed Chiang M.D. on 09/16/2024 at 12:32
[2024-09-16] MEDS: AMIODARONE 200 MG TABLET 400 MG PO ×2 (14:18→16:55)
--- NOTE | 2024-09-16 14:56 | CM.DPC ---
DCP Cont: Per MD and RN, pt has made progress today and now A&Ox3 and able to participate in discussion but quite fatigued and remains on HHFNC O2 at this time and likely another couple days before discharge. No PT orders yet due to pt's highflow oxygen and not yet medically appropriate. SW met bedside with pt and her two step Dtrs Sol and Don and explained role. Pt able to confirm that son/POA Scott lives in the downstairs part of the house and does not work so can be home for assist as well. Pt confirms she has really good CGs that assist her at home and she would be open to increasing assist if needed as her preference is home if possible. SW discussed possible options including SNF rehab, home with HH, briefly mentioned comfort measures. Pt denies any hx of SNF rehab but step dtrs aware of the Medicare coverage of SNF if needed as pt's spouse/their dad needed SNF before. Family could also provide some increased assist as stay if needed for a little while as Don lives in [place] and Sol came up from [place]. Step Sisters encourage further discussion with Scott bedside as he is aware of pt's LTC insurance plan and options and once pt weaned off high flow oxygen will know more discharge planning needs. MARTIN Mclean
[2024-09-16 18:49] LABS: Blood Urea Nitrogen 32 mg/dL (7-17); Calcium 7.9 mg/dL (8.4-10.2); Carbon Dioxide 32 mmol/L (22-32); Chloride 91 mmol/L (98-107); Estimated Glomerular Filt Rate 52 mL/min (>60); Glucose 166 mg/dL (70-99); HEMOLYSIS < 15 (0-50); Magnesium 1.7 mg/dL (1.6-2.3); Potassium 3.9 mmol/L (3.4-5.1); Sodium 127 mmol/L (137-145)
[2024-09-16] MEDS: METOPROLOL ER 25 MG TABLET PO (21:32)
[2024-09-16] MEDS: TRAZODONE 50 MG TABLET 25 MG PO (21:32)
[2024-09-16] MEDS: MORPHINE 2 MG/ML INJ IV (23:46)
[2024-09-17] VITALS (27 sets, daily range): BP systolic 103–171; BP diastolic 61–92; PULSE 64–78; RESP 10–30; TEMP 36.8–37.4; O2SAT 90–96
[2024-09-17] MEDS: PANTOPRAZOLE DR 20 MG TABLET PO (06:17)
[2024-09-17] MEDS: LEVOTHYROXINE 50 MCG TABLET PO (06:17)
[2024-09-17] MEDS: PIPERACILLIN/TAZO 3.375 GM in SODIUM CHLORIDE 0.9% 100 ML IV ×3 (06:17→21:00)
[2024-09-17] MEDS: OXYCODONE IR 5 MG TABLET PO ×2 (06:21→22:30)
[2024-09-17 06:53] LABS: Hematocrit 44.3 % (36-46); Hemoglobin 15.0 g/dL (12.0-16.0); Mean Corpuscular HGB Conc 33.8 % (30-36); Mean Corpuscular Hemoglobin 34.0 PG (26-34); Mean Corpuscular Volume 100.7 fL (80-100); Platelet Count 231 X10^3/uL (150-400)
[2024-09-17 07:04] LABS: Blood Urea Nitrogen 27 mg/dL (7-17); Calcium 7.8 mg/dL (8.4-10.2); Carbon Dioxide 37 mmol/L (22-32); Chloride 87 mmol/L (98-107); Estimated Glomerular Filt Rate > 60 mL/min (>60); Glucose 105 mg/dL (70-99); HEMOLYSIS < 15 (0-50); Potassium 3.3 mmol/L (3.4-5.1); Sodium 128 mmol/L (137-145)
--- NOTE | 2024-09-17 07:55 | PM.PN.1 ---
Subjective Subjective Interval history: Summary: 89 y/o with PMH of hypertrophic obstructive cardiomyopathy, HFpEF, A-fib, PPM, AICD, HTN, MR, hyponatremia, SVTs, followed by [facility] cardiology, came to hospital complaining on nausea, vomiting, generalized weakness, diarrhea. Presented hypoxemic with fluid overload. Initially given 1 L of NS for hypotension and ABDOULAYE. That was followed by 20 mg of Lasix and diuresis of 300 cc. During her ED stay she spent several hours on BiPAP. Suspected for pneumonia and given empiric antibiotic. On admission to floor she can hardly provide any history. She lives with son who brought her to hospital. On 09/14 in the morning she went into a wide complex tachycardia. She then went into ventricular fibrillation in the code was called. She underwent CPR and received 1 dose of epinephrine. The patient attained ROSC. She was able to answer questions at that point. She declined further intervention such as CPR for heart were to stop again and was oriented to the hospital. Her son arrived shortly after, and he was able to witness her preferences. Her sister later in the day reinforced that this is been her wish. She then developed acute hypoxic respiratory failure and had evidence of pulmonary edema on her x-ray. She also developed a fever and was started on antibiotics. She required high-flow oxygen and was diuresed. She became hypotensive on September 16 and required some fluid be given back. She remains on high-flow at about 50% on 40 L and is mentally improved from delirium 2 days ago. She has a lot of sternal pain from her CPR. At this point we will try to diurese her more slowly and see if we can get her off from high-flow oxygen. S: She was had a lot of sternal pain but is comfortable on high-flow. She was not short of breath and has no other complaints. She was somewhat confused last night but appears to be relatively oriented this morning. Her son is at the bedside. Exam Vital Signs (past 8 hours): - 09/17/24 00:00 09/17/24 00:00 09/17/24 02:00 Temperature 98.8 F Pulse Rate 67 Respiratory Rate 22 Blood Pressure 130/69 103/61 Pulse Oximetry 91 09/17/24 02:00 09/17/24 03:19 09/17/24 04:00 Temperature 98.8 F Pulse Rate 72 67 Respiratory Rate 15 16 Blood Pressure 118/66 Pulse Oximetry 92 90 L 09/17/24 04:00 09/17/24 06:00 09/17/24 06:00 Temperature 98.8 F 98.2 F Pulse Rate 72 69 Respiratory Rate 22 14 Blood Pressure 171/92 H Pulse Oximetry 90 L 93 09/17/24 06:03 09/17/24 06:03 09/17/24 07:36 Temperature 98.2 F Pulse Rate 71 64 Respiratory Rate 19 10 L Blood Pressure 161/82 H Pulse Oximetry 94 91 Fraction of Inspired Oxygen 32 Oxygen Delivery Method Heated High Flow Oxygen Flow Rate 40 Narrative Exam Narrative: The patient is comfortable. She was on high-flow oxygen. She can respond appropriately to questions. Heart is irregular. Lungs are relatively clear. Abdomen is flat, non-tender. Legs are free of edema. Objective Imaging Chest x-ray: Radiologist's impression: Lung volumes are lower. Small effusions and bibasal opacities again seen, probably similar to prior, likely edema. Differential includes infection. Cardiomegaly. Hiatal hernia partially seen. Cardiac electrode leads and degenerative changes are present CT scan - chest: Radiologist's impression: Moderate pulmonary edema and small pleural effusions. Superimposed peripheral ground-glass opacities, suggestive of viral pneumonia. Suspected mild fluid overload given the small pleural effusions, periportal edema, small volume ascites. 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 Echo: Radiologist's impression: Left ventricular systolic function appears mildly decreased with an estimated ejection fraction of 45 to 50% with mild global hypokinesis, more prominent at the apex with a dyssynchronous contraction pattern, consistent with a paced rhythm, and grossly appears unchanged from the previous study. There continues to be marked septal hypertrophy producing small left ventricular volumes and likely a reduced cardiac output, but likely similar to the previous exam although the previous images were relatively poor. There is no compelling evidence for any outflow tract obstruction although Valsalva maneuver was not clearly performed. Diastolic function remains challenging to assess but is likely significantly abnormal with markedly elevated E/E' values that are higher compared to the previous study. The right ventricle remains normal in size and systolic function. Right ventricular systolic pressure is 45 mmHg with a CVP of 3 mmHg and was unable to be assessed on the previous study. There is marked left atrial enlargement that measures significantly larger compared to the previous exam. There continues to be mild to moderate mitral regurgitation, mild to moderate tricuspid regurgitation, and mild aortic regurgitation that grossly appears unchanged from the previous study. The patient was in a paced rhythm at 60 bpm without clearly identifiable P waves but with a demonstrable mitral inflow A wave, suggesting an organized atrial rhythm. Labs 09/17/24 06:43 09/17/24 06:43 Labs: Laboratory Results - last 24 hr 09/16/24 09/17/24 18:24 06:43 WBC 10.6 RBC 4.41 Hgb 15.0 Hct 44.3 MCV 100.7 H MCH 34.0 MCHC 33.8 RDW 15.0 H Plt Count 231 Sodium 127 L 128 L Potassium 3.9 3.3 L Chloride 91 L 87 L Carbon Dioxide 32 37 H BUN 32 H 27 H Creatinine 1.03 0.87 Estimated GFR 52 L > 60 BUN/Creatinine Ratio 31.1 H 31.0 H Glucose 166 H 105 H Calcium 7.9 L 7.8 L Magnesium 1.7 PFSH Medical History Joint pain of ankle and foot (06/16/05) Joint pain of lower extremity (06/16/05) Abdominal pain, LLQ (06/16/05) Hemothorax on right Multiple rib fractures ICD (implantable cardioverter-defibrillator) in place Pacemaker Hypothyroidism Hypertrophic obstructive cardiomyopathy Surgical History History of ankle surgery Status post hysterectomy Family History Father Hypertension Mother Cancer Social History household members: children Smoking Status: Never smoker alcohol intake: never substance use type: does not use Assessment & Plan Assessment & Plan narrative: 1. Probable VFib arrest, improved. 2. Acute hypoxic respiratory failure, active. 3. Diastolic heart failure with severe LVH, active. 4. PAF, stable. 5. Pacemaker, stable. 6. AICD, stable. 7. Cognitive impairment, active. 8. Presumed hypovolemic hyponatremia, active. 9. Fever, or atelectasis versus pneumonia. Continue antibiotics. 10. Hypotension, from over diuresis versus sepsis. Improved. 11. Hypokalemia, new and improved. Plan: -wean O2 as able. -resume diuresis with a smaller dose of Lasix to try to avoid any hypotension. -continue empiric antibiotics -monitor potassium She was a guarded prognosis, she does not want any further episodes of CPR. Her family understands her situation. If she fails to improve over the next 2 days, the family would consider a transition to comfort based care. Time-Based Coding :: [TOTAL MINUTES] spent with patient and on the chart (including review of chart, obtaining history, exam, reviewing outside data, placing orders, documenting exam and treatment plan, and counseling patient) on [DATE]. Quality VTE Deep Vein Thrombosis/Pulmonary Embolism Present on Admission: No
[2024-09-17] MEDS: FUROSEMIDE 20 MG/2 ML VIAL IV (09:36)
[2024-09-17] MEDS: APIXABAN 5 MG TABLET 2.5 MG PO ×2 (09:37→20:50)
[2024-09-17] MEDS: AMIODARONE 200 MG TABLET 400 MG PO ×2 (09:37→17:59)
[2024-09-17] MEDS: METOPROLOL ER 25 MG TABLET PO ×2 (09:39→20:50)
[2024-09-17] MEDS: POTASSIUM CHLORIDE 20 MEQ TAB 40 MEQ PO (09:39)
[2024-09-17] MEDS: MAGNESIUM OXIDE 400 MG TABLET PO ×2 (09:39→20:50)
[2024-09-17] MEDS: SODIUM CHLORIDE 0.9% FLUSH 10 ML IV ×2 (09:40→20:51)
--- NOTE | 2024-09-17 17:42 | ST.IPCSEOM ---
Visit Care Team Role Provider Type Luba Belle DO Primary Care Provider Physician Specialty: Medical Address: [address] [place] [address], [address], [place], [address] Email: [email or web address] Scott Mejia MD Emergency Provider Physician Referring Provider Specialty: Emergency Medicine Address: [address] [place] [address], [address] Fax: Email: [email or web address] Admit Provider Physician Attending Provider Specialty: Internal Medicine Address: [address] [place] [address], [address] Email: [email or web address] Diagnoses Hypothyroidism, unspecified (09/13/24) Hypo-osmolality and hyponatremia (09/13/24) Essential (primary) hypertension (09/13/24) Obstructive hypertrophic cardiomyopathy (09/13/24) Other ventricular tachycardia (09/13/24) Paroxysmal atrial fibrillation (09/13/24) Acute on chronic diastolic (congestive) heart failure (09/13/24) Gastro-esophageal reflux disease without esophagitis (09/13/24) Stress incontinence (female) (male) (09/13/24) Other reduced mobility (09/13/24) Other specified health status (09/13/24) Past Medical History (Last Reviewed 09/15/24 @ 11:06 by Daniel Bella MD) Abdominal pain, LLQ (Medical 06/16/05) Hemothorax on right (Medical) Hypertrophic obstructive cardiomyopathy (Medical) Hypothyroidism (Medical) ICD (implantable cardioverter-defibrillator) in place (Medical) Implant Date: 10/20/2020 Implanting Physician: Dr. Robbi Burciaga Bolt Sawyer: [place] Model: Kash Rowley DR 2357-40Q Serial#: [id number] Joint pain of ankle and foot (Medical 06/16/05) Joint pain of lower extremity (Medical 06/16/05) Multiple rib fractures (Medical) Pacemaker (Medical) Implant Date: 08/31/2011 Implanting Physician: Dr. Robbi Ramirez Lead Bolt Sawyer: [employer] Medical Model: Tendril ST Optim 1888/52 cm Serial #: [id number] Lead Bolt Sawyer: 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 Clinical Swallow Evaluation Start: 09/17/24 14:19 Freq: Status: Active Protocol: Document 09/17/24 14:20 MM (Rec: 09/17/24 14:26 MM Desktop) Clinical Swallow Evaluation Session Time Visit Start Time 13:30 Visit Stop Time 14:00 Total Visit Minutes 30 Referral Referring Provider Anastacio Turk MD Reason for Referral coughing with thin liquids Setting Assessment Location Acute Care Visit Type Note Type Initial evaluation Next Note Type Next Note Type Treatment Note Patient Information Identification Type Name History Per most recent progress note on 09/17/2024: 89 y/o with PMH of hypertrophic obstructive cardiomyopathy, HFpEF, A-fib, PPM, AICD, HTN, MR, hyponatremia, SVTs, followed by [facility], came to hospital complaining on nausea, vomiting, generalized weakness, diarrhea. Presented hypoxemic with fluid overload. Initially given 1 L of NS for hypotension and ABDOULAYE. That was followed by 20 mg of Lasix and diuresis of 300 cc. During her ED stay she spent several hours on BiPAP. Suspected for pneumonia and given empiric antibiotic. On admission to floor she can hardly provide any history. She lives with son who brought her to hospital . On 09/14 in the morning she went into a wide complex tachycardia. She then went into ventricular fibrillation in the code was called. She underwent CPR and received 1 dose of epinephrine. The patient attained ROSC. She was able to answer questions at that point. She declined further intervention such as CPR for heart were to stop again and was oriented to the hospital. Her son arrived shortly after, and he was able to witness her preferences. Her sister later in the day reinforced that this is been her wish. She then developed acute hypoxic respiratory failure and had evidence of pulmonary edema on her x-ray. She also developed a fever and was started on antibiotics. She required high-flow oxygen and was diuresed. She became hypotensive on September 16 and required some fluid be given back. She remains on high-flow at about 50% on 40 L and is mentally improved from delirium 2 days ago. She has a lot of sternal pain from her CPR. At this point we will try to diurese her more slowly and see if we can get her off from high-flow oxygen. Per CXR 09/16/2024: Lung volumes are lower. Small effusions and bibasal opacities again seen, probably similar to prior, likely edema. Differential includes infection. Per CT chest 09/13/2024: Moderate pulmonary edema and small pleural effusions. Superimposed peripheral ground -glass opacities, suggestive of viral pneumonia. Suspected mild fluid overload given the small pleural effusions, periportal edema, small volume ascites. CT head unremarkable. WBC 09/17/2024 = 10.6, WNL. ST consulted for swallowing evaluation in the setting of pt coughing with thin liquids. Subjective Upon ST arrival, pt sitting upright in bed, alert and Observations oriented, on 40L of supplemental oxygen via HFNC. RN cleared ST to work with pt, reported pt tolerating current diet (level 0/thin and level 5/minced and moist ), however, noted coughing with thin liquids. Pt confirmed hx of coughing /c thin liquids, however, reported baseline diet prior to this hospital admission was (level 0/thin liquids and level 7/regular solids). Reported by Patient/Caregiver Pain/Discomfort Yes Location Chest Other Symptoms Choking,Coughing,History of aspiration or pneumonia Comment Pt endorsed coughing when drinking thin liquids and reported this has been going on for months. Current Diet Minced & Moist (IDDSI 5) Baseline Feeding Needs some assistance Method The IDDSI Framework Protocol: IDDSI.1 Objective Assessment Mental Status Alert,Responsive,Cooperative,Lethargic Oral Integrity WFL Dentition Within normal limits Lip Function Within normal limits Tongue Function Within normal limits Jaw Function Within normal limits Hard/Soft Palate Within normal limits Function Respiratory Moderate impairment Sufficiency Comment Oral mechanism exam revealed adequate dentition, oral health, and cranial nerves grossly intact bilaterally - subjective mild weakness observed, although age appropriate. No baseline cough observed prior to PO trials. Pt requiring 40L of supplemental oxygen via HFNC to maintain pulmonary stability with O2 saturations in the 90s. Food and Liquid Trials Position During Upright (90 degrees) Assessment Liquids Trialed Thin (IDDSI 0) Solid Trials Purred (IDDSI 4),Soft & Bite-sized (IDDSI 6),Regular ( IDDSI 7) Administration Type Cup single sip,Straw,Self-feeding,Needs some assistance Oral Impairment Within functional limits Oral Phase Comments Pt self-fed with set-up assistance from ST. Pt observed across trials of small single sips of thin liquids via straw and cup (3 oz water), puree via tsp (apple sauce x4), soft and bite sized via tsp (diced peaches x4), and regular solids (tatiana cracker x1). Pt exhibited adequate bolus retrieval from straw and cup, oral containment, bolus manipulation, and oral clearance across PO trials with mild oral residue /p regular solid trial that cleared with cued liquid wash. Of note , pt independently utilized safe feeding strategy of slow rate of intake with small bites and sips during PO trials. Pharyngeal Phase Overt signs and symptoms of possible aspiration/ Comments pharyngeal dysphagia observed characterized by coughing after sips of thin liquids. Of note, coughing was worse with larger sips and sips from straw. Coughing was reduced when pt cued to take small, single sips from cup rim. No globus sensation reported. Unable to rule out aspiration/pharyngeal dysphagia without further evaluation with use of imaging via MBSS. Thickened liquids were NOT utilized in this assessment. Thickened liquids present an increased risk of UTI, constipation, cognitive impairment, functional decline, and are associated with risks of dehydration, increased pharyngeal residue, and are more likely to be silently aspirated than thin liquids with greater risk for developing aspiration pneumonia if aspirated ( vicente, 2016). This supports the need to confirm pt requires thickened liquids via MBSS prior to recommending them. Fatigue/Endurance Mild fatigue The IDDSI Framework Protocol: IDDSI.1 Findings Swallowing Function Oral phase WFL, unable to rule out pharyngeal dysphagia Comments without MBSS. Prognosis Fair Comment Clinical signs/symptoms of possible aspiration/ pharyngeal dysphagia include coughing after thin liquids. Recommend further evaluation with use of imaging via modified barium swallow study (MBSS). ST provided risk/benefit education of PO intake versus NPO to pt and family. Pt verbalized preference for IDDSI 7 /regular solids and IDDSI 0/thin liquids at this time, pending results of MBSS, ST encouraged Angulo Free Water Protocol to minimize risk of aspiration pneumonia . Recommend supervision with meals and strict aspiration precautions (upright, slow rate, small sips and bites, no straws, oral care TID). These preferences and recommendations are supported by pt's independence for feeding/oral care, good oral health, and WBC WNL. RN and MD alerted re: results and recommendations. Of note, pt unable to participate in MBSS at this time given requirement of supplemental oxygen via HFNC; ST will continue to follow and attempt MBSS when pt weaned off HFNC. Impact on Safety and Risk for aspiration Functioning Recommendations Instrumental Yes Assessment Swallowing Treatment Yes Frequency ~5x/week Duration Duration of admission pending MBSS Recommended Solids Regular (IDDSI 7) Recommended Liquids Thin (IDDSI 0) Safety Precautions/ Supervision needed for all meals,Feed only when alert, Swallowing Remain upright (90 degrees) during all oral intake, Recommendations Upright position at least 30 minutes after meals,Small bites and sips when eating,Slow rate; swallow between bites,No straw,Strict oral care after intake Medication As Tolerated Recommendations Education Patient/Caregiver Described results of evaluation,Patient expressed Education understanding of evaluation,Patient expressed agreement with goals & treatment plans,Family/caregivers expressed understanding of evaluation,Family/caregivers expressed agreement with goals & treatment plans, Patient expressed understanding of safety precautions, Patient expressed understanding of feeding recommendations,Family/caregivers expressed understanding of safety precautions,Family/caregivers expressed understanding of feeding recommendations Goals Short-term Goals STG1: Pt will use compensatory strategies (upright positioning, slow rate, small sips/bites, no straws) independently to reduce risk of aspiration in 90% of opportunities. STG2: Pt will participate in MBSS to further guide POC. Long-term Goals LTG: Pt will consume the safest and most efficient least restrictive diet with no clinical signs/symptoms of pharyngeal dysphagia in order to meet nutrition/ hydration needs.
[2024-09-17] MEDS: TRAZODONE 50 MG TABLET 25 MG PO (20:50)
[2024-09-18] VITALS (26 sets, daily range): BP systolic 103–181; BP diastolic 61–97; PULSE 60–83; RESP 10–25; TEMP 36.9–37.4; O2SAT 92–100
[2024-09-18] MEDS: LEVOTHYROXINE 50 MCG TABLET PO (05:30)
[2024-09-18] MEDS: PIPERACILLIN/TAZO 3.375 GM in SODIUM CHLORIDE 0.9% 100 ML IV ×3 (05:30→21:38)
[2024-09-18] MEDS: PANTOPRAZOLE DR 20 MG TABLET PO (05:30)
[2024-09-18] MEDS: OXYCODONE IR 5 MG TABLET PO ×2 (05:34→20:15)
[2024-09-18 05:59] LABS: Blood Urea Nitrogen 25 mg/dL (7-17); Calcium 8.0 mg/dL (8.4-10.2); Carbon Dioxide 35 mmol/L (22-32); Chloride 89 mmol/L (98-107); Estimated Glomerular Filt Rate > 60 mL/min (>60); Glucose 110 mg/dL (70-99); HEMOLYSIS 40 (0-50); Potassium 4.3 mmol/L (3.4-5.1); Sodium 126 mmol/L (137-145)
[2024-09-18 06:32] LABS: Magnesium 1.6 mg/dL (1.6-2.3)
--- NOTE | 2024-09-18 08:35 | P.PN_ITS ---
Subjective Subjective Date Patient Seen: 09/18/24 Interval history: She remains very weak and immediately becomes hypoxic and short of breath when the high-flow nasal cannula is removed. She has pain with coughing. She tells me that her primary care is Mary Belle and her high pressure firer is Dr. Man. She lives with her son, is wheelchair-bound and has caregivers for 4 hours 7 days per week. The sodium is 126 with a potassium of 4.3 and a creatinine of 0.69. We will need repeat imaging today, preferably a chest CT as the chest x- ray is quite difficult to read accurately in her case. Exam Vital Signs (past 8 hours): - 09/18/24 02:39 09/18/24 04:00 09/18/24 05:42 Temperature 99 F Pulse Rate 73 70 76 Respiratory Rate 20 10 L 16 Blood Pressure 135/85 133/63 Pulse Oximetry 94 94 96 Oxygen Flow Rate 45 Fraction of Inspired Oxygen 50 Fraction of Inspired Oxygen 50 Oxygen Delivery Method Heated High Flow Oxygen Flow Rate 45 Narrative Exam Narrative: Alert and somewhat confused. Moderate distress with her breathing. Continues with chest wall tenderness from the CPR Heart is regular rate and rhythm without murmur Lungs are clear to auscultation bilaterally Extremities have no ankle edema Objective Labs 09/17/24 06:43 09/18/24 05:25 Labs: Laboratory Results - last 24 hr 09/18/24 05:25 Sodium 126 L Potassium 4.3 Chloride 89 L Carbon Dioxide 35 H BUN 25 H Creatinine 0.69 Estimated GFR > 60 BUN/Creatinine Ratio 36.2 H Glucose 110 H Calcium 8.0 L Magnesium 1.6 PFSH Medical History Joint pain of ankle and foot (06/16/05) Joint pain of lower extremity (06/16/05) Abdominal pain, LLQ (06/16/05) Hemothorax on right Multiple rib fractures ICD (implantable cardioverter-defibrillator) in place Pacemaker Hypothyroidism Hypertrophic obstructive cardiomyopathy Surgical History History of ankle surgery Status post hysterectomy Family History Father Hypertension Mother Cancer Social History household members: children Smoking Status: Never smoker alcohol intake: never substance use type: does not use Assessment & Plan Assessment & Plan narrative: 1. Probable VFib arrest, improved. 2. Acute hypoxic respiratory failure, active. Continue high-flow nasal cannula oxygen. 3. Diastolic heart failure with severe LVH, active. 4. PAF, stable. 5. Pacemaker, stable. 6. AICD, stable. 7. Cognitive impairment, active. 8. Presumed hypovolemic hyponatremia, active. 9. Fever, or atelectasis versus pneumonia. Continue antibiotics - Zosyn. 10. Hypotension, from over diuresis versus sepsis. Improved. 11. Hypokalemia, new and improved. Plan: -wean high-flow nasal cannula O2 as able. -continue low-dose Lasix to try to avoid any hypotension. -continue empiric antibiotics-Zosyn -monitor potassium -repeat imaging with CT versus chest x-ray She was a guarded prognosis, she does not want any further episodes of CPR. Her family understands her situation. If she fails to improve over the next day, the family would consider a transition to comfort based care. Time-Based Coding :: [TOTAL MINUTES] spent with patient and on the chart (including review of chart, obtaining history, exam, reviewing outside data, placing orders, documenting exam and treatment plan, and counseling patient) on [DATE]. Quality VTE Deep Vein Thrombosis/Pulmonary Embolism Present on Admission: No
[2024-09-18] MEDS: APIXABAN 5 MG TABLET 2.5 MG PO ×2 (09:00→20:15)
[2024-09-18] MEDS: MAGNESIUM OXIDE 400 MG TABLET PO ×2 (09:00→20:15)
[2024-09-18] MEDS: AMIODARONE 200 MG TABLET 400 MG PO (09:00)
[2024-09-18] MEDS: METOPROLOL ER 25 MG TABLET PO ×2 (09:02→20:14)
--- NOTE | 2024-09-18 15:01 | DI.CT.S_ITS ---
PROCEDURE: CT CHEST WO CON INDICATIONS: Shortness of breath TECHNIQUE: Noncontrast 5 mm thick sections acquired from the pulmonary apices to the posterior costophrenic angles. 1 mm lung window, 5 mm thick coronal and sagittal and 7 mm axial MIP reformats were then acquired. For radiation dose reduction, the following was used: automated exposure control, adjustment of mA and/or kV according to patient size. COMPARISON: None. FINDINGS: Image quality: Diagnostic. Lower Neck: No enlarged lymph nodes. Thyroid: Multiple subcentimeter hypoattenuating nodules. Axillae: No enlarged lymph nodes. Chest Wall: Left chest wall generator with cardiac leads. Bones: Chronic compression deformity of the L1 vertebral body. 6 mm endplate retropulsion. Lungs and Pleura: Smooth interstitial thickening and bronchial thickening. Small pleural effusions. Atelectatic lung which is heterogeneous and hyperattenuating. Heart: Cardiomegaly. Valvular calcification. Three-vessel coronary calcifications. Thoracic Vessels: The aorta and pulmonary arteries demonstrate normal size. Mediastinum and Sarah: No enlarged lymph nodes. Esophagus: No wall thickening. Large hiatal hernia. Upper Abdomen: Calcified splenic aneurysm measuring 9 mm. Liver is hyperattenuating. IMPRESSION: Moderate pulmonary edema. Small pleural effusions with moderate bibasilar atelectasis. Hyperattenuating atelectatic lung and liver. 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 Large hiatal hernia. Other ancillary findings as above. Dictated by: Tru Vizcarra M.D. on 09/18/2024 at 16:00 Approved by: Tru Vizcarra M.D. on 09/18/2024 at 16:06
--- NOTE | 2024-09-18 15:06 | DIET.CONS ---
Dietary Consultation Note Admission Date: 09/13/2024 21:38 Assessment: 89 y F presenting with N/V and weakness, had v fib arrest and underwent CPR. Dietitian consulted when pt was NPO. Pt no longer NPO. PO intakes 50-75%. Providing preferred protein supplement 1x/day currently. Plan of care is SNF vs comfort care per team rounds in morning. Met with pt and family at bedside to discuss how meal texture change went. Transitioned from dysphagia diet level 5 to level 7 per BRANCH ASSISTANT. Pt mostly interested in fruit or non-meat protein options. Pt notes that she's lost weight in last 3 months since spouse . Per EMR, 7 lb weight loss in 3 months. Visual NFPE showing moderate to severe muscle mass wasting in temples and deltoid. Limited NFPE d/t pt on heated high flow, lying down Ht: 152.4 cm Wt: 57.4 kg BMI: 24.7 UBW: 62.3 kg on 02/07/24 (-8.5% weight loss within 1 yr, non-severe), 59.87 kg on 05/22/24, weight between 62-66 kg from 2019-2023 Last BM: 09/11/24 (09/13/24 23:12) MNA: 12 Hossein Score: 15 Diet: 09/15/24 Breakfast Courtesy Atul (Peds, comfort care) Diet Modifications: 09/16/24 Breakfast Dysphagia Diet Diet Modifications: 1:1 feeding, Thin liquids only with Supervision Food Texture: Level 5 - Minced & Moist Liquid Consistency: Level 0 - Thin 09/18/24 Breakfast Dysphagia Diet Diet Modifications: Food Texture: Level 7 - Regular Liquid Consistency: Level 0 - Thin Nutrition Percent Meal Consumed 50% 09/17/24 18:00 Percent Meal Consumed 50% 09/16/24 18:00 Labs: RBC 4.41 X10^6/uL (4.0-5.2) 09/17/24 06:43 Hgb 15.0 g/dL (12.0-16.0) 09/17/24 06:43 Hct 44.3 % (36-46) 09/17/24 06:43 Creatinine 0.69 mg/dL (0.52-1.04) 09/18/24 05:25 Lactate 1.3 mmol/L (0.7-2.1) 09/16/24 04:21 NT-Pro-B Natriuret Pep 84587 pg/mL (<450) H 09/14/24 08:00 Nutrition Diagnosis: Unintentional weight loss r/t inadequate oral intakes aeb 8.5% weight loss in 1 yr, non-severe, loss of spouse Interventions: -Preferred protein supplement option 2x/day EER: 1500 kcals (26 kcals/kg per BMI) 60 g protein (1g/kg) Monitoring/Evaluations: f/u based on plan of care Electronically Signed by: Elizabeth Vyas 09/18/24 15:06 Clinical Dietitian [address] [address]
--- NOTE | 2024-09-18 15:44 | CM.DPNOTE ---
DCP note YARD CLEANER reviewed EMR. Per MD and RN, pt remains on HHFNC O2 at this time. No PT orders yet due to pt's highflow oxygen and not yet medically appropriate. MBSS recommended when medically appropriate. per provider note, family away of potential transition to CC based plan if does not improve in next day or so. repeat chest CT planned for today. YARD CLEANER unable to meet with pt today due to triaging needs. P: CC vs SNF vs dc home with caregivers and son. medical POC pending. Will continue to follow closely for DCP coordination MARTIN Pinto
[2024-09-18] MEDS: MAGNESIUM CHLORIDE 64 MG TABLET 128 MG PO (16:01)
--- NOTE | 2024-09-18 16:03 | ST.IPDYTX ---
Visit Care Team Role Provider Type Luba Belle DO Primary Care Provider Physician Specialty: Medical Address: [address] [place] [address], [address], [place], [address] Email: [email or web address] Scott Mejia MD Emergency Provider Physician Referring Provider Specialty: Emergency Medicine Address: [address] [place] [address], [address] Fax: Email: [email or web address] Felix MD Admit Provider Physician Attending Provider Specialty: Internal Medicine Address: [address] [place] [address], [address] Email: [email or web address] SUPPORT PROFESSIONAL Dysphagia Treatment DIRECT SUPPORT PROFESSIONAL Dysphagia Treatment Start: 09/18/24 15:39 Freq: Status: Active Protocol: Document 09/18/24 15:39 MM (Rec: 09/18/24 16:03 MM Desktop) Dysphagia Treatment Session Time Visit Start Time 13:20 Visit Stop Time 13:40 Total Visit Minutes 20 Visit Information Visit Number 2 Setting Assessment Location Acute Care Visit Type Note Type Treatment Note Next Note Type Next Note Type Treatment Note Patient Information Subjective Upon ST arrival, pt sitting upright in bed, alert and Observations oriented, on 40L of supplemental oxygen via HFNC. RN cleared ST to work with pt. RN reported pt continues to cough with PO intake and requires multiple cues to utilize safe swallow strategies consistently. Pt reported tolerating upgraded diet of IDDSI 7/regular solids and IDDSI 0/thin liquids, though endorsed continued coughing following thin liquids and reported globus sensation with more solids foods. Pt stated preference to remain on this diet following risk/ benefit discussion re: aspiration risk as well as safest/least restrictive diet recommendations. Treatment Liquids Trialed Thin (IDDSI 0) Administration Type Cup Single Sip,Self-Feeding Pharyngeal Sitting Upright (90 deg),Effortful Swallow,Small Bites Strategies and Sips Additional Dysphagia Oral care TID Treatment Strategies Treatment Activities Oral care. Therapeutic PO trials of thin liquids with compensatory strategies to reduce risk of aspiration. Risk/benefit discussion of aspiration risk and safest/ least restrictive diet recommendations with safe swallow strategies. The IDDSI Framework Protocol: IDDSI.1 Assessment Patient Response to Fair Treatment Rehab Potential Fair Assessment of ST assisted pt in performing oral care with toothbrush Improvement and toothpaste as well as rinse with mouthwash prior to PO trials. Pt tolerated 4/5 trials of thin liquids via independently administered cup sip without overt signs/symptoms of aspiration with min-mod cues to use of safe swallow strategies (slow rate, small single sips, effortful swallow). In 1/5 trials pt exhibited throat clearing/coughing. ST reviewed safe swallow strategies with pt verbalizing understanding as evidenced by teach back with min cues. Unable to confirm/rule out aspiration/pharyngeal dysphagia without further evaluation with use of imaging via MBSS , however, unable to complete MBSS at this time given pt requiring supplemental oxygen via HFNC. Given concern for aspiration, discussed risk/benefits of aspiration risk and safest/least restrictive diet recommendations with safe swallow strategies; following discussion, pt verbalized preference to continue on IDDSI 7/regular solids and IDDSI 0/thin liquids at this time. ST encouraged pt and pt's son at bedside to utilize safe swallow strategies, perform oral care frequently, and follow Angulo Free Water Protocol to minimize aspiration risk. Recommendations Recommendations Continue Current Diet Liquids Order Thin (IDDSI 0) Diet Order Regular (IDDSI 7) Medication As Tolerated Recommendations Additional Dietary Single Sips,No Straws,1:1 Supervision,Encourage to Self Needs -Feed,Reminders to Use Strategies Aspiration Precautions Recommended Upright at 90 Degrees,Small Bites/Sips,Effortful Precautions Swallow Treatment Plan Appropriate for Yes Continued Therapy Therapy Recommend further evaluation with use of imaging via Recommendations modified barium swallow study (MBSS) when pt appropriate. Recommend supervision with meals and strict aspiration precautions. Recommend ST to continue to follow pt during this admission pending MBSS. Dysphagia Goals LTG: Pt will consume the safest and most efficient least restrictive diet with no clinical signs/symptoms of pharyngeal dysphagia in order to meet nutrition/ hydration needs. STG1: Pt will use compensatory strategies (upright positioning, slow rate, small sips/bites, no straws) independently to reduce risk of aspiration in 90% of opportunities. STG2: Pt will participate in MBSS to further guide POC.
[2024-09-18] MEDS: TORSEMIDE 10 MG TABLET 20 MG PO (17:53)
--- NOTE | 2024-09-18 19:33 | PC.NURSE ---
Shift summary: Patient woke for all her meals and attempted to eat with assistance, though complains that she does not prefer the hospital food here. Patient remained on heated hi flow managed by RT until the afternoon when CT scan was ordered and patient was transittioned to a NRB mask for transport to scan. Patient tolerated well, and transitioned to oxymask at 6L by RT. Patient denies shortness of breath, but remains fatigued. Denies pain this shift, though occasionally moans or complains of discomfort with moving in the bed. Declines pain medications today. Oh remains intact draining dark yellow urine. No BM today. No nausea or vomiting. Call light is within reach, and bed alarm active for safety.
[2024-09-18] MEDS: QUETIAPINE 25 MG TABLET 12.5 MG PO (20:15)
[2024-09-18] MEDS: SODIUM CHLORIDE 0.9% FLUSH 10 ML IV (20:16)
[2024-09-19] VITALS (26 sets, daily range): BP systolic 111–171; BP diastolic 60–88; PULSE 60–81; RESP 10–33; TEMP 36.6–37.5; O2SAT 86–97
--- NOTE | 2024-09-19 02:45 | PC.NURSE ---
Bilateral Mittens placed on patient at 0230. Placed due to patient having pulled an IV out earlier in shift. patient continues to pull gown and other medical monitoring devices off. This RN attempted several times to orient patient and redirect patient but was unsuccessful. This RN explain to patient the reason for the mittens.
[2024-09-19] MEDS: MORPHINE 2 MG/ML INJ IV (03:20)
[2024-09-19 05:07] LABS: Blood Urea Nitrogen 22 mg/dL (7-17); Calcium 8.0 mg/dL (8.4-10.2); Carbon Dioxide 39 mmol/L (22-32); Chloride 88 mmol/L (98-107); Estimated Glomerular Filt Rate > 60 mL/min (>60); Glucose 99 mg/dL (70-99); HEMOLYSIS < 15 (0-50); Magnesium 1.6 mg/dL (1.6-2.3); Potassium 3.6 mmol/L (3.4-5.1); Sodium 128 mmol/L (137-145)
[2024-09-19] MEDS: PIPERACILLIN/TAZO 3.375 GM in SODIUM CHLORIDE 0.9% 100 ML IV (06:03)
[2024-09-19] MEDS: LEVOTHYROXINE 50 MCG TABLET PO (06:40)
[2024-09-19] MEDS: OXYCODONE IR 5 MG TABLET PO ×2 (06:40→22:00)
[2024-09-19] MEDS: PANTOPRAZOLE DR 20 MG TABLET PO (06:41)
--- NOTE | 2024-09-19 07:50 | PM.PN.1 ---
Subjective Subjective Date Patient Seen: 09/19/24 Interval history: She is doing remarkably better today. She is now on 3 L nasal cannula oxygen during the day, still needing OxyMask at times but only at night. Only 24 hours ago she was still dependent on high-flow nasal cannula. She was started on torsemide yesterday. Her hearing limits a thorough review of how she feels but family confirms that she looks better. We discussed today that custodial facility rehab is likely in her future. She has apparently never needed a SNF before. The sodium has risen from 04/15 up to 128. The potassium dropped from 4.3 down to 3.6. The creatinine is 0.79 and the glucose is 99. The magnesium is 1.6. Her blood pressure is 171/80. The CT scan yesterday showed continuation of moderate pulmonary edema. Exam Vital Signs (past 8 hours): - 09/19/24 00:00 09/19/24 00:04 09/19/24 00:04 Temperature 99.3 F 99.5 F Pulse Rate 79 81 Respiratory Rate 29 H 20 Blood Pressure 162/88 H Pulse Oximetry 89 L 95 Oxygen Delivery Method 09/19/24 02:00 09/19/24 03:16 09/19/24 03:16 Temperature 99.1 F 98.8 F Pulse Rate 75 68 Respiratory Rate 13 27 H Blood Pressure 171/80 H Pulse Oximetry 94 96 Oxygen Delivery Method 09/19/24 03:17 09/19/24 04:00 09/19/24 07:00 Temperature 98.8 F Pulse Rate 65 Respiratory Rate 10 L Blood Pressure 171/80 H Pulse Oximetry 93 Oxygen Delivery Method Nasal Cannula Oximask Fraction of Inspired Oxygen 50 Oxygen Delivery Method Nasal Cannula,Oximask Oxygen Flow Rate 6 Narrative Exam Narrative: She is very hard of hearing. She is alert and oriented to her name but it is difficult to communicate more than that. Heart is regular rate and rhythm without murmur Lungs are clear to auscultation bilaterally Extremities have no ankle edema Objective Labs 09/17/24 06:43 09/19/24 04:41 Labs: Laboratory Results - last 24 hr 09/19/24 04:41 Sodium 128 L Potassium 3.6 Chloride 88 L Carbon Dioxide 39 H BUN 22 H Creatinine 0.79 Estimated GFR > 60 BUN/Creatinine Ratio 27.8 H Glucose 99 Calcium 8.0 L Magnesium 1.6 PFSH Medical History Joint pain of ankle and foot (06/16/05) Joint pain of lower extremity (06/16/05) Abdominal pain, LLQ (06/16/05) Hemothorax on right Multiple rib fractures ICD (implantable cardioverter-defibrillator) in place Pacemaker Hypothyroidism Hypertrophic obstructive cardiomyopathy Surgical History History of ankle surgery Status post hysterectomy Family History Father Hypertension Mother Cancer Social History household members: children Smoking Status: Never smoker alcohol intake: never substance use type: does not use Assessment & Plan Assessment & Plan narrative: 1. Probable VFib arrest, improved. 2. Acute hypoxic respiratory failure, active. Continue OxyMask at night and nasal cannula oxygen during the day. 3. Diastolic heart failure with severe LVH, active. Moderate pulmonary edema on CT chest 09/18/2024. 4. PAF, stable. 5. Pacemaker, stable. 6. AICD, stable. 7. Cognitive impairment, active. 8. Presumed hypovolemic hyponatremia, active. 9. Fever, or atelectasis versus pneumonia. Continue antibiotics - Zosyn. 10. Hypotension, from over diuresis versus sepsis. Resolved 11. Hypokalemia, new and improved. 12. Hearing Loss Plan: -wean nasal cannula O2 as able. -tolerating oral torsemide without hypotension -continue empiric antibiotics-Zosyn -monitor potassium and sodium She was a guarded prognosis, she does not want any further episodes of CPR. Her family understands her situation. Discharge planning will now transition to local rehab facilities for custodial care. Time-Based Coding :: [TOTAL MINUTES] spent with patient and on the chart (including review of chart, obtaining history, exam, reviewing outside data, placing orders, documenting exam and treatment plan, and counseling patient) on [DATE]. Quality VTE Deep Vein Thrombosis/Pulmonary Embolism Present on Admission: No
[2024-09-19] MEDS: METOPROLOL ER 25 MG TABLET PO ×2 (08:31→21:43)
[2024-09-19] MEDS: MAGNESIUM OXIDE 400 MG TABLET PO ×2 (08:31→21:42)
[2024-09-19] MEDS: TORSEMIDE 10 MG TABLET 20 MG PO (08:31)
[2024-09-19] MEDS: APIXABAN 5 MG TABLET 2.5 MG PO ×2 (08:31→21:41)
[2024-09-19] MEDS: SODIUM CHLORIDE 0.9% FLUSH 10 ML IV ×2 (08:32→21:38)
[2024-09-19] MEDS: MAGNESIUM CHLORIDE 64 MG TABLET 128 MG PO (10:05)
--- NOTE | 2024-09-19 12:48 | CM.DPNOTE ---
DCP note [employer] reviewed EMR per provider, pt miraculously better today. on 3ltrs O2 down from heated high flow. per speech, pt remains not quite alert enough for MBSS. rec SNF for her due to below prior level of fx. PT/OT pending. [employer] met with pt sister and pt niece (2nd DPOA) Jasmyn in room. reviewed DCP options/CC. at this moment DPOA Jasmyn unsure how much the LTC ins can increase PP CGs. preference would be to dc to SNF. reviewed SNF options, preference for local in [place]. would have to get other DPOA son Scott in agreement as well. [employer] emailed preliminary referral to Mel at for review. acceptance pending. PASRR needed CM team will continue to follow closely for DCP coordination MARTIN Pinto
--- NOTE | 2024-09-19 13:20 | PT.IIE ---
Current Diagnoses Hypothyroidism, unspecified (09/13/24) Hypo-osmolality and hyponatremia (09/13/24) Essential (primary) hypertension (09/13/24) Obstructive hypertrophic cardiomyopathy (09/13/24) Other ventricular tachycardia (09/13/24) Paroxysmal atrial fibrillation (09/13/24) Acute on chronic diastolic (congestive) heart failure (09/13/24) Gastro-esophageal reflux disease without esophagitis (09/13/24) Stress incontinence (female) (male) (09/13/24) Other reduced mobility (09/13/24) Other specified health status (09/13/24) Surgical History (Last Reviewed 09/15/24 @ 11:06 by Daniel Bella MD) History of ankle surgery Status post hysterectomy Medical History (Last Reviewed 09/15/24 @ 11:06 by Daniel Bella MD) Abdominal pain, LLQ (06/16/05) Hemothorax on right Hypertrophic obstructive cardiomyopathy Hypothyroidism ICD (implantable cardioverter-defibrillator) in place Joint pain of ankle and foot (06/16/05) Joint pain of lower extremity (06/16/05) Multiple rib fractures Pacemaker Physical Therapy Inpatient Evaluation/Re-Eval M1 PT/OT-IP Prior Functional Status Start: 09/19/24 15:35 Freq: NEEDED Status: Active Protocol: Document 09/19/24 13:20 AB (Rec: 09/19/24 15:51 AB [id number]) Medical Review Prior Functional Status Medical History Yes Reviewed Communication able to respond to questions but inconsistent; [place] Mobility and Gait pt's family in room and provided pt's PLOF and home set up: family stated that pt has been w/c bound for ~ 1 1/2 months already. pt has decliine in function since spouse passed. Son assists pt with all needs. Son was able to squat/stand pivot transfer pt bed<>w/c<>toilet . Son stated that pt needs 1-2 person assist for stairs using SPC when pt has a medical appointment and able to ambulate using SPC with 1-2 person assist to get into the car. son assists pt with maneuvering of manual w/c Social History Household Members children Living Arrangements Apartment/Condo Number of Floors ( Two Floors Floors) Number of Stairs To pt stays on the main level of the house; son lives Enter/Railing? downstairs. Home Environment Standard Height Toilet,Walk in Shower Home Equipment Front Wheel Walker,Straight Cane,Manual Wheelchair, Shower Seat without Backrest,Hand Held Shower,Grab Bars Near Toilet,Grab Bars In Shower Additional Social pt lives with her son History Comment M2 PT-IP Current Condition Start: 09/19/24 15:35 Freq: NEEDED Status: Active Protocol: Document 09/19/24 13:20 AB (Rec: 09/19/24 15:51 AB [id number]) Physical Therapy Current Condition Current Condition Evaluation Date 09/19/24 Treatment Diagnosis UTI; CHF; generalized weakness Onset Date 09/13/24 M3 PT-IP Subjective Start: 09/19/24 15:35 Freq: NEEDED Status: Active Protocol: Document 09/19/24 13:20 AB (Rec: 09/19/24 15:51 AB [id number]) Subjective Physical Therapy Visit Type Type Initial Evaluation Visit Start Time 13:20 Visit Stop Time 14:25 Number of ADOPTION COUNSELOR Visits 0 Physical Therapy Visit Comments Patient Comments agreed to do PT M4 PT-IP Mobility and Gait Start: 09/19/24 15:35 Freq: NEEDED Status: Active Protocol: Document 09/19/24 13:20 AB (Rec: 09/19/24 15:51 AB [id number]) PT-Bed Mobility Assessment Supine to Sit Supine to Sit Maximum Assistance,2 Person Assistance,Head of Bed Elevated,Bedrails Scooting Scooting to Edge of Dependent Bed PT-Transfer Assessment Sit to and From Stand Sit to and from Maximum Assistance,2 Person Assistance,Use of Upper Stand Extremities Equipment Transfer Assistive Small Based Quad Cane,Front Wheeled Walker Device Orthotic/Prosthetic No Devices or Brace: Transfers Transfer Destination Chair Transfer Technique Squat Pivot Transfer Ability Level of Assist Total Assistance,2 Person Assistance,Use of Upper Extremities Comments Mobility Comments pt in bed. Family in room. obtained PLOF and home set up from family. BP: 127/79 O2 sat: 93% MA: 70 pt is [place] and needed cues to stay awake. pt completed supine to sit max A x 2 and max cues. able to sit on EOB max A with increase posterior leaning and lateral leaning to the L. pt only able to maintain sitting balance for 2-4 sec and needed assist and repositioning max A. dependent with scooting to EOB. sit <>stand max A x 2 and max cues using FWW for support. BLE buckling and unable to stand long enough to transfer with FWW. pt agreed to sit on the chair. completed squat pivot transfer total A x 2 and max cues. PT in front of pt to assist and OT behind pt. positioned pt on the chair. call light and table placed within reach . PT-Balance Assessment Sitting Balance and Reactions Static Sitting Poor Balance Ability Dynamic Sitting Poor Balance Ability Standing Balance and Reactions Static Standing Poor Balance Ability Dynamic Standing Poor Balance Ability Device Used FWW M5 PT-IP Objective Assessments Start: 09/19/24 15:35 Freq: NEEDED Status: Active Protocol: Document 09/19/24 13:20 AB (Rec: 09/19/24 15:51 AB [id number]) Orientation Orientation/Cognition Level of Alertness Confusional State Orientation Name,Place Language Function Hard of Hearing Ability Safety Awareness Decreased Safety Awareness Memory Description Short Term Impaired,Offshore Diver Impaired Gross Range of Motion Lower Extremity ROM Assessment Within Functional Limits Strength Lower Extremity Strength Assessment Bilaterally Impaired Hip 3-/5 Knee 2+/5 Muscle Tone Muscle Tone WNL Yes M6 PT-IP Treatment Start: 09/19/24 15:35 Freq: NEEDED Status: Active Protocol: Document 09/19/24 13:20 AB (Rec: 09/19/24 15:51 AB [id number]) Physical Therapy Treatment Education Education Provided Safety M7 PT-IP Assessment and Plan Start: 09/19/24 15:35 Freq: NEEDED Status: Active Protocol: Document 09/19/24 13:20 AB (Rec: 09/19/24 15:51 AB [id number]) PT Summary Assessment and Plan Potential Rehabilitation Fair Potential Status of Condition Evolving at Evaluation Summary Impairments Pain,ROM,Strength,Balance,Coordination,Sensation,Tone, Cognition,Bed Mobility,Transfers,Gait,Activity Tolerance Assessment Summary pt is an 89 y/o F who is admitted for UTI, CHF. pt requiring max A x 2 to total A x 2 for mobility and presents with decrease activity tolerance. pt will benefit from SNF rehab to improve strength and mobility . Goals Bed Mobility Goal Minimal Assistance Transfer Goal Moderate Assistance,Front Wheeled Walker Gait Goal Moderate Assistance,Front Wheel Walker Gait Distance 25 Other Goals LTG: improve bed mobility, transfers, ambulation using FWW 50 ft SBA Days to Meet Goals 10 Frequency of Treatment Frequency Of Once a Day Treatment Treatment Plan Physical Therapy Bed Mobility Training,Transfer Training,Gait Training, Treatment Plan Therapeutic Exercise,Balance Retraining,Discharge Planning,Neuromuscular Re-ed,Coordination Retraining, Manual Therapy Precautions Other Precautions falls Recommendations To Nursing Amount of Assist Mechanical Lift Needed Discharge Recommendations PT Discharge SNF Rehab Recommendations Transportation Needs Wheelchair/Cabulance,Stretcher/Ambulance at Discharge - PT assist 2
--- NOTE | 2024-09-19 13:20 | OT.IP.EVAL ---
Current Diagnoses Hypothyroidism, unspecified (09/13/24) Hypo-osmolality and hyponatremia (09/13/24) Essential (primary) hypertension (09/13/24) Obstructive hypertrophic cardiomyopathy (09/13/24) Other ventricular tachycardia (09/13/24) Paroxysmal atrial fibrillation (09/13/24) Acute on chronic diastolic (congestive) heart failure (09/13/24) Gastro-esophageal reflux disease without esophagitis (09/13/24) Stress incontinence (female) (male) (09/13/24) Other reduced mobility (09/13/24) Other specified health status (09/13/24) Past Medical History (Last Reviewed 09/15/24 @ 11:06 by Daniel Bella MD) Abdominal pain, LLQ (06/16/05) Hemothorax on right Hypertrophic obstructive cardiomyopathy Hypothyroidism ICD (implantable cardioverter-defibrillator) in place Joint pain of ankle and foot (06/16/05) Joint pain of lower extremity (06/16/05) Multiple rib fractures Pacemaker Surgical History (Last Reviewed 09/15/24 @ 11:06 by Daniel Bella MD) History of ankle surgery Status post hysterectomy Occupational Therapy Inpatient Evaluation/Re-Eval M1 PT/OT-IP Prior Functional Status Start: 09/19/24 15:35 Freq: NEEDED Status: Active Protocol: Document 09/19/24 13:20 AB (Rec: 09/19/24 15:51 AB [id number]) Medical Review Prior Functional Status Medical History Yes Reviewed Communication able to respond to questions but inconsistent; [place] Mobility and Gait pt's family in room and provided pt's PLOF and home set up: family stated that pt has been w/c bound for ~ 1 1/2 months already. pt has decliine in function since spouse passed. Son assists pt with all needs. Son was able to squat/stand pivot transfer pt bed<>w/c<>toilet . Son stated that pt needs 1-2 person assist for stairs using SPC when pt has a medical appointment and able to ambulate using SPC with 1-2 person assist to get into the car. son assists pt with maneuvering of manual w/c Social History Household Members children Living Arrangements Apartment/Condo Number of Floors ( Two Floors Floors) Number of Stairs To pt stays on the main level of the house; son lives Enter/Railing? downstairs. Home Environment Standard Height Toilet,Walk in Shower Home Equipment Front Wheel Walker,Straight Cane,Manual Wheelchair, Shower Seat without Backrest,Hand Held Shower,Grab Bars Near Toilet,Grab Bars In Shower Additional Social pt lives with her son History Comment M2 OT-IP Current Condition Start: 09/19/24 15:32 Freq: Status: Active Protocol: Document 09/19/24 15:33 [facility] (Rec: 09/19/24 15:50 [facility] Desktop) Occupational Therapy Current Condition Current Condition Evaluation Date 09/19/24 Treatment Diagnosis Acute hypoxic respiratory failure, generalized weakness Diagnosis Onset Date 09/13/24 M3 OT- IP Subjective and Pain Start: 09/19/24 15:32 Freq: Status: Active Protocol: Document 09/19/24 15:33 [facility] (Rec: 09/19/24 15:50 [facility] Desktop) OT- Subjective Occupational Therapy Visit Type Type Initial Evaluation Visit Start Time 13:20 Visit Stop Time 14:58 Occupational Therapy Visit Comments Patient Comments Pt's niece and daughter present in the room and pt's son came in at the end of the session. Pt when asked agreeable to try to get up and agreeing to actively participate in therapy. Patient/Caregiver TO get better. Goals OT Pain Assessment Pain When Pain Assessed During Mobility Pain Present Pain Present Pain Reported Location Right Ribs, Chest Pain Behaviors Facial Grimacing,Holding Area M4 OT- IP ADL's Start: 09/19/24 15:32 Freq: Status: Active Protocol: Document 09/19/24 15:33 [facility] (Rec: 09/19/24 15:50 [facility] Desktop) OT [id number] Comments OT Self-Feeding Not at meal time. Comments OT ADL-Grooming General Evaluation Grooming Ability Moderate Assistance Areas Needing Retrieving/Set-up of Grooming Items,Combing/Brushing Assistance Hair Comments OT Grooming Comments Pt needing assist for completeness to comb her hair due to BUE weakness. OT ADL-Oral Care General Eval Oral Care Ability Moderate Assistance Areas of Assistance Brushing Teeth,Retrieving/Set-Up of Items Comments Oral Care Comments Pt fatigues quickly and then needing assist to help finish brushing her teeth. OT ADL-Dressing General Eval Lower Body Dressing Total Assistance Ability Areas Needing Socks Assistance OT ADL-Toileting General Evaluation Toileting Ability Total Assistance Areas Needing Empty Catheter or Colostomy Assistance Comments OT Toileting Oh in place. Comments OT ADL-Bathing Comments OT Bathing Comments Sponge bath more appropriate at this time. M5 OT- IP IADL's Start: 09/19/24 15:32 Freq: Status: Active Protocol: Document 09/19/24 15:33 [facility] (Rec: 09/19/24 15:50 [facility] Desktop) OT-Instrumental Activities of Daily Living Home Safety Awareness Home Safety Comments Pt is a bit groggy but aware that she was needing assist for ADL and mobility needs. Meal Preparation Meal Preparation Caregiver Provides Assist Press Shop Supervisor Press Shop Supervisor Caregiver Provides Assist M6 OT- IP Functional Cognition Start: 09/19/24 15:32 Freq: Status: Active Protocol: Document 09/19/24 15:33 [facility] (Rec: 09/19/24 15:50 [facility] Desktop) Cognitive Factors Limiting Selfcare Function Cognitive Ability Level of Alertness Alert,Drowsy Patient Orientation Name,Age,Birthday,Month,Year,Place,Situation Attention Span Capable of Focused Attention,Capable of Sustained Ability Attention Ability to Follow Able to Follow One Step Commands Commands Cognitive Comments Cognitive Assessment Pt able to follow command for ADL and mobility needs. Comments Pt a bit drowsy and needing repeated cues to follow at times. Pt is pleasant and cooperative and actively trying to participate for therapy eval. OT- Vision and Hearing OT- Hearing Assessment OT- Hearing Hearing Impaired,Use of Hearing Aids Assessment OT- Vision Assessment Visual Acuity Glasses For Reading Visual Attentiveness WFL Occular Pursuits WFL M7 OT- IP Mobility and Balance Start: 09/19/24 15:32 Freq: Status: Active Protocol: Document 09/19/24 15:33 [facility] (Rec: 09/19/24 15:50 [facility] Desktop) OT- Bed Mobility Assessment Supine to Sit Supine to Sit Assist Maximum Assistance,2 Person Assistance OT-Transfer Assessment Sit to and From Stand Sit to and from Maximum Assistance,2 Person Assistance Stand Transfers Transfer Ability Total Assistance,2 Person Assistance Technique Transfer Destination Bed,Chair Transfer Technique Squat Pivot Devices Transfer Assistive None,Gait Belt Devices Comments Mobility Comments MAX XA 2 with HOB up, assist to more her legs , hip and get her trunk upright. MAX X 2 to scoot her forwards with the green pad. MAX AX 2 to stand to the FWW and unable to stand all the way upright. Dependent x2 to squat pivot pt to the recliner and dependent for repositioning. Suggested to nursing pt have a chair alarm on for safety. OT- Balance Assessment Sitting Balance and Reactions Static Sitting Poor Balance Ability Dynamic Sitting Poor Balance Ability Standing Balance and Reactions Static Standing Poor Balance Ability Dynamic Standing Poor Balance Ability Comments Other Balance Tests/ Pt able to sit after getting her to the edge of the bed Deviations/Treatment with CGA for a brief moment and heavy use of the bed : rail to try to maintain her balance. Otherwise pt needing MAX AX 1 for sitting balance needs at this time . Educated pt to try to lean forwards and use her arms to help support her while sitting. M8 OT- IP Objective Assessments Start: 09/19/24 15:32 Freq: Status: Active Protocol: Document 09/19/24 15:33 [facility] (Rec: 09/19/24 15:50 [facility] Desktop) OT Gross Range of Motion Upper Extremity Range of Motion Assessment Bilaterally Impaired OT Strength Upper Extremity Strength Assessment Bilaterally Impaired Comments Strength Comments BUE 3-/5 to 3+/5 OT- Coordination Assessment Comments Coordination Pt needing assist for set-up for grooming needs. Comments M9 OT- IP Assessment and Plan Start: 09/19/24 15:32 Freq: Status: Active Protocol: Document 09/19/24 15:33 [facility] (Rec: 09/19/24 15:50 [facility] Desktop) OT Summary Assessment and Plan Potential Rehabilitation Fair Potential Analytic Complexity High at Evaluation Summary OT Impairments Pain,Range of Motion,Strength,Balance,Functional Cognition,Functional Mobility,Self-Feeding,Grooming, Dressing,Toileting,Bathing,Toilet Transfers,Shower Transfers,Activity Tolerance Goals Self-Feeding Goal Independent Grooming Goal Standby Assistance Dressing Goal Moderate Assistance Toileting Goal Moderate Assistance Bathing Goal Moderate Assistance Toilet Transfer Goal Moderate Assistance Shower Transfer Goal Moderate Assistance Days to Meet Goals 30 Frequency of Treatment Other frequency 5x/week Treatment Plan OT Treatment Plan ADL Training,Functional Mobility,Patient/Family Education,Discharge Planning Other Treatment Pt to sit at EOB with SHANTELLE and be able to do oral care Recommendations and needs with SHANTELLE. Next Treatment Focus Discharge Recommendations OT Discharge SNF Rehab Recommendations Transportation Needs Wheelchair/Cabulance at Discharge
[2024-09-19] MEDS: AMOXICILLIN 250 MG CAPSULE 1000 MG PO ×2 (13:30→21:38)
--- NOTE | 2024-09-19 14:53 | ST.IPDYTX ---
Visit Care Team Role Provider Type Luba Belle DO Primary Care Provider Physician Specialty: Medical Address: [address] [place] [address], [address], [place], [address] Email: [email or web address] Scott Mejia MD Emergency Provider Physician Referring Provider Specialty: Emergency Medicine Address: [address] [place] [address], [address] Fax: Email: [email or web address] Hamilton Felix MD Admit Provider Physician Attending Provider Specialty: Internal Medicine Address: [address] [place] [address], [id number] Email: [email or web address]AGE INSTRUCTOR Dysphagia Treatment [employer]ANG[employer]AGE IN[employer]CTOR Dysphagia Treatment Start: 09/18/24 15:39 Freq: Status: Active Protocol: Document 09/19/24 11:24 SS (Rec: 09/19/24 11:29 SS Desktop) Dysphagia Treatment Session Time Visit Start Time 10:50 Visit Stop Time 11:15 Total Visit Minutes 25 Visit Information Visit Number 3 Setting Assessment Location Acute Care Visit Type Note Type Treatment Note Next Note Type Next Note Type Treatment Note Patient Information Subjective Upon RUSSIAN LANGUAGE INSTRUCTOR arrival, pt was asleep. RUSSIAN LANGUAGE INSTRUCTOR assisted with Observations positioning upright and inserting hearing aids. Per RN, pt has been more awake today, though continues to drift in and out of sleep. She required frequent verbal and tactile stimuli to wake up with RUSSIAN LANGUAGE INSTRUCTOR today. She is now on 3 L nasal cannula oxygen during the day, still needing OxyMask at times but only at night. Chart reviewed and RN consulted. RN reported pt continues to cough occasionally with PO intake and she required max cueing to fully masticate solids before attempting to swallow. Pt's sister and niece and bedside today. Treatment Liquids Trialed Thin (IDDSI 0) Solids Trialed Purred (IDDSI 4),Minced & Moist (IDDSI 5),Regular ( IDDSI 7) Administration Type Cup Single Sip,Straw,Self-Feeding Oral Strategies Upright at 90 degrees,Double Swallow,Controlled Bite/ Sip Size,Alternate Liquids/Solids Pharyngeal Sitting Upright (90 deg),Small Bites and Sips,Alternate Strategies Liquids/Solids Additional Dysphagia Oral care TID Treatment Strategies Treatment Activities RUSSIAN LANGUAGE INSTRUCTOR completed therapeutic PO trials of thin liquids ( water) via tsp, cup sip, and straw as well as puree, minced and moist, and regular textures. Dynamic assessment of s/sx of dysphagia. Provided pt and family education re: POC based on pt progress and overall health status. Communicated with RN re: POC and recommendations. Contacted radiology to schedule MBSS for 09/20 at 10:00. The IDDSI Framework Protocol: IDDSI.1 Assessment Patient Response to Good Treatment Rehab Potential Fair Assessment of Pt?s alertness and responsiveness appear to have Improvement increased for last session. However, her ability to remain awake continues to was and wane throughout the day. She benefited from frequent verbal/tactile stimuli to remain awake during the session. Additionally, her respiratory needs appear to be slowly but steadily decreasing with change to 3L O2 via NC today. During therapeutic trials of thin liquids via tsp, cup, and straw, she demonstrated good oral acceptance, intermittent labial escape, and slowed AP lingual transport. No overt s/sx of aspiration were noted. She demonstrated good oral acceptance and containment with puree and minced and moist textures, slowed and disorganized mastication, and multiple swallows per bolus. Again, no overt s/sx of aspiration. Oral and pharyngeal phase observations with regular solid were similar, though pt required max cueing to bite off a piece of cracker. Minimal attempt at mastication was observed and pt required multiple cues to clear large amount of oral residue via lingual sweep and liquid wash. Pt again demonstrated no overt s/sx of aspiration . Overall, pt?s ability to participate in trials continues to improve, but is limited by her waxing and waning cognition and respiratory needs. Additionally, there have been reports of overt s/sx of aspiration over the past several days and earlier in the day. Pt would benefit from completing an MBSS to objectively assess swallow function. Anticipate pt?s alertness will continue to improve and pt will be able to tolerate MBSS tomorrow. MBSS scheduled for 09/20 at 10:00 if pt is appropriate and able to tolerate. Given significant difficulty with intake of regular solids observed during session and reported by RN, recommend diet change to minced and moist until alertness improves and MBSS is completed to increase rate of PO intake and reduce risk of aspiration due to limited mastication and cognitive impairment. Pt and family agreeable. Continue with 1:1 supervision for all intake, cueing to utilize safe swallowing precautions, and oral care TID . Recommendations Recommendations Downgrade Diet Order Liquids Order Thin (IDDSI 0) Diet Order Minced & Moist (IDDSI 5) Medication As Tolerated,Whole in Carrier,Crushed in Carrier Recommendations Additional Dietary Chopped Food,Single Sips,Controlled Sips,1:1 Needs Supervision,Encourage to Self-Feed,Reminders to Use Strategies Aspiration Precautions Recommended Upright at 90 Degrees,Frequent Rest Periods,Small Bites Precautions /Sips,Check for Pocketing Treatment Plan Placement [facility] Facility Recommendation after Discharge Appropriate for Yes Continued Therapy Therapy Recommend further evaluation with use of imaging via Recommendations modified barium swallow study (MBSS) when pt appropriate. Recommend supervision with meals and strict aspiration precautions. Oral care TID to minimize colonization of oral pathogens that can increase pt's risk of developing aspiration pneumonia if aspirated. Recommend ST to continue to follow pt during this admission pending MBSS. Dysphagia Goals LTG: Pt will consume the safest and most efficient least restrictive diet with no clinical signs/symptoms of pharyngeal dysphagia in order to meet nutrition/ hydration needs. STG1: Pt will use compensatory strategies (upright positioning, slow rate, small sips/bites, no straws) independently to reduce risk of aspiration in 90% of opportunities. STG2: Pt will participate in MBSS to further guide POC.
[2024-09-19] MEDS: ACETAMINOPHEN 325 MG TABLET 650 MG PO (18:25)
[2024-09-19] MEDS: QUETIAPINE 25 MG TABLET 12.5 MG PO (21:39)
[2024-09-19] MEDS: TRAZODONE 50 MG TABLET 25 MG PO (21:42)
[2024-09-20] VITALS (20 sets, daily range): BP systolic 90–150; BP diastolic 52–96; PULSE 60–96; RESP 12–28; TEMP 35.9–36.6; O2SAT 88–98
--- NOTE | 2024-09-20 05:48 | PC.NURSE ---
Patient sound asleep all night, mouth breathing & snoring softly. Morning medications scheduled @ 0600 not giving, patient not awake, alert to take her pills. High risk for aspiration, will report to day RN.
[2024-09-20 06:06] LABS: Blood Urea Nitrogen 24 mg/dL (7-17); Calcium 7.9 mg/dL (8.4-10.2); Carbon Dioxide 35 mmol/L (22-32); Chloride 88 mmol/L (98-107); Estimated Glomerular Filt Rate > 60 mL/min (>60); Glucose 88 mg/dL (70-99); HEMOLYSIS < 15 (0-50); Magnesium 1.7 mg/dL (1.6-2.3); Potassium 3.6 mmol/L (3.4-5.1); Sodium 127 mmol/L (137-145)
[2024-09-20] MEDS: LEVOTHYROXINE 50 MCG TABLET PO (07:20)
[2024-09-20] MEDS: PANTOPRAZOLE DR 20 MG TABLET PO (07:20)
--- NOTE | 2024-09-20 08:43 | P.PN_ITS ---
Subjective Subjective Interval history: S: She was doing well, on 3 L of oxygen. She was able to come off from high- flow. She still has sternal pain but overall is doing well. She had a modified barium swallow today and it was having aspiration. Recommendations are for a nectar thick diet. Exam Vital Signs (past 8 hours): - 09/20/24 02:00 09/20/24 02:00 09/20/24 02:37 Temperature Pulse Rate 61 Respiratory Rate 16 Blood Pressure 90/52 L 131/74 Pulse Oximetry 96 Oxygen Delivery Method Oxygen Flow Rate Fraction of Inspired Oxygen 09/20/24 02:37 09/20/24 04:00 09/20/24 04:00 Temperature 97.3 F L Pulse Rate 62 63 Respiratory Rate 16 21 Blood Pressure 142/87 H Pulse Oximetry 97 97 Oxygen Delivery Method Oxygen Flow Rate 3 Fraction of Inspired Oxygen 09/20/24 05:22 09/20/24 06:00 09/20/24 07:00 Temperature Pulse Rate 64 Respiratory Rate 17 Blood Pressure Pulse Oximetry 93 96 Oxygen Delivery Method Nasal Cannula Nasal Cannula Oxygen Flow Rate 3 Fraction of Inspired Oxygen 32 09/20/24 08:00 09/20/24 08:00 09/20/24 08:18 Temperature 96.7 F L Pulse Rate 62 Respiratory Rate 12 Blood Pressure 144/77 H Pulse Oximetry 95 Oxygen Delivery Method Oxygen Flow Rate Fraction of Inspired Oxygen Fraction of Inspired Oxygen 32 SaO2/FiO2 Ratio 290 Oxygen Delivery Method Nasal Cannula Oxygen Flow Rate 3 Narrative Exam Narrative: NAD, alert and oriented. Fluent speech. She is soft spoken, and frail. Lungs are clear, normal rate and effort. Heart is regular, no murmur gallop or rub. Abdomen is soft, non distended. Extremities are free of edema. Objective Labs 09/17/24 06:43 09/20/24 05:16 Labs: Laboratory Results - last 24 hr 09/20/24 05:16 Sodium 127 L Potassium 3.6 Chloride 88 L Carbon Dioxide 35 H BUN 24 H Creatinine 0.75 Estimated GFR > 60 BUN/Creatinine Ratio 32.0 H Glucose 88 Calcium 7.9 L Magnesium 1.7 [facility] Medical History Joint pain of ankle and foot (06/16/05) Joint pain of lower extremity (06/16/05) Abdominal pain, LLQ (06/16/05) Hemothorax on right Multiple rib fractures ICD (implantable cardioverter-defibrillator) in place Pacemaker Hypothyroidism Hypertrophic obstructive cardiomyopathy Surgical History History of ankle surgery Status post hysterectomy Family History Father Hypertension Mother Cancer Social History household members: children Smoking Status: Never smoker alcohol intake: never substance use type: does not use Assessment & Plan Assessment & Plan narrative: 1. Probable VFib arrest, improved. 2. Acute hypoxic respiratory failure, active. Continue OxyMask at night and nasal cannula oxygen during the day. 3. Diastolic heart failure with severe LVH, active. Moderate pulmonary edema on CT chest 09/18/2024. 4. PAF, stable. 5. Pacemaker, stable. 6. AICD, stable. 7. Cognitive impairment, active. 8. Presumed hypovolemic hyponatremia, active. 9. Fever, or atelectasis versus pneumonia. Continue antibiotics - Zosyn. 10. Hypotension, from over diuresis versus sepsis. Resolved 11. Hypokalemia, new and improved. 12. Hearing Loss 13. Dysphagia with aspiration on modified barium, present on admission and active. Plan: -wean nasal cannula O2 as able. -tolerating oral torsemide without hypotension -continue empiric antibiotics-Zosyn -monitor potassium and sodium -continue dysphagia diet with nectar thick fluids. -out of bed, physical therapy. -we will transition to assisted facility, she was likely medically clear by September 21. [facility]. She was a guarded prognosis, she does not want any further episodes of CPR. Her family understands her situation. Discharge planning will now transition to local rehab facilities for assisted care. Time-Based Coding :: [TOTAL MINUTES] spent with patient and on the chart (including review of chart, obtaining history, exam, reviewing outside data, placing orders, documenting exam and treatment plan, and counseling patient) on [DATE]. Quality VTE Deep Vein Thrombosis/Pulmonary Embolism Present on Admission: No
[2024-09-20] MEDS: SODIUM CHLORIDE 0.9% FLUSH 10 ML IV ×2 (09:00→22:15)
[2024-09-20] MEDS: METOPROLOL ER 25 MG TABLET PO ×2 (09:22→21:47)
[2024-09-20] MEDS: TORSEMIDE 10 MG TABLET 20 MG PO (09:22)
[2024-09-20] MEDS: APIXABAN 5 MG TABLET 2.5 MG PO ×2 (09:22→21:46)
[2024-09-20] MEDS: AMOXICILLIN 250 MG CAPSULE 1000 MG PO ×2 (09:22→21:46)
[2024-09-20] MEDS: MAGNESIUM OXIDE 400 MG TABLET PO ×2 (09:22→21:47)
[2024-09-20] MEDS: MAGNESIUM CHLORIDE 64 MG TABLET 128 MG PO (10:15)
--- NOTE | 2024-09-20 12:10 | PT.IPTN ---
Current Diagnoses Hypothyroidism, unspecified (09/13/24) Hypo-osmolality and hyponatremia (09/13/24) Essential (primary) hypertension (09/13/24) Obstructive hypertrophic cardiomyopathy (09/13/24) Other ventricular tachycardia (09/13/24) Paroxysmal atrial fibrillation (09/13/24) Acute on chronic diastolic (congestive) heart failure (09/13/24) Gastro-esophageal reflux disease without esophagitis (09/13/24) Stress incontinence (female) (male) (09/13/24) Other reduced mobility (09/13/24) Other specified health status (09/13/24) Physical Therapy Treatment Note M2 PT-IP Current Condition Start: 09/19/24 15:35 Freq: NEEDED Status: Active Protocol: Document 09/19/24 13:20 AB (Rec: 09/19/24 15:51 AB [id number]) Physical Therapy Current Condition Current Condition Evaluation Date 09/19/24 Treatment Diagnosis UTI; CHF; generalized weakness Onset Date 09/13/24 M3 PT-IP Subjective Start: 09/19/24 15:35 Freq: NEEDED Status: Active Protocol: Document 09/20/24 12:10 DLM (Rec: 09/20/24 12:56 DLM Desktop) Subjective Physical Therapy Visit Type Type Treatment Note Visit Start Time 11:30 Visit Stop Time 12:10 Notes 20 min charged, co-treat with Occupational Therapy Number of ANTENNA INSTALLER Visits 0 Physical Therapy Visit Comments Patient Comments She complains of hemorrhoid pain this visit. She can recall having swallow study this morning. Patient Goals Get better M4 PT-IP Mobility and Gait Start: 09/19/24 15:35 Freq: NEEDED Status: Active Protocol: Document 09/20/24 12:10 DLM (Rec: 09/20/24 12:56 DLM Desktop) PT-Bed Mobility Assessment Rolling Type of Rolling Roll to Right Level of Assist Moderate Assistance Supine to Sit Supine to Sit Maximum Assistance,Head of Bed Elevated,Bedrails Scooting Scooting to Edge of Moderate Assistance,Maximum Assistance Bed Scooting Up and Down Dependent in Bed PT-Transfer Assessment Sit to and From Stand Sit to and from Maximum Assistance,1 Person Assistance,Use of Upper Stand Extremities Equipment Transfer Assistive None,Gait Belt Device Transfers Transfer Destination Chair Transfer Technique Squat Pivot Transfer Ability Level of Assist Maximum Assistance,2 Person Assistance Comments Mobility Comments Pt sat of edge of bed. She has moderate right sided lean with a pushing pattern. She shows a mild decrease in awareness of upright positioning. She does better correcting upright posture sitting in recliner with support. She shows increased flexion posture sitting edge of bed as she fatigues. Used her glasses this visit to increase visual input. Pt up to recliner this visit. The bed is tall for her so it is difficult for her to sit back down on the bed. Two person assist used throughout this visit to manage her fall risks. Adelina heath is present in her room for nursing to return her to bed. Gait Assessment Comments Gait Comments unable PT-Balance Assessment Sitting Balance and Reactions Static Sitting Poor Balance Ability Dynamic Sitting Poor Balance Ability Standing Balance and Reactions Static Standing Poor Balance Ability Dynamic Standing Poor Balance Ability M5 PT-IP Objective Assessments Start: 09/19/24 15:35 Freq: NEEDED Status: Active Protocol: Document 09/20/24 12:10 DLM (Rec: 09/20/24 12:56 DLM Desktop) Orientation Orientation/Cognition Level of Alertness Alert Language Function Hard of Hearing Ability Safety Awareness Understands Safety Issues Comments her speech is low volume and mild garbling Strength Comments Strength Comments pt moving all extremities functionally but generalized weakness throughout Coordination Assessment Gross Coordination Gross Coordination Impaired Assessment Finger to Nose Test Moderate Impairment Foot Tapping Test Severe Impairment Heel on Coleman Test Severe Impairment Coordination ataxic Comments Muscle Tone Muscle Tone WNL Yes M6 PT-IP Treatment Start: 09/19/24 15:35 Freq: NEEDED Status: Active Protocol: Document 09/20/24 12:10 DLM (Rec: 09/20/24 12:56 DLM Desktop) Physical Therapy Treatment Exercises Exercises Ankle Pumps,Seated Knee Flexion/Extension Education Education Provided Safety Other Treatments Other Treatment balance retraining in sitting, weight shifting Performed M7 PT-IP Assessment and Plan Start: 09/19/24 15:35 Freq: NEEDED Status: Active Protocol: Document 09/20/24 12:10 DLM (Rec: 09/20/24 12:56 DLM Desktop) PT Summary Assessment and Plan Summary Impairments Pain,ROM,Strength,Balance,Coordination,Sensation,Tone, Cognition,Bed Mobility,Transfers,Gait,Activity Tolerance Progress Towards Slow Progress due to Medical Issues,Slow Progress due Goals to Activity Tolerance Assessment Summary Araceli is alert and motivated to work with therapy. She presents with a significant right sided lean and impaired coordination that effects her mobility and all of her extremities. Symptoms are concerning for CVA. Pt has had Head CT which was negative but not an MRI. She has an AICD. She is moving all of her extremities functionally. She is able to bear some weight on her LE 's to standing but still needed max assist to stay upright. She is max assist to do a pivot transfer to the recliner with two person assist. Pt left sitting up in recliner with Son visiting and lunch anticipated. She shows good effort with therapy. Continue to recommend SNF rehab at discharge to assist with her functional recovery. Goals Bed Mobility Goal Minimal Assistance Transfer Goal Moderate Assistance,Front Wheeled Walker Gait Goal Moderate Assistance,Front Wheel Walker Gait Distance 25 Other Goals LTG: improve bed mobility, transfers, ambulation using FWW 50 ft SBA Days to Meet Goals 10 Frequency of Treatment Frequency Of Once a Day Treatment Treatment Plan Physical Therapy Bed Mobility Training,Transfer Training,Gait Training, Treatment Plan Therapeutic Exercise,Balance Retraining,Discharge Planning,Neuromuscular Re-ed,Coordination Retraining Precautions Other Precautions high fall risk, swallow deficits with modified diet Hard of hearing significant right sided lean Recommendations To Nursing Amount of Assist 2 Person Assist,Mechanical Lift Needed Discharge Recommendations PT Discharge SNF Rehab Recommendations Other Discharge will need stretcher if long drive to SNF, wheelchair Recommendations okay for short duration Transportation Needs Wheelchair/Cabulance,Stretcher/Ambulance at Discharge - PT assist 2
--- NOTE | 2024-09-20 12:10 | OT.IP.TRT ---
Current Diagnoses Hypothyroidism, unspecified (09/13/24) Hypo-osmolality and hyponatremia (09/13/24) Essential (primary) hypertension (09/13/24) Obstructive hypertrophic cardiomyopathy (09/13/24) Other ventricular tachycardia (09/13/24) Paroxysmal atrial fibrillation (09/13/24) Acute on chronic diastolic (congestive) heart failure (09/13/24) Gastro-esophageal reflux disease without esophagitis (09/13/24) Stress incontinence (female) (male) (09/13/24) Other reduced mobility (09/13/24) Other specified health status (09/13/24) Occupational Therapy Treatment Note M2 OT-IP Current Condition Start: 09/19/24 15:32 Freq: Status: Active Protocol: Document 09/19/24 15:33 [facility] (Rec: 09/19/24 15:50 [facility] Desktop) Occupational Therapy Current Condition Current Condition Evaluation Date 09/19/24 Treatment Diagnosis Acute hypoxic respiratory failure, generalized weakness Diagnosis Onset Date 09/13/24 M3 OT- IP Subjective and Pain Start: 09/19/24 15:32 Freq: Status: Active Protocol: Document 09/20/24 12:51 [facility] (Rec: 09/20/24 13:13 [facility] Desktop) OT- Subjective Occupational Therapy Visit Type Type Treatment Note Visit Start Time 11:55 Visit Stop Time 12:10 Occupational Therapy Visit Comments Patient Comments Pt agreed to get up and seen with PT due to complex mobility needs. Patient/Caregiver Pt open to going to skilled rehab. Goals OT Pain Assessment Pain When Pain Assessed At Rest Pain Present Pain Present Denied Pain M4 OT- IP ADL's Start: 09/19/24 15:32 Freq: Status: Active Protocol: Document 09/20/24 12:51 [facility] (Rec: 09/20/24 13:13 [facility] Desktop) OT GOZ-Ioqj-[id number] Comments OT Self-Feeding Not observed, just had MBS and diet change. See TRANSONIC ENGINEER Comments notes for details, nursing aware. OT ADL-Grooming General Evaluation Grooming Ability Moderate Assistance Areas Needing Combing/Brushing Hair,Face Washing Assistance Comments OT Grooming Comments Pt able to initiate brushing her hair and needing assist for completeness. Pt needing MODA for balance while seated on the edge of bed. OT ADL-Oral Care Comments Oral Care Comments Not performed. OT ADL-Dressing General Eval Lower Body Dressing Total Assistance Ability Areas Needing Socks Assistance OT ADL-Toileting Comments OT Toileting Not performed. Comments OT ADL-Bathing Comments OT Bathing Comments Sponge bath more appropriate at this time. M5 OT- IP IADL's Start: 09/19/24 15:32 Freq: Status: Active Protocol: Document 09/19/24 15:33 [facility] (Rec: 09/19/24 15:50 [facility] Desktop) OT-Instrumental Activities of Daily Living Home Safety Awareness Home Safety Comments Pt is a bit groggy but aware that she was needing assist for ADL and mobility needs. Meal Preparation Meal Preparation Caregiver Provides Assist Dot Compliance Specialist Dot Compliance Specialist Caregiver Provides Assist M6 OT- IP Functional Cognition Start: 09/19/24 15:32 Freq: Status: Active Protocol: Document 09/20/24 12:51 [facility] (Rec: 09/20/24 13:13 [facility] Desktop) Cognitive Factors Limiting Selfcare Function Cognitive Ability Level of Alertness Alert Attention Span Capable of Focused Attention,Capable of Sustained Ability Attention Ability to Follow Able to Follow One Step Commands Commands Cognitive Comments Cognitive Assessment Pt needing simple cues to follow. VC to for safety and Comments education of midline as pt tends to heavily lean to the right. M7 OT- IP Mobility and Balance Start: 09/19/24 15:32 Freq: Status: Active Protocol: Document 09/20/24 12:51 [facility] (Rec: 09/20/24 13:13 [facility] Desktop) OT- Bed Mobility Assessment Supine to Sit Supine to Sit Assist Maximum Assistance,1 Person Assistance OT-Transfer Assessment Sit to and From Stand Sit to and from Maximum Assistance,2 Person Assistance Stand Transfers Transfer Ability Maximum Assistance,2 Person Assistance Technique Transfer Destination Bed,Chair Transfer Technique Stand Step Pivot Devices Transfer Assistive Gait Belt Devices Comments Mobility Comments Pt with increased time and use of bed rail able to get to the edge of bed with MAX XA 1. MAX AX1-2 to stand and pivot to the recliner. 2nd person assist to help guide her hips to the recliner and lower the pt down. Pt dependent for pt positioning needs. Best to use the Adelina lift for transfer at this time. OT- Balance Assessment Sitting Balance and Reactions Static Sitting Poor Balance Ability Dynamic Sitting Poor Balance Ability Standing Balance and Reactions Static Standing Poor Balance Ability Dynamic Standing Poor Balance Ability Comments Other Balance Tests/ Pt today sitting balance improved to MODA. Pt heavily Deviations/Treatment leans to the right and has poor awareness of her : midline. Pt complaining of her hemorrhoids and able to get waffle cushion underneath the pt and nursing to look at getting cream for her. Pt will benefit from skilled rehab. M8 OT- IP Objective Assessments Start: 09/19/24 15:32 Freq: Status: Active Protocol: Document 09/19/24 15:33 [facility] (Rec: 09/19/24 15:50 [facility] Desktop) OT Gross Range of Motion Upper Extremity Range of Motion Assessment Bilaterally Impaired OT Strength Upper Extremity Strength Assessment Bilaterally Impaired Comments Strength Comments BUE 3-/5 to 3+/5 OT- Coordination Assessment Comments Coordination Pt needing assist for set-up for grooming needs. Comments M9 OT- IP Assessment and Plan Start: 09/19/24 15:32 Freq: Status: Active Protocol: Document 09/20/24 12:51 [facility] (Rec: 09/20/24 13:13 [facility] Desktop) OT Summary Assessment and Plan Potential Rehabilitation Fair Potential Analytic Complexity High at Evaluation Summary OT Impairments Pain,Range of Motion,Strength,Balance,Functional Cognition,Functional Mobility,Self-Feeding,Grooming, Dressing,Toileting,Bathing,Toilet Transfers,Shower Transfers,Activity Tolerance Progress Towards Progressing Toward Goals,Slow Progress due to Activity Goals Tolerance,Slow Progress due to Cognition Assessment Summary Pt able to tolerate sitting at the edge of the bed with MODA for grooming needs today. Pt still needing extensive assist for transfer but able to actively participate more today. Pt will benefit from skilled rehab and transport via if short distance otherwise will need a stretcher due to decreased activity tolerance and sitting balance. Goals Self-Feeding Goal Independent Grooming Goal Standby Assistance Dressing Goal Moderate Assistance Toileting Goal Moderate Assistance Bathing Goal Moderate Assistance Toilet Transfer Goal Moderate Assistance Shower Transfer Goal Moderate Assistance Days to Meet Goals 29 Frequency of Treatment Other frequency 5x/week Treatment Plan OT Treatment Plan ADL Training,Functional Mobility,Patient/Family Education,Discharge Planning Other Treatment Pt to sit at EOB with SHANTELLE and be able to do oral care Recommendations and needs with SHANTELLE. Next Treatment Focus Discharge Recommendations OT Discharge SNF Rehab Recommendations Transportation Needs Wheelchair/Cabulance,Stretcher/Ambulance at Discharge
--- NOTE | 2024-09-20 14:33 | ST.SWALLOW ---
Visit Care Team Role Provider Type Luba Belle DO Primary Care Provider Physician Specialty: Medical Address: [address] [place] [address], [address], [place], [address] Email: [email or web address] Scott Mejia MD Emergency Provider Physician Referring Provider Specialty: Emergency Medicine Address: [address] [place] [address], [address] Fax: Email: [email or web address] Felix MD Admit Provider Physician Attending Provider Specialty: Internal Medicine Address: [address] [place] [address], [address] Email: [email or web address] Modified Barium Swallow Study 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 TOOLER Modified Barium Swallow Study Start: 09/17/24 14:19 Freq: Status: Active Protocol: Document 09/20/24 12:47 [facility] (Rec: 09/20/24 14:33 [facility] Desktop) Modified Barium Swallow Study Total Time Visit Start Time 10:00 Visit Stop Time 10:45 Total Visit Minutes [address] Cooper Reason for Referral dysphagia Setting Setting Acute Care Patient Information Identification Type Name,Date of Patient History Per H&P: 89 y/o with PMH of hypertrophic obstructive cardiomyopathy, HFpEF, A-fib, PPM, AICD, HTN, MR, hyponatremia, SVTs, followed by [facility] cardiology, came to hospital on 09/14/24 complaining on nausea, vomiting , generalized weakness, diarrhea. Presented hypoxemic with fluid overload. Initially given 1 L of NS for hypotension and ABDOULAYE. That was followed by 20 mg of Lasix and diuresis of 300 cc. During her ED stay she spent several hours on BiPAP. Suspected for pneumonia and given empiric antibiotic. On admission to floor she can hardly provide any history. She lives with son who brought her to hospital. Later that day pt went into ventricular fibrillation in the code was called. She underwent CPR and received 1 dose of epinephrine. The patient attained ROSC. She was able to answer questions at that point. Per CT chest 09/13/2024: Moderate pulmonary edema and small pleural effusions. Superimposed peripheral ground-glass opacities, suggestive of viral pneumonia. Suspected mild fluid overload given the small pleural effusions, periportal edema, small volume ascites. ST consulted for swallowing evaluation in the setting of pt coughing with thin liquids. Clinical signs/symptoms of possible aspiration/pharyngeal dysphagia observed by ST included coughing after thin liquids. Pt endorsed frequent coughing during meals. ST recommended further evaluation with use of imaging via modified barium swallow study (MBSS). St assessment Subjective Pt was brought to the flouroscopy suite in flouro chair Observations . Pt demonstrated fatigue and mild confusion. She had a nasal canula receiving 3L of O2. Pt was able to follow directions well. Directions and procedures were described for her. She indicated she understood and agreed to proceed. Patient Positioning Position View Lateral Imaging Lateral View Textures Administered Trials Presented Thin Liquid via Spoon (IDDSI 0),Thin Liquid via Cup ( IDDSI 0),Thin Liquid via Straw (IDDSI 0),Mildly Thick Liquid via Spoon (IDDSI 2),Mildly Thick Liquid via Straw (IDDSI 2),Extremely Thick Liquid via Spoon (IDDSI 4),Minced & Moist (IDDSI 5) Barium Tablet No The IDDSI Framework Protocol: IDDSI.1 Oral Impairment Source: The Modified Barium Swallow Impairment Profile (MBSImP??) Lip Closure Interlabial escape; no progression to anterior lip Tongue Control Cohesive bolus between tongue to palatal seal During Bolus Hold Bolus Preparation/ Slow prolonged chewing/mashing with complete re- Mastication collection Bolus Transport/ Repetitive/disorganized tongue motion Lingual Motion Oral Residue Residue collection on oral structures Initiation of Bolus head at pyriforms Pharyngeal Swallow Additional Oral *Oral mechanism exam revealed adequate dentition, oral Impairment health, and cranial nerves grossly intact bilaterally. Observations *Disorganized and repetitive tongue motion for initiation of swallow as well as disorganized mastication observed. *AP transition slowed with posterior escape of greater than half of the bolus pre-swallow observed. *Minced and moist texture is most appropriate for pt's safe PO intake. Pharyngeal Impairment Source: The Modified Barium Swallow Impairment Profile (MBSImP??) Soft Palate No bolus between soft palate & pharyngeal wall Elevation Laryngeal Elevation Part.sup.move.thyroid cart/part.approx.arytenoids to epiglot.petiole Anterior Hyoid Partial anterior movement Excursion Epiglottic Movement No inversion Laryngeal Vestibular Incomplete; narrow column air/contrast in laryngeal Closure vestibule Pharyngeal Stripping Absent Wave Pharyngoesophageal Complete distention & complete duration; no obstruction Segment Opening of flow Tongue Base Wide column of contrast/air betwn tongue base & post. Retraction pharyngeal wall Pharyngeal Residue Collection of residue within/on pharyngeal structures Location Diffuse (>3 areas) Additional *Weak base of tongue retraction negatively affecting Pharyngeal hyolaryngeal elevation and movement Impairment *Incomplete and inconsistent epiglottal inversion with Observations incomplete laryngeal seal/protection *Penetration to the vocal folds with visible residue ( PAS:5) *Tracheal aspiration below the folds with no response or effort, and tracheal residue (PAS:8) *Cued throat clear (Growl like a bear) was effective in clearing trachea/larynx). Polite throat-clear was ineffective Pt is a HIGH SILENT aspiration risk for residue, secretions and PO intake [place] thick liquids demonstrated less risk for aspiration than thin liquids. Ice chips for hydration is recommended. No free water until pt overall status improves ST recommended in SNF setting 1:1 supervfision/cuing until pt status improves A/P View The IDDSI Framework Protocol: IDDSI.1 A/P View Observations Additional A-P AP position/assessment not conducted due to pt fatigue Observations level and increased aspiration risk Clinical Impressions Dysphagia Type Oral,Pharyngeal Findings *Moderate to severe oropharyngeal dysphagia with *Moderate to high aspiration risk ASPIRATION IS SILENT *Pt overall health status is a factor in pt aspiration risk *Pt diet to be IDDSI 5: minced and moist with liquids at IDDSI 2: mildly thick /nectar thick *Ice chips with clean mouth/appropriate oral care for hydration. No free water at this time* *Pt requires frequent cuing to clear throat (like a bear growl) IN ORDER TO CLEAR TRACHEAL ASPIRANT Rehabilitation Poor Potential Patient Appropriate Yes: Safe swallow strategies; Family and staff for Therapy education on safe PO intake Recommendations Diet Liquids Order Mildly Thick (IDDSI 2) Diet Order Minced & Moist (IDDSI 5) Medication Crushed in Carrier Recommendation Additional Dietary 1:1 Supervision,1:1 Assistance,Reminders to Use Needs Strategies Aspiration Precautions Recommended Upright at 90 Degrees,Frequent Rest Periods,Small Bites Precautions /Sips Treatment Plan Therapy Strategy Sitting Upright (90 deg),No Straw,Liquids from Cup, Recommendations Small Bites and Sips,Alternate Liquids/Solids Additional Slow PO intake; cue throat clearing frequently. HOB @ Strategies 30 degrees at [place] Recommended Placement [facility] Facility Recommendation After Discharge
--- NOTE | 2024-09-20 14:59 | ST.IPDYTX ---
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 Treatment Treatment Activities Pt completed MBSS this care date, see separate note for details. Following MBSS, ST provided education to RN, case management, pt, and family member re: study results and recommendations. The IDDSI Framework Protocol: IDDSI.1 Assessment Patient Response to Good Treatment Rehab Potential Fair Assessment of Following MBSS, ST educated RN, case management, pt, Improvement and family members re: study results, recommended dietary modifications, and safe swallow strategies. Education included discussion of presence of silent aspiration of thin liquids on MBSS, discussion of aspiration risk, appropriate food and liquid consistencies (nectar thick liquids and minced/moist solids), as well as compensatory strategies to reduce aspiration risk and support safest and most efficient least restrictive oral diet. A yellow safe swallowing strategies and diet recommendations sheet was provided and one copy left in the pt's room and one copy with case management. RN, pt, and family members demonstrated understanding of findings and verbalized understanding of recommendations provided. Case management verbalized understanding of discharge planning instructions and are to include safe swallow strategy sheet in the pt's discharge folder pending SNF transfer. ST available for further questions or follow up as needed/appropriate. Recommendations Recommendations Downgrade Diet Order Liquids Order Mildly Thick (IDDSI 2) Diet Order Minced & Moist (IDDSI 5) Medication Crushed in Carrier Recommendations Comments Ice chips with clean mouth/appropriate oral care for hydration OK Additional Dietary No Straws,1:1 Supervision,1:1 Assistance,Reminders to Needs Use Strategies Aspiration Precautions Recommended Upright at 90 Degrees,Frequent Rest Periods,Small Bites Precautions /Sips,Check for Pocketing Additional Slow rate of intake, cued throat clearing frequently, Precautions multiple swallows Treatment Plan Placement [facility] Facility Recommendation after Discharge Appropriate for Yes Continued Therapy Therapy Recommend further evaluation with use of imaging via Recommendations modified barium swallow study (MBSS) when pt appropriate. MET Recommend supervision with meals and strict aspiration precautions. ONGOING Oral care TID to minimize colonization of oral pathogens that can increase pt's risk of developing aspiration pneumonia if aspirated. ONGOING Recommend ST to continue to follow pt during this admission pending MBSS. MET, continue to follow as needed. Dysphagia Goals LTG: Pt will consume the safest and most efficient least restrictive diet with no clinical signs/symptoms of pharyngeal dysphagia in order to meet nutrition/ hydration needs. 09/20/2024: Ongoing; IDDSI 2 (nectar thick) and IDDSI 5 (minced and moist) recommended following MBSS this care date STG1: Pt will use compensatory strategies (upright positioning, slow rate, small sips/bites, no straws) independently to reduce risk of aspiration in 90% of opportunities. 09/20/2024: Ongoing STG2: Pt will participate in MBSS to further guide POC. 09/20/2024: Goal Met
[2024-09-20] MEDS: MAGNESIUM HYDROXIDE 30 ML UDC PO ×2 (17:01→18:09)
[2024-09-20] MEDS: SENNOSIDES 8.6 MG TABLET PO ×2 (17:01→18:09)
[2024-09-20] MEDS: PHENYLEPH/MINERAL OIL/PETROLAT 57 GM OINT 1 APPLIC PR (18:10)
[2024-09-20] MEDS: TRAZODONE 50 MG TABLET 25 MG PO (21:46)
[2024-09-20] MEDS: QUETIAPINE 25 MG TABLET 12.5 MG PO (21:48)
[2024-09-21] VITALS (15 sets, daily range): BP systolic 111–145; BP diastolic 62–86; PULSE 66–77; RESP 13–42; TEMP 36.2–36.3; O2SAT 93–97
[2024-09-21 05:53] LABS: Blood Urea Nitrogen 23 mg/dL (7-17); Calcium 8.1 mg/dL (8.4-10.2); Carbon Dioxide 36 mmol/L (22-32); Chloride 89 mmol/L (98-107); Estimated Glomerular Filt Rate > 60 mL/min (>60); Glucose 90 mg/dL (70-99); HEMOLYSIS < 15 (0-50); Magnesium 1.8 mg/dL (1.6-2.3); Potassium 3.6 mmol/L (3.4-5.1); Sodium 127 mmol/L (137-145)
--- NOTE | 2024-09-21 08:06 | PM.PN.1 ---
Exam Vital Signs (past 8 hours): - 09/21/24 02:00 09/21/24 02:11 09/21/24 02:11 Pulse Rate 66 77 Respiratory Rate 21 16 Blood Pressure 121/80 Pulse Oximetry 95 95 Oxygen Delivery Method Oxygen Flow Rate Fraction of Inspired Oxygen 09/21/24 02:11 09/21/24 02:16 09/21/24 02:33 Pulse Rate 66 69 Respiratory Rate 14 Blood Pressure 111/74 121/80 Pulse Oximetry 95 94 Oxygen Delivery Method Nasal Cannula Oxygen Flow Rate 3 3 Fraction of Inspired Oxygen 32 09/21/24 03:42 09/21/24 03:42 09/21/24 04:00 Pulse Rate 73 76 Respiratory Rate 42 H 28 H Blood Pressure 145/84 H 127/86 Pulse Oximetry 95 94 Oxygen Delivery Method Oxygen Flow Rate 3 Fraction of Inspired Oxygen 09/21/24 04:00 09/21/24 04:00 09/21/24 06:00 Pulse Rate 76 71 Respiratory Rate 28 H 21 Blood Pressure 127/86 Pulse Oximetry 94 93 Oxygen Delivery Method Oxygen Flow Rate Fraction of Inspired Oxygen 09/21/24 06:41 09/21/24 06:41 Pulse Rate 74 Respiratory Rate 16 Blood Pressure 139/62 Pulse Oximetry 95 Oxygen Delivery Method Oxygen Flow Rate Fraction of Inspired Oxygen Fraction of Inspired Oxygen 32 SaO2/FiO2 Ratio 293 Oxygen Delivery Method Nasal Cannula Oxygen Flow Rate 3 Objective Labs 09/17/24 06:43 09/21/24 04:50 Labs: Laboratory Results - last 24 hr 09/21/24 04:50 Sodium 127 L Potassium 3.6 Chloride 89 L Carbon Dioxide 36 H BUN 23 H Creatinine 0.71 Estimated GFR > 60 BUN/Creatinine Ratio 32.4 H Glucose 90 Calcium 8.1 L Magnesium 1.8 PFSH Medical History Joint pain of ankle and foot (06/16/05) Joint pain of lower extremity (06/16/05) Abdominal pain, LLQ (06/16/05) Hemothorax on right Multiple rib fractures ICD (implantable cardioverter-defibrillator) in place Pacemaker Hypothyroidism Hypertrophic obstructive cardiomyopathy Surgical History History of ankle surgery Status post hysterectomy Family History Father Hypertension Mother Cancer Social History household members: children Smoking Status: Never smoker alcohol intake: never substance use type: does not use Assessment & Plan Time-Based Coding :: [TOTAL MINUTES] spent with patient and on the chart (including review of chart, obtaining history, exam, reviewing outside data, placing orders, documenting exam and treatment plan, and counseling patient) on [DATE]. Quality VTE Deep Vein Thrombosis/Pulmonary Embolism Present on Admission: No
[2024-09-21] MEDS: MAGNESIUM OXIDE 400 MG TABLET PO (09:03)
[2024-09-21] MEDS: TORSEMIDE 10 MG TABLET 20 MG PO (09:03)
[2024-09-21] MEDS: APIXABAN 5 MG TABLET 2.5 MG PO (09:03)
[2024-09-21] MEDS: AMOXICILLIN 250 MG CAPSULE 1000 MG PO (09:03)
[2024-09-21] MEDS: SODIUM CHLORIDE 0.9% FLUSH 10 ML IV (09:04)
[2024-09-21] MEDS: METOPROLOL ER 25 MG TABLET PO (09:04)
[2024-09-21] MEDS: PHENYLEPH/MINERAL OIL/PETROLAT 57 GM OINT 1 APPLIC PR (10:44)
--- NOTE | 2024-09-21 12:24 | P.DS_ITS ---
History of Present Illness History of Present Illness Chief complaint: Weakness, N/V, back pain Narrative: From H&P: 89 y/o with PMH of hypertrophic obstructive cardiomyopathy, HFpEF, A- fib, PPM, AICD, HTN, MR, hyponatremia, SVTs, followed by [facility] cardiology, came to hospital complaining on nausea, vomiting, generalized weakness, diarrhea. Presented hypoxemic with fluid overload. Initially given 1 L of NS for hypotension and ABDOULAYE. That was followed by 20 mg of Lasix and diuresis of 300 cc. During her ED stay she spent several hours on BiPAP. Suspected for pneumonia and given empiric antibiotic. On admission to floor she can hardly provide any history. She lives with son who brought her to hospital. Discharge Providers Provider Date of admission: 09/13/24 21:38 Discharge Date: 09/21/24 Primary care physician: Luba Belle DO Consults: 09/16/24 00:24 Consult to Speech Therapy Evaluate & Treat Comment: Coughs with TL's, can eat apple sauce no issue Physician Instructions: Evaluate and treat 09/19/24 08:02 Consult to Occupational Therapy Evaluate & Treat Comment: Physician Instructions: Evaluate and treat Consult to Physical Therapy Evaluate & Treat Comment: Physician Instructions: Evaluate and Treat Discharge provider: Daniel Bella MD Summary Hospital Course Discharge Diagnosis: 1. Probable VFib arrest, improved. 2. Acute hypoxic respiratory failure, active. Continue OxyMask at night and nasal cannula oxygen during the day. 3. Diastolic heart failure with severe LVH, active. Moderate pulmonary edema on CT chest 09/18/2024. 4. PAF, stable. 5. Pacemaker, stable. 6. AICD, stable. 7. Cognitive impairment, active. 8. Presumed hypovolemic hyponatremia, active. 9. Fever, or atelectasis versus pneumonia. Continue antibiotics - Zosyn to Amox. 10. Hypotension, from over diuresis versus sepsis. Resolved 11. Hypokalemia, new and improved. 12. Hearing Loss 13. Dysphagia with aspiration on modified barium, present on admission and active. Hospital Course: She was admitted with nausea, vomiting, and diarrhea. She was also initially hypoxemic and had evidence of hypotension with ABDOULAYE. On the morning of September 14 she had a wide complex tachycardia and then became pulseless with possible VFib. She underwent CPR and received a dose of epinephrine and then had [place]. She does have a pacemaker with intermittent firing which makes following her rhythm difficulty at times. The patient was quite hypoxic after this episode and had a lot of sternal pain. She required high-flow for several days and was initially diuresed but then had hypotension. She was given fluid back and then diuresed a 2nd time but much more slowly with good improvement. She was able to come down to speed L of oxygen, simple nasal cannula. She was also found to have severe dysphagia, and a modified barium indicated significant aspiration necessitating a dysphagia diet, supervised feeding, and nectar thick liquids. An echo revealed evidence of good cardiac function with severe LVH, supporting diastolic heart failure. Ultimately, she was felt to be stable for discharge to residential facility. Her prognosis remains guarded and this was discussed at length with her son. At 1 point she made comments suggestive of a desire for comfort care, however on the last day in the hospital she continued to reinforce ongoing efforts to improve. Status at Discharge Cognitive/behavioral status at discharge: oriented Functional status at discharge: bed bound Overall status at discharge: patient is progressing back to baseline Time Spent with Patient Time spent: Greater than 30 minutes Exam Vital Signs (past 8 hours): - 09/21/24 06:00 09/21/24 06:41 09/21/24 06:41 Temperature Pulse Rate 71 74 Respiratory Rate 21 16 Blood Pressure 139/62 Pulse Oximetry 93 95 Oxygen Delivery Method Oxygen Flow Rate 09/21/24 08:00 09/21/24 08:00 09/21/24 08:00 Temperature 97.4 F L Pulse Rate 66 Respiratory Rate 13 Blood Pressure 144/77 H Pulse Oximetry 97 Oxygen Delivery Method Oxygen Flow Rate 09/21/24 09:00 09/21/24 09:04 09/21/24 09:34 Temperature Pulse Rate 72 72 Respiratory Rate Blood Pressure 144/77 H Pulse Oximetry Oxygen Delivery Method Nasal Cannula Oxygen Flow Rate 09/21/24 11:32 09/21/24 11:33 Temperature Pulse Rate 69 Respiratory Rate 22 Blood Pressure Pulse Oximetry 96 95 Oxygen Delivery Method Nasal Cannula Oxygen Flow Rate 3 Fraction of Inspired Oxygen 32 SaO2/FiO2 Ratio 293 Oxygen Delivery Method Nasal Cannula Oxygen Flow Rate 3 Narrative Exam Narrative: NAD, alert and oriented. Fluent speech. 3 L of O2 nasal cannula. Lungs are clear, normal rate and effort. Heart is regular, no murmur gallop or rub. Abdomen is soft, non distended. Extremities are free of edema. Serum is tender to touch. Objective ECG Impression: Rate: 104 P: OR: 152 QRS: -83 QRSD: 196 T: 123 QT: 480 QTc: 631 Interpretive Statements Atrial-sensed ventricular-paced rhythm Imaging Multiple studies:: Radiologist's impression: Chest CT: Moderate pulmonary edema. Small pleural effusions with moderate bibasilar atelectasis. Hyperattenuating atelectatic lung and liver. 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 Large hiatal hernia. Chest x-ray: Lung volumes are lower. Small effusions and bibasal opacities again seen, probably similar to prior, likely edema. Differential includes infection. Cardiomegaly. Hiatal hernia partially seen. Cardiac electrode leads and degenerative changes are present Head CT: No acute intracranial pathology. Chest abdomen and pelvis CT: Moderate pulmonary edema and small pleural effusions. Superimposed peripheral ground-glass opacities, suggestive of viral pneumonia. Suspected mild fluid overload given the small pleural effusions, periportal edema, small volume ascites. 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 Chest x-ray: Moderate pulmonary edema. Labs 09/17/24 06:43 09/21/24 04:50 Labs: Laboratory Results - last 24 hr 09/21/24 04:50 Sodium 127 L Potassium 3.6 Chloride 89 L Carbon Dioxide 36 H BUN 23 H Creatinine 0.71 Estimated GFR > 60 BUN/Creatinine Ratio 32.4 H Glucose 90 Calcium 8.1 L Magnesium 1.8 PFSH Medical History Joint pain of ankle and foot (06/16/05) Joint pain of lower extremity (06/16/05) Abdominal pain, LLQ (06/16/05) Hemothorax on right Multiple rib fractures ICD (implantable cardioverter-defibrillator) in place Pacemaker Hypothyroidism Hypertrophic obstructive cardiomyopathy Surgical History History of ankle surgery Status post hysterectomy Family History Father Hypertension Mother Cancer Social History household members: children Smoking Status: Never smoker alcohol intake: never substance use type: does not use Discharge Assessment & Plan Assessment and Plan Assessment: 1. Probable VFib arrest, improved. 2. Acute hypoxic respiratory failure, active. Continue OxyMask at night and nasal cannula oxygen during the day. Plan of Treatment: Discharge to residential facility for ongoing oxygen weaning, oral diuretics, and rehabilitation efforts. She was DNR, confirmed by her while in the hospital. Five additional days of oral antibiotics. Discharge Plan Discharge Plan Patient Disposition: SNF Transfer to: [facility] Under care of provider: SNF provider. Provider Discharge Comment: Stable for discharge to residential facility. Discharge orders & Medications Prescriptions: New amoxicillin 250 mg Capsule 1,000 mg PO BID Qty: 10 0RF oxycodone 5 mg Tablet 5 mg PO Q4HR PRN (Reason: Pain, Moderate (4-6)) Qty: 15 0RF Continued losartan 25 mg tablet 25 mg PO DAILY Qty: 30 0RF omeprazole 20 mg capsule,delayed release(DR/EC) 20 mg PO DAILY Qty: 90 3RF Rx Instructions: Take one capsule by mouth daily estradiol 0.01 % (0.1 mg/gram) cream 1 g vaginal 3XW Qty: 42.5 1RF levothyroxine 50 mcg tablet 50 mcg PO DAILY Qty: 90 0RF cholecalciferol (vitamin D3) 1,250 mcg (50,000 unit) capsule 1,250 mcg PO QWEEK Qty: 12 0RF estradiol 0.1 mg/24 hr patch semiweekly 0.1 mg Topical .COMPLEX Qty: 24 3RF Rx Instructions: 0.1 mg Topical twice a week due to osteoperosis; a (DME) Disabled Parking Permit See Rx Instructions .ROUTE .MEDSUPPLY Qty: 1 0RF Rx Instructions: Valid for 5 years melatonin 10 mg capsule 10 mg PO BEDTIME PRN (Reason: Insomnia) rosuvastatin 5 mg tablet 5 mg PO DAILY Qty: 90 1RF Eliquis 2.5 mg tablet 2.5 mg PO BID Qty: 180 1RF magnesium oxide 400 mg magnesium tablet 400 mg PO BID Qty: 180 1RF metoprolol succinate 25 mg tablet extended release 24 hr 25 mg PO BID Qty: 180 1RF amiodarone 200 mg tablet 200 mg PO BID acetaminophen 325 mg Tablet 650 mg PO Q6HR PRN (Reason: Fever/Mild Pain (1-3)) Qty: 60 0RF Discontinued trazodone 50 mg tablet 25 mg PO BEDTIME PRN (Reason: sleep difficulty) Qty: 45 1RF verapamil 120 mg tablet extended release 120 mg PO DAILY Qty: 180 1RF Medication counseling provided by Pharmacist: No Follow up/Referrals: Luba Belle DO [Primary Care Provider, Medical] Discharge Health Status Multidrug resistant organism: No MDRO Diet/Activity/Treatments Liquid consistency: [place] Consistency Food texture: Blenderized or pureed Diet comment: Dysphagia diet, nectar think, upright, 1:1 feeding. Skin/Wound/Dressing Care Report to your healthcare provider any signs of infection, such as:: chills, fever Visit Report/Discharge Packet Stand Alone Forms: Patient Portal/API Discharge Data Primary Care Provider: Luba Belle VTE Deep Vein Thrombosis/Pulmonary Embolism Present on Admission: No
--- NOTE | 2024-09-21 14:09 | CM.DPNOTE ---
DC Note Discharge to [facility] today. According to August, [facility] able to admit, wc transport will arrive at 1:30p. RN updated and calling report. Updated patient and son, both remain agreeable to plan. IMM reviewed and patient/son provided copy. Emailed med list, Rx, PASRR and DC report to August at . Plan: Discharge to [facility] via wc. PAM
--- NOTE | 2024-09-21 14:22 | PC.NURSE ---
PT REMAINED ALERT/ ORIENTED BUT SLEEPY DURING SHIFT. EASY TO AROUSE. 1 SMEAR/ 1 SMALL BM. 3L NC WITH NO C/O SOB OR S/S OF RESPI DISTRESS NOTED. DR CHAVEZ BY TO DISCUSS PLAN OF CARE WITH PATIENT AND SON. REPORT CALLED TO ULYSSES VAZQUEZ AT 1200 FROM [facility]. IV D/C'D. PATIENT TAKEN TO [facility] BY LESLIE AT 1338. BELONGINGS SENT WITH PATIENTS SON.
== END 2024-09-21 13:38 | DRG 871 ==
LOC: ED 18:41 → AC 21:40 → ICU 22:44
PROVIDERS: Emergency Medicine; Family Medicine; Hospitalist; Internal Medicine; Admitting Provider Internal Medicine; Emergency Provider Emergency Medicine; PCP Family Medicine; Referring Provider Emergency Medicine; Visit Provider Internal Medicine
DX: A41.9 Sepsis, unspecified organism (principal); I49.01 Ventricular fibrillation; J96.01 Acute respiratory failure with hypoxia; J18.9 Pneumonia, unspecified organism; I50.33 Acute on chronic diastolic (congestive) heart failure; E87.1 Hypo-osmolality and hyponatremia; I47.20 Ventricular tachycardia, unspecified; N17.9 Acute kidney failure, unspecified; N39.0 Urinary tract infection, site not specified; J98.11 Atelectasis; I11.0 Hypertensive heart disease with heart failure; R65.20 Severe sepsis without septic shock; I48.0 Paroxysmal atrial fibrillation; K21.9 Gastro-esophageal reflux disease without esophagitis; E03.9 Hypothyroidism, unspecified; G31.84 Mild cognitive impairment of uncertain or unknown etiology; E87.6 Hypokalemia; B95.2 Enterococcus as the cause of diseases classified elsewhere; H91.90 Unspecified hearing loss, unspecified ear; R13.10 Dysphagia, unspecified; I95.9 Hypotension, unspecified; Z95.810 Presence of automatic (implantable) cardiac defibrillator; Z66 Do not resuscitate; Z79.890 Hormone replacement therapy
CPT/HCPCS: 0241U; 36415; 36600; 70450; 71045; 71250; 74176; 74230; 80048; 80053; 81001; 82805; 83605; 83690; 83735; 83880; 84484; 85025; 85027; 87040; 87077; 87086; 87186; 87633; 87797; 92526; 92610; 92611; 92950; 93005; 93010; 93307; 94660; 94762; 96361; 96365; 96375; 97163; 97167; 97530; 97535; 99284; 99291; A9270; J0171; J0282; J0696; J1171; J1938; J2270; J2405; J2543; J3010; J3360

== ENCOUNTER 2024-09-27 22:48 | Observation (INO) | payer MEDICARE, SELFPAY ==
[2024-09-13 19:34] VITALS: PULSE 96; RESP 15; O2SAT 99
[2024-09-13 23:12] VITALS: BMI 24.7
[2024-09-27 22:51] VITALS: BP 157/77; PULSE 75; PULSE 79; RESP 20; TEMP 36.7; O2SAT 94; O2SAT 95; BMI 24.0
[2024-09-27 23:00] VITALS: PULSE 55; O2SAT 81
[2024-09-27 23:01] VITALS: BP 145/115; PULSE 55; O2SAT 81
--- NOTE | 2024-09-27 23:04 | DI.CT.S_ITS ---
PROCEDURE: CT ABDOMEN PELVIS WO CON INDICATIONS: lower GI bleeding TECHNIQUE: CT of the abdomen and pelvis was obtained without intravenous contrast. Coronal and sagittal reformats were performed. For radiation dose reduction, the following was used: automated exposure control, adjustment of mA and/or kV according to patient size. COMPARISON: [facility], CT, CT CHEST ABD PEL WO CON, 09/13/2024, 18:33. FINDINGS: Image quality: Diagnostic. Lower Chest: Minimal right effusion. Dependent changes are present bilaterally. Heart is. ABDOMEN: Liver: No contour-deforming mass. Gallbladder: Subtle increased density within the gallbladder lumen without wall thickening. Biliary ducts: No biliary dilation. Pancreas: No ductal dilation. Spleen: Size is within normal limits. Appearance of calcified splenic artery aneurysm, unchanged measuring approximately 9 mm. Adrenal Glands: Adrenal gland thickening bilaterally, unchanged. Kidneys and Ureters: No hydronephrosis. No contour-deforming mass. Stomach and Bowel: Normal colonic caliber, without significant wall thickening. Distal rectal postsurgical changes. Possible diverticulum of the posterior margin of the rectum. Mild perirectal and perisacral stranding. Colonic diverticula without inflammatory change. Significant colonic stool. Peritoneum: No abnormal intraperitoneal fluid. No free air. Ventral Wall: No significant hernia. Abdominal Nodes: No retroperitoneal or mesenteric adenopathy by size criteria. Vessels: Aorta and inferior vena cava are normal in size. PELVIS: Pelvic Organs: Unremarkable. Bladder: Unremarkable. Pelvic Nodes: No enlarged lymph nodes. Miscellaneous: No inguinal hernias are seen. Bones: No aggressive osseous abnormality. Stable L1 compression deformity. IMPRESSION: Bibasilar dependent changes likely atelectasis with minimal right effusion. Subtle increased density within the gallbladder likely sludge or stone. No wall thickening. Prominent colonic stool without obstruction. Diverticulosis. Dictated by: Jennifer Franco M.D. on 09/28/2024 at 1:06 Approved by: Jennifer Franco M.D. on 09/28/2024 at 1:11
--- NOTE | 2024-09-27 23:06 | ED.GIBLEED ---
HPI - GI Bleed General Chief complaint: GI Bleed Stated complaint: Rectal bleeding Time Seen by Provider: 09/27/24 22:49 Source: EMS Mode of arrival: EMS History of Present Illness HPI Narrative: Patient is a 89-year-old female with a past medical history of AFib on Eliquis, AICD with pacemaker, end-stage CHF, lives at facilities brought in for evaluation of lower GI bleeding, patient states that she is not having any pain but states that she was having some mild pain a few days ago, she states that she is currently not having any abdominal pain but some mild rectal pain, she states that she has been compliant with all her medications no trauma no falls. Patient not complaining of any other symptoms at this time, does have a chronic indwelling Oh. Patient not complaining of any other symptoms at this time. Patient is DNR DNI comfort measures only, however she states that she would be willing to do a blood transfusion and any interventions needed for lower GI bleeding such as transferred to hospital, and colonoscopy. This was verified with the patient's son Related Data Home Medications ?Medication ?Instructions ?Recorded ?Confirmed melatonin 10 mg capsule 10 mg PO BEDTIME PRN Insomnia 05/03/23 09/14/24 amiodarone 200 mg tablet 200 mg PO BID 05/22/24 09/14/24 Previous Rx's ?Medication ?Instructions ?Recorded acetaminophen 325 mg tablet 650 mg (2 x 325 mg) PO Q6HR PRN 11/06/21 Fever/Mild Pain (1-3) #60 tabs Disabled Parking Permit #1 ea 07/26/22 apixaban 2.5 mg tablet (Eliquis) 2.5 mg PO BID #180 tabs 08/01/23 magnesium oxide 400 mg PO BID #180 tabs 08/01/23 metoprolol succinate 25 mg 25 mg PO BID #180 tabs 08/01/23 tablet,extended release 24 hr rosuvastatin 5 mg tablet 5 mg PO DAILY #90 tabs 08/01/23 losartan 25 mg tablet 25 mg PO DAILY #30 tabs 02/20/24 omeprazole 20 mg capsule,delayed 20 mg PO DAILY #90 caps 06/12/24 release estradiol 0.01% (0.1 mg/gram) 1 g vaginal 3XW #42.5 grams 06/15/24 vaginal cream levothyroxine 50 mcg tablet 50 mcg PO DAILY #90 tabs 07/03/24 cholecalciferol (vitamin D3) 1,250 1,250 mcg PO QWEEK #12 caps 07/12/24 mcg (50,000 unit) capsule estradiol 0.1 mg/24 hr semiweekly 0.1 mg topical .COMPLEX #24 patches 08/21/24 transdermal patch amoxicillin 250 mg capsule 1,000 mg (4 x 250 mg) PO BID #10 09/21/24 caps oxycodone 5 mg tablet 5 mg PO Q4HR PRN Pain, Moderate 09/21/24 (4-6) #15 tabs Allergies Allergy/AdvReac Type Severity Reaction Status Date / Time codeine (CODEINE) Allergy Mild NAUSEA AND Verified 09/13/24 17:12 VOMITING iodine Allergy Verified 09/13/24 17:12 Review of Systems Review of Systems Narrative: General: Denies fever, chills, weight loss HEENT: Denies headache, eye drainage, eye irritation, head trauma, sore throat, voice change Cardiovascular: Denies any chest pain, palpitations, tachycardia Respiratory: Denies any shortness of breath, cough, wheeze, stridor GI/: Bright red blood per rectum, Denies any abdominal pain, nausea, vomiting, diarrhea, urinary frequency, urinary retention, dysuria, hematuria MSK: Denies any joint pain, muscle pains, swelling Skin: Denies any rashes, lesions, discoloration Neuro: Denies any headache, lightheadedness, dizziness, fainting, weakness Psych: Denies SI/HI Patient History Medical History Joint pain of ankle and foot (06/16/05) Joint pain of lower extremity (06/16/05) Abdominal pain, LLQ (06/16/05) Hemothorax on right Multiple rib fractures ICD (implantable cardioverter-defibrillator) in place Pacemaker Hypothyroidism Hypertrophic obstructive cardiomyopathy Surgical History History of ankle surgery Status post hysterectomy Family History Father Hypertension Mother Cancer Social History household members: children alcohol intake: never substance use type: does not use alcohol intake frequency: 0-2 drinks per day Exam Narrative Exam Narrative: General: Cooperative, well-developed, not in acute distress HEENT: Normocephalic, atraumatic, PERRLA, normal sclera, eyelids normal Neck: Active full range of motion, atraumatic Chest: Normal to inspection, negative crepitus, no overlying erythema ecchymosis Respiratory: Normal respiratory effort, not in acute respiratory distress, clear to auscultation bilaterally negative cough, wheeze, tachypnea, rhonchi, rales Cardiology: Regular rate rhythm negative gallop, murmur, rubs GI/: No tenderness to palpation, soft, non rigid, normal to inspection, nurse Minerva at bedside acting as livestock inspector, patient with melanotic stools noted to the rectum, Hemoccult positive, but no visible or palpable hemorrhoids internal external or fissures, Oh catheter in place MSK: Full active range of motion in all 4 extremities, atraumatic, no tenderness to palpation of any bony prominences Skin: No rashes or lesions noted Neuro: Alert awake oriented x3, moves all 4 extremities spontaneously, cranial nerves intact, able to answer all questions appropriately follows commands appropriately Psych: Cooperative, negative suicidal or homicidal ideations Initial Vital Signs Initial Vital Signs: Vital Signs Temperature 98.0 F 09/27/24 22:51 Pulse Rate 79 09/27/24 22:51 Respiratory Rate 20 09/27/24 22:51 Blood Pressure 157/77 H 09/27/24 22:51 Pulse Oximetry 95 09/27/24 22:51 Oxygen Delivery Method Nasal Cannula 09/27/24 22:51 Oxygen Flow Rate 2 09/27/24 22:51 Course Orders Ordered: ED Orders 09/27/24 23:04 CT abdomen pelvis wo con Stat Type and Screen Stat 09/27/24 23:20 Complete Blood Count AUTO DIFF Stat Comprehensive Metabolic Panel Stat Lactate (Lactic Acid) Stat Lipase Stat MAG [Magnesium] Stat PT [Prothrombin Time INR] Stat PTT Partial Thromboplastin Thomas Stat 09/28/24 01:15 Hemoglobin and Hematocrit Stat Discontinued Medications Pantoprazole Sodium (Pantoprazole 40 Mg Vial) 80 mg IV NOW ONE Stop: 09/27/24 23:23 Last Admin: 09/27/24 23:45 Dose: 80 mg Documented By: MISA Vital Signs Vital signs: Vital Signs - 8 hr 09/27/24 22:51 09/27/24 22:51 09/27/24 22:51 Temperature 98.0 F Pulse Rate 79 75 Respiratory Rate 20 Blood Pressure 157/77 H 157/77 H Pulse Oximetry 95 94 Oxygen Delivery Method Nasal Cannula Oxygen Flow Rate 2 09/27/24 23:00 09/27/24 23:01 09/27/24 23:01 Temperature Pulse Rate 55 L 55 L Respiratory Rate Blood Pressure 145/115 H Pulse Oximetry 81 L 81 L Oxygen Delivery Method Oxygen Flow Rate 09/27/24 23:38 09/27/24 23:39 09/27/24 23:39 Temperature Pulse Rate 80 74 Respiratory Rate 17 19 Blood Pressure 134/73 Pulse Oximetry 94 94 Oxygen Delivery Method Oxygen Flow Rate 09/28/24 00:00 09/28/24 00:00 09/28/24 00:30 Temperature Pulse Rate 78 Respiratory Rate 17 Blood Pressure 125/68 131/67 Pulse Oximetry 94 Oxygen Delivery Method Room Air Oxygen Flow Rate 09/28/24 00:30 Temperature Pulse Rate 78 Respiratory Rate 15 Blood Pressure Pulse Oximetry 94 Oxygen Delivery Method Room Air Oxygen Flow Rate MDM - GI Bleed Differential Diagnosis Differential diagnosis: Likely hemorrhoids, gastritis, Upper gastrointestinal hemorrhage, melena, anal fissure and other Lab Data 09/28/24 01:15 09/27/24 23:20 Labs: Lab Results 09/27/24 09/28/24 Range/Units 23:20 01:15 WBC 12.0 H (4.5-11.0) X10^3/uL RBC 4.50 (4.0-5.2) X10^6/uL Hgb 15.0 13.9 (12.0-16.0) g/dL Hct 44.8 40.3 (36-46) % MCV 99.5 (80-100) fL MCH 33.4 (26-34) PG MCHC 33.6 (30-36) % RDW 14.7 (11.6-14.8) % Plt Count 315 (150-400) X10^3/uL Neut % (Auto) 86.7 H (50-75) % Lymph % (Auto) 4.2 L (25-40) % [place] % (Auto) 7.9 (3-14) % Eos % (Auto) 0.6 L (2-4) % Baso % (Auto) 0.6 (0-2) % Neut # (Auto) 05377 H (8344-4042) /uL Lymph # (Auto) 500 L (3526-8612) /uL [place] # (Auto) 1000 H (0-900) /uL Eos # (Auto) 100 (0-450) /uL Baso # (Auto) 100 (0-100) /uL PT 23.3 H (9.4-12.5) SECONDS INR 2.1 H (0.9-1.3) APTT 33 (25.1-36.5) SECONDS Sodium 125 L (137-145) mmol/L Potassium 3.8 (3.4-5.1) mmol/L Chloride 88 L (98-107) mmol/L Carbon Dioxide 36 H (22-32) mmol/L BUN 30 H (7-17) mg/dL Creatinine 0.70 (0.52-1.04) mg/dL Estimated GFR > 60 (>60) mL/min BUN/Creatinine Ratio 42.9 H (6-22) Glucose 103 H (70-99) mg/dL Lactate 1.2 (0.7-2.1) mmol/L Calcium 7.7 L (8.4-10.2) mg/dL Magnesium 1.8 (1.6-2.3) mg/dL Total Bilirubin 1.2 (0.2-1.3) mg/dL AST 141 H (14-36) IU/L ALT 132 H (<35) IU/L Alkaline Phosphatase 108 (38-126) U/L Total Protein 5.5 L (6.3-8.2) g/dL Albumin 2.7 L (3.5-5.0) g/dL Globulin 2.8 (1.7-4.1) g/dL Albumin/Globulin Ratio 1.0 (1.0-2.8) Lipase 64 (23-300) U/L Imaging Data CT scan - abdomen/pelvis: Radiologist's Impression: Preliminary read as follows: 1. Small right basilar pleural effusion. Atelectasis or developing infiltrate of the right lung base. 2. Large hiatal hernia with the majority of the stomach occupying an intrathoracic position. Three. Suspect subtle density within the gallbladder which could represent sludge or cholelithiasis. Four. Splenic artery aneurysm measuring 9-10 mm recommend annual surveillance since her stability of size. 5. Large colonic fecal burden greatest within the proximal mid colon most consistent with constipation. Enteric contrast within the proximal mid colon. 6. Scattered colonic diverticula without diverticulitis. Find 7. Chronic compression fracture of L1 resulting in 75% height loss with minimal retropulsion into the canal without high-grade stenosis of the lumbar canal stenosis. MDM Narrative Medical decision making narrative: Patient is a 89-year-old female with a past medical history of end-stage CHF, AFib on Eliquis, hypothyroidism, hypertension, hyperlipidemia, with chronic indwelling Oh, comes into the ED from facility for evaluation of lower GI bleeding, patient has been compliant with all her medication states that she was having some abdominal pain/rectal pain a few days ago but is not complaining of any pain currently, on exam patient with melanotic stool and bright red blood per rectum, Hemoccult positive, no palpable internal external fissures noted, patient is DNR DNI with selective measures, 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 Patient has a history of allergy to iodine however she does not know what the allergy was therefore did obtain CT abdomen pelvis without contrast, patient's CT scan not showing any active bleeding. Did note marked colonic fecal burden, possible atelectasis versus developing infiltrate of the right lung base, as well as large hiatal hernia, also noted gallbladder with subtle density either sludge or cholelithiasis however patient not complaining of any abdominal pain however bilirubin normal, LFTs are slightly elevated however improved from previous. Given the fact that patient not complaining of any chest pain shortness breath, requiring supplemental oxygen we will hold off on any antibiotic administration at this time. Patients initial hemoglobin 15 with two hour repeat at 13.9, HCt was 44.8 with two hour repeat 40.3, we will reach out to General surgery to determine whether or not patient can have colonoscopy performed here. 0152: Had discussion with general surgeon Dr. Simon, states that he is able to do colonoscopy, does request admission to hospitalist, we will reach out to hospitalist for admission. The patient's management plan was discussed Dr. Turk, who agrees to admit the patient to their service and assumes care of this patient at this time. Full admission orders will be placed by the primary team. Discharge Plan Departure Patient Disposition: Admitted As Inpatient Clinical Impression: Acute lower GI bleeding
[2024-09-27 23:25] LABS: Add Manual Diff / Slide Review NO; Hematocrit 44.8 % (36-46); Hemoglobin 15.0 g/dL (12.0-16.0); Lymphocytes Absolute Auto 500 /uL (1100-4500); Mean Corpuscular HGB Conc 33.6 % (30-36); Mean Corpuscular Hemoglobin 33.4 PG (26-34); Mean Corpuscular Volume 99.5 fL (80-100); Platelet Count 315 X10^3/uL (150-400)
--- NOTE | 2024-09-27 23:25 | PC.NURSE ---
Pt to imaging via ED stretcher with highway maintenance technician and technical data analyst
[2024-09-27 23:32] LABS: INR 2.1 (0.9-1.3); Prothrombin Time 23.3 SECONDS (9.4-12.5)
[2024-09-27 23:34] LABS: PTT Partial Thromboplastin Tim 33 SECONDS (25.1-36.5)
[2024-09-27 23:38] VITALS: PULSE 80; RESP 17; O2SAT 94
[2024-09-27 23:39] VITALS: BP 134/73; PULSE 74; RESP 19; O2SAT 94
[2024-09-27 23:42] LABS: Alanine Aminotransferase 132 IU/L (<35); Albumin 2.7 g/dL (3.5-5.0); Albumin Globulin Ratio 1.0 (1.0-2.8); Alkaline Phosphatase 108 U/L (38-126); Blood Urea Nitrogen 30 mg/dL (7-17); Calcium 7.7 mg/dL (8.4-10.2); Carbon Dioxide 36 mmol/L (22-32); Chloride 88 mmol/L (98-107); Estimated Glomerular Filt Rate > 60 mL/min (>60); Globulin 2.8 g/dL (1.7-4.1); Glucose 103 mg/dL (70-99); HEMOLYSIS 30 (0-50); Lactate (Lactic Acid) 1.2 mmol/L (0.7-2.1); Lipase 64 U/L (23-300); Potassium 3.8 mmol/L (3.4-5.1); Sodium 125 mmol/L (137-145); Total Protein 5.5 g/dL (6.3-8.2)
[2024-09-27 23:43] LABS: Magnesium 1.8 mg/dL (1.6-2.3)
[2024-09-27] MEDS: PANTOPRAZOLE 40 MG VIAL 80 MG IV (23:45)
[2024-09-28] VITALS (12 sets, daily range): BP systolic 120–161; BP diastolic 62–85; PULSE 58–78; RESP 15–25; TEMP 35.7–36.2; O2SAT 93–98; BMI 24.0
[2024-09-28 01:20] LABS: Hematocrit 40.3 % (36-46); Hemoglobin 13.9 g/dL (12.0-16.0)
--- NOTE | 2024-09-28 02:43 | P.HP_ITS ---
History of Present Illness History of Present Illness Date Patient Seen: 09/28/24 Time Patient Seen: 02:44 Chief complaint: Rectal bleeding Narrative: 89-year-old female with past medical history of atrial fibrillation on Eliquis, AICD/pacemaker, end-stage chronic heart failure, hyperlipidemia, hypothyroidism and hypertension presents with GI bleed. Per report the patient started having bright red blood per rectum that started today. The patient lives at a long- term care facility and does have a chronic indwelling Oh. The patient admits to have some mild abdominal pain but otherwise denies any fever, chills, chest pain, shortness of breath, dysuria, nausea, vomiting or diarrhea. The patient also states that she is DNR DNI with comfort measures only but would want to have a colonoscopy to find the source of bleeding and possibly have any therapeutic procedures to stop it. In the emergency room, the patient was hemodynamically stable. Hemoglobin initially was 13.9 sodium 125. WBC 12 AST 141 ALT 132 INR 2.1. Per our ER physician the patient did have some bright red blood. Rectal that was positive for occult blood. As stated above the patient does still agree to have a colonoscopy that she is a DNR/DNI. GI general surgery was consulted who agrees to be consulted for possible colonoscopy. Patient received 80 mg of IV pantoprazole. Type and cross was done. [facility] Medical History Joint pain of ankle and foot (06/16/05) Joint pain of lower extremity (06/16/05) Abdominal pain, LLQ (06/16/05) Hemothorax on right Multiple rib fractures ICD (implantable cardioverter-defibrillator) in place Pacemaker Hypothyroidism Hypertrophic obstructive cardiomyopathy Surgical History History of ankle surgery Status post hysterectomy Family History Father Hypertension Mother Cancer Social History household members: children Smoking Status: Never smoker alcohol intake: never substance use type: does not use Meds Home Medications and Allergies Home Medications ?Medication ?Instructions ?Recorded ?Confirmed ?Type acetaminophen 325 mg tablet 650 mg (2 x 325 mg) PO Q6H R PRN 11/06/21 09/28/24 Rx Fever/Mild Pain (1-3) #60 tabs Disabled Parking Permit #1 ea 07/26/22 09/14/24 Rx melatonin 10 mg capsule 10 mg PO BEDTIME PRN Insomni a 05/03/23 09/28/24 History apixaban 2.5 mg tablet (Eliquis) 2.5 mg PO BID #180 ta bs 08/01/23 09/28/24 Rx magnesium oxide 400 mg PO BID #180 tabs 07/1909/28/24 Rx metoprolol succinate 25 mg 25 mg PO BID #180 tabs 07/1909/28/24 Rx tablet,extended release 24 hr rosuvastatin 5 mg tablet 5 mg PO DAILY #90 tabs 07/3109/28/24 Rx losartan 25 mg tablet 25 mg PO DAILY #30 tabs 12/05/1409/28/24 Rx amiodarone 200 mg tablet 200 mg PO BID 05/22/2409/28 History omeprazole 20 mg capsule,delayed 20 mg PO DAILY #90 ca ps 06/12/24 09/28/24 Rx release estradiol 0.01% (0.1 mg/gram) 1 g vaginal 3XW #42.5 gr ams 06/15/24 09/28/24 Rx vaginal cream levothyroxine 50 mcg tablet 50 mcg PO DAILY #90 tabs 0 07/03/24 09/28/24 Rx cholecalciferol (vitamin D3) 1,250 1,250 mcg PO QWEEK #12 caps 07/12/24 09/28/24 Rx mcg (50,000 unit) capsule amoxicillin 250 mg capsule 1,000 mg (4 x 250 mg) PO BI D #10 09/21/24 Rx caps oxycodone 5 mg tablet 5 mg PO Q4HR PRN Pain, Moder ate 09/21/24 09/28/24 Rx (4-6) #15 tabs Allergies Allergy/AdvReac Type Severity Reaction Status Date / Time codeine (CODEINE) Allergy Mild NAUSEA AND Verified 09/13/24 17:12 VOMITING iodine Allergy Verified 09/13/24 17:12 Review of Systems Review of Systems ROS: Yes All systems reviewed with the patient and are negative except as otherwise documented Exam Vital Signs (past 8 hours): - 09/27/24 22:51 09/27/24 22:51 09/27/24 22:51 Temperature 98.0 F Pulse Rate 79 75 Respiratory Rate 20 Blood Pressure 157/77 H 157/77 H Pulse Oximetry 95 94 Oxygen Delivery Method Nasal Cannula Oxygen Flow Rate 2 09/27/24 23:00 09/27/24 23:01 09/27/24 23:01 Temperature Pulse Rate 55 L 55 L Respiratory Rate Blood Pressure 145/115 H Pulse Oximetry 81 L 81 L Oxygen Delivery Method Oxygen Flow Rate 09/27/24 23:38 09/27/24 23:39 09/27/24 23:39 Temperature Pulse Rate 80 74 Respiratory Rate 17 19 Blood Pressure 134/73 Pulse Oximetry 94 94 Oxygen Delivery Method Oxygen Flow Rate 09/28/24 00:00 09/28/24 00:00 09/28/24 00:30 Temperature Pulse Rate 78 Respiratory Rate 17 Blood Pressure 125/68 131/67 Pulse Oximetry 94 Oxygen Delivery Method Room Air Oxygen Flow Rate 09/28/24 00:30 09/28/24 01:00 09/28/24 01:00 Temperature Pulse Rate 78 71 Respiratory Rate 15 15 Blood Pressure 129/72 Pulse Oximetry 94 97 Oxygen Delivery Method Room Air Nasal Cannula Oxygen Flow Rate 2 09/28/24 01:30 09/28/24 01:30 09/28/24 02:00 Temperature Pulse Rate 75 Respiratory Rate 17 Blood Pressure 145/72 H 137/74 Pulse Oximetry 97 Oxygen Delivery Method Nasal Cannula Oxygen Flow Rate 2 09/28/24 02:00 Temperature Pulse Rate 60 Respiratory Rate 25 H Blood Pressure Pulse Oximetry 98 Oxygen Delivery Method Nasal Cannula Oxygen Flow Rate 2 Oxygen Delivery Method Nasal Cannula Oxygen Flow Rate 2 Narrative Exam Narrative: Physical Exam: GENERAL: The patient is not in any acute distressed. Awake and alert. HEENT: Nonicteric sclerae, PERRLA, EOMI. Oropharynx clear. Moist mucous membranes. Conjunctivae appear well perfused. HEART: Regular rate and rhythm without murmurs. No lower extremities edema. LUNGS: Clear to auscultation bilaterally. No wheezing, crackles or rhonchi ABDOMEN: Soft, positive bowel sounds, nontender. SKIN: No rash, no excessive bruising, petechiae, or purpura. NEUROLOGIC: AxO x 3. Cranial nerves II-XII intact without motor/sensory deficit. Objective Labs 09/28/24 01:15 09/27/24 23:20 Labs: Laboratory Results - last 24 hr 09/27/24 09/28/24 23:20 01:15 WBC 12.0 H RBC 4.50 Hgb 15.0 13.9 Hct 44.8 40.3 MCV 99.5 MCH 33.4 MCHC 33.6 RDW 14.7 Plt Count 315 Neut % (Auto) 86.7 H Lymph % (Auto) 4.2 L [place] % (Auto) 7.9 Eos % (Auto) 0.6 L Baso % (Auto) 0.6 Neut # (Auto) 22537 H Lymph # (Auto) 500 L [place] # (Auto) 1000 H Eos # (Auto) 100 Baso # (Auto) 100 PT 23.3 H INR 2.1 H APTT 33 Sodium 125 L Potassium 3.8 Chloride 88 L Carbon Dioxide 36 H BUN 30 H Creatinine 0.70 Estimated GFR > 60 BUN/Creatinine Ratio 42.9 H Glucose 103 H Lactate 1.2 Calcium 7.7 L Magnesium 1.8 Total Bilirubin 1.2 AST 141 H ALT 132 H Alkaline Phosphatase 108 Total Protein 5.5 L Albumin 2.7 L Globulin 2.8 Albumin/Globulin Ratio 1.0 Lipase 64 Assessment & Plan Assessment & Plan narrative: GI bleeding. Likely lower GI bleed. Admit the patient to medical telemetry as inpatient. NPO. General surgery consult regarding colonoscopy. However general surgery recommends to monitor the patient and general surgery will see the patient tomorrow to decide if a procedure is needed. IV fluid. Monitor for any active bleeding. Continue empiric PPI IV for now. Again patient is DNR/DNI with comfort measures but would want to have colonoscopy to stop the bleeding if needed. History of atrial fibrillation on Eliquis. Resume home medication but hold Eliquis due to GI bleeding. History of end-stage chronic heart failure. Monitor hemodynamics and fluid status. While patient is n.p.o. we will hold diuretics and give gentle IV fluid. Hypothyroidism. Resume home Synthroid. Hyperlipidemia. Resume home statin. Hypertension. Monitor patient's blood pressure and treat as needed. DVT prophylaxis SCDs due to GI bleeding. CODE STATUS DNR/DNI with limited intervention but okay for colonoscopy if needed. Disposition likely home in 2 to 3 days. - As the provider of this telehealth evaluation, requested by the patient's evaluating physician, I attest that I introduced myself to the patient, provided my credentials and determined that telemedicine via a real-time, 2 way interactive audio and video platform is an appropriate and effective means of providing this service. - I reviewed the patient's chart and had a discussion with the member of the patient's treatment team. - The patient and I mutually agreed with continuation of this evaluation via telemedicine. The patient consented for the telemedicine evaluation. - This virtual encounter was taken place from [place] by Dr. Anastacio Turk. The patient was evaluated at [facility]. The encounter was approximately 35 minutes. The nurse was present during the entire time of the encounter and was able to move the stethoscope in appropriate directions. Time-Based Coding :: [TOTAL MINUTES] spent with patient and on the chart (including review of chart, obtaining history, exam, reviewing outside data, placing orders, documenting exam and treatment plan, and counseling patient) on [DATE].
[2024-09-28] MEDS: SODIUM CHLORIDE 0.9% 1,000 ML 75 ML IV ×2 (03:40→15:16)
[2024-09-28 06:57] LABS: Add Manual Diff / Slide Review NO; Hematocrit 41.5 % (36-46); Hemoglobin 14.1 g/dL (12.0-16.0); Lymphocytes Absolute Auto 500 /uL (1100-4500); Mean Corpuscular HGB Conc 34.0 % (30-36); Mean Corpuscular Hemoglobin 33.9 PG (26-34); Mean Corpuscular Volume 99.8 fL (80-100); Platelet Count 299 X10^3/uL (150-400)
[2024-09-28 07:10] LABS: Blood Urea Nitrogen 25 mg/dL (7-17); Calcium 7.5 mg/dL (8.4-10.2); Carbon Dioxide 34 mmol/L (22-32); Chloride 90 mmol/L (98-107); Estimated Glomerular Filt Rate > 60 mL/min (>60); Glucose 84 mg/dL (70-99); HEMOLYSIS < 15 (0-50); Potassium 3.4 mmol/L (3.4-5.1); Sodium 126 mmol/L (137-145)
--- NOTE | 2024-09-28 07:32 | PM.PN.1 ---
Subjective Subjective Date Patient Seen: 09/28/24 Interval history: She was admitted with rectal bleeding but the hemoglobin remains quite normal at 14.1 today. The sodium is stable at 126. The potassium has dropped from 3.8 down to 3.4. The AST is 141 with an ALT of 132. She has a history of silent aspiration. She also has a history of sigmoidectomy for colon cancer. She was seen by General surgery today and colonoscopy was not indicated based on the hemoglobin and lack of any further bleeding. The INR is 2.4. Surgery is recommending CTA if she bleeds again. Family are certain that she is not allergic to iodinated contrast. Exam Vital Signs (past 8 hours): - 09/27/24 23:38 09/27/24 23:39 09/27/24 23:39 Temperature Pulse Rate 80 74 Respiratory Rate 17 19 Blood Pressure 134/73 Pulse Oximetry 94 94 Oxygen Delivery Method Oxygen Flow Rate 09/28/24 00:00 09/28/24 00:00 09/28/24 00:30 Temperature Pulse Rate 78 Respiratory Rate 17 Blood Pressure 125/68 131/67 Pulse Oximetry 94 Oxygen Delivery Method Room Air Oxygen Flow Rate 09/28/24 00:30 09/28/24 01:00 09/28/24 01:00 Temperature Pulse Rate 78 71 Respiratory Rate 15 15 Blood Pressure 129/72 Pulse Oximetry 94 97 Oxygen Delivery Method Room Air Nasal Cannula Oxygen Flow Rate 2 09/28/24 01:30 09/28/24 01:30 09/28/24 02:00 Temperature Pulse Rate 75 Respiratory Rate 17 Blood Pressure 145/72 H 137/74 Pulse Oximetry 97 Oxygen Delivery Method Nasal Cannula Oxygen Flow Rate 2 09/28/24 02:00 09/28/24 03:00 Temperature 96.2 F L Pulse Rate 60 60 Respiratory Rate 25 H 15 Blood Pressure 123/64 Pulse Oximetry 98 95 Oxygen Delivery Method Nasal Cannula Oxygen Flow Rate 2 0 Oxygen Delivery Method Nasal Cannula Oxygen Flow Rate 0 Narrative Exam Narrative: She is quite confused. Her speech is garbled. Heart is regular rate and rhythm without murmur. Lungs are clear to auscultation bilaterally. Abdomen is soft, bowel sounds positive, nontender, no organomegaly. Extremities have no ankle edema. Objective Labs 09/28/24 06:35 09/28/24 06:35 Labs: Laboratory Results - last 24 hr 07/01/1209/28/24 09/28/24 23:20 01:15 06:35 WBC 12.0 H 9.2 RBC 4.50 4.16 Hgb 15.0 13.9 14.1 Hct 44.8 40.3 41.5 MCV 99.5 99.8 MCH 33.4 33.9 MCHC 33.6 34.0 RDW 14.7 15.2 H Plt Count 315 299 Neut % (Auto) 86.7 H 84.9 H Lymph % (Auto) 4.2 L 4.9 L [place] % (Auto) 7.9 9.1 Eos % (Auto) 0.6 L 0.5 L Baso % (Auto) 0.6 0.6 Neut # (Auto) 84729 H 7800 H Lymph # (Auto) 500 L 500 L [place] # (Auto) 1000 H 800 Eos # (Auto) 100 0 Baso # (Auto) 100 100 PT 23.3 H INR 2.1 H APTT 33 Sodium 125 L 126 L Potassium 3.8 3.4 Chloride 88 L 90 L Carbon Dioxide 36 H 34 H BUN 30 H 25 H Creatinine 0.70 0.72 Estimated GFR > 60 > 60 BUN/Creatinine Ratio 42.9 H 34.7 H Glucose 103 H 84 Lactate 1.2 Calcium 7.7 L 7.5 L Magnesium 1.8 Total Bilirubin 1.2 AST 141 H ALT 132 H Alkaline Phosphatase 108 Total Protein 5.5 L Albumin 2.7 L Globulin 2.8 Albumin/Globulin Ratio 1.0 Lipase 64 PFSH Medical History Joint pain of ankle and foot (06/16/05) Joint pain of lower extremity (06/16/05) Abdominal pain, LLQ (06/16/05) Hemothorax on right Multiple rib fractures ICD (implantable cardioverter-defibrillator) in place Pacemaker Hypothyroidism Hypertrophic obstructive cardiomyopathy Surgical History History of ankle surgery Status post hysterectomy Family History Father Hypertension Mother Cancer Social History household members: children Smoking Status: Never smoker alcohol intake: never substance use type: does not use Assessment & Plan Assessment & Plan narrative: GI bleeding. Likely lower GI bleed. Hemoglobin has not dropped substantially so there is a pause on any plans for colonoscopy. There is also a question of what interventions would be indicated/possible if a surgical condition was detected on colonoscopy? She appears to have advanced dementia. She is also on anticoagulation. Monitor for any active bleeding. Continue empiric PPI IV for now. Again patient is DNR/DNI with comfort measures but would want to have colonoscopy to stop the bleeding if needed. -followed by General surgery. History of atrial fibrillation on Eliquis. Resume home medication but holding Eliquis due to GI bleeding. History of end-stage chronic heart failure. Monitor hemodynamics and fluid status. While patient is n.p.o. we will hold diuretics and give gentle IV fluid. Hypothyroidism. Resumed home Synthroid. Hyperlipidemia. Resumed home statin. Hypertension. Monitor patient's blood pressure and treat as needed. DVT prophylaxis SCDs due to GI bleeding. CODE STATUS DNR/DNI with limited intervention but okay for colonoscopy if needed. Disposition likely home in 1 more day if hemoglobin remains stable. Time-Based Coding :: [TOTAL MINUTES] spent with patient and on the chart (including review of chart, obtaining history, exam, reviewing outside data, placing orders, documenting exam and treatment plan, and counseling patient) on [DATE].
--- NOTE | 2024-09-28 09:52 | SLP.IPNOTE ---
Chart reviewed and RN consulted. 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 MBSS was completed on 09/17/24 indicating moderate to severe oropharyngeal dysphagia with moderate to high aspiration risk (aspiration was silent). Recommendation for solids IDDSI 5: minced and moist with liquids at IDDSI 2: mildly thick / nectar thick. Pt will benefit from re-assessment of current swallowing function given change to overall health status since MBSS was completed. Pt hospitalized for possible GI bleed and colonoscopy to be completed later today. Pt to remain NPO until colonoscopy is completed. WORKSITE WELLNESS PRACTITIONER to follow up with clinical swallow evaluation later today as appropriate.
--- NOTE | 2024-09-28 10:04 | P.CONS_ITS ---
History of Present Illness Consult details Chief complaint: Rectal bleeding General Source: EMS Mode of arrival: EMS History of Present Illness HPI Narrative: Patient is confused and a very poor historian. she waxes between she doesn't why she is here to stating she has pneumonia. she is ruminating about getting out of bed and going home.She presented to the ED with a history of BRBPR. Nurses state she did have a bloody stool this am. She is on Apixiban for afib and has an ICD in place. Repotedly, she was in the ICU recently and was coded at that time. she has no other complaints. Related Data Home Medications ?Medication ?Instructions ?Recorded ?Confirmed melatonin 10 mg capsule 10 mg PO BEDTIME PRN Insomni a 05/03/23 09/28/24 amiodarone 200 mg tablet 200 mg PO BID 05/22/2409/28 Previous Rx's ?Medication ?Instructions ?Recorded acetaminophen 325 mg tablet 650 mg (2 x 325 mg) PO Q6H R PRN 11/06/21 Fever/Mild Pain (1-3) #60 tabs Disabled Parking Permit #1 ea 07/26/22 apixaban 2.5 mg tablet (Eliquis) 2.5 mg PO BID #180 ta bs 08/01/23 magnesium oxide 400 mg PO BID #180 tabs 07/19 06/11 metoprolol succinate 25 mg 25 mg PO BID #180 tabs 07/19 06/11 tablet,extended release 24 hr rosuvastatin 5 mg tablet 5 mg PO DAILY #90 tabs 07/31 losartan 25 mg tablet 25 mg PO DAILY #30 tabs 1205/14 omeprazole 20 mg capsule,delayed 20 mg PO DAILY #90 ca ps 06/12/24 release estradiol 0.01% (0.1 mg/gram) 1 g vaginal 3XW #42.5 gr ams 06/15/24 vaginal cream levothyroxine 50 mcg tablet 50 mcg PO DAILY #90 tabs 0 07/03/24 cholecalciferol (vitamin D3) 1,250 1,250 mcg PO QWEEK #12 caps 07/12/24 mcg (50,000 unit) capsule amoxicillin 250 mg capsule 1,000 mg (4 x 250 mg) PO BI D #10 09/21/24 caps oxycodone 5 mg tablet 5 mg PO Q4HR PRN Pain, Moder ate 09/21/24 (4-6) #15 tabs Allergies Allergy/AdvReac Type Severity Reaction Status Date / Time codeine (CODEINE) Allergy Mild NAUSEA AND Verified 09/13/24 17:12 VOMITING iodine Allergy Verified 09/13/24 17:12 Meds Home Medications and Allergies Home Medications ?Medication ?Instructions ?Recorded ?Confirmed ?Type acetaminophen 325 mg tablet 650 mg (2 x 325 mg) PO Q6H R PRN 11/06/21 09/28/24 Rx Fever/Mild Pain (1-3) #60 tabs Disabled Parking Permit #1 ea 07/26/22 09/14/24 Rx melatonin 10 mg capsule 10 mg PO BEDTIME PRN Insomni a 05/03/23 09/28/24 History apixaban 2.5 mg tablet (Eliquis) 2.5 mg PO BID #180 ta bs 08/01/23 09/28/24 Rx magnesium oxide 400 mg PO BID #180 tabs 07/1909/28/24 Rx metoprolol succinate 25 mg 25 mg PO BID #180 tabs 07/1909/28/24 Rx tablet,extended release 24 hr rosuvastatin 5 mg tablet 5 mg PO DAILY #90 tabs 07/3109/28/24 Rx losartan 25 mg tablet 25 mg PO DAILY #30 tabs 12/05/1409/28/24 Rx amiodarone 200 mg tablet 200 mg PO BID 05/22/2409/28 History omeprazole 20 mg capsule,delayed 20 mg PO DAILY #90 ca ps 06/12/24 09/28/24 Rx release estradiol 0.01% (0.1 mg/gram) 1 g vaginal 3XW #42.5 gr ams 06/15/24 09/28/24 Rx vaginal cream levothyroxine 50 mcg tablet 50 mcg PO DAILY #90 tabs 0 07/03/24 09/28/24 Rx cholecalciferol (vitamin D3) 1,250 1,250 mcg PO QWEEK #12 caps 07/12/24 09/28/24 Rx mcg (50,000 unit) capsule amoxicillin 250 mg capsule 1,000 mg (4 x 250 mg) PO BI D #10 09/21/24 Rx caps oxycodone 5 mg tablet 5 mg PO Q4HR PRN Pain, Moder ate 09/21/24 09/28/24 Rx (4-6) #15 tabs Allergies Allergy/AdvReac Type Severity Reaction Status Date / Time codeine (CODEINE) Allergy Mild NAUSEA AND Verified 09/13/24 17:12 VOMITING iodine Allergy Verified 09/13/24 17:12 Review of Systems Review of Systems Narrative: Unable to obtain due to patient's confusion Exam Vital Signs (past 8 hours): - 09/28/24 03:00 Temperature 96.2 F L Pulse Rate 60 Respiratory Rate 15 Blood Pressure 123/64 Pulse Oximetry 95 Oxygen Flow Rate 0 Oxygen Delivery Method Nasal Cannula Oxygen Flow Rate 0 Narrative Exam Narrative: Patient is confused to place and time but she will follow commands with strong coaxing HENMT Head: normocephalic and atraumatic Ears: hearing grossly normal bilaterally Nose: external nose normal Mouth: muffled voice (dysarthia) Neck Neck: full ROM and supple Resp Effort & Inspection: normal respiratory effort Auscultation: clear to auscultation bilaterally Cardio Rate: regular rate Rhythm: regular rhythm GI Palpation: soft (nontender) Auscultation: normal bowel sounds Skin General: no rashes or lesions noted Other: confused, dysarthria Extrem General: normal to inspection Objective Imaging CT scan - abdomen: My impression: CT scan abdomen and pelvis without contrast- essentilly unremarkable except for constipation with stool in the cecum Labs 09/28/24 06:35 09/28/24 06:35 Labs: Laboratory Results - last 24 hr 09/27/24 09/28/24 09/28/24 23:20 01:15 06:35 WBC 12.0 H 9.2 RBC 4.50 4.16 Hgb 15.0 13.9 14.1 Hct 44.8 40.3 41.5 MCV 99.5 99.8 MCH 33.4 33.9 MCHC 33.6 34.0 RDW 14.7 15.2 H Plt Count 315 299 Neut % (Auto) 86.7 H 84.9 H Lymph % (Auto) 4.2 L 4.9 L [place] % (Auto) 7.9 9.1 Eos % (Auto) 0.6 L 0.5 L Baso % (Auto) 0.6 0.6 Neut # (Auto) 60698 H 7800 H Lymph # (Auto) 500 L 500 L [place] # (Auto) 1000 H 800 Eos # (Auto) 100 0 Baso # (Auto) 100 100 PT 23.3 H INR 2.1 H APTT 33 Sodium 125 L 126 L Potassium 3.8 3.4 Chloride 88 L 90 L Carbon Dioxide 36 H 34 H BUN 30 H 25 H Creatinine 0.70 0.72 Estimated GFR > 60 > 60 BUN/Creatinine Ratio 42.9 H 34.7 H Glucose 103 H 84 Lactate 1.2 Calcium 7.7 L 7.5 L Magnesium 1.8 Total Bilirubin 1.2 AST 141 H ALT 132 H Alkaline Phosphatase 108 Total Protein 5.5 L Albumin 2.7 L Globulin 2.8 Albumin/Globulin Ratio 1.0 Lipase 64 Blood Type O Negative Antibody Screen Negative [facility] Medical History Joint pain of ankle and foot (06/16/05) Joint pain of lower extremity (06/16/05) Abdominal pain, LLQ (06/16/05) Hemothorax on right Multiple rib fractures ICD (implantable cardioverter-defibrillator) in place Pacemaker Hypothyroidism Hypertrophic obstructive cardiomyopathy Surgical History History of ankle surgery Status post hysterectomy Family History Father Hypertension Mother Cancer Social History household members: children Tobacco & Substance Use Smoking Status: Never smoker alcohol intake: never substance use type: does not use Assessment & Plan Assessment & Plan narrative: 1) lower GI bleed- Patient not a candidate for colonoscopy due her other co- morbidities and recent history of cardiac arrest. May feed the patient. 2) Hypertrophic Cardiomyopathy 3) Hypothyroidism Time-Based Coding :: [TOTAL MINUTES] spent with patient and on the chart (including review of chart, obtaining history, exam, reviewing outside data, placing orders, documenting exam and treatment plan, and counseling patient) on [DATE]. PROFEE Charge Codes Inpatient or Observation consultation: 80660 (45 minutes spent with the patient)
[2024-09-28] MEDS: METOPROLOL ER 25 MG TABLET PO ×2 (10:33→21:20)
[2024-09-28] MEDS: AMIODARONE 200 MG TABLET PO ×2 (10:33→21:19)
[2024-09-28] MEDS: PANTOPRAZOLE 40 MG VIAL IV ×2 (10:34→21:19)
[2024-09-28] MEDS: SODIUM CHLORIDE 0.9% FLUSH 10 ML IV ×2 (10:36→21:24)
--- NOTE | 2024-09-28 10:51 | OT.IPNOTE ---
Pt adamantly refusing to get up and focused on drinking water at this time. Pt is NPO for possible sx.
--- NOTE | 2024-09-28 10:58 | PT-IP ANOTE ---
1045 attempted PT eval, pt very agitated about wanting water to drink and refuses PT. PT will attempt again when appropriate.
--- NOTE | 2024-09-28 15:07 | ST.IPCSEOM ---
Visit Care Team Role Provider Type Luba Belle DO Primary Care Provider Physician Specialty: Medical Address: [address] [place] [address], [address], [place], [address] Email: [email or web address] Jovanny Murdock DO Emergency Provider Physician Referring Provider Specialty: Emergency Medicine Address: [address] [place] [address], [id number] Fax: Email: [email or web address] Anastacio Turk MD Admit Provider Physician Attending Provider Specialty: Internal Medicine Address: [address] [place] [address], [id number] Email: Current Diagnoses Gastrointestinal hemorrhage, unspecified (09/28/24) Past Medical History (Last Reviewed 09/20/24 @ 08:43 by Daniel Bella MD) Abdominal pain, LLQ (Medical 06/16/05) Hemothorax on right (Medical) Hypertrophic obstructive cardiomyopathy (Medical) Hypothyroidism (Medical) ICD (implantable cardioverter-defibrillator) in place (Medical) Implant Date: 10/20/2020 Implanting Physician: Dr. Robbi Burciaga Field Consultant: [employer] Model: Fortify Assura 2357-40Q Serial#: [id number] Joint pain of ankle and foot (Medical 06/16/05) Joint pain of lower extremity (Medical 06/16/05) Multiple rib fractures (Medical) Pacemaker (Medical) Implant Date: 08/31/2011 Implanting Physician: Dr. Robbi Ramirez Lead Field Consultant: [employer] [facility] Model: Tendril ST Optim 1888/52 cm Serial #: [id number] V Lead Field Consultant: [employer] [facility] Model: Durata 7122Q/ 58cm Serial #: [id number] Speech-Language Pathology Swallow Evaluation EXTERIOR INTERIOR SPECIALIST Clinical Swallow Evaluation Start: 09/28/24 13:33 Freq: Status: Active Protocol: Document 09/28/24 13:34 SS (Rec: 09/28/24 13:38 SS Desktop) Clinical Swallow Evaluation Session Time Visit Start Time 12:55 Visit Stop Time 13:25 Total Visit Minutes 30 Visit Information Visit Number [address] Cosmo Cooper Reason for Referral Dysphagia Setting Assessment Location Acute Care Visit Type Note Type Initial evaluation Next Note Type Next Note Type Treatment Note Patient Information Identification Type Name History Per H&P on 09/28/24: 89-year-old female with past medical history of atrial fibrillation on Eliquis, AICD /pacemaker, end-stage chronic heart failure, hyperlipidemia, hypothyroidism and hypertension presents with GI bleed. Per report the patient started having bright red blood per rectum that started today. The patient lives at a long-term care facility and does have a chronic indwelling Oh. The patient admits to have some mild abdominal pain but otherwise denies any fever, chills, chest pain, shortness of breath, dysuria, nausea, vomiting or diarrhea. The patient also states that she is DNR DNI with comfort measures only but would want to have a colonoscopy to find the source of bleeding and possibly have any therapeutic procedures to stop it. In the emergency room, the patient was hemodynamically stable. Hemoglobin initially was 13.9 sodium 125. WBC 12 AST 141 ALT 132 INR 2.1. Per our ER physician the patient did have some bright red blood. Rectal that was positive for occult blood. As stated above the patient does still agree to have a colonoscopy that she is a DNR/DNI. GI general surgery was consulted who agrees to be consulted for possible colonoscopy. Patient received 80 mg of IV pantoprazole. Type and cross was done. Pt was hospitalized at [facility] 09/14/24-09/21. An MBSS completed on 09/20/24 demonstrated moderate to severe oropharyngeal dysphagia with moderate to high aspiration risk (aspiration was silent). Diet recommendations were IDDSI 5: minced and moist with liquids at IDDSI 2: mildly thick /nectar thick. Ice chip protocol was also recommended at the time. It was also noted that pt benefited from frequent cuing to clear throat to clear tracheal aspirant. Clinical swallow evaluation was completed today to assess current swallowing function. Subjective Chart reviewed and RN consulted. RN reported good Observations tolerance of current diet. Diet texture downgraded to puree for GI reasons. Pt was reclined in bed upon EXTERIOR INTERIOR SPECIALIST arrival, drinking liquids from a cup. Family was at bedside. Pt was alert and oriented x2 and had significant difficulty responding to case history questions or following simple directions. This may be impacted by hearing loss, but suspect reduced overall cognitive function. Pt has minimal awareness of swallowing difficulty. Pt's family are understanding of diet modifications and benefited from additional education re: MBSS results and factors contributing to aspiration pneumonia. Reported by Patient/Caregiver Other Symptoms Difficulty swallowing liquids,Difficulty swallowing pills,Difficulty swallowing solids,Food gets stuck, History of aspiration or pneumonia Current Diet Pureed (IDDSI 4) Baseline Feeding Needs some assistance Method Results Solids: puree Liquids: nectar / mildly thick Medications: crushed in puree carrier Functional Oral Intake Scale (FOIS): FOIS level 5 FOIS [place]: Level 1 = no oral intake, Level 2 = tube dependent with minimal/inconsistent oral intake, Level 3 = tube supplements with consistent oral intake, Level 4 = total oral intake of a single consistency, Level 5 = total oral intake of multiple consistencies requiring special preparation, Level 6 = total oral intake with no special preparation, but must avoid specific foods or liquid items, Level 7 = total oral intake with no restrictions The IDDSI Framework Protocol: IDDSI.1 Objective Assessment Mental Status Alert,Responsive,Cooperative,Lethargic Oral Integrity WFL Dentition Within normal limits Lip Function Within normal limits Tongue Function Within normal limits Jaw Function Within normal limits Hard/Soft Palate Within normal limits Function Comment CRANIAL NERVE EXAM CN V (Trigeminal): Intact b/l CN VII (Facial): Intact b/l CN IX/X (Glossopharyngeal/Vagus): Intact b/l CN XII (Hypoglossal): Intact b/l Pt?s oral health is fair. Pt has her own dentition with dental work noted. The pt reports brushing her teeth 1 -2 x daily, although this has been less consistent with recent hospitalizations. Oral health status is one of the three pillars of aspiration pneumonia, with research showing that poor oral health increases the risk of pulmonary compromise associated with aspiration . Food and Liquid Trials Position During Upright (90 degrees) Assessment Liquids Trialed Mildly Thick (IDDSI 2) Solid Trials Purred (IDDSI 4) Administration Type Tea spoon,Cup single sip,Cup consecutive sips,Self- feeding,Needs some assistance Oral Impairment Moderately impaired Oral Phase Comments Per MBSS results: Lip Closure: interlabial escape; no progression to anterior lip Tongue Control: cohesive bolus between tongue to palatal seal during bolus hold Bolus Preparation/Mastication: slow prolonged chewing/ mashing with complete recollection Bolus Transport/Lingual Motion: repetitive/disorganized tongue motion Oral Residue: Residue collection on oral structures Initiation of Pharyngeal Swallow: bolus head at pyriforms Oral acceptance and containment appeared to be within normal limits. Mastication appeared slow and disorganized. Residue noted in oral cavity, which pt was able to clear with cued liquid wash. Pharyngeal Moderately impaired Impairment Pharyngeal Phase Per MBSS results: Comments Soft Palate Elevation: no bolus between soft palate & pharyngeal wall Laryngeal Elevation: partial superior movement of the thyroid cartilage. Partial approximations of the arytenoids to the epiglottic petiole Anterior Hyoid Excursion: partial anterior movement Epiglottic Movement: No inversion Laryngeal Vestibular Closure: incomplete; narrow column air/contrast in laryngeal vestibule Pharyngeal Stripping Wave: absent Pharyngoesophageal Segment Opening: complete distention & complete duration; no obstruction of flow Tongue Base Retraction: wide column of contrast/air between tongue base & posterior pharyngeal wall Pharyngeal Residue: Collection of residue within/on pharyngeal structures Penetration to the vocal folds with visible residue ( PAS:5) and tracheal aspiration below the folds with no response or effort, and tracheal residue (PAS:8) were noted. Cued strong throat clear was effective in clearing trachea/larynx). During the bedside assessment, pt was able to utilize an average of a single swallow per bolus. No overt s/sx of penetration or aspiration noted. However, given pt? s history of silent aspiration, aspiration cannot be ruled out without instrumental visualization. Fatigue/Endurance Moderate fatigue The IDDSI Framework Protocol: IDDSI.1 Findings Swallowing Function Oropharyngeal phase dysphagia Severity of Swallow Moderately-severely impaired Impairment Contributing Factors Reduced alertness or attention,Difficulty following to Swallow directions,Reduced oral strength/coordination/sensation Impairment ,Mastication inefficiency,Impaired oral-pharyngeal transport,Delayed swallow initiation,Reduced laryngeal excursion,Impaired airway protection,Excessive pharyngeal residue Prognosis Guarded Based on Cognitive status,Bed bound,Age,History of aspiration/ aspiration pneumonia,Comorbidities,Duration of symptoms /severity Comment Pt demonstrates moderate-severe oropharyngeal dysphagia . Per MBSS results, oral phase deficits c/b by prolonged and disorganized mastication and bolus formation in addition to slowed AP transit; these deficits resulted in oral residue. Pharyngeal phase deficits c/b delayed swallow initiation, reduced hyolaryngeal elevation/excursion resulting in absent epiglottic inversion. Base of tongue retraction and pharyngeal stripping wave were notably reduced/absent, resulting in diffuse pharyngeal residue. Penetration and silent aspiration were observed, though cued throat clear appeared to clear the tracheal aspirant as pt did not sensate to it. Based on pt?s current fair oral health status and compromised immune function, pt remains at a moderate-high risk of pulmonary compromise associated with aspiration at this time. Pt appears to be at risk for malnutrition/dehydration due to decreased appetite and diet modifications. Recommend pt continue eating puree diet as recommended by hospitalist (2/2 GI issues) and nectar / mildly thick liquids (per MBSS results) to maintain nutrition and hydration. Pt may benefit from ice chip protocol ( between meals after oral care). Pt will benefit from frequent oral care, including before and after all meals, to minimize colonization of oral pathogens that can increase pt's risk of developing aspiration pneumonia if aspirated. EXTERIOR INTERIOR SPECIALIST reviewed assessment results with family who expressed understanding of risks and benefits of diet modification given MBSS results and pt ?s overall health status. RN and MD expressed understanding of recommendations. Will follow closely during acute care stay for dysphagia management. Modified Barium Swallow Study (MBSS) may be indicated to thoroughly assess pt?s swallow pathophysiology if overall health status begins to improve. Impact on Safety and Risk for aspiration,Risk for inadequate nutrition/ Functioning hydration Recommendations Swallowing Treatment Yes Frequency 5x/week Recommended Solids Pureed (IDDSI 4) Recommended Liquids Mildly Thick (IDDSI 2) Other See above. Recommendations Safety Precautions/ Supervision needed for all meals,1 to 1 close Swallowing supervision,Feed only when alert,Reduce distractions, Recommendations Remain upright (90 degrees) during all oral intake, Needs verbal cues to use recommended strategies,Upright position at least 30 minutes after meals,Small bites and sips when eating,Slow rate; swallow between bites, No straw,Multiple swallows,Alternate liquids and solids ,Strict oral care after intake,Check for pocketing Medication Crushed in Carrier Recommendations Discharge snf facility,computer terminal operator care facility Recommendations Comments Ice chips with clean mouth/appropriate oral care and supervision Referrals Recommended Dietary Referrals Education Patient/Caregiver Described results of evaluation,Patient expressed Education understanding of evaluation,Patient expressed agreement with goals & treatment plans,Family/caregivers expressed understanding of evaluation,Family/caregivers expressed agreement with goals & treatment plans Goals Short-term Goals STG1: Pt will use compensatory strategies (upright positioning, slow rate, small sips/bites, no straws) independently to reduce risk of aspiration in 90% of opportunities. STG2: Pt will participate in repeat MBSS to further guide POC if overall health status begins to improve. Long-term Goals LTG: Pt will consume the safest and most efficient least restrictive diet with minimal clinical signs/ symptoms of oropharyngeal dysphagia in order to meet nutrition/hydration needs.
--- NOTE | 2024-09-28 16:30 | CM.DANOTE ---
DCP Assessment Note: Pt is a 89yo female, resident of [place], is admitted for rectal bleeding. Hx of dementia. Pt is a resident at [facility], transferred during last admission on 09/21. Pt's Primary Care Provider is Dr. Luba Belle and insurance is Medicare and [facility] [employer]. Reviewed chart and discussed with multidisciplinary team pt's medical status and initial discharge needs. Per hospitalist, General Surgery consulted and pt to be prepped for colonoscopy. Per RN, pt could not complete colonoscopy prep due to AMS. Per OT, pt declining her attempts at evaluation. DCP attempted to speak with pt multiple times throughout the day, had visitors or preparing for colonoscopy. DCP also attempted to speak with pt son, Scott, could not connect via phone call. Plan: Medical plan evolving, anticipating dc [facility] to [facility] on 09/30 or when medically cleared. CM team will follow closely for coordination of discharge plans. IVETTE Walker Discharge Planning/Care Management CM Discharge Assessment Start: 09/28/24 03:21 Freq: Status: Active Protocol: Document 09/28/24 14:35 MW (Rec: 09/28/24 14:39 MW Desktop) Discharge Planning Assessment Assigned Discharge MARTIN Moreau Controlled Area Checker DPOA/Assigned Owen Chavez Designee Name Contact Information [phone] Advance Directives? Yes: Yes/POLST Advance Directives Yes on File History Provided By Patient,Medical Record Prior Living Assisted Living Arrangements Household Members children Facility Name Other Admitted From: Willing to Return to Yes Facility? Independent with ADL No 's Is patient alert and No oriented? Needs Assistance Bathing,Grooming,Meal Prep,Toileting,Managing With Medications,Home Chores / Shopping Caregiver for No Another DME Already Rented / Wheelchair Owned Patient/Family Chcf Facility Preference Discharge Plan Chcf Facility Transportation Likely w/c van if SNF vs pov if home w/family Arrangement Review Status In Process Please Provide Date 09/28/24 Initial DC Assessment Was Performed Next Review Type Continued Stay Review
[2024-09-28] MEDS: ATORVASTATIN 20 MG TABLET 10 MG PO (21:19)
[2024-09-29] VITALS (9 sets, daily range): BP systolic 112–157; BP diastolic 60–90; PULSE 60–63; RESP 14–20; TEMP 36.2–36.6; O2SAT 95–97
[2024-09-29 05:04] LABS: Add Manual Diff / Slide Review NO; Hematocrit 39.6 % (36-46); Hemoglobin 13.5 g/dL (12.0-16.0); Lymphocytes Absolute Auto 400 /uL (1100-4500); Mean Corpuscular HGB Conc 34.1 % (30-36); Mean Corpuscular Hemoglobin 33.7 PG (26-34); Mean Corpuscular Volume 98.9 fL (80-100); Platelet Count 296 X10^3/uL (150-400)
[2024-09-29 05:27] LABS: Alanine Aminotransferase 116 IU/L (<35); Albumin 2.2 g/dL (3.5-5.0); Albumin Globulin Ratio 0.9 (1.0-2.8); Alkaline Phosphatase 99 U/L (38-126); Blood Urea Nitrogen 17 mg/dL (7-17); Calcium 7.3 mg/dL (8.4-10.2); Carbon Dioxide 25 mmol/L (22-32); Chloride 98 mmol/L (98-107); Estimated Glomerular Filt Rate > 60 mL/min (>60); Globulin 2.5 g/dL (1.7-4.1); Glucose 75 mg/dL (70-99); HEMOLYSIS < 15 (0-50); Potassium 3.3 mmol/L (3.4-5.1); Sodium 127 mmol/L (137-145); Total Protein 4.7 g/dL (6.3-8.2)
[2024-09-29] MEDS: LEVOTHYROXINE 50 MCG TABLET PO (06:01)
--- NOTE | 2024-09-29 09:27 | PT.IIE ---
Current Diagnoses Gastrointestinal hemorrhage, unspecified (09/28/24) Surgical History (Last Reviewed 09/20/24 @ 08:43 by Daniel Bella MD) History of ankle surgery Status post hysterectomy Medical History (Last Reviewed 09/20/24 @ 08:43 by Daniel Bella MD) Abdominal pain, LLQ (06/16/05) Hemothorax on right Hypertrophic obstructive cardiomyopathy Hypothyroidism ICD (implantable cardioverter-defibrillator) in place Joint pain of ankle and foot (06/16/05) Joint pain of lower extremity (06/16/05) Multiple rib fractures Pacemaker Physical Therapy Inpatient Evaluation/Re-Eval M1 PT/OT-IP Prior Functional Status Start: 09/29/24 09:14 Freq: NEEDED Status: Active Protocol: Document 09/29/24 08:49 MB (Rec: 09/29/24 09:26 MB Desktop) Medical Review Prior Functional Status Medical History Yes Reviewed Communication Unsure baseline diet and pt is on swallowing strategies per 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 and has been in the bed there. He states that she has expressed not wishing to rehabilitate Activities of Daily Heavy assistance at facility; previously paid caregiver Living and IADL's assistance from [phone] each night to help with bathing and getting to bed at home Social History Household Members children Living Arrangements House Number of Floors ( Two Floors Floors) Number of Stairs To Son lives in basement apartment, pt has been at [facility] since last hospitalization, per son's report, and she has been essentially bed bound and not participating with PT Home Environment Standard Height Toilet,Walk in Shower,Built-In Shower Seat Home Equipment Front Wheel Walker,Four Wheel Walker,Straight Cane,Hand Held Shower,Grab Bars Near Toilet,Grab Bars In Shower Additional Social Son nor pt are very expressive about baseline home set- History Comment up. Son expresses that pt wishes to go home but they are not set-up there as far as hospital bed, BSC, and assistance for mobility M2 PT-IP Current Condition Start: 09/29/24 09:14 Freq: NEEDED Status: Active Protocol: Document 09/29/24 08:49 MB (Rec: 09/29/24 09:26 MB Desktop) Physical Therapy Current Condition Current Condition Evaluation Date 09/29/24 Treatment Diagnosis GI bleed, history of CA, colonoscopy not recommended M3 PT-IP Subjective Start: 09/29/24 09:14 Freq: NEEDED Status: Active Protocol: Document 09/29/24 08:49 MB (Rec: 09/29/24 09:26 MB Desktop) Subjective Physical Therapy Visit Type Type Initial Evaluation Visit Start Time 08:49 Visit Stop Time 09:14 Number of PSYCHOLOGIST CLINICAL Visits 0 Physical Therapy Visit Comments Patient Comments Pt is hypoverbal and c/o B shoulder pain in bed upon arrival and is agreeable to PT to help with position, attempt OOB. Therapy Pain Assessment Pain When Pain Assessed At Rest Pain Present Pain Present Pain Reported Location B shoulders and chest Scale Used Number not given, reported to nsg M4 PT-IP Mobility and Gait Start: 09/29/24 09:14 Freq: NEEDED Status: Active Protocol: Document 09/29/24 08:49 MB (Rec: 09/29/24 09:26 MB Desktop) PT-Bed Mobility Assessment Rolling Level of Assist Maximal Assistance,1 Person Assistance Supine to Sit Supine to Sit Total Assistance,1 Person Assistance,Head of Bed Elevated,Bedrails PT-Transfer Assessment Comments Mobility Comments Pt does not participate well with bed mobility and states she is being incontinent of bowel as PT assists her in the bed. PT repositions pt to have less shoulder pain in the bed and she c/o chest pain. 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 Impaired Gross Range of Motion Upper Extremity ROM Assessment Bilaterally Impaired Impairments Severe LUE edema and decreased ROM and strength, son states is new Lower Extremity ROM Assessment Bilaterally Impaired Impairments Pt does not participate Strength Upper Extremity Strength Assessment Bilaterally Impaired Lower Extremity Strength Assessment Bilaterally Impaired Comments Strength Comments LUE changes as above and PT will communicate with team in rounds today Coordination Assessment Gross Coordination Gross Coordination Impaired Assessment Coordination LUE edematous and very poor range and strength Comments Sensation Assessment Comments Sensation Comments Pt does not participate M7 PT-IP Assessment and Plan Start: 09/29/24 09:14 Freq: NEEDED Status: Active Protocol: Document 09/29/24 08:49 MB (Rec: 09/29/24 09:26 MB Desktop) PT Summary Assessment and Plan Potential Rehabilitation Poor Potential Status of Condition Unstable at Evaluation Summary Impairments Pain,ROM,Strength,Coordination,Cognition,Bed Mobility, Transfers,Gait,Activity Tolerance Assessment Summary Pt is an 89 y/o female adm with lower GI bleed. Per hospital notes, she is not recommended to have colonoscopy. Son, Romario, is in room for PT assessment and he reports that pt has had a decline since her of 12 years in May of 2024. He reports pt has been in and out of the hospital and d/c to [facility], from which she was adm this time. He reports that pt has been in bed and not participating with therapies. He states she has asked to go home but they are not set-up as far as a hospital bed, BSC and assistance needed to mobilize. Pt is currently total assistance for bed mobility and she demonstrates very little participation with PT. She c/o B shoulder and chest pain. Her left UE is very edematous and has little active motion and strength. PT will communicate with team at rounds. PT spoke with SW about findings today. Currently, no skilled PT needs as pt is close to baseline and does not wish to participate with skilled mobility. Recommend 24 hour total care at d/c. Frequency of Treatment Frequency Of Discharge Treatment Recommendations To Nursing Amount of Assist Mechanical Lift Needed Discharge Recommendations Other Discharge 24 hour total care at d/c Recommendations Transportation Needs Stretcher/Ambulance at Discharge
[2024-09-29] MEDS: PANTOPRAZOLE 40 MG VIAL IV ×2 (09:53→20:47)
[2024-09-29] MEDS: METOPROLOL ER 25 MG TABLET PO ×2 (09:53→20:46)
[2024-09-29] MEDS: AMIODARONE 200 MG TABLET PO ×2 (09:53→20:45)
--- NOTE | 2024-09-29 15:12 | CM.DPC ---
DCP Cont: Per MD, pt not a scope candidate at this time and per PT pt is declining to work with therapies and appears more comfort care appropriate. MD to discuss more Goals of Care with son who was bedside. SW attempted to meet bedside but son left for now and assisted pt with making phone call as pt could not manage her new phone and likely will need family bedside for further discharge planning discussion. MARTIN Mclean
[2024-09-29] MEDS: SODIUM CHLORIDE 0.9% FLUSH 10 ML IV ×2 (15:43→20:47)
--- NOTE | 2024-09-29 16:13 | PM.DS.1 ---
History of Present Illness History of Present Illness Date Patient Seen: 09/29/24 Chief complaint: Rectal bleeding Narrative: Chief complaint: Rectal bleeding History of present illness: 09/28: 89-year-old female with past medical history of atrial fibrillation on Eliquis, AICD/pacemaker, end-stage chronic heart failure, hyperlipidemia, hypothyroidism and hypertension presents with GI bleed. Per report the patient started having bright red blood per rectum that started today. The patient lives at a long-term care facility and does have a chronic indwelling Oh. The patient admits to have some mild abdominal pain but otherwise denies any fever, chills, chest pain, shortness of breath, dysuria, nausea, vomiting or diarrhea. The patient also states that she is DNR DNI with comfort measures only but would want to have a colonoscopy to find the source of bleeding and possibly have any therapeutic procedures to stop it. In the emergency room, the patient was hemodynamically stable. Hemoglobin initially was 13.9 sodium 125. WBC 12 AST 141 ALT 132 INR 2.1. Per our ER physician the patient did have some bright red blood. Rectal that was positive for occult blood. As stated above the patient does still agree to have a colonoscopy that she is a DNR/DNI. GI general surgery was consulted who agrees to be consulted for possible colonoscopy. Patient received 80 mg of IV pantoprazole. Type and cross was done. Patient however was not a candidate for colonoscopic procedure given her frail condition and lack of interest in therapeutic measures Hospital course: 09/29: Had discussion with patient and family and patient did not wish any further therapeutic treatments to continue her maintenance treatments for her chronic conditions but to go back to [facility] on a regular diet without thickening despite dysphagia as patient wants comfort measures and if she aspirates again she does not want intervention. Patient and family will discuss with case management at that facility for converting to a palliative or hospice at that facility. 35 minutes spent with patient and on the chart (including review of chart, obtaining history, exam, reviewing outside data, placing orders, documenting exam and treatment plan, and counseling patient) Discharge Providers Provider Date of admission: 09/28/24 02:16 Discharge Date: 09/29/24 Primary care physician: Luba Belle DO Consults: 09/28/24 02:26 Consult to Physical Therapy Evaluate & Treat Comment: Physician Instructions: Evaluate and Treat Discharge provider: Mic Rosado MD Exam Vital Signs (past 8 hours): - 09/29/24 14:00 Temperature 97.7 F Pulse Rate 60 Respiratory Rate 14 Blood Pressure 143/90 H Pulse Oximetry 97 Oxygen Flow Rate 0 Oxygen Delivery Method Nasal Cannula Oxygen Flow Rate 0 Objective Labs 09/29/24 04:47 09/29/24 04:47 Labs: Laboratory Results - last 24 hr 09/29/24 04:47 WBC 8.1 RBC 4.01 Hgb 13.5 Hct 39.6 MCV 98.9 MCH 33.7 MCHC 34.1 RDW 15.0 H Plt Count 296 Neut % (Auto) 84.4 H Lymph % (Auto) 5.3 L [place] % (Auto) 9.3 Eos % (Auto) 0.3 L Baso % (Auto) 0.7 Neut # (Auto) 6900 Lymph # (Auto) 400 L [place] # (Auto) 800 Eos # (Auto) 0 Baso # (Auto) 100 Sodium 127 L Potassium 3.3 L Chloride 98 Carbon Dioxide 25 BUN 17 Creatinine 0.58 Estimated GFR > 60 BUN/Creatinine Ratio 29.3 H Glucose 75 Calcium 7.3 L Total Bilirubin 1.2 AST 131 H ALT 116 H Alkaline Phosphatase 99 Total Protein 4.7 L Albumin 2.2 L Globulin 2.5 Albumin/Globulin Ratio 0.9 L [facility] Medical History Joint pain of ankle and foot (06/16/05) Joint pain of lower extremity (06/16/05) Abdominal pain, LLQ (06/16/05) Hemothorax on right Multiple rib fractures ICD (implantable cardioverter-defibrillator) in place Pacemaker Hypothyroidism Hypertrophic obstructive cardiomyopathy Surgical History History of ankle surgery Status post hysterectomy Family History Father Hypertension Mother Cancer Social History household members: children Smoking Status: Never smoker alcohol intake: never substance use type: does not use Discharge Plan Discharge Plan Patient Disposition: Home Discharge orders & Medications Prescriptions: Continued losartan 25 mg tablet 25 mg PO DAILY Qty: 30 0RF omeprazole 20 mg capsule,delayed release(DR/EC) 20 mg PO DAILY Qty: 90 3RF Rx Instructions: Take one capsule by mouth daily estradiol 0.01 % (0.1 mg/gram) cream 1 g vaginal 3XW Qty: 42.5 1RF levothyroxine 50 mcg tablet 50 mcg PO DAILY Qty: 90 0RF cholecalciferol (vitamin D3) 1,250 mcg (50,000 unit) capsule 1,250 mcg PO QWEEK Qty: 12 0RF (DME) Disabled Parking Permit See Rx Instructions .ROUTE .MEDSUPPLY Qty: 1 0RF Rx Instructions: Valid for 5 years melatonin 10 mg capsule 10 mg PO BEDTIME PRN (Reason: Insomnia) rosuvastatin 5 mg tablet 5 mg PO DAILY Qty: 90 1RF Eliquis 2.5 mg tablet 2.5 mg PO BID Qty: 180 1RF magnesium oxide 400 mg magnesium tablet 400 mg PO BID Qty: 180 1RF metoprolol succinate 25 mg tablet extended release 24 hr 25 mg PO BID Qty: 180 1RF amiodarone 200 mg tablet 200 mg PO BID acetaminophen 325 mg Tablet 650 mg PO Q6HR PRN (Reason: Fever/Mild Pain (1-3)) Qty: 60 0RF oxycodone 5 mg Tablet 5 mg PO Q4HR PRN (Reason: Pain, Moderate (4-6)) Qty: 15 0RF Discontinued amoxicillin 250 mg Capsule 1,000 mg PO BID Qty: 10 0RF Follow up/Referrals: Luba Belle DO [Primary Care Provider, Medical] Diet/Activity/Treatments Diet: Regular Diet comment: Soft with thin liquids no more thickener Visit Report/Discharge Packet Stand Alone Forms: Patient Portal/API, Stroke Signs & Symptoms Discharge Data Primary Care Provider: Luba Belle Attending Provider: Anastacio Turk Admit Date/Time: 09/28/24 02:16
[2024-09-29] MEDS: POTASSIUM CHLORIDE 20 MEQ TAB 40 MEQ PO (17:31)
--- NOTE | 2024-09-29 17:38 | PC.NURSE ---
Pt resting at intervals Denies discomfort when asked SL intact/patent. May not have general diet. elevate head 90degrees. Call light w/in reach, bed alarm on when family not present. Continue w/ plan of care.
[2024-09-29] MEDS: ATORVASTATIN 20 MG TABLET 10 MG PO (20:45)
[2024-09-29] MEDS: MELATONIN 3 MG TABLET 9 MG PO (20:46)
[2024-09-29] MEDS: OXYCODONE IR 5 MG TABLET PO (20:47)
[2024-09-29] MEDS: MORPHINE 4 MG/ML INJ 3 MG IV (22:32)
[2024-09-30] MEDS: LEVOTHYROXINE 50 MCG TABLET PO (05:42)
[2024-09-30] MEDS: OXYCODONE IR 5 MG TABLET PO (05:54)
[2024-09-30 10:00] VITALS: BP 145/69; PULSE 60; RESP 16; TEMP 36.1; O2SAT 95
--- NOTE | 2024-09-30 10:10 | PC.NURSE ---
Patient getting up to chair now, breif changed. Patient slept in until 1000am, will give her medication now. BS cta and heart sounds wnl.
--- NOTE | 2024-09-30 11:00 | PM.DS.1 ---
History of Present Illness History of Present Illness Date Patient Seen: 09/30/24 Chief complaint: Rectal bleeding Narrative: Chief complaint: Rectal bleeding History of present illness: 09/28: 89-year-old female with past medical history of atrial fibrillation on Eliquis, AICD/pacemaker, end-stage chronic heart failure, hyperlipidemia, hypothyroidism and hypertension presents with GI bleed. Per report the patient started having bright red blood per rectum that started today. The patient lives at a long-term care facility and does have a chronic indwelling Oh. The patient admits to have some mild abdominal pain but otherwise denies any fever, chills, chest pain, shortness of breath, dysuria, nausea, vomiting or diarrhea. The patient also states that she is DNR DNI with comfort measures only but would want to have a colonoscopy to find the source of bleeding and possibly have any therapeutic procedures to stop it. In the emergency room, the patient was hemodynamically stable. Hemoglobin initially was 13.9 sodium 125. WBC 12 AST 141 ALT 132 INR 2.1. Per our ER physician the patient did have some bright red blood. Rectal that was positive for occult blood. As stated above the patient does still agree to have a colonoscopy that she is a DNR/DNI. GI general surgery was consulted who agrees to be consulted for possible colonoscopy. Patient received 80 mg of IV pantoprazole. Type and cross was done. Patient however was not a candidate for colonoscopic procedure given her frail condition and lack of interest in therapeutic measures Hospital course: 09/29: Had discussion with patient and family and patient did not wish any further therapeutic treatments to continue her maintenance treatments for her chronic conditions but to go back to [facility] on a regular diet without thickening despite dysphagia as patient wants comfort measures and if she aspirates again she does not want intervention. Patient and family will discuss with case management at that facility for converting to a palliative or hospice at that facility. 09/30: Discharge was delayed for 24 hours the patient discharged and will continue care at [facility] 35 minutes spent with patient and on the chart (including review of chart, obtaining history, exam, reviewing outside data, placing orders, documenting exam and treatment plan, and counseling patient) Discharge Providers Provider Date of admission: 09/28/24 02:16 Discharge Date: 09/30/24 Primary care physician: Luba Belle DO Consults: 09/28/24 02:26 Consult to Physical Therapy Evaluate & Treat Comment: Physician Instructions: Evaluate and Treat Discharge provider: Mic Rosado MD Exam Vital Signs (past 8 hours): - 09/30/24 10:00 Temperature 97.0 F L Pulse Rate 60 Respiratory Rate 16 Blood Pressure 145/69 H Pulse Oximetry 95 Oxygen Delivery Method Nasal Cannula Oxygen Flow Rate 0 Objective Labs 09/29/24 04:47 09/29/24 04:47 PFSH Medical History Joint pain of ankle and foot (06/16/05) Joint pain of lower extremity (06/16/05) Abdominal pain, LLQ (06/16/05) Hemothorax on right Multiple rib fractures ICD (implantable cardioverter-defibrillator) in place Pacemaker Hypothyroidism Hypertrophic obstructive cardiomyopathy Surgical History History of ankle surgery Status post hysterectomy Family History Father Hypertension Mother Cancer Social History household members: children Smoking Status: Never smoker alcohol intake: never substance use type: does not use Discharge Plan Discharge Plan Patient Disposition: SNF Transfer to: [facility] I certify the postop hospital retirement care is medically necessary on a continuing basis for any conditions for which he/ she received care during this hospitalization.: Yes The receiving facility has agreed to accept transfer and provide medical treatment.: Yes Discharge orders & Medications Prescriptions: Continued losartan 25 mg tablet 25 mg PO DAILY Qty: 30 0RF omeprazole 20 mg capsule,delayed release(DR/EC) 20 mg PO DAILY Qty: 90 3RF Rx Instructions: Take one capsule by mouth daily estradiol 0.01 % (0.1 mg/gram) cream 1 g vaginal 3XW Qty: 42.5 1RF levothyroxine 50 mcg tablet 50 mcg PO DAILY Qty: 90 0RF cholecalciferol (vitamin D3) 1,250 mcg (50,000 unit) capsule 1,250 mcg PO QWEEK Qty: 12 0RF (DME) Disabled Parking Permit See Rx Instructions .ROUTE .MEDSUPPLY Qty: 1 0RF Rx Instructions: Valid for 5 years melatonin 10 mg capsule 10 mg PO BEDTIME PRN (Reason: Insomnia) rosuvastatin 5 mg tablet 5 mg PO DAILY Qty: 90 1RF magnesium oxide 400 mg magnesium tablet 400 mg PO BID Qty: 180 1RF metoprolol succinate 25 mg tablet extended release 24 hr 25 mg PO BID Qty: 180 1RF amiodarone 200 mg tablet 200 mg PO BID acetaminophen 325 mg Tablet 650 mg PO Q6HR PRN (Reason: Fever/Mild Pain (1-3)) Qty: 60 0RF oxycodone 5 mg Tablet 5 mg PO Q4HR PRN (Reason: Pain, Moderate (4-6)) Qty: 15 0RF Discontinued Eliquis 2.5 mg tablet 2.5 mg PO BID Qty: 180 1RF amoxicillin 250 mg Capsule 1,000 mg PO BID Qty: 10 0RF Follow up/Referrals: Luba Belle DO [Primary Care Provider, Medical] Diet/Activity/Treatments Diet: Regular Diet comment: Soft with thin liquids no more thickener Visit Report/Discharge Packet Stand Alone Forms: Patient Portal/API, Stroke Signs & Symptoms Discharge Data Primary Care Provider: Luba Belle Attending Provider: Anastacio Turk Admit Date/Time: 09/28/24 02:16
--- NOTE | 2024-09-30 11:09 | CM.DPC ---
DCP Discharge SNF Per MD, had discussion with pt and family regarding Goals of Care and decision to return to [facility] for a short stay before working on Hospice/End of Life planning for either at [facility] or home with and Hospice. Per MD, pt stable for d/c to [facility] today and will stop her Eliquis and allow her to eat. Discharge orders placed. [facility] referral faxed requesting Info Visit to son to discuss options and services. SW confirmed with [facility] that they can accept pt back today and will attempt to skill her under Medicare for new dx but likely not for very long and then can work with family on transition to [facility]. Faxed signed med list, script, and MD orders and d/c summary and no PASRR needed for return. Plan: Patient to d/c to [facility] today around 1130 via facility van with plan to likely transition to Hospice/Comfort [facility] in the near future. [facility] to follow after d/c. MARTIN Mclean
== END 2024-09-30 12:08 ==
LOC: ED 09-28 01:52 → AC 09-28 05:31
PROVIDERS: Family Medicine; Admitting Provider Internal Medicine; Emergency Provider Student in an Organized Health Care Education/Training Program; PCP Family Medicine; Referring Provider Student in an Organized Health Care Education/Training Program; Visit Provider Internal Medicine
DX: K92.2 Gastrointestinal hemorrhage, unspecified (principal); I42.2 Other hypertrophic cardiomyopathy; I11.0 Hypertensive heart disease with heart failure; I50.84 End stage heart failure; K44.9 Diaphragmatic hernia without obstruction or gangrene; M48.56XA Collapsed vertebra, not elsewhere classified, lumbar region, initial encounter for fracture; J90 Pleural effusion, not elsewhere classified; I72.8 Aneurysm of other specified arteries; E03.9 Hypothyroidism, unspecified; E78.5 Hyperlipidemia, unspecified; Z96.0 Presence of urogenital implants; Z88.8 Allergy status to other drugs, medicaments and biological substances; Z86.74 Personal history of sudden cardiac arrest; Z79.01 Long term (current) use of anticoagulants; Z66 Do not resuscitate; Z95.0 Presence of cardiac pacemaker
CPT/HCPCS: 36415; 74176; 80048; 80053; 83605; 83690; 83735; 85014; 85018; 85025; 85610; 85730; 86850; 86900; 86901; 92610; 96361; 96374; 96375; 96376; 97161; 99284; 99285; G0378; J2270; J2470